=== PATIENT | male | born 1975 | race Two or more races ===

== ENCOUNTER 2021-04-02 00:02 | Inpatient (IN) | payer MEDICARE, MEDICAID, SELFPAY ==
[2021-04-02] VITALS (31 sets, daily range): BP systolic 79–99; BP diastolic 38–63; PULSE 59–168; RESP 11–31; TEMP 36.1; O2SAT 94–98; BMI 30.2
--- NOTE | 2021-04-02 | ECG_ITS ---
Test Reason : DISCHARGE EKG Blood Pressure : / mmHG Vent. Rate : 064 BPM Atrial Rate : 064 BPM P-R Int : 164 ms QRS Dur : 094 ms QT Int : 372 ms P-R-T Axes : 031 036 010 degrees QTc Int : 383 ms Normal sinus rhythm Normal ECG When compared with ECG of 02-APR-2021 00:11, Sinus rhythm has replaced Atrial fibrillation Vent. rate has decreased BY [address] elevation now present in Lateral leads T wave inversion less evident in Inferior leads Referred By: Alfredo Herring Electronically Signed By:RIP BARCENAS
--- NOTE | ~2021-04-02 | XR_ITS ---
EXAMINATION: XR CHEST CLINICAL INFORMATION: Chest pain COMPARISON: None TECHNIQUE: Frontal view of the chest was obtained. FINDINGS: Lung volumes are symmetric. No focal consolidation is seen. No evidence of pneumothorax, pleural effusion, or pulmonary edema. The cardiomediastinal contour is unremarkable. No acute osseous findings are seen. XR/XR chest 1V IMPRESSION: No acute cardiopulmonary findings.
--- NOTE | 2021-04-02 00:18 | ECG_ITS ---
Test Reason : CHEST PAIN Blood Pressure : / mmHG Vent. Rate : 158 BPM Atrial Rate : 326 BPM P-R Int : 000 ms QRS Dur : 092 ms QT Int : 286 ms P-R-T Axes : 000 056 -29 degrees QTc Int : 463 ms Atrial fibrillation with rapid ventricular response ST & T wave abnormality, consider inferior ischemia Abnormal ECG No previous ECGs available Referred By: Ulisses Vu Electronically Signed By:RIP BARCENAS
[2021-04-02] MEDS: dilTIAZem HCL 50 MG/10 ML VIAL 20 MG IVPUSH (00:24)
[2021-04-02 00:26] LABS: MANUAL DIFF FLAG NO
[2021-04-02 00:27] LABS: Basophils Absolute Auto 0.1 X10*3/uL (0.0-0.2); Basophils Percent Auto 0.7 % (0-2); Eosinophils Absolute Auto 0.2 X10*3/uL (0.0-0.4); Eosinophils Percent Auto 1.9 % (0-4); Hematocrit 39.9 % (42-52); Hemoglobin 13.8 g/dl (14.0-18.0); Imm Gran Abs Auto 0.06 X10*3/uL (0.00-0.03); Imm Gran Pct Auto 0.5 % (0.0-0.4); Lymphocytes Absolute Auto 3.3 X10*3/uL (1.2-4.9); Lymphocytes Percent Auto 27.8 % (20-40); Mean Corpuscular HGB Conc 34.6 g/dl (31.0-36.0); Mean Corpuscular Hemoglobin 28.5 pg (27.0-33.0); Mean Corpuscular Volume 82.3 fL (80-98); Mean Platelet Volume 10.2 fL (9.4-12.4); Monocytes Absolute Auto 0.9 X10*3/uL (0.1-1.2); Monocytes Percent Auto 7.3 % (2-11); Neutrophils Absolute Auto 7.3 X10*3/uL (2.0-8.3); Neutrophils Percent Auto 61.8 % (45-73); Platelet Count 326 X10*3/uL (160-400); Red Blood Count 4.85 X10*6/uL (4.60-5.80); Red Cell Distribution Width 13.2 % (11.0-16.0); White Blood Count 11.9 X10*3/uL (4.8-10.8)
[2021-04-02] MEDS: 0.9 % Sodium Chloride 1,000 ML 999 ML IV (00:28)
--- NOTE | 2021-04-02 00:30 | PC.NURSE ---
This RN to bedside, notes Priya, RN at bedside obtaining PIV access and labs. Pt noted to have HR in 180s, appears afib with RVR on monitor and storage bin tender. Pt aaox4, mentating appropriately. Dr Hammer to bedside, pt medicated with cardizem and IVF per orders with good effect. Pt HR now 110-120s. Pt reports wow that works fast, I don't feel like my heart is going to explode anymore. Pt denies CP. Pt labs sent to lab for processing.
--- NOTE | 2021-04-02 00:34 | PC.NURSE ---
Dr Hammer aware of pt's BP
[2021-04-02 00:41] LABS: Anion Gap 14 (12-20); Blood Urea Nitrogen 17 mg/dL (9-16); Carbon Dioxide 22 mmol/L (22-29); Chloride 104 mmol/L (96-108); Estimated Glomerular Filt Rate > 60; Glucose Random 142 mg/dL (60-115); Potassium 3.7 mmol/L (3.3-5.1); Sodium 136 mmol/L (135-145)
[2021-04-02 00:43] LABS: ~PT, ~INR - Anti Coag Clinic 1.1 (0.9-1.1)
[2021-04-02 00:46] LABS: COVID-19 Test Negative (Negative)
[2021-04-02 00:47] LABS: Troponin-I High Sensitivity < 3.5 ng/L (<3.5-35.0)
[2021-04-02] MEDS: Metoprolol Tartrate 5 MG/5 ML VIAL IVPUSH ×2 (00:55→04:53)
[2021-04-02] MEDS: 0.9 % Sodium Chloride 1,000 ML 999 ML IVCONT ×2 (00:56→01:40)
[2021-04-02] MEDS: Digoxin 0.5 MG/2 ML AMPUL IVPUSH (01:27)
--- NOTE | 2021-04-02 01:28 | ED.CHESTPAIN ---
HPI - Chest Pain General Chief Complaint: Chest Pain Stated Complaint: chest pain/vomiting (diabetic) Time Seen by Provider: 04/02/21 00:17 Source: patient Mode of arrival: ambulatory Limitations: no limitations History of Present Illness HPI narrative: Patient history of diabetes and MS just prior to arrival noticed palpitation with chest discomfort with lightheadedness which never happened before on arrival patient's heart rate was 168 atrial fibrillation. Patient does not have any coronary artery disease no use of cocaine no fever or chills no shortness of breath no cough Related Data Home Medications Medication Instructions Recorded Confirmed cholecalciferol (vitamin D3) 50 1 cap PO DAILY 04/02/21 04/02/21 mcg (2,000 unit) capsule clotrimazole 1 % topical cream 1 appl TOPICAL BID 04/02/21 04/02/21 dimethyl fumarate 240 mg 1 cap PO BID 04/02/21 04/02/21 capsule,delayed release (Tecfidera) insulin glargine 100 unit/mL (3 10 unit SUBCUT BEDTIME 04/02/21 04/02/21 mL) subcutaneous pen (Basaglar KwikPen U-100 Insulin) Allergies Allergy/AdvReac Type Severity Reaction Status Date / Time No Known Allergies Allergy Verified 04/02/21 00:22 Review of Systems Review of Systems: Constitutional : No Weight loss, No Fever, No Chills ENT/Mouth : No sore throat, No Rhinorrhea Eyes: No Eye Pain, No Swelling Cardiovascular : + Chest Pain, + palpitations Respiratory : No Cough, No Sputum, no shortness of breath Gastrointestinal : no Nausea, No Vomiting, No Diarrhea, No abdominal Pain, no black stools Genitourinary : No Dysuria, No Urinary Frequency Musculoskeletal : No joint pain, No Myalgias, No Joint Swelling Skin : No Skin Lesions, No rash Neuro : No Weakness, No Numbness, No Dizziness, No Headache Psych : No Anxiety/Panic, No Depression Heme/Lymph: No Bruising, No Lymphadenopathy Endocrine : No Polyuria, No Polydipsia All other systems reviewed and are negative [facility] Past Medical History Medical History (Updated 04/02/21 @ 01:36 by Ulisses Vu MD) Asthma Diabetes Multiple sclerosis Social History Social History Advance Directives: No Physical Exam Vital Signs: Vital Signs: Last Vital Signs Temp 97.0 F 04/02/21 00:19 Pulse 118 H 04/02/21 02:03 Resp 11 L 04/02/21 02:03 BP 94/50 L 04/02/21 02:03 Pulse Ox 97 04/02/21 02:03 Body Mass Index 30.2 Appearance: Alert. Oriented X3. No acute distress. Eyes: PERRLA, No Nystagmus no pallor or icterus ENT: Pharynx normal. Oral Mucosa moist Neck: Normal inspection. Neck supple. CVS: Tachycardia and irregularly irregular no murmur/gallop Pulses normal. Respiratory: No respiratory distress. Equal air entry bilateral, no wheezing/rales/rhonchi Abdomen: Soft and nontender. Bowel sounds are present, no mass palpable, no CVA tenderness Skin: Skin warm and dry. Normal skin color. Normal skin turgor. Extremities: No lower extremity edema. No calf tenderness Neuro: Oriented X 3. MDM - Chest Pain MDM Narrative Medical decision making narrative: Patient with new onset atrial fibrillation initially Cardizem was given blood pressure dropped to 79/45 IV fluids were given heart rate is still 120s. 5 mg Lopressor was also given which also dropped the blood pressure to 81/47 and heart rate is still fluctuating between 120-130. Will start patient on digoxin now. Patient denies any chest pain at this time. 2am; patient heart rate improved after digoxin to 90s blood pressure 90 6 x [address] Chung agreed for the plan continue digoxin. Will give Lovenox and aspirin Lab Data Attestation: I reviewed the patient's lab results. Result diagrams: 04/02/21 00:23 04/02/21 00:23 Labs: Lab Results 04/02/21 04/02/21 04/02/21 Range/Units 00:22 00:23 00:23 WBC 11.9 H (4.8-10.8) X10*3/uL RBC 4.85 (4.60-5.80) X10*6/uL Hgb 13.8 L (14.0-18.0) g/dl Hct 39.9 L (42-52) % MCV 82.3 (80-98) fL MCH 28.5 (27.0-33.0) pg MCHC 34.6 (31.0-36.0) g/dl RDW 13.2 (11.0-16.0) % Plt Count 326 (160-400) X10*3/uL MPV 10.2 (9.4-12.4) fL Immature Gran % (Auto) 0.5 H (0.0-0.4) % Neut % (Auto) 61.8 (45-73) % Lymph % (Auto) 27.8 (20-40) % [place] % (Auto) 7.3 (2-11) % Eos % (Auto) 1.9 (0-4) % Baso % (Auto) 0.7 (0-2) % Lymph # (Auto) 3.3 (1.2-4.9) X10*3/uL [place] # (Auto) 0.9 (0.1-1.2) X10*3/uL Eos # (Auto) 0.2 (0.0-0.4) X10*3/uL Baso # (Auto) 0.1 (0.0-0.2) X10*3/uL Abs Immat Gran (auto) 0.06 H (0.00-0.03) X10*3/uL Absolute Neuts (auto) 7.3 (2.0-8.3) X10*3/uL Absolute Nucleated RBC 0.000 (0.0-0.012) X10*3/uL Nucleated RBC % (auto) 0.0 (0.0-0.2) /100WBC Whole Blood PT (11.1-13.5) sec Whole Blood INR (0.9-1.1) Sodium 136 (135-145) mmol/L Potassium 3.7 (3.3-5.1) mmol/L Chloride 104 (96-108) mmol/L Carbon Dioxide 22 (22-29) mmol/L Anion Gap 14 (12-20) BUN 17 H (9-16) mg/dL Creatinine 1.18 (0.5-1.4) mg/dL Estim Creat Clear Calc 89.0 Estimated GFR > 60 Random Glucose 142 H (60-115) mg/dL Calcium 9.0 (8.4-10.2) mg/dL Troponin I High Sens (<3.5-35.0) ng/L Urine Color Urine Appearance Urine pH (5.0-8.0) Ur Specific [place] (1.005-1.025) Urine Protein (NEG-TRACE) MG/DL Urine Glucose (UA) (NEG) MG/DL Urine Ketones (NEG) MG/DL Urine Blood (NEG) Urine Nitrite (NEG) Ur Leukocyte Esterase (NEG) COVID-19 (THERESA) Negative (Negative) COVID-19 Clin Com See Note 04/02/21 04/02/21 04/02/21 Range/Units 00:23 00:39 01:36 WBC (4.8-10.8) X10*3/uL RBC (4.60-5.80) X10*6/uL Hgb (14.0-18.0) g/dl Hct (42-52) % MCV (80-98) fL MCH (27.0-33.0) pg MCHC (31.0-36.0) g/dl RDW (11.0-16.0) % Plt Count (160-400) X10*3/uL MPV (9.4-12.4) fL Immature Gran % (Auto) (0.0-0.4) % Neut % (Auto) (45-73) % Lymph % (Auto) (20-40) % [place] % (Auto) (2-11) % Eos % (Auto) (0-4) % Baso % (Auto) (0-2) % Lymph # (Auto) (1.2-4.9) X10*3/uL [place] # (Auto) (0.1-1.2) X10*3/uL Eos # (Auto) (0.0-0.4) X10*3/uL Baso # (Auto) (0.0-0.2) X10*3/uL Abs Immat Gran (auto) (0.00-0.03) X10*3/uL Absolute Neuts (auto) (2.0-8.3) X10*3/uL Absolute Nucleated RBC (0.0-0.012) X10*3/uL Nucleated RBC % (auto) (0.0-0.2) /100WBC Whole Blood PT 13.0 (11.1-13.5) sec Whole Blood INR 1.1 (0.9-1.1) Sodium (135-145) mmol/L Potassium (3.3-5.1) mmol/L Chloride (96-108) mmol/L Carbon Dioxide (22-29) mmol/L Anion Gap (12-20) BUN (9-16) mg/dL Creatinine (0.5-1.4) mg/dL Estim Creat Clear Calc Estimated GFR Random Glucose (60-115) mg/dL Calcium (8.4-10.2) mg/dL Troponin I High Sens < 3.5 (<3.5-35.0) ng/L Urine Color YELLOW Urine Appearance CLEAR Urine pH 6.0 (5.0-8.0) Ur Specific [place] 1.010 (1.005-1.025) Urine Protein NEG (NEG-TRACE) MG/DL Urine Glucose (UA) NEG (NEG) MG/DL Urine Ketones 15 (NEG) MG/DL Urine Blood NEG (NEG) Urine Nitrite NEG (NEG) Ur Leukocyte Esterase NEG (NEG) COVID-19 (THERESA) (Negative) COVID-19 Clin Com ECG Data ECG #1: Interpretation: Atrial fibrillation with heart rate 158 beats per minute no acute ischemic changes impression atrial fibrillation with fast ventricular rate Critical Care Time Critical Care Time Critical Care Time: Yes Total Critical Care Time: 40 Attestation: I spent 40 minutes of critical care, with interventions, assessments, speaking to patient, consultants, and family. Discharge Plan Discharge Clinical Impression: Atrial fibrillation, new onset Patient Disposition: Admitted As Inpatient
[2021-04-02 01:55] LABS: Appearance Urine CLEAR; Color Urine YELLOW; Glucose Urine UA NEG (NEG); Leukocyte Esterase Urine NEG (NEG); Nitrite Urine NEG (NEG); Urine Blood NEG (NEG); Urine Ketones 15 MG/DL (NEG); Urine Protein NEG (NEG-TRACE)
[2021-04-02] MEDS: Enoxaparin Sodium 100 MG/ML SYRINGE SUBCUT (02:01)
[2021-04-02] MEDS: Aspirin 81 MG TAB.CHEW PO (02:01)
[2021-04-02 02:06] LABS: Amphetamine Screen Urine Not Detected (Not Detect); Barbiturates, Urine Not Detected (Not Detect); Benzodiazepines Screen Urine Not Detected (Not Detect); Cannabinoid Screen Urine POSITIVE (Not Detect); Cocaine Screen Urine Not Detected (Not Detect); Fentanyl, urine Not Detected (Not Detect); Opiate Screen Urine Not Detected (Not Detect); Phencyclidine Screen Urine Not Detected (Not Detect)
[2021-04-02 02:07] LABS: Alanine Aminotransferase 32 U/L (0-40); Albumin Level 3.9 g/dL (3.5-5.0); Alkaline Phosphatase 100 U/L (39-117); Aspartate Amino Transferase 23 U/L (5-37); Bilirubin Direct < 0.2 mg/dL (0.0-0.5); Bilirubin Total < 0.2 mg/dL (0.0-1.0); Magnesium 2.3 mg/dL (1.6-2.6); Total Protein 6.8 g/dL (6.5-8.0)
--- NOTE | 2021-04-02 02:17 | P.HPHOSP_ITS ---
History of Present Illness Date of Service: 04/02/21 Chief Complaint: Chest discomfort 45-year-old male with a past medical history of MS presented to the hospital with a chief complaint of chest discomfort. Patient reported that this afternoon chest discomfort and funny sensation in his chest sepsis with the palpitations; denied any associated shortness of breath diaphoresis nausea. But just prior to coming to the hospital had an episode of vomiting. Denies any fever chills cough. Denies any recent travel sick contacts. Denies any alcohol use. Mentioned that he uses cannabis. Smokes 1 pack of cigarettes per day. Review of all other systems is negative except mentioned above ER course: Per ER team patient on presentation noted to be in new onset AFib with rapid ventricular response; received diltiazem IV push x2; subsequently patient had blood pressure dropped to 80s over 50s. Given 3 L of IV fluids. Blood pressure improved to 88/55. ER team spoke to Cardiology and subsequently started the patient on digoxin 0.5 IV and Lovenox at therapeutic dose. [facility] Medical History (Updated 04/02/21 @ 01:36 by Ulisses Vu MD) Asthma Diabetes Multiple sclerosis Pertinent family history: Patient denied any family history of heart disease Social History Advance Directives: No Meds Allergies Allergy/AdvReac Type Severity Reaction Status Date / Time No Known Allergies Allergy Verified 04/02/21 00:22 Active Medications: Current Medications Acetaminophen (Acetaminophen 325 Mg Tablet) 650 mg PO Q6H PRN PRN Reason: Pain, Mild (Pain Scale 1-3) Enoxaparin Sodium (Enoxaparin Sodium 60 Mg/0.6 Ml Syringe) 95 mg 1 mg/kg (95 mg) SUBCUT Q12H BECKY Sodium Chloride (Ns) 1,000 mls @ 999 mls/hr IVCONT .Q1H1M BECKY Stop: 04/02/21 02:45 Last Infusion: 04/02/21 01:57 Dose: Infused Documented by: Sodium Chloride (Ns) 1,000 mls @ 75 mls/hr IVCONT .[id number] BECKY Sodium Chloride (Ns) 1,000 mls @ 100 mls/hr IVCONT .Q10H BECKY Insulin Glargine (Insulin Glargine,Hum.Rec.Anlog 100 Unit/Ml 10 Ml Vial) 10 unit SUBCUT BEDTIME BECKY Melatonin (Melatonin 3 Mg Tablet) 6 mg PO BEDTIME PRN PRN Reason: Insomnia Metoprolol Tartrate (Metoprolol Tartrate 25 Mg Tablet) 25 mg PO BID [facility]; Protocol Non-Formulary Medication (Dimethyl Fumarate [Tecfidera]) 1 cap PO BID [facility] Senna (Sennosides 8.6 Mg Tablet) 17.2 mg PO BEDTIME PRN PRN Reason: Constipation Sodium Chloride (0.9 % Sodium Chloride Flush 3 Ml Syringe) 3 ml IVFLUSH QSHIFT [facility] Vitamin D (Cholecalciferol (Vitamin D3) 25 Mcg Tablet) 50 mcg PO DAILY [facility] Home Medications Medication Instructions Recorded Confirmed Last Taken Type cholecalciferol (vitamin D3) 50 1 cap PO DAILY 04/02/21 04/02/21 Unknown History mcg (2,000 unit) capsule clotrimazole 1 % topical cream 1 appl TOPICAL BID 04/02/21 04/02/21 04/01/21 History dimethyl fumarate 240 mg 1 cap PO BID 04/02/21 04/02/21 Unknown History capsule,delayed release (Tecfidera) insulin glargine 100 unit/mL (3 10 unit SUBCUT BEDTIME 04/02/21 04/02/21 Unknown History mL) subcutaneous pen (Basaglar KwikPen U-100 Insulin) Physical Exam Vital Signs and Narrative: Vital Signs: Last Vital Signs Temp 97.0 F 04/02/21 00:19 Pulse 105 H 04/02/21 02:14 Resp 11 L 04/02/21 02:14 BP 88/55 L 04/02/21 02:14 Pulse Ox 96 04/02/21 02:14 Body Mass Index 30.2 Gen: Appears be in no acute distress HEENT: NCAT, Moist mucosa. Pulmonary: Vesicular breath sounds, fair air entry CVS: Normal S1-S2 Abdomen: BS+, Soft, Nontender Extremities: Warm well perfused; peripheral pulses palpable; good capillary refill Neuro: Alert and awake. Grossly nonfocal Results Labs CBC and Chem 7: 04/02/21 03:48 04/02/21 03:47 Labs: Laboratory Results - last 24 hr 04/02/21 04/02/21 04/02/21 00:22 00:23 00:23 MCV 82.3 MCH 28.5 MCHC 34.6 RDW 13.2 Plt Count 326 MPV 10.2 Immature Gran % (Auto) 0.5 H Neut % (Auto) 61.8 Lymph % (Auto) 27.8 [place] % (Auto) 7.3 Eos % (Auto) 1.9 Baso % (Auto) 0.7 Lymph # (Auto) 3.3 [place] # (Auto) 0.9 Eos # (Auto) 0.2 Baso # (Auto) 0.1 Abs Immat Gran (auto) 0.06 H Absolute Neuts (auto) 7.3 Absolute Nucleated RBC 0.000 Nucleated RBC % (auto) 0.0 Whole Blood PT Whole Blood INR Anion Gap 14 Estim Creat Clear Calc 89.0 Estimated GFR > 60 Random Glucose 142 H Calcium 9.0 Magnesium 2.3 Total Bilirubin < 0.2 Direct Bilirubin < 0.2 AST 23 ALT 32 Alkaline Phosphatase 100 Troponin I High Sens Total Protein 6.8 Albumin 3.9 Urine Color Urine Appearance Urine pH Ur Specific [place] Urine Protein Urine Glucose (UA) Urine Ketones Urine Blood Urine Nitrite Ur Leukocyte Esterase Urine Opiates Screen Urine Fentanyl Screen Ur Barbiturates Screen Ur Phencyclidine Scrn Ur Amphetamines Screen U Benzodiazepines Scrn Urine Cocaine Screen U Marijuana (THC) Screen COVID-19 (THERESA) Negative COVID-19 Clin Com See Note 04/02/21 04/02/21 04/02/21 00:23 00:39 01:36 MCV MCH MCHC RDW Plt Count MPV Immature Gran % (Auto) Neut % (Auto) Lymph % (Auto) [place] % (Auto) Eos % (Auto) Baso % (Auto) Lymph # (Auto) [place] # (Auto) Eos # (Auto) Baso # (Auto) Abs Immat Gran (auto) Absolute Neuts (auto) Absolute Nucleated RBC Nucleated RBC % (auto) Whole Blood PT 13.0 Whole Blood INR 1.1 Anion Gap Estim Creat Clear Calc Estimated GFR Random Glucose Calcium Magnesium Total Bilirubin Direct Bilirubin AST ALT Alkaline Phosphatase Troponin I High Sens < 3.5 Total Protein Albumin Urine Color YELLOW Urine Appearance CLEAR Urine pH 6.0 Ur Specific [place] 1.010 Urine Protein NEG Urine Glucose (UA) NEG Urine Ketones 15 Urine Blood NEG Urine Nitrite NEG Ur Leukocyte Esterase NEG Urine Opiates Screen Urine Fentanyl Screen Ur Barbiturates Screen Ur Phencyclidine Scrn Ur Amphetamines Screen U Benzodiazepines Scrn Urine Cocaine Screen U Marijuana (THC) Screen COVID-19 (THERESA) COVID-19 Clin Com 04/02/21 01:36 MCV MCH MCHC RDW Plt Count MPV Immature Gran % (Auto) Neut % (Auto) Lymph % (Auto) [place] % (Auto) Eos % (Auto) Baso % (Auto) Lymph # (Auto) [place] # (Auto) Eos # (Auto) Baso # (Auto) Abs Immat Gran (auto) Absolute Neuts (auto) Absolute Nucleated RBC Nucleated RBC % (auto) Whole Blood PT Whole Blood INR Anion Gap Estim Creat Clear Calc Estimated GFR Random Glucose Calcium Magnesium Total Bilirubin Direct Bilirubin AST ALT Alkaline Phosphatase Troponin I High Sens Total Protein Albumin Urine Color Urine Appearance Urine pH Ur Specific [place] Urine Protein Urine Glucose (UA) Urine Ketones Urine Blood Urine Nitrite Ur Leukocyte Esterase Urine Opiates Screen Not Detected Urine Fentanyl Screen Not Detected Ur Barbiturates Screen Not Detected Ur Phencyclidine Scrn Not Detected Ur Amphetamines Screen Not Detected U Benzodiazepines Scrn Not Detected Urine Cocaine Screen Not Detected U Marijuana (THC) Screen POSITIVE H COVID-19 (THERESA) COVID-19 Clin Com Imaging Radiologist's Impressions: Impressions Chest X-Ray 04/02/21 00:18 IMPRESSION: No acute cardiopulmonary findings. Assessment and Plan (1) Atrial fibrillation, new onset: Status: Acute 45-year-old male with a past medical history of multiple sclerosis presented to the hospital with a chief complaint of chest discomfort/palpitations. Noted to have new onset AFib with rapid ventricular response. New onset AFib with rapid ventricular response: Patient received diltiazem IV. Blood pressure on the soft side. Patient is given digoxin IV loading. Cardiology was notified Given Lovenox at therapeutic dose in ER-will continue for now. Start the metoprolol 25 mg p.o. b.i.d. with holding parameters. Echocardiogram TSH troponin: <3.5--> 30; pt denies any chest pain. Likely demand; Hypotension: Patient blood pressure in the ER was noted to be in 80s/50s. Given 3 L of IV fluids. Blood pressure is slightly improved. Peripheral pulses palpable. Good capillary refill. Patient denied any lightheadedness or dizziness. Will continue to monitor. History of multiple sclerosis: Continue home Tecfidera DVT prophylaxis: Patient on Lovenox Code status: Full code Of note: Follow-up things for the day hospitalist once resumed care at 7:00 a.m. on 04/02/2021: Cardiology inputs Echocardiogram TSH Close monitoring of blood pressure Quality Stroke Does the patient have a stroke diagnosis?: No VTE Prior VTE?: No VTE Risk Level:: Medical - moderate - high VTE Device Contraindication: Treatment Not Indicated VTE Drug Contraindication: N/A - Med Ordered
[2021-04-02] MEDS: 0.9 % Sodium Chloride 1,000 ML 75 ML IVCONT (02:19)
--- NOTE | 2021-04-02 02:31 | PC.NURSE ---
Dr Saldana made aware of pt's HR and BP at this time. Per Les, pt to receive fluids at 75cc/h not 100cc/h. Pt medicated per orders
--- NOTE | 2021-04-02 02:42 | PC.NURSE ---
Dr Saldana made aware of BP 79/48 HR 128, awaiting reply
--- NOTE | 2021-04-02 03:41 | PC.NURSE ---
Pt's HR noted to be 135 with increases up to as high as 167. BP 99/[address] Saldana made aware. Plan for ativan and if no improvement, additional dose of IV metoprolol
[2021-04-02] MEDS: LORazepam 0.5 MG TABLET PO (03:54)
[2021-04-02 04:08] LABS: Basophils Absolute Auto 0.1 X10*3/uL (0.0-0.2); Basophils Percent Auto 0.5 % (0-2); Eosinophils Absolute Auto 0.1 X10*3/uL (0.0-0.4); Eosinophils Percent Auto 1.2 % (0-4); Hematocrit 36.7 % (42-52); Hemoglobin 12.3 g/dl (14.0-18.0); Imm Gran Abs Auto 0.05 X10*3/uL (0.00-0.03); Imm Gran Pct Auto 0.4 % (0.0-0.4); Lymphocytes Absolute Auto 1.8 X10*3/uL (1.2-4.9); MANUAL DIFF FLAG NO; Mean Corpuscular HGB Conc 33.5 g/dl (31.0-36.0); Mean Corpuscular Hemoglobin 28.2 pg (27.0-33.0); Mean Corpuscular Volume 84.2 fL (80-98); Mean Platelet Volume 10.4 fL (9.4-12.4); Monocytes Absolute Auto 0.6 X10*3/uL (0.1-1.2); Monocytes Percent Auto 5.7 % (2-11); Neutrophils Absolute Auto 8.6 X10*3/uL (2.0-8.3); Neutrophils Percent Auto 76.2 % (45-73); Platelet Count 308 X10*3/uL (160-400); Red Blood Count 4.36 X10*6/uL (4.60-5.80); Red Cell Distribution Width 13.2 % (11.0-16.0); White Blood Count 11.3 X10*3/uL (4.8-10.8)
[2021-04-02 04:30] LABS: Magnesium 2.2 mg/dL (1.6-2.6)
[2021-04-02 04:41] LABS: Anion Gap 12 (12-20); Blood Urea Nitrogen 14 mg/dL (9-16); Calcium 7.9 mg/dL (8.4-10.2); Carbon Dioxide 23 mmol/L (22-29); Chloride 110 mmol/L (96-108); Creatinine Clr Calc Pharmacy 107.1; Estimated Glomerular Filt Rate > 60; Glucose Random 128 mg/dL (60-115); Potassium 4.5 mmol/L (3.3-5.1); Sodium 140 mmol/L (135-145); Troponin-I High Sensitivity 30.9 ng/L (<3.5-35.0)
--- NOTE | 2021-04-02 04:41 | PC.NURSE ---
Dr Saldana made aware of pt's VS, plan for metoprolol IV
--- NOTE | 2021-04-02 04:54 | PC.NURSE ---
Dr Saldana made aware of delta trop
--- NOTE | 2021-04-02 05:49 | PC.NURSE ---
This RN recognized pt HR in 60s on monitor worker. Pt converted to NSR. RN to bedside, assessed BP. 89/[address] Saldana made aware.
--- NOTE | 2021-04-02 07:23 | PC.NURSE ---
pt is currently resting comfortably the stretcher, skin appropriate for ethnicity, respirations even and unlabored, denies chest pain/sob, ns on the monitor, bp improving 96/57. pt awaiting room assignments.
[2021-04-02] MEDS: 0.9 % Sodium Chloride Flush 3 ML SYRINGE IVFLUSH (08:02)
[2021-04-02] MEDS: Metoprolol Tartrate 25 MG TABLET PO (08:02)
[2021-04-02] MEDS: Cholecalciferol (Vitamin D3) 25 MCG TABLET 50 MCG PO (08:02)
--- NOTE | 2021-04-02 08:05 | PC.NURSE ---
metoprolol held at this time, low bp 92/54, fluids also d/c at this time per hospitalist
--- NOTE | 2021-04-02 09:11 | PM.CNCAR ---
History of Present Illness History of Present Illness Date of Service: 04/02/21 Requesting physician: Erick Saldana Consult reason: atrial fibrillation Chief complaint: New onset afib with RVR Narrative: I was asked to see Michael in cardiology consultation today for new onset atrial fibrillation. He si a pleasant 45-year-old man with prior medical history of multiple sclerosis, quite functional with it as well as recently diagnosed diabetes for about a week as per him. He was in usual state of health yesterday, went to walk his dog around 832 21:30. Came home and had a shower and then laid done in started feeling palpitations. He does the he might have had a heartburn. However he subsequently went down to have a cup of water the kitchen and subsequently continued to have symptoms of palpitation and then felt lightheaded. He then had his who noticed that he had a rapid heartbeat and advised him to come to the emergency room. Because he started getting more lightheaded he decided to come to the emergency room. When he came to the emergency room his initial blood pressure is a systolic upper 90s. He was noted to be in atrial fibrillation with rapid ventricular response. Subsequently was given IV Cardizem boluses x2 and had low blood pressure response with systolic blood pressure in the upper 70s. He had no lightheadedness or syncope with that. He remained in atrial fibrillation and after discussing cardiology was given digoxin. Around 05:00 this morning converted back to sinus rhythm. He feels very well at this point in time. His blood pressure remains in the 90s. At no point in time he had any chest pain or shortness of breath. He did not have any syncopal episodes. He has never had prior similar episodes. No recent systemic symptoms. Review of Systems Constitutional: Constitutional: Reports no additional constitutional complaints Eyes: Eyes: Reports no additional eye complaints ENT: Reports system reviewed and no additional complaints, except as documented Cardiovascular: Cardiovascular: Denies chest pain, Reports chest pain with activity, Denies syncope, Reports rapid heart rate, Denies leg edema, Reports lightheadedness, Reports palpitations and Denies dyspnea Respiratory: Respiratory: Reports no additional respiratory complaints and Denies dyspnea Gastrointestinal: Gastrointestinal: Reports no additional gastrointestinal complaints Genitourinary: Genitourinary: Reports no additional male genitourinary complaints Musculoskeletal: Musculoskeletal: Reports no additional musculoskeletal complaints Neurologic: Reports system reviewed and no additional complaints, except as documented and Denies syncope Psychiatric: Psychiatric: Reports no additional psychiatric complaints Endocrine: Endocrine: Reports palpitations Hematologic/Lymphatic: Hematologic/Lymphatic: Reports no additional hematologic/lymphatic complaints Allergic/Immunologic: Allergic/Immunologic: Reports no additional allergic/immunologic complaints [facility] Past Medical History Medical History Asthma Diabetes Multiple sclerosis Social History Social History Patient Tobacco Use Status: Current everyday Tobacco user Use of substances other than those prescribed or required for medical reasons: Yes Substance Use Type: Marijuana Substance Use Frequency: Daily Advance Directives: No Meds Allergies Allergy/AdvReac Type Severity Reaction Status Date / Time No Known Allergies Allergy Verified 04/02/21 00:22 Active Medications: Current Medications Acetaminophen (Acetaminophen 325 Mg Tablet) 650 mg PO Q6H PRN PRN Reason: Pain, Mild (Pain Scale 1-3) Enoxaparin Sodium (Enoxaparin Sodium 100 Mg/Ml Syringe) 95 mg SUBCUT Q12H [facility] Sodium Chloride (Ns) 1,000 mls @ 100 mls/hr IVCONT .Q10H [facility] Last Admin: 04/02/21 02:25 Dose: Not Given Documented by: Insulin Glargine (Insulin Glargine,Hum.Rec.Anlog 100 Unit/Ml 10 Ml Vial) 10 unit SUBCUT BEDTIME BECKY Melatonin (Melatonin 3 Mg Tablet) 6 mg PO BEDTIME PRN PRN Reason: Insomnia Metoprolol Tartrate (Metoprolol Tartrate 25 Mg Tablet) 25 mg PO BID [facility]; Protocol Last Admin: 04/02/21 08:02 Dose: 25 mg Documented by: Non-Formulary Medication (Dimethyl Fumarate [Tecfidera]) 1 cap PO BID [facility] Senna (Sennosides 8.6 Mg Tablet) 17.2 mg PO BEDTIME PRN PRN Reason: Constipation Sodium Chloride (0.9 % Sodium Chloride Flush 3 Ml Syringe) 3 ml IVFLUSH QSHIFT [facility] Last Admin: 04/02/21 08:02 Dose: 3 ml Documented by: Vitamin D (Cholecalciferol (Vitamin D3) 25 Mcg Tablet) 50 mcg PO DAILY [facility] Last Admin: 04/02/21 08:02 Dose: 50 mcg Documented by: Home Medications Medication Instructions Recorded Confirmed Last Taken Type cholecalciferol (vitamin D3) 50 1 cap PO DAILY 04/02/21 04/02/21 Unknown History mcg (2,000 unit) capsule clotrimazole 1 % topical cream 1 appl TOPICAL BID 04/02/21 04/02/21 04/01/21 History dimethyl fumarate 240 mg 1 cap PO BID 04/02/21 04/02/21 Unknown History capsule,delayed release (Tecfidera) insulin glargine 100 unit/mL (3 10 unit SUBCUT BEDTIME 04/02/21 04/02/21 Unknown History mL) subcutaneous pen (Basaglar KwikPen U-100 Insulin) Physical Exam Vital Signs: Vital Signs: Last Vital Signs Temp 97.0 F 04/02/21 00:19 Pulse 59 04/02/21 08:05 Resp 16 04/02/21 07:21 BP 92/54 L 04/02/21 08:05 Pulse Ox 95 04/02/21 08:05 Body Mass Index 30.2 Const: General: cooperative, comfortable, no acute distress, alert and awake Nutritional Appearance: overweight Orientation/consciousness: patient oriented x3 Limitations: no limitations HENMT: Head: Yes normocephalic and Yes atraumatic Neck: Neck: Yes trachea midline, Yes supple and Yes no JVD Resp: Effort & Inspection: normal respiratory effort Auscultation: clear to auscultation bilaterally Cardio: Jugular venous distension: no JVD Palpation: normal PMI Rate: regular rate Rhythm: regular rhythm Heart sounds: S1 normal heart sound present, S2 normal heart sound present, no click, no gallops, no murmurs and no rubs GI: Auscultation: normal bowel sounds Skin: General skin exam: no rashes or lesions noted Neuro: General: patient oriented x3 and no focal motor deficits Extrem: General: Yes no clubbing, cyanosis or edema Psych: Appearance: grossly normal Results Labs and Meds Result diagrams: 04/02/21 03:48 04/02/21 03:47 Lab results: Laboratory Results - last 24 hr 04/02/21 04/02/21 04/02/21 00:22 00:23 00:23 WBC 11.9 H RBC 4.85 Hgb 13.8 L Hct 39.9 L MCV 82.3 MCH 28.5 MCHC 34.6 RDW 13.2 Plt Count 326 MPV 10.2 Immature Gran % (Auto) 0.5 H Neut % (Auto) 61.8 Lymph % (Auto) 27.8 [place] % (Auto) 7.3 Eos % (Auto) 1.9 Baso % (Auto) 0.7 Lymph # (Auto) 3.3 [place] # (Auto) 0.9 Eos # (Auto) 0.2 Baso # (Auto) 0.1 Abs Immat Gran (auto) 0.06 H Absolute Neuts (auto) 7.3 Absolute Nucleated RBC 0.000 Nucleated RBC % (auto) 0.0 Whole Blood PT Whole Blood INR Sodium 136 Potassium 3.7 Chloride 104 Carbon Dioxide 22 Anion Gap 14 BUN 17 H Creatinine 1.18 Estim Creat Clear Calc 89.0 Estimated GFR > 60 Random Glucose 142 H Calcium 9.0 Magnesium 2.3 Total Bilirubin < 0.2 Direct Bilirubin < 0.2 AST 23 ALT 32 Alkaline Phosphatase 100 Troponin I High Sens Total Protein 6.8 Albumin 3.9 TSH 1.80 Urine Color Urine Appearance Urine pH Ur Specific [place] Urine Protein Urine Glucose (UA) Urine Ketones Urine Blood Urine Nitrite Ur Leukocyte Esterase Urine Opiates Screen Urine Fentanyl Screen Ur Barbiturates Screen Ur Phencyclidine Scrn Ur Amphetamines Screen U Benzodiazepines Scrn Urine Cocaine Screen U Marijuana (THC) Screen COVID-19 ([facility]) Negative COVID-19 Clin Com See Note 04/02/21 04/02/21 04/02/21 00:23 00:39 01:36 WBC RBC Hgb Hct MCV MCH MCHC RDW Plt Count MPV Immature Gran % (Auto) Neut % (Auto) Lymph % (Auto) [place] % (Auto) Eos % (Auto) Baso % (Auto) Lymph # (Auto) [place] # (Auto) Eos # (Auto) Baso # (Auto) Abs Immat Gran (auto) Absolute Neuts (auto) Absolute Nucleated RBC Nucleated RBC % (auto) Whole Blood PT 13.0 Whole Blood INR 1.1 Sodium Potassium Chloride Carbon Dioxide Anion Gap BUN Creatinine Estim Creat Clear Calc Estimated GFR Random Glucose Calcium Magnesium Total Bilirubin Direct Bilirubin AST ALT Alkaline Phosphatase Troponin I High Sens < 3.5 Total Protein Albumin TSH Urine Color YELLOW Urine Appearance CLEAR Urine pH 6.0 Ur Specific [place] 1.010 Urine Protein NEG Urine Glucose (UA) NEG Urine Ketones 15 Urine Blood NEG Urine Nitrite NEG Ur Leukocyte Esterase NEG Urine Opiates Screen Urine Fentanyl Screen Ur Barbiturates Screen Ur Phencyclidine Scrn Ur Amphetamines Screen U Benzodiazepines Scrn Urine Cocaine Screen U Marijuana (THC) Screen COVID-19 ([facility]) COVID-19 Clin Com 04/02/21 04/02/21 04/02/21 01:36 03:47 03:47 WBC RBC Hgb Hct MCV MCH MCHC RDW Plt Count MPV Immature Gran % (Auto) Neut % (Auto) Lymph % (Auto) [place] % (Auto) Eos % (Auto) Baso % (Auto) Lymph # (Auto) [place] # (Auto) Eos # (Auto) Baso # (Auto) Abs Immat Gran (auto) Absolute Neuts (auto) Absolute Nucleated RBC Nucleated RBC % (auto) Whole Blood PT Whole Blood INR Sodium 140 Potassium 4.5 D Chloride 110 H Carbon Dioxide 23 Anion Gap 12 BUN 14 Creatinine 0.98 Estim Creat Clear Calc 107.1 Estimated GFR > 60 Random Glucose 128 H Calcium 7.9 L D Magnesium 2.2 Total Bilirubin Direct Bilirubin AST ALT Alkaline Phosphatase Troponin I High Sens Total Protein Albumin TSH Urine Color Urine Appearance Urine pH Ur Specific [place] Urine Protein Urine Glucose (UA) Urine Ketones Urine Blood Urine Nitrite Ur Leukocyte Esterase Urine Opiates Screen Not Detected Urine Fentanyl Screen Not Detected Ur Barbiturates Screen Not Detected Ur Phencyclidine Scrn Not Detected Ur Amphetamines Screen Not Detected U Benzodiazepines Scrn Not Detected Urine Cocaine Screen Not Detected U Marijuana (THC) Screen POSITIVE H COVID-19 ([facility]) COVID-19 Clin Com 04/02/21 04/02/21 03:47 03:48 WBC 11.3 H RBC 4.36 L Hgb 12.3 L Hct 36.7 L MCV 84.2 MCH 28.2 MCHC 33.5 RDW 13.2 Plt Count 308 MPV 10.4 Immature Gran % (Auto) 0.4 Neut % (Auto) 76.2 H Lymph % (Auto) 16.0 L [place] % (Auto) 5.7 Eos % (Auto) 1.2 Baso % (Auto) 0.5 Lymph # (Auto) 1.8 [place] # (Auto) 0.6 Eos # (Auto) 0.1 Baso # (Auto) 0.1 Abs Immat Gran (auto) 0.05 H Absolute Neuts (auto) 8.6 H Absolute Nucleated RBC 0.000 Nucleated RBC % (auto) 0.0 Whole Blood PT Whole Blood INR Sodium Potassium Chloride Carbon Dioxide Anion Gap BUN Creatinine Estim Creat Clear Calc Estimated GFR Random Glucose Calcium Magnesium Total Bilirubin Direct Bilirubin AST ALT Alkaline Phosphatase Troponin I High Sens 30.9 D Total Protein Albumin TSH Urine Color Urine Appearance Urine pH Ur Specific [place] Urine Protein Urine Glucose (UA) Urine Ketones Urine Blood Urine Nitrite Ur Leukocyte Esterase Urine Opiates Screen Urine Fentanyl Screen Ur Barbiturates Screen Ur Phencyclidine Scrn Ur Amphetamines Screen U Benzodiazepines Scrn Urine Cocaine Screen U Marijuana (THC) Screen COVID-19 ([facility]) COVID-19 Clin Com ECG Attestation: I personally reviewed and interpreted this ECG as follows: Interpretation: EKG shows atrial fibrillation with rapid ventricular response with nonspecific ST changes. Imaging Radiologist's impression: Impressions Chest X-Ray 04/02/21 00:18 IMPRESSION: No acute cardiopulmonary findings. Assessment and Plan (1) Atrial fibrillation, new onset: Status: Acute Symptomatic new onset atrial fibrillation, developed low blood pressure with IV Cardizem most likely intravascular volume depletion. Currently converted back to sinus rhythm with improved symptoms. Blood pressures are 90s and appears to be in that range. His troponin is elevated, most likely rate-related as well as related to low blood pressure. He is not have any other active myocardial ischemic symptoms. Will repeat EKG and as long as and no significant ST changes I think his workup can be pursued as an outpatient. He will require workup with an echocardiogram, Holter monitor and a stress test to evaluate for structural heart disease. We had a long discussion about pathophysiology of atrial fibrillation and management. At this point time as long as patient remains asymptomatic and is not dizzy can be discharged home with low-dose Toprol XL 25 mg daily as well as oral anticoagulation with Xarelto 20 mg daily given his CHADSVASc score of 1 with diabetes as risk factors. Further treatment can be carried on others as outpatient. Advise increase fluid intake. Will follow up as outpatient. Thank you for allowing me to partake in his care Procedures Date of Service Date of Service: 04/02/21
--- NOTE | 2021-04-02 09:15 | PC.NURSE ---
opening machine cleaner at bedside
[2021-04-02 09:39] LABS: Troponin-I High Sensitivity 43.4 ng/L (<3.5-35.0)
--- NOTE | 2021-04-02 09:47 | MHC.CM.PN ---
Met with patient in regards to discharge planning. Patient lives with his , ambulates independently and had no services prior to coming to the hospital. No services anticipated to be needed because patient is not homebound. PCP verified. Patient denies having a HCP. Information provided. Patient not interested in completing one at this time. IMM explained and signed. Patient received his 2nd Pfizer vaccine in December. Patient's will transport him home when medically stable. Patient reports to LIZ Ribeiro that he has been unsuccessful in contacting his PCP's office about glucose issues. T/W has asked the residential case manager to arrange a follow up appointment for patient. Gema aware. Continue to monitor for d/c needs.
--- NOTE | 2021-04-02 10:40 | P.DS_ITS ---
DS: Providers Provider Date of Service: 04/02/21 Date of admission: 04/02/21 02:10 Primary care physician: [facility] Consults: 04/02/21 02:10 Consult to Cardiology Routine Consulting Provider: Flaco Chung Reason for consultation: new afib with rvr; chest discomfort; Attending physician on discharge: Wild Martinez Discharging clinician: Gema Pimentel DS: Diagnosis Discharge Diagnosis (1) Atrial fibrillation, new onset: Status: Acute DS: Summary Hospital Course Hospital Course: Hp as per admitting provider 45-year-old male with a past medical history of MS presented to the hospital with a chief complaint of chest discomfort. Patient reported that this afternoon chest discomfort and funny sensation in his chest sepsis with the palpitations; denied any associated shortness of breath diaphoresis nausea.? But just prior to coming to the hospital had an episode of vomiting. Denies any fever chills cough.? Denies any recent travel sick contacts. Denies any alcohol use. Mentioned that he uses cannabis. Smokes 1 pack of cigarettes per day . Atrial fibrillation with rapid ventricular response. New onset. He had no symptoms of chest pain, shortness of breath. EKG showed no ischemic changes. Mildly elevated troponin was secondary to hypotension. Received IV diltiazem in the ER along with IV fluids, metoprolol, digoxin, aspirin. Was placed on Lovenox. TSH 1.80, magnesium 2.2. He was seen and evaluated by cardiology with recommendation to start metoprolol 25 mg b.i.d. and Eliquis 5 mg b.i.d.. He did convert to normal sinus rhythm while in the ER and feels well. His blood pressure was on the low side but he stated his blood pressures generally run low and he is not on any antihypertensives. He was also given IV Cardizem in the ER which also contributed as well as volume depletion. He will follow up with Cardiology as an outpatient For further outpatient workup. Time Spent with Patient Time attestation: Total time spent providing and/or coordinating discharge services: Discharge coordination time: Greater than 30 minutes Quality: Stroke Does the patient have a stroke diagnosis?: No Physical Exam Vital Signs: Vital Signs: Last Vital Signs Temp 97.0 F 04/02/21 00:19 Pulse 59 04/02/21 08:05 Resp 16 04/02/21 07:21 BP 92/54 L 09/20/21 08:05 Pulse Ox 95 04/02/21 08:05 Body Mass Index 30.2 Appearing in no acute distress head is normocephalic atraumatic eyes pupils are PERRLA sclera is anicteric mouth throat mucous membranes are intact and moist neck is supple no lymphadenopathy, no JVD noted lung sounds are clear to auscultation heart regular rate rhythm, clear S1, S2 positive bowel sounds, abdomen is soft, nontender neuro patient is alert x3, no focal deficits DS: Data Data Completed and Pending Labs on day of discharge: Laboratory Results - last 24 hr 04/02/21 04/02/21 04/02/21 00:22 00:23 00:23 WBC 11.9 H RBC 4.85 Hgb 13.8 L Hct 39.9 L MCV 82.3 MCH 28.5 MCHC 34.6 RDW 13.2 Plt Count 326 MPV 10.2 Immature Gran % (Auto) 0.5 H Neut % (Auto) 61.8 Lymph % (Auto) 27.8 [place] % (Auto) 7.3 Eos % (Auto) 1.9 Baso % (Auto) 0.7 Lymph # (Auto) 3.3 [place] # (Auto) 0.9 Eos # (Auto) 0.2 Baso # (Auto) 0.1 Abs Immat Gran (auto) 0.06 H Absolute Neuts (auto) 7.3 Absolute Nucleated RBC 0.000 Nucleated RBC % (auto) 0.0 Whole Blood PT Whole Blood INR Sodium 136 Potassium 3.7 Chloride 104 Carbon Dioxide 22 Anion Gap 14 BUN 17 H Creatinine 1.18 Estim Creat Clear Calc 89.0 Estimated GFR > 60 Random Glucose 142 H Calcium 9.0 Magnesium 2.3 Total Bilirubin < 0.2 Direct Bilirubin < 0.2 AST 23 ALT 32 Alkaline Phosphatase 100 Troponin I High Sens Total Protein 6.8 Albumin 3.9 TSH 1.80 Urine Color Urine Appearance Urine pH Ur Specific [place] Urine Protein Urine Glucose (UA) Urine Ketones Urine Blood Urine Nitrite Ur Leukocyte Esterase Urine Opiates Screen Urine Fentanyl Screen Ur Barbiturates Screen Ur Phencyclidine Scrn Ur Amphetamines Screen U Benzodiazepines Scrn Urine Cocaine Screen U Marijuana (THC) Screen COVID-19 ([facility]) Negative COVID-19 Clin Com See Note 04/02/21 04/02/21 04/02/21 00:23 00:39 01:36 WBC RBC Hgb Hct MCV MCH MCHC RDW Plt Count MPV Immature Gran % (Auto) Neut % (Auto) Lymph % (Auto) [place] % (Auto) Eos % (Auto) Baso % (Auto) Lymph # (Auto) [place] # (Auto) Eos # (Auto) Baso # (Auto) Abs Immat Gran (auto) Absolute Neuts (auto) Absolute Nucleated RBC Nucleated RBC % (auto) Whole Blood PT 13.0 Whole Blood INR 1.1 Sodium Potassium Chloride Carbon Dioxide Anion Gap BUN Creatinine Estim Creat Clear Calc Estimated GFR Random Glucose Calcium Magnesium Total Bilirubin Direct Bilirubin AST ALT Alkaline Phosphatase Troponin I High Sens < 3.5 Total Protein Albumin TSH Urine Color YELLOW Urine Appearance CLEAR Urine pH 6.0 Ur Specific [place] 1.010 Urine Protein NEG Urine Glucose (UA) NEG Urine Ketones 15 Urine Blood NEG Urine Nitrite NEG Ur Leukocyte Esterase NEG Urine Opiates Screen Urine Fentanyl Screen Ur Barbiturates Screen Ur Phencyclidine Scrn Ur Amphetamines Screen U Benzodiazepines Scrn Urine Cocaine Screen U Marijuana (THC) Screen COVID-19 ([facility]) COVID-19 Clin Com 04/02/21 04/02/21 04/02/21 01:36 03:47 03:47 WBC RBC Hgb Hct MCV MCH MCHC RDW Plt Count MPV Immature Gran % (Auto) Neut % (Auto) Lymph % (Auto) [place] % (Auto) Eos % (Auto) Baso % (Auto) Lymph # (Auto) [place] # (Auto) Eos # (Auto) Baso # (Auto) Abs Immat Gran (auto) Absolute Neuts (auto) Absolute Nucleated RBC Nucleated RBC % (auto) Whole Blood PT Whole Blood INR Sodium 140 Potassium 4.5 D Chloride 110 H Carbon Dioxide 23 Anion Gap 12 BUN 14 Creatinine 0.98 Estim Creat Clear Calc 107.1 Estimated GFR > 60 Random Glucose 128 H Calcium 7.9 L D Magnesium 2.2 Total Bilirubin Direct Bilirubin AST ALT Alkaline Phosphatase Troponin I High Sens Total Protein Albumin TSH Urine Color Urine Appearance Urine pH Ur Specific [place] Urine Protein Urine Glucose (UA) Urine Ketones Urine Blood Urine Nitrite Ur Leukocyte Esterase Urine Opiates Screen Not Detected Urine Fentanyl Screen Not Detected Ur Barbiturates Screen Not Detected Ur Phencyclidine Scrn Not Detected Ur Amphetamines Screen Not Detected U Benzodiazepines Scrn Not Detected Urine Cocaine Screen Not Detected U Marijuana (THC) Screen POSITIVE H COVID-19 ([facility]) COVID-19 Clin Com 04/02/21 04/02/21 04/02/21 03:47 03:48 09:01 WBC 11.3 H RBC 4.36 L Hgb 12.3 L Hct 36.7 L MCV 84.2 MCH 28.2 MCHC 33.5 RDW 13.2 Plt Count 308 MPV 10.4 Immature Gran % (Auto) 0.4 Neut % (Auto) 76.2 H Lymph % (Auto) 16.0 L [place] % (Auto) 5.7 Eos % (Auto) 1.2 Baso % (Auto) 0.5 Lymph # (Auto) 1.8 [place] # (Auto) 0.6 Eos # (Auto) 0.1 Baso # (Auto) 0.1 Abs Immat Gran (auto) 0.05 H Absolute Neuts (auto) 8.6 H Absolute Nucleated RBC 0.000 Nucleated RBC % (auto) 0.0 Whole Blood PT Whole Blood INR Sodium Potassium Chloride Carbon Dioxide Anion Gap BUN Creatinine Estim Creat Clear Calc Estimated GFR Random Glucose Calcium Magnesium Total Bilirubin Direct Bilirubin AST ALT Alkaline Phosphatase Troponin I High Sens 30.9 D 43.4 H* Total Protein Albumin TSH Urine Color Urine Appearance Urine pH Ur Specific [place] Urine Protein Urine Glucose (UA) Urine Ketones Urine Blood Urine Nitrite Ur Leukocyte Esterase Urine Opiates Screen Urine Fentanyl Screen Ur Barbiturates Screen Ur Phencyclidine Scrn Ur Amphetamines Screen U Benzodiazepines Scrn Urine Cocaine Screen U Marijuana (THC) Screen COVID-19 ([facility]) COVID-19 Clin Com Discharge Plan Discharge Anticipated Discharge Date/Time: 04/02/21 10:31 Patient Disposition: Home, Self-Care Discharge Diagnosis: atrial fibrillation with rapid ventricular response Referrals: [facility] [Primary Care Provider] - 04/09/21 1:30 pm (You have a primary care follow up appointment scheduled on April 09 at 1:30 pm. Please call your doctor's office if you need to reschedule.) Discharge Medications: New metoprolol tartrate 25 mg Tablet 25 mg PO BID Qty: 60 RF: 0 Eliquis 5 mg tablet 5 mg PO BID Qty: 60 RF: 0 Continued clotrimazole 1 % cream 1 appl topical BID RF: 0 Basaglar KwikPen U-100 Insulin 100 unit/mL (3 mL) insulin pen 10 unit subcut BEDTIME RF: 0 dimethyl fumarate [Tecfidera] 240 mg capsule,delayed release(DR/EC) 1 cap PO BID RF: 0 cholecalciferol (vitamin D3) 50 mcg (2,000 unit) capsule 1 cap PO DAILY RF: 0 Discharge Orders: Discharge Order (Routine); Ordered 04/02/21 Ordered By: Gema Pimentel Diet: advance to usual diet Activity on Discharge: As tolerated Stand Alone Forms: Patient Portal Discharge page, Work/School Release Care Plan Goals: no further episodes of atrial fibrillation with rapid ventricular response Health Concerns: atrial fibrillation with rapid ventricular response Plan of Treatment: Follow-up with [facility] management Follow-up with your primary care provider You have been started on 2 new medications please take them as prescribed Assessment: see discharge summary
== END 2021-04-02 11:35 | disposition home or self-care (01) | DRG 310 ==
LOC: HO.ED 01:47 → HO.EDOVER 02:30
PROVIDERS: Admitting Provider Hospitalist; Emergency Provider Internal Medicine; Visit Provider Nurse Practitioner Acute Care
DX: I48.91 Unspecified atrial fibrillation (principal); G35 Multiple sclerosis; F17.210 Nicotine dependence, cigarettes, uncomplicated; I95.9 Hypotension, unspecified; Z20.822 Contact with and (suspected) exposure to COVID-19; Z71.6 Tobacco abuse counseling; Z79.01 Long term (current) use of anticoagulants; Z79.899 Other long term (current) drug therapy
CPT/HCPCS: 36415; 71045; 80048; 80076; 80307; 81003; 83735; 84443; 84484; 85025; 85610; 87635; 93005; 99285; J1160; J1650

== ENCOUNTER → 2021-04-13 09:31 | Outpatient (REF) | payer MEDICARE, MEDICAID, SELFPAY ==
--- NOTE | 2021-04-13 09:35 | HM_ITS ---
Conclusion: Patient was monitored for total period of 2 days and 22 hours. Basic rhythm is normal sinus rhythm with average heart of 85 beats per minute. Minimal heart rate 54 beats per minute No significant pauses or bradycardia noted The total atrial fibrillation burden of 5.19% with longest episode of 3 hours and 40 minutes. Patient noted to have atrial fibrillation rapid ventricular response during this time. No 20 episodes of 3-4 beat salvos of nonsustained VT, fastest to 104 beats per minute There were total of 561 PVCs accounting for 0.15% of total burden, consistent with rare PVCs There were total of 867 PACs occurred with total burden of 0.24% consistent with rare PACs No patient reported symptoms MTDD
== END ==
LOC: HO.CARD 09:31
PROVIDERS: Visit Provider Internal Medicine Cardiovascular Disease
DX: I48.91 Unspecified atrial fibrillation (principal)
CPT/HCPCS: 93242

== ENCOUNTER 2021-04-14 20:40 | Inpatient (IN) | payer MEDICARE, MEDICAID, SELFPAY ==
[2021-04-14] VITALS (8 sets, daily range): BP systolic 73–138; BP diastolic 46–98; PULSE 92–186; RESP 12–18; TEMP 36.6; O2SAT 95–97; BMI 27.8
--- NOTE | 2021-04-14 | ECG_ITS ---
Test Reason : CHEST PAIN Blood Pressure : / mmHG Vent. Rate : 084 BPM Atrial Rate : 084 BPM P-R Int : 166 ms QRS Dur : 086 ms QT Int : 346 ms P-R-T Axes : 066 048 023 degrees QTc Int : 408 ms Normal sinus rhythm Possible Left atrial enlargement Borderline ECG When compared with ECG of 14-APR-2021 20:46, Sinus rhythm has replaced Atrial fibrillation Vent. rate has decreased BY 76 BPM Non-specific change in ST segment in Inferior leads ST elevation has replaced ST depression in Lateral leads Referred By: Chelsea Malin Electronically Signed By:RIP BARCENAS
--- NOTE | 2021-04-14 | ECG_ITS ---
Test Reason : RAPID HEART RATE Blood Pressure : / mmHG Vent. Rate : 160 BPM Atrial Rate : 174 BPM P-R Int : 000 ms QRS Dur : 084 ms QT Int : 278 ms P-R-T Axes : 000 059 -26 degrees QTc Int : 453 ms Atrial fibrillation with rapid ventricular response ST & T wave abnormality, consider inferior ischemia Abnormal ECG When compared with ECG of 02-APR-2021 10:05, Atrial fibrillation has replaced Sinus rhythm Vent. rate has increased BY 96 BPM Non-specific change in ST segment in Inferior leads ST now depressed in Lateral leads T wave amplitude has increased in Anterior leads Referred By: Chelsea Malin Electronically Signed By:RIP BARCENAS
--- NOTE | ~2021-04-14 | XR_ITS ---
EXAMINATION: XR CHEST CLINICAL INFORMATION: Shortness of breath. COMPARISON: Chest radiograph dated from 04/02/2021. TECHNIQUE: AP view of the chest was obtained. FINDINGS: Indeterminate device overlying the left chest. Normal appearance of the cardiomediastinal silhouette. No focal airspace opacity, pleural effusions or pneumothorax. No acute osseous findings. XR/XR chest 1V IMPRESSION: No acute cardiopulmonary findings.
[2021-04-14 21:03] LABS: Glucose, Whole Blood 94 mg/dL (60-115)
[2021-04-14] MEDS: Metoprolol Tartrate 5 MG/5 ML VIAL IVPUSH ×2 (21:07→21:18)
--- NOTE | 2021-04-14 21:25 | ED.ARRPALP ---
HPI - Arrhythmia/Palpitations General Chief Complaint: Arrhythmia/Palpitations Stated Complaint: palpitations, LBS Time Seen by Provider: 04/14/21 21:03 History of Present Illness HPI narrative: Patient is a 45-year-old male with a history of atrial fibrillation currently on Eliquis. Was in the hospital approximately 1 week ago for atrial fibrillation. At the time was evaluated by Cardiology. Started on digoxin. Patient claims he is no longer taking that. Still taking the metoprolol. Patient has been compliant with medication. Noticed tonight patient's heart rate has gone up. Came in for further evaluation. No fever no chills no cough no congestion or respiratory symptoms. No chest pain or cocaine abuse. No change in weight. Patient's TSH was checked only 1-2 weeks ago was normal then. Patient denies any diaphoresis. Patient is from home. Positive generalized malaise positive history of diabetes. Positive history of MS. There has been no change in MS medication Related Data Home Medications Medication Instructions Recorded Confirmed cholecalciferol (vitamin D3) 50 1 cap PO DAILY 04/02/21 04/14/21 mcg (2,000 unit) capsule clotrimazole 1 % topical cream 1 appl TOPICAL BID 04/02/21 04/14/21 dimethyl fumarate 240 mg 1 cap PO BID 04/02/21 04/14/21 capsule,delayed release (Tecfidera) insulin glargine 100 unit/mL (3 10 unit SUBCUT BEDTIME 04/02/21 04/14/21 mL) subcutaneous pen (Basaglar KwikPen U-100 Insulin) metformin 500 mg tablet 2 tab PO BID 04/14/21 04/14/21 Previous Rx's Medication Instructions Recorded apixaban 5 mg tablet (Eliquis) 5 mg PO BID #60 tab 04/02/21 metoprolol tartrate 25 mg tablet 25 mg PO BID #60 tab 04/02/21 Allergies Allergy/AdvReac Type Severity Reaction Status Date / Time No Known Allergies Allergy Verified 04/02/21 00:22 Review of Systems Review of Systems: No fever no chills No vomiting no coughing or congestion or upper respiratory symptoms All systems reviewed otherwise negative [facility]LY [facility] Past Medical History Medical History Asthma Diabetes Multiple sclerosis Social History Social History Alcohol intake: never Patient Tobacco Use Status: Current everyday Tobacco user Use of substances other than those prescribed or required for medical reasons: Yes Substance Use Type: Marijuana Advance Directives: No Advance Directives Information Provided: No service: No Current occupational status: disabled Physical Exam Vital Signs: Vital Signs: Last Vital Signs Temp 97.8 F 04/14/21 21:44 Pulse 92 04/14/21 23:43 Resp 15 04/14/21 23:43 BP 92/46 L 04/14/21 23:43 Pulse Ox 97 04/14/21 23:43 Body Mass Index 27.8 Appearance: Alert. Oriented X3. No acute distress. Eyes: Pupils equal, round and reactive to light. ENT: Pharynx normal. Neck: Normal inspection. Neck supple. No lymph nodes noted. No crepitus CVS: Tachycardic and. Normal S1 and S2 Respiratory: No respiratory distress. Breath sounds normal. No Wheezing. No rales Abdomen: Soft and nontender. No rigidity. No distention. good BS x4 Skin: Skin warm and dry. Normal skin color. Normal skin turgor. Extremities: No lower extremity edema. Neurovascular intact to all extremities. No Lacerations. No Rash Neuro: Oriented X 3. No motor deficit. No sensory deficit. Moving all extermities. No slurred speech MDM - Arrhythmia/Palpitations MDM Narrative Medical decision making narrative: Initial EKG showed an atrial fibrillation pattern heart rate was approximately 160. There is no acute ST segment elevations. Patient was given Lopressor x2 doses monitor very carefully as patient previously and had low blood pressure with Cardizem. She does not have a record of her ejection fraction from an echo. Unfortunately even with the Lopressor patient dropped his blood pressure to approximately 80/40. 2 L of IV fluid was given. Monitor closely. Started on the age. Blood pressure gradually recover was 90/50. When at approximately midnight patient converted back into a sinus pattern. Patient's case was discussed with Cardiology. Agree with plan of close monitoring given the episode of hypotension. Currently patient is in stable conditions symptom free. Will still continue to hydrate. Cardiology will consult in a.m. Repeat EKG after patient converted shows a sinus rhythm heart rate was 85 CT QRS QT within normal limits is no acute ST segment elevation noted. Differential Diagnosis Differential diagnosis: Likely palpitations, artial fibrillation, artial flutter, ventricular premature beats, supraventricular tachycardia and ventricular tachycardia Medical Records Attestation: I reviewed the patient's medical records. Lab Data Attestation: I reviewed the patient's lab results. Result diagrams: 04/14/21 21:10 04/14/21 21:43 Labs: Lab Results 04/14/21 04/14/21 04/14/21 Range/Units 20:59 21:10 21:10 WBC 8.9 (4.8-10.8) X10*3/uL RBC 5.19 (4.60-5.80) X10*6/uL Hgb 14.5 (14.0-18.0) g/dl Hct 43.4 (42-52) % MCV 83.6 (80-98) fL MCH 27.9 (27.0-33.0) pg MCHC 33.4 (31.0-36.0) g/dl RDW 14.4 (11.0-16.0) % Plt Count 377 (160-400) X10*3/uL MPV 10.4 (9.4-12.4) fL Immature Gran % (Auto) 0.3 (0.0-0.4) % Neut % (Auto) 57.2 (45-73) % Lymph % (Auto) 30.3 (20-40) % [place] % (Auto) 9.2 (2-11) % Eos % (Auto) 2.0 (0-4) % Baso % (Auto) 1.0 (0-2) % Lymph # (Auto) 2.7 (1.2-4.9) X10*3/uL [place] # (Auto) 0.8 (0.1-1.2) X10*3/uL Eos # (Auto) 0.2 (0.0-0.4) X10*3/uL Baso # (Auto) 0.1 (0.0-0.2) X10*3/uL Abs Immat Gran (auto) 0.03 (0.00-0.03) X10*3/uL Absolute Neuts (auto) 5.1 (2.0-8.3) X10*3/uL Absolute Nucleated RBC 0.000 (0.0-0.012) X10*3/uL Nucleated RBC % (auto) 0.0 (0.0-0.2) /100WBC Sodium (135-145) mmol/L Potassium (3.3-5.1) mmol/L Chloride (96-108) mmol/L Carbon Dioxide (22-29) mmol/L Anion Gap (12-20) BUN (9-16) mg/dL Creatinine (0.5-1.4) mg/dL Estim Creat Clear Calc Estimated GFR POC Glucose 94 (60-115) mg/dL Random Glucose (60-115) mg/dL Calcium (8.4-10.2) mg/dL Magnesium (1.6-2.6) mg/dL Total Bilirubin (0.0-1.0) mg/dL Direct Bilirubin (0.0-0.5) mg/dL AST (5-37) U/L ALT (0-40) U/L Alkaline Phosphatase (39-117) U/L Troponin I High Sens < 3.5 D (<3.5-35.0) ng/L Total Protein (6.5-8.0) g/dL Albumin (3.5-5.0) g/dL 04/14/21 Range/Units 21:43 WBC (4.8-10.8) X10*3/uL RBC (4.60-5.80) X10*6/uL Hgb (14.0-18.0) g/dl Hct (42-52) % MCV (80-98) fL MCH (27.0-33.0) pg MCHC (31.0-36.0) g/dl RDW (11.0-16.0) % Plt Count (160-400) X10*3/uL MPV (9.4-12.4) fL Immature Gran % (Auto) (0.0-0.4) % Neut % (Auto) (45-73) % Lymph % (Auto) (20-40) % [place] % (Auto) (2-11) % Eos % (Auto) (0-4) % Baso % (Auto) (0-2) % Lymph # (Auto) (1.2-4.9) X10*3/uL [place] # (Auto) (0.1-1.2) X10*3/uL Eos # (Auto) (0.0-0.4) X10*3/uL Baso # (Auto) (0.0-0.2) X10*3/uL Abs Immat Gran (auto) (0.00-0.03) X10*3/uL Absolute Neuts (auto) (2.0-8.3) X10*3/uL Absolute Nucleated RBC (0.0-0.012) X10*3/uL Nucleated RBC % (auto) (0.0-0.2) /100WBC Sodium 139 (135-145) mmol/L Potassium 3.5 D (3.3-5.1) mmol/L Chloride 106 (96-108) mmol/L Carbon Dioxide 18 L (22-29) mmol/L Anion Gap 19 (12-20) BUN 15 (9-16) mg/dL Creatinine 1.04 (0.5-1.4) mg/dL Estim Creat Clear Calc 103.3 Estimated GFR > 60 POC Glucose (60-115) mg/dL Random Glucose 95 (60-115) mg/dL Calcium 9.3 D (8.4-10.2) mg/dL Magnesium 1.8 (1.6-2.6) mg/dL Total Bilirubin 0.3 (0.0-1.0) mg/dL Direct Bilirubin 0.2 (0.0-0.5) mg/dL AST 29 (5-37) U/L ALT 48 H (0-40) U/L Alkaline Phosphatase 74 D (39-117) U/L Troponin I High Sens (<3.5-35.0) ng/L Total Protein 7.1 (6.5-8.0) g/dL Albumin 4.3 (3.5-5.0) g/dL Critical Care Time Critical Care Time Critical Care Time: Yes Total Critical Care Time: 40 Attestation: I have personally provided 40 minutes of critical care time exclusive of time spent on separately billable procedures. Time includes review of lab data, radiology results, discussion with consultants, and monitoring for potential decompensation. Interventions were performed as documented above Discharge Plan Discharge Clinical Impression: Atrial fibrillation Prescriptions: No Action clotrimazole 1 % cream 1 appl topical BID RF: 0 Basaglar KwikPen U-100 Insulin 100 unit/mL (3 mL) insulin pen 10 unit subcut BEDTIME RF: 0 dimethyl fumarate [Tecfidera] 240 mg capsule,delayed release(DR/EC) 1 cap PO BID RF: 0 cholecalciferol (vitamin D3) 50 mcg (2,000 unit) capsule 1 cap PO DAILY RF: 0 metoprolol tartrate 25 mg Tablet 25 mg PO BID Qty: 60 RF: 0 Eliquis 5 mg tablet 5 mg PO BID Qty: 60 RF: 0 metformin 500 mg tablet 2 tab PO BID RF: 0
[2021-04-14 21:27] LABS: MANUAL DIFF FLAG NO
[2021-04-14 21:29] LABS: Basophils Absolute Auto 0.1 X10*3/uL (0.0-0.2); Eosinophils Absolute Auto 0.2 X10*3/uL (0.0-0.4); Hematocrit 43.4 % (42-52); Hemoglobin 14.5 g/dl (14.0-18.0); Imm Gran Abs Auto 0.03 X10*3/uL (0.00-0.03); Imm Gran Pct Auto 0.3 % (0.0-0.4); Lymphocytes Absolute Auto 2.7 X10*3/uL (1.2-4.9); Lymphocytes Percent Auto 30.3 % (20-40); Mean Corpuscular HGB Conc 33.4 g/dl (31.0-36.0); Mean Corpuscular Hemoglobin 27.9 pg (27.0-33.0); Mean Corpuscular Volume 83.6 fL (80-98); Mean Platelet Volume 10.4 fL (9.4-12.4); Monocytes Absolute Auto 0.8 X10*3/uL (0.1-1.2); Monocytes Percent Auto 9.2 % (2-11); Neutrophils Absolute Auto 5.1 X10*3/uL (2.0-8.3); Neutrophils Percent Auto 57.2 % (45-73); Platelet Count 377 X10*3/uL (160-400); Red Blood Count 5.19 X10*6/uL (4.60-5.80); Red Cell Distribution Width 14.4 % (11.0-16.0); White Blood Count 8.9 X10*3/uL (4.8-10.8)
[2021-04-14 21:35] LABS: Troponin-I High Sensitivity < 3.5 ng/L (<3.5-35.0)
[2021-04-14] MEDS: 0.9 % Sodium Chloride 1,000 ML 999 ML IV ×2 (21:54→22:43)
[2021-04-14 22:09] LABS: Alanine Aminotransferase 48 U/L (0-40); Albumin Level 4.3 g/dL (3.5-5.0); Alkaline Phosphatase 74 U/L (39-117); Anion Gap 19 (12-20); Aspartate Amino Transferase 29 U/L (5-37); Bilirubin Direct 0.2 mg/dL (0.0-0.5); Bilirubin Total 0.3 mg/dL (0.0-1.0); Blood Urea Nitrogen 15 mg/dL (9-16); Calcium 9.3 mg/dL (8.4-10.2); Carbon Dioxide 18 mmol/L (22-29); Chloride 106 mmol/L (96-108); Creatinine Clr Calc Pharmacy 103.3; Estimated Glomerular Filt Rate > 60; Glucose Random 95 mg/dL (60-115); Magnesium 1.8 mg/dL (1.6-2.6); Potassium 3.5 mmol/L (3.3-5.1); Sodium 139 mmol/L (135-145); Total Protein 7.1 g/dL (6.5-8.0)
[2021-04-14] MEDS: Digoxin 0.5 MG/2 ML AMPUL 0.25 MG IVPUSH (22:11)
--- NOTE | 2021-04-14 22:53 | PC.NURSE ---
med rec completed
[2021-04-15 00:20] VITALS: BP 100/59; PULSE 79; RESP 16
--- NOTE | 2021-04-15 00:20 | PC.NURSE ---
covid swab collected and sent.
[2021-04-15 00:41] LABS: COVID-19 Test Negative (Negative); IDNOW Serial# 9DD0AD1C
--- NOTE | 2021-04-15 00:51 | P.HPHOSP_ITS ---
History of Present Illness Date of Service: 04/14/21 Chief Complaint: Palpitations For 5-year-old male with multiple close sclerosis that is stable, diabetes that is control, asthma, stable pain he was recently admitted to the hospital with new onset of atrial fibrillation on April 02. He subsequently was a rranged to have a an event monitor which he presently still has. He presented today with acute onset of a palpitation associated with some shortness of breath and when he arrived in the emergency room his heart rate was 160-180. He was given IV metoprolol which subsequently dropped his blood pressure significantly in to systolic of 70s. He was given IV fluid with improvement of the blood pressure and also received digoxin and finally converted to sinus rhythm. His blood pressure stayed on the lower side and therefore cardiology has advised that he be admitted Review of Systems Review of Systems: Gen: no fever Resp: no sob, no cough CV: no chest, no GOMEZ, no leg edema, no more palpitationa GI: No n/v, no abd pain Neuro: No confusion Yes all other systems are reviewed and are negative [facility] Medical History (Updated 04/15/21 @ 00:51 by Rickey Kearns MD) Asthma Atrial fibrillation Diabetes Multiple sclerosis Family History (Updated 04/15/21 @ 00:57 by Rickey Kearns MD) Other No family history of cardiac disease Pertinent family history: . Social History Alcohol intake: never Patient Tobacco Use Status: Current everyday Tobacco user Use of substances other than those prescribed or required for medical reasons: Yes Substance Use Type: Marijuana Advance Directives: No Advance Directives Information Provided: No service: No Current occupational status: disabled Meds Allergies Allergy/AdvReac Type Severity Reaction Status Date / Time No Known Allergies Allergy Verified 04/02/21 00:22 Active Medications: Current Medications Pharmacy Consult (Consult Rx Perform Med Rec) 1 each MISCELLANE ONCE PRN PRN Reason: Consult order Home Medications Medication Instructions Recorded Confirmed Last Taken Type cholecalciferol (vitamin D3) 50 1 cap PO DAILY 04/02/21 04/14/21 Unknown History mcg (2,000 unit) capsule clotrimazole 1 % topical cream 1 appl TOPICAL BID 04/02/21 04/14/21 04/01/21 History dimethyl fumarate 240 mg 1 cap PO BID 04/02/21 04/14/21 Unknown History capsule,delayed release (Tecfidera) insulin glargine 100 unit/mL (3 10 unit SUBCUT BEDTIME 04/02/21 04/14/21 Unknown History mL) subcutaneous pen (Basaglar KwikPen U-100 Insulin) metformin 500 mg tablet 2 tab PO BID 04/14/21 04/14/21 Unknown History Physical Exam Vital Signs and Narrative: Vital Signs: Last Vital Signs Temp 97.8 F 04/14/21 21:44 Pulse 79 04/15/21 00:20 Resp 16 04/15/21 00:20 BP 100/59 L 04/15/21 00:20 Pulse Ox 97 04/14/21 23:43 Body Mass Index 27.8 Constitutional Awake and Alert, No apparent distress HEENT--Anicteric Neck Supple, No lymphadenopathy Cardiovascular RRR, No M/R/G, S1 S2, No S3 S4, No pedal edema Respiratory Lungs clear, No respiratory distress Gastrointestinal Non tender, Non-distended Skin No rash Neurological Alert & oriented x3 Psychological Appropriate affect Results Labs CBC and Chem 7: 04/14/21 21:10 04/14/21 21:43 Labs: Laboratory Results - last 24 hr 04/14/21 04/14/21 04/14/21 20:59 21:10 21:10 MCV 83.6 MCH 27.9 MCHC 33.4 RDW 14.4 Plt Count 377 MPV 10.4 Immature Gran % (Auto) 0.3 Neut % (Auto) 57.2 Lymph % (Auto) 30.3 [place] % (Auto) 9.2 Eos % (Auto) 2.0 Baso % (Auto) 1.0 Lymph # (Auto) 2.7 [place] # (Auto) 0.8 Eos # (Auto) 0.2 Baso # (Auto) 0.1 Abs Immat Gran (auto) 0.03 Absolute Neuts (auto) 5.1 Absolute Nucleated RBC 0.000 Nucleated RBC % (auto) 0.0 Anion Gap Estim Creat Clear Calc Estimated GFR POC Glucose 94 Random Glucose Calcium Magnesium Total Bilirubin Direct Bilirubin AST ALT Alkaline Phosphatase Troponin I High Sens < 3.5 D Total Protein Albumin COVID-19 ([facility]) COVID-19 Clin Com 04/14/21 04/15/21 21:43 00:18 MCV MCH MCHC RDW Plt Count MPV Immature Gran % (Auto) Neut % (Auto) Lymph % (Auto) [place] % (Auto) Eos % (Auto) Baso % (Auto) Lymph # (Auto) [place] # (Auto) Eos # (Auto) Baso # (Auto) Abs Immat Gran (auto) Absolute Neuts (auto) Absolute Nucleated RBC Nucleated RBC % (auto) Anion Gap 19 Estim Creat Clear Calc 103.3 Estimated GFR > 60 POC Glucose Random Glucose 95 Calcium 9.3 D Magnesium 1.8 Total Bilirubin 0.3 Direct Bilirubin 0.2 AST 29 ALT 48 H Alkaline Phosphatase 74 D Troponin I High Sens Total Protein 7.1 Albumin 4.3 COVID-19 ([facility]) Negative COVID-19 Clin Com See Note Imaging Radiologist's Impressions: Impressions Chest X-Ray 04/14/21 21:04 IMPRESSION: No acute cardiopulmonary findings. Assessment and Plan (1) Atrial fibrillation: Status: Acute 45-year-old male with MS, diabetes, asthma, recent diagnosis of paroxysmal atrial fibrillation here with AFib with RVR treated with IV metoprolol and resulting in hypotension that has now corrected. He has converted to normal sinus rhythm following digoxin. Plan: AFIB with RVR--now SR -continue Eliquis -Cardiology to assess for med adjustment and review of event monitor -continue Metoprolol if BP ok Hypotension from RVR and metoprolol--resolved, NS Diabetes--SSI, diabetic diet MS stable, on Tecfidera probably home tomorrow Quality Stroke Does the patient have a stroke diagnosis?: No VTE Prior VTE?: No VTE Risk Level:: Surgical - very high VTE Device Contraindication: Treatment Not Indicated VTE Drug Contraindication: N/A - Med Ordered
[2021-04-15] MEDS: 0.9 % Sodium Chloride 1,000 ML 999 ML IV (01:39)
[2021-04-15 01:51] VITALS: BP 91/54; PULSE 64; RESP 23; O2SAT 97
[2021-04-15 06:00] VITALS: BP 90/48; PULSE 64; RESP 10; O2SAT 97
--- NOTE | 2021-04-15 06:28 | PC.NURSE ---
PATIENT ASKING TO SPEAK WITH HIS DOCTOR. WANT SOT BE SIGNED OUT I WAS TOLD I WAS ONLY GOING TO BE HERE UNTIL THE MORNING, MY HEART RATE IS FINE, I WANT OUT . DR. ROA AT BEDSIDE TO DISCUSS WITH PATIENT ABOUT DISCHARGE.
[2021-04-15 07:36] VITALS: BP 92/57; PULSE 65; RESP 14; O2SAT 97
--- NOTE | 2021-04-15 07:41 | PC.NURSE ---
Assumed care of patient. Pt is resting comfortably at this time with vitals WNL. Pt insisted his IV to be taken out on night order selector so no longer has access. Pt is on the personnel monitor and is waiting for a bed. Pt's CBG = 90. No insulin coverage needed this morning.
[2021-04-15 07:43] LABS: Glucose, Whole Blood 90 mg/dL (60-115)
--- NOTE | 2021-04-15 10:06 | P.DS_ITS ---
DS: Providers Provider Date of Service: 04/15/21 Date of admission: 04/14/21 23:59 Primary care physician: [facility] Attending physician on discharge: Vern Gupta Discharging clinician: Gema Pimentel DS: Diagnosis Discharge Diagnosis (1) Atrial fibrillation: Status: Acute DS: Summary Hospital Course Hospital Course: HP as per admitting provider 45-year-old male with multiple close sclerosis that is stable, diabetes that is control, asthma, stable pain he was recently admitted to the hospital with new onset of atrial fibrillation on April 02.? He subsequently was arranged to have a an event monitor which he presently still has.? He presented today with acute onset of a palpitation associated with some shortness of breath and when he arrived in the emergency room his heart rate was 160-180.? He was given IV metoprolol which subsequently dropped his blood pressure significantly in to systolic of 70s.? He was given IV fluid with improvement of the blood pressure and also received digoxin and finally converted to sinus rhythm.? His blood pressure stayed on the lower side and therefore cardiology has advised that he be admitted . Afib rvr. Recent diagnosis. Treated with IV metoprolol, digoxin, IV fluids. Converted to NSR. Currently wearing a wireless holter monitor and has an appointment on 04/16 to turn it in. He will continue his metoprolol and Eliquis. He is requesting to go home and he is medically stable at this time and is ok to go home and follow up with cardiology as needed. Time Spent with Patient Time attestation: Total time spent providing and/or coordinating discharge services: Discharge coordination time: Greater than 30 minutes Quality: Stroke Does the patient have a stroke diagnosis?: No Physical Exam Vital Signs: Vital Signs: Last Vital Signs Temp 97.8 F 04/14/21 21:44 Pulse 65 04/15/21 07:36 Resp 14 04/15/21 07:36 BP 92/57 L 04/15/21 07:36 Pulse Ox 97 04/15/21 07:36 Body Mass Index 27.8 Appearing in no acute distress head is normocephalic atraumatic eyes pupils are PERRLA sclera is anicteric mouth throat mucous membranes are intact and moist neck is supple no lymphadenopathy, no JVD noted lung sounds are clear to auscultation heart regular rate rhythm, clear S1, S2 positive bowel sounds, abdomen is soft, nontender neuro patient is alert x3, no focal deficits DS: Data Data Completed and Pending Labs on day of discharge: Laboratory Results - last 24 hr 04/14/21 04/14/21 04/14/21 20:59 21:10 21:10 WBC 8.9 RBC 5.19 Hgb 14.5 Hct 43.4 MCV 83.6 MCH 27.9 MCHC 33.4 RDW 14.4 Plt Count 377 MPV 10.4 Immature Gran % (Auto) 0.3 Neut % (Auto) 57.2 Lymph % (Auto) 30.3 [place] % (Auto) 9.2 Eos % (Auto) 2.0 Baso % (Auto) 1.0 Lymph # (Auto) 2.7 [place] # (Auto) 0.8 Eos # (Auto) 0.2 Baso # (Auto) 0.1 Abs Immat Gran (auto) 0.03 Absolute Neuts (auto) 5.1 Absolute Nucleated RBC 0.000 Nucleated RBC % (auto) 0.0 Sodium Potassium Chloride Carbon Dioxide Anion Gap BUN Creatinine Estim Creat Clear Calc Estimated GFR POC Glucose 94 Random Glucose Calcium Magnesium Total Bilirubin Direct Bilirubin AST ALT Alkaline Phosphatase Troponin I High Sens < 3.5 D Total Protein Albumin COVID-19 ([facility]) COVID-[facility] Labs 04/14/21 04/15/21 04/15/21 21:43 00:18 07:34 WBC RBC Hgb Hct MCV MCH MCHC RDW Plt Count MPV Immature Gran % (Auto) Neut % (Auto) Lymph % (Auto) [place] % (Auto) Eos % (Auto) Baso % (Auto) Lymph # (Auto) [place] # (Auto) Eos # (Auto) Baso # (Auto) Abs Immat Gran (auto) Absolute Neuts (auto) Absolute Nucleated RBC Nucleated RBC % (auto) Sodium 139 Potassium 3.5 D Chloride 106 Carbon Dioxide 18 L Anion Gap 19 BUN 15 Creatinine 1.04 Estim Creat Clear Calc 103.3 Estimated GFR > 60 POC Glucose 90 Random Glucose 95 Calcium 9.3 D Magnesium 1.8 Total Bilirubin 0.3 Direct Bilirubin 0.2 AST 29 ALT 48 H Alkaline Phosphatase 74 D Troponin I High Sens Total Protein 7.1 Albumin 4.3 COVID-19 ([facility]) Negative COVID-19 [employer] See Note Discharge Plan Discharge Anticipated Discharge Date/Time: 04/15/21 09:56 Patient Disposition: Home, Self-Care Discharge Diagnosis: Afib RVR Referrals: [place] [Primary Care Provider] - 1 Week Discharge Medications: Continued clotrimazole 1 % cream 1 appl topical BID RF: 0 Basaglar KwikPen U-100 Insulin 100 unit/mL (3 mL) insulin pen 10 unit subcut BEDTIME RF: 0 dimethyl fumarate [Tecfidera] 240 mg capsule,delayed release(DR/EC) 1 cap PO BID RF: 0 cholecalciferol (vitamin D3) 50 mcg (2,000 unit) capsule 1 cap PO DAILY RF: 0 metoprolol tartrate 25 mg Tablet 25 mg PO BID Qty: 60 RF: 0 Eliquis 5 mg tablet 5 mg PO BID Qty: 60 RF: 0 metformin 500 mg tablet 2 tab PO BID RF: 0 Discharge Orders: Discharge Order (Routine); Ordered 04/15/21 Ordered By: Gema Pimentel Diet: advance to usual diet Activity on Discharge: As tolerated Stand Alone Forms: Patient Portal Discharge page Care Plan Goals: continue taking medication as prescribed Health Concerns: atrial fibrillation with rapid ventricular response Plan of Treatment: Follow up with Cardiology office Assessment: see discharge summary
[2021-04-15 10:32] VITALS: BP 102/65; PULSE 67; RESP 16; O2SAT 98
== END 2021-04-15 10:34 | disposition home or self-care (01) | DRG 310 ==
LOC: HO.ED 20:52 → HO.EDOVER 04-15 00:24
PROVIDERS: Admitting Provider Internal Medicine; Emergency Provider Emergency Medicine Emergency Medical Services; Visit Provider Nurse Practitioner Acute Care
DX: I48.91 Unspecified atrial fibrillation (principal); G35 Multiple sclerosis; J45.909 Unspecified asthma, uncomplicated; E11.9 Type 2 diabetes mellitus without complications; I95.9 Hypotension, unspecified; Z20.822 Contact with and (suspected) exposure to COVID-19; F17.210 Nicotine dependence, cigarettes, uncomplicated; Z71.6 Tobacco abuse counseling; Z79.4 Long term (current) use of insulin; Z79.01 Long term (current) use of anticoagulants; Z79.899 Other long term (current) drug therapy
CPT/HCPCS: 36415; 71045; 80048; 80076; 82947; 83735; 84484; 85025; 87635; 93005; 93242; 99285; J1160

== ENCOUNTER → 2021-05-08 08:37 | Outpatient (REF) | payer MEDICARE, MEDICAID, SELFPAY ==
--- NOTE | 2021-05-08 08:42 | CA_ITS ---
Transthoracic Echocardiogram Patient (Last, First, Middle): Michael Hogan, Gender: Male Date of : 1975 Age: 45 Procedure Date: 05/08/2021 Procedure Type: Transthoracic Echocardiogram Location: OP Height: 175.26 cm Weight: 88. kg BSA: 2.04 m2 Heart Rate: bpm BP: 118 / 63 mmHg Braddisher: SIMBA Referring MD: Alfredo Herring MD Symptoms: I48.91 - Unspecified atrial fibrillation Conclusions: - The left ventricular systolic function is normal. The calculated ejection fraction is 63% by biplane method. - No obvious valvular pathology seen on this study. Findings Left Ventricle Normal left ventricular cavity size. There is normal left ventricular wall thickness. The left ventricular systolic function is normal. The calculated ejection fraction is 63% by biplane method. There is no evidence of regional wall motion abnormalities. Diastolic function is normal for age. LV peak GLS -16.2%. Right Ventricle Normal right ventricular cavity size. Atria The left atrium is normal in size. The right atrium is normal in size. Aortic Valve There is a normal trileaflet aortic valve. There is no aortic valve stenosis. There is no aortic valve regurgitation. Mitral Valve The mitral valve appears normal. There is trace mitral valve regurgitation. There is no mitral valve stenosis. Pulmonic Valve The pulmonic valve was not well visualized. Tricuspid Valve There is mild tricuspid valve regurgitation. The pulmonary artery systolic pressure is normal. Great Vessels The aortic annulus, sinuses of valsalva, and asc aorta are normal in size. Venous The inferior vena cava is normal in size and collapses greater than 50% with inspiration. Pericardium/Pleural There is no evidence of pericardial effusion. Prior Study Comparison No prior study available for comparison. Recommendations, Care & Conclusions No obvious valvular pathology seen on this study. Measurements 2D Linear Measurements IVSd: 0.95 0.6-0.9/0.6-1.0 cm LVIDd: 4.57 3.9-5.3/4.2-5.9 cm LVIDd Index: 2.24 2.4-3.2/2.2-3.1 cm/m2 LVIDs: 2.97 2.0-3.6 cm LVPWd: 1.12 0.7-1.1 cm Ao Root: 3.20 2.1-3.5 cm LA Diam: 3.60 2.7-3.8/3.0-4.0 cm LAIDs Index: 1.76 1.5-2.3 cm/m2 LV Mass: 204.93 67-162/88-224 g LV Mass Index: 100.46 43-95/49-115 g/m2 LVOT Diam: 2.40 3.0+(-)1.3 cm 2D Systolic Function EF 4C: 62.50 >55% EF 2C: 64.30 >55% EF BiP: 63.10 >55% Mitral Valve MV Pk E: 0.59 MV PK A: 0.51 MV Decel Time: 139.00 E/A: 1.20 E'Lateral: 10.20 E'Medial: 8.81 E/E' Med: 6.70 E/E' Lat: 5.80 PHT: 41.00 MVA PHT: 5.37 Decel Cambria: 4.28 Aortic Valve AoV Pk Michael: 1.22 AoV Pk Grad: 6.00 LVOT LVOT Pk Michael: 1.27 LVOT Mn Michael: 0.74 LVOT VTI: 0.26 LVOT Pk Grad: 6.00 LVOT Mn Grad: 3.00 LVOT Diam: 2.40 LVOT Area: 4.52 Diastolic Function MV Pk E: 0.59 MV Pk A: 0.51 E/A: 1.20 E'Medial: 8.81 E/E' Med: 6.70 E' Laterial: 10.20 E/E' Lat: 5.80 Right Ventricle TAPSE (mm): 2.03 Tricuspid Valve TR Pk Michael: 2.19 TR Pk Grad: 19.00 RA Press: 3.00 Great Vessels Aorta Ao Root-2D: 3.20 2.0-3.7 cm Ao Asc: 3.70 2.1-3.4 cm Ao Arch: 3.10 Updated in Other Vendor System with Status of Final Yuan Acevedo MD electronically signed on 05/09/2021 9:11:55 AM with status of Final
--- NOTE | 2021-05-08 08:42 | CA_ITS ---
Acquisition Time: 2021-05-08 09:24:40 Total Exercise Time: 00:10:04 Test Indications: sob, palpiotations Medications: see chart Protocol: KAREN Max HR: 130 BPM 74% of Pred: 175 BPM Max BP: 128/072 mmHG Max Work Load: 11.8 METS Exercise stress test with exercise 10 min 4 sec of Karen protocol, with mild sob, no chest discomfort, with isolated PACs during exercise, sinus arrythmia in recovery, with normotensive response to exercise with max BP 128/72, with blunted chronotropic response to exercise achieving 74% MPHR ( he took am Metoprolol), with nondiagnostic EKG for ischemia due to suboptimal heart rate, no ischemia noted at achieved workload. Test reviewed with Dr Herring. Referred By: Alfredo Herring Overread By: SUPA BEST
== END ==
LOC: HO.CARD 08:37
PROVIDERS: Visit Provider Internal Medicine Cardiovascular Disease
DX: I48.91 Unspecified atrial fibrillation (principal)
CPT/HCPCS: 93017; 93306; 93356

== ENCOUNTER → 2021-05-17 14:28 | Outpatient (BNVA) | payer MEDICARE, MEDICAID, SELFPAY | PROVIDERS: Referring Provider Nurse Practitioner Family; Visit Provider Internal Medicine Cardiovascular Disease | DX: I48.0 Paroxysmal atrial fibrillation (principal) | CPT/HCPCS: 99212 ==

== ENCOUNTER 2021-07-05 12:31 | Emergency (ER) | payer MEDICARE, MEDICAID, SELFPAY ==
[2021-07-05 12:48] VITALS: BP 114/77; PULSE 72; RESP 16; TEMP 36.1; O2SAT 98; BMI 28.6
== END 2021-07-05 16:00 | disposition left against medical advice (07) ==
PROVIDERS: Emergency Provider Emergency Medicine
DX: S01.81XA Laceration without foreign body of other part of head, initial encounter (principal); X58.XXXA Exposure to other specified factors, initial encounter; Y93.9 Activity, unspecified; Y92.9 Unspecified place or not applicable; Y99.9 Unspecified external cause status
CPT/HCPCS: 99281; 99282

== ENCOUNTER 2022-05-14 08:02 | Inpatient (IN) | payer MEDICARE, MEDICAID, SELFPAY ==
[2022-05-14] VITALS (7 sets, daily range): BP systolic 90–117; BP diastolic 56–73; PULSE 63–133; RESP 12–27; TEMP 36.4–36.8; O2SAT 96–97; BMI 29.2; BMI 29.5
--- NOTE | ~2022-05-14 | XR_ITS ---
EXAMINATION: XR CHEST CLINICAL INFORMATION: Palpitations. COMPARISON: 04/14/2021 chest radiograph. TECHNIQUE: Frontal view of the chest was obtained. FINDINGS: No significant abnormality is noted involving the heart, lungs, mediastinum, bony thorax or soft tissues. XR/XR chest 1V IMPRESSION: No acute cardiopulmonary process.
--- NOTE | 2022-05-14 08:17 | ED.ARRPALP ---
HPI - Arrhythmia/Palpitations General Chief Complaint: Arrhythmia/Palpitations Stated Complaint: fast heart beat, LBP, dizzy Time Seen by Provider: 05/14/22 08:16 Source: patient and old records reviewed Mode of arrival: ambulatory History of Present Illness HPI narrative: 46 yo male hx of asthma, DM, MS, PAF on eliquis here with c/o noting fast heart beat here with c/o palpitations and afib for the past two hours, took metoprolol this AM without effect, compliant with is eliquis daily. Only thing new is bactrim since friday for abdominal wall boil that isn't improving. No fevers, chills. vomiting. He feels dizzy with fast HR but no CP/SOB MD complaint: rapid heart beat, heart racing and palpitations Onset (ago): hour(s) (2) Duration: constant Severity: severe Context: occurred during rest Arrhythmia history: atrial fibrillation Associated symptoms: other (dizziness) Treatments prior to arrival: beta-fay Related Data Home Medications Medication Instructions Recorded Confirmed cholecalciferol (vitamin D3) 50 1 cap PO DAILY 04/02/21 05/17/21 mcg (2,000 unit) capsule clotrimazole 1 % topical cream 1 appl topical BID 04/02/21 05/17/21 dimethyl fumarate 240 mg 1 cap PO BID 04/02/21 05/17/21 capsule,delayed release (Tecfidera) metformin 500 mg tablet 2 tab PO BID 04/14/21 05/17/21 Previous Rx's Medication Instructions Recorded apixaban 5 mg tablet (Eliquis) 5 mg PO BID #60 tabs 04/02/21 metoprolol tartrate 25 mg tablet 25 mg PO BID #60 tabs 04/02/21 Allergies Allergy/AdvReac Type Severity Reaction Status Date / Time No Known Allergies Allergy Verified 04/02/21 00:22 Review of Systems Review of Systems: Constitutional : No Fever, No Chills ENT/Mouth : No sore throat, No Rhinorrhea Eyes: No Eye Pain, No Swelling, No Redness Cardiovascular : No Chest Pain, No SOB, pos palpitations Respiratory : No Cough, No Sputum Gastrointestinal : No Nausea, No Vomiting, No Diarrhea, No abdominal Pain Genitourinary : No Dysuria, No Hematuria Musculoskeletal : No joint pain, No Myalgias, No Joint Swelling Skin : No Skin Lesions, positive skin rash Neuro : No Weakness, No Numbness, No Headache, pos dizziness Psych : No Anxiety, No Depression Heme/Lymph: No Bruising, No Bleeding,No Lymphadenopathy Endocrine : No Polyuria, No Polydipsia All other systems reviewed and are negative [facility] Past Medical History Attestation statement: The following information was validated with the patient. Medical History Asthma Diabetes Multiple sclerosis Paroxysmal atrial fibrillation Family History Family History Other No family history of cardiac disease Social History Social History Alcohol intake: never Patient Tobacco Use Status: Current everyday Tobacco user Substance Use Type: Marijuana Advance Directives: No service: No Current occupational status: disabled Physical Exam Vital Signs: Vital Signs: Last Vital Signs Temp 98.2 F 05/14/22 08:39 Pulse 129 H 05/14/22 11:00 Resp 27 H 05/14/22 11:00 BP 94/64 05/14/22 11:00 Pulse Ox 97 05/14/22 09:43 O2 Del Method 05/14/22 09:43 BMI result Body Mass Index 29.5 Appearance: Alert. Oriented X3. No acute distress. Eyes: Pupils equal, round and reactive to light. ENT: Pharynx normal. Neck: Normal inspection. Neck supple. CVS: tachycardic and irregular heart rate and rhythm. Pulses normal. Respiratory: No respiratory distress. Breath sounds normal. Abdomen: Soft and nontender. R lower abdomen small 1.5cm fluctuant superficial boil, mild surrounding erythema and edema, mild ttp Skin: Skin warm and dry. Normal skin color. Normal skin turgor. Extremities: No lower extremity edema. No calf ttp Neuro: Oriented X 3. No motor deficit. No sensory deficit. Course Course Course Narrative: BP slighly low after IV dilt 10mg but HR down and asymptomatic, hypotension due to medications and not infection or severe sepsis, IVF bolus ordered plan to admit on dilt gtt MDM - Arrhythmia/Palpitations MDM Narrative Medical decision making narrative: 46 yo male hx of asthma, DM, MS, PAF on eliquis presents in rapid afib at this time will need labs, IV rate control, fluids, needs to switch off bactrim given he feels it is not working to treat abdominal wall cellulitis. Dispo per results and findings. He is not always in afib - hasn't been in it since the summer. Reports compliance with DOAC. Lab Data Result diagrams: 05/14/22 08:25 05/14/22 08:25 Labs: Lab Results 05/14/22 05/14/22 05/14/22 Range/Units 08:25 08:25 08:25 WBC 13.3 H (4.8-10.8) X10*3/uL RBC 5.71 (4.60-5.80) X10*6/uL Hgb 15.6 (14.0-18.0) g/dl Hct 47.9 (42.0-52.0) % MCV 83.9 (80.0-98.0) fL MCH 27.3 (27.0-33.0) pg MCHC 32.6 (31.0-36.0) g/dl RDW 14.6 (11.0-16.0) % Plt Count 300 (160-400) X10*3/uL MPV 9.3 L (9.4-12.4) fL Immature Gran % (Auto) 0.5 H (0.0-0.4) % Neut % (Auto) 77.4 H (45-73) % Lymph % (Auto) 12.9 L (20-40) % [place] % (Auto) 6.7 (2-11) % Eos % (Auto) 1.6 (0-4) % Baso % (Auto) 0.9 (0-2) % Lymph # (Auto) 1.7 (1.2-4.9) X10*3/uL Canadian # (Auto) 0.9 (0.1-1.2) X10*3/uL Eos # (Auto) 0.2 (0.0-0.4) X10*3/uL Baso # (Auto) 0.1 (0.0-0.2) X10*3/uL Abs Immat Gran (auto) 0.07 H (0.00-0.03) X10*3/uL Absolute Neuts (auto) 10.3 H (2.0-8.3) x10*3/uL Absolute Nucleated RBC 0.000 (0.0-0.012) X10*3/uL Nucleated RBC % (auto) 0.0 (0.0-0.2) /100WBC PT (10.0-13.1) SEC INR (0.9-1.1) APTT (26.0-36.4) SEC Sodium 141 (135-145) mmol/L Potassium 4.1 (3.3-5.1) mmol/L Chloride 106 (96-108) mmol/L Carbon Dioxide 24 (22-29) mmol/L Anion Gap 15 (12-20) BUN 23 H (9-16) mg/dL Creatinine 1.04 (0.5-1.4) mg/dL Estim Creat Clear Calc 98.8 Estimated GFR > 60 Random Glucose 144 H D (60-115) mg/dL Lactic Acid (0.5-2.0) mmol/L Calcium 9.3 (8.4-10.2) mg/dL Magnesium 2.2 (1.6-2.6) mg/dL Total Bilirubin 0.4 (0.0-1.0) mg/dL Direct Bilirubin 0.2 (0.0-0.5) mg/dL AST 11 D (5-37) U/L ALT 25 (0-40) U/L Alkaline Phosphatase 96 D (39-117) U/L Troponin I High Sens 16.6 (<3.5-35.0) ng/L B-Natriuretic Peptide (<100) pg/mL Total Protein 7.0 (6.5-8.0) g/dL Albumin 4.2 (3.5-5.0) g/dL Ethyl Alcohol mg/dL COVID-19 (THERESA) (Negative) COVID-19 Clin Com 05/14/22 05/14/22 05/14/22 Range/Units 08:25 08:33 08:33 WBC (4.8-10.8) X10*3/uL RBC (4.60-5.80) X10*6/uL Hgb (14.0-18.0) g/dl Hct (42.0-52.0) % MCV (80.0-98.0) fL MCH (27.0-33.0) pg MCHC (31.0-36.0) g/dl RDW (11.0-16.0) % Plt Count (160-400) X10*3/uL MPV (9.4-12.4) fL Immature Gran % (Auto) (0.0-0.4) % Neut % (Auto) (45-73) % Lymph % (Auto) (20-40) % Canadian % (Auto) (2-11) % Eos % (Auto) (0-4) % Baso % (Auto) (0-2) % Lymph # (Auto) (1.2-4.9) X10*3/uL Canadian # (Auto) (0.1-1.2) X10*3/uL Eos # (Auto) (0.0-0.4) X10*3/uL Baso # (Auto) (0.0-0.2) X10*3/uL Abs Immat Gran (auto) (0.00-0.03) X10*3/uL Absolute Neuts (auto) (2.0-8.3) x10*3/uL Absolute Nucleated RBC (0.0-0.012) X10*3/uL Nucleated RBC % (auto) (0.0-0.2) /100WBC PT 11.0 (10.0-13.1) SEC INR 1.0 (0.9-1.1) APTT 35.7 (26.0-36.4) SEC Sodium (135-145) mmol/L Potassium (3.3-5.1) mmol/L Chloride (96-108) mmol/L Carbon Dioxide (22-29) mmol/L Anion Gap (12-20) BUN (9-16) mg/dL Creatinine (0.5-1.4) mg/dL Estim Creat Clear Calc Estimated GFR Random Glucose (60-115) mg/dL Lactic Acid (0.5-2.0) mmol/L Calcium (8.4-10.2) mg/dL Magnesium (1.6-2.6) mg/dL Total Bilirubin (0.0-1.0) mg/dL Direct Bilirubin (0.0-0.5) mg/dL AST (5-37) U/L ALT (0-40) U/L Alkaline Phosphatase (39-117) U/L Troponin I High Sens (<3.5-35.0) ng/L B-Natriuretic Peptide 74 (<100) pg/mL Total Protein (6.5-8.0) g/dL Albumin (3.5-5.0) g/dL Ethyl Alcohol mg/dL COVID-19 (THERESA) Negative (Negative) COVID-19 Clin Com See Note 05/14/22 05/14/22 Range/Units 08:33 08:33 WBC (4.8-10.8) X10*3/uL RBC (4.60-5.80) X10*6/uL Hgb (14.0-18.0) g/dl Hct (42.0-52.0) % MCV (80.0-98.0) fL MCH (27.0-33.0) pg MCHC (31.0-36.0) g/dl RDW (11.0-16.0) % Plt Count (160-400) X10*3/uL MPV (9.4-12.4) fL Immature Gran % (Auto) (0.0-0.4) % Neut % (Auto) (45-73) % Lymph % (Auto) (20-40) % Canadian % (Auto) (2-11) % Eos % (Auto) (0-4) % Baso % (Auto) (0-2) % Lymph # (Auto) (1.2-4.9) X10*3/uL [place] # (Auto) (0.1-1.2) X10*3/uL Eos # (Auto) (0.0-0.4) X10*3/uL Baso # (Auto) (0.0-0.2) X10*3/uL Abs Immat Gran (auto) (0.00-0.03) X10*3/uL Absolute Neuts (auto) (2.0-8.3) x10*3/uL Absolute Nucleated RBC (0.0-0.012) X10*3/uL Nucleated RBC % (auto) (0.0-0.2) /100WBC PT (10.0-13.1) SEC INR (0.9-1.1) APTT (26.0-36.4) SEC Sodium (135-145) mmol/L Potassium (3.3-5.1) mmol/L Chloride (96-108) mmol/L Carbon Dioxide (22-29) mmol/L Anion Gap (12-20) BUN (9-16) mg/dL Creatinine (0.5-1.4) mg/dL Estim Creat Clear Calc Estimated GFR Random Glucose (60-115) mg/dL Lactic Acid 1.8 (0.5-2.0) mmol/L Calcium (8.4-10.2) mg/dL Magnesium (1.6-2.6) mg/dL Total Bilirubin (0.0-1.0) mg/dL Direct Bilirubin (0.0-0.5) mg/dL AST (5-37) U/L ALT (0-40) U/L Alkaline Phosphatase (39-117) U/L Troponin I High Sens (<3.5-35.0) ng/L B-Natriuretic Peptide (<100) pg/mL Total Protein (6.5-8.0) g/dL Albumin (3.5-5.0) g/dL Ethyl Alcohol < 10 mg/dL COVID-19 (THERESA) (Negative) COVID-19 Clin Com ECG Data Attestation: I personally reviewed and interpreted this ECG as follows: ECG interpretation date: 05/14/22 ECG interpretation time: 08:24 Interpretation: Rate: 164 Rhythm: afib with RVR [place]: normal Normal QRS complex. ST T wave : nonspecific no BECKI qTC: normal prior studies: changed from prior The study has been interpreted contemporaneously by me. . Critical Care Time Critical Care Time Critical Care Time: Yes Total Critical Care Time: 40 Attestation: review of records, IVF x 2L, IV dilt gtt, IV dilt bolus I attest to this time spent taking care of the patient Discharge Plan Discharge Clinical Impression: Atrial fibrillation with rapid ventricular response, Abdominal wall cellulitis Patient Disposition: Admitted As Inpatient Prescriptions: No Action clotrimazole 1 % cream 1 appl topical BID dimethyl fumarate [Tecfidera] 240 mg capsule,delayed release(DR/EC) 1 cap PO BID cholecalciferol (vitamin D3) 50 mcg (2,000 unit) capsule 1 cap PO DAILY metoprolol tartrate 25 mg Tablet 25 mg PO BID Qty: 60 0RF Protocol: Hold for SBP/HR < HOLD for SBP < : 90 HOLD for HR < : 60 Eliquis 5 mg tablet 5 mg PO BID Qty: 60 0RF metformin 500 mg tablet 2 tab PO BID
--- NOTE | 2022-05-14 08:18 | ECG_ITS ---
Test Reason : tachycardia Blood Pressure : / mmHG Vent. Rate : 164 BPM Atrial Rate : 000 BPM P-R Int : 000 ms QRS Dur : 080 ms QT Int : 266 ms P-R-T Axes : 000 066 -13 degrees QTc Int : 439 ms Atrial fibrillation with rapid ventricular response Abnormal QRS-T angle, consider primary T wave abnormality Abnormal ECG When compared with ECG of 14-APR-2021 23:50, Atrial fibrillation has replaced Sinus rhythm Vent. rate has increased BY 80 BPM Referred By: Elizabeth Austin Electronically Signed By:NATALY LEZAMA MD
[2022-05-14 08:31] LABS: MANUAL DIFF FLAG NO
[2022-05-14 08:32] LABS: Basophils Absolute Auto 0.1 X10*3/uL (0.0-0.2); Basophils Percent Auto 0.9 % (0-2); Eosinophils Absolute Auto 0.2 X10*3/uL (0.0-0.4); Eosinophils Percent Auto 1.6 % (0-4); Hematocrit 47.9 % (42.0-52.0); Hemoglobin 15.6 g/dl (14.0-18.0); Imm Gran Abs Auto 0.07 X10*3/uL (0.00-0.03); Imm Gran Pct Auto 0.5 % (0.0-0.4); Lymphocytes Absolute Auto 1.7 X10*3/uL (1.2-4.9); Lymphocytes Percent Auto 12.9 % (20-40); Mean Corpuscular HGB Conc 32.6 g/dl (31.0-36.0); Mean Corpuscular Hemoglobin 27.3 pg (27.0-33.0); Mean Corpuscular Volume 83.9 fL (80.0-98.0); Mean Platelet Volume 9.3 fL (9.4-12.4); Monocytes Absolute Auto 0.9 X10*3/uL (0.1-1.2); Monocytes Percent Auto 6.7 % (2-11); Neutrophils Absolute Auto 10.3 x10*3/uL (2.0-8.3); Neutrophils Percent Auto 77.4 % (45-73); Platelet Count 300 X10*3/uL (160-400); Red Blood Count 5.71 X10*6/uL (4.60-5.80); Red Cell Distribution Width 14.6 % (11.0-16.0); White Blood Count 13.3 X10*3/uL (4.8-10.8)
[2022-05-14] MEDS: dilTIAZem HCL 50 MG/10 ML VIAL 15 MG IVPUSH (08:33)
[2022-05-14] MEDS: Lidocaine 4 % Cream KIT 1 APPL TOPICAL (08:33)
[2022-05-14] MEDS: 0.9 % Sodium Chloride 1,000 ML 999 ML IV ×2 (08:43→10:00)
[2022-05-14 08:48] LABS: Partial Thromboplastin Time 35.7 SEC (26.0-36.4)
[2022-05-14 08:49] LABS: Alanine Aminotransferase 25 U/L (0-40); Albumin Level 4.2 g/dL (3.5-5.0); Alkaline Phosphatase 96 U/L (39-117); Anion Gap 15 (12-20); Aspartate Amino Transferase 11 U/L (5-37); Bilirubin Direct 0.2 mg/dL (0.0-0.5); Bilirubin Total 0.4 mg/dL (0.0-1.0); Blood Urea Nitrogen 23 mg/dL (9-16); Calcium 9.3 mg/dL (8.4-10.2); Carbon Dioxide 24 mmol/L (22-29); Chloride 106 mmol/L (96-108); Creatinine Clr Calc Pharmacy 98.8; Estimated Glomerular Filt Rate > 60; Glucose Random 144 mg/dL (60-115); Magnesium 2.2 mg/dL (1.6-2.6); Potassium 4.1 mmol/L (3.3-5.1); Sodium 141 mmol/L (135-145)
[2022-05-14] MEDS: Piperacillin Sodium/Tazobactam 3.375 GM in 0.9 % Sodium Chloride 50 ML IV (08:51)
[2022-05-14 08:52] LABS: Lactic Acid 1.8 mmol/L (0.5-2.0)
[2022-05-14 08:53] LABS: Troponin-I High Sensitivity 16.6 ng/L (<3.5-35.0)
[2022-05-14 08:53] LABS: Ethanol < 10 mg/dL
[2022-05-14 09:02] LABS: B Type Natriuretic Peptide 74 pg/mL (<100); COVID-19 Test Negative (Negative); IDNOW Serial# 55D5AD1C
[2022-05-14] MEDS: dilTIAZem HCL 125 MG in 0.9 % Sodium Chloride 100 ML IVCONT (09:57)
--- NOTE | 2022-05-14 12:06 | PHA.MEDREC ---
Pharmacy Consult ? Medication Reconciliation Pharmacy has completed the medication reconciliation. Spoke to spouse and he went through med list. Seems to be good historian and knew which medications he takes on regular basis. Taking weekly fluconazole last taken on Friday.
--- NOTE | 2022-05-14 12:35 | PM.IMHP ---
History of Present Illness Date of Service: 05/14/22 Attending physician on admission: Funmi Forbes Chief Complaint: cellulitis/abscess, palpitations 46 year old male with history of prediabetes on metformin, multiple sclerosis, atrial fibrillation anticoagulated with eliquis, mild intermittent asthma presented to the ED earlier today for evaluation of an infection on his lower right abdomen. he reports a history of cystic acne with frequent skin infections that typically clear spontaneously. However, this lesion worsening last 4 days with erythema, warmth, and clear drainage. Was recently on bactrim but states this was for his hands. States this morning he awoke feeling lightheaded with palpitations. Denies any sob, chest pain. Reports compliance with medications. on arrival, tachycardic to 128, blood pressure 92/58, no hypoxia. EKG showed atrial fibrillation with RVR, rate 164 without BECKI. CXR negative. WBC 13.3. Renal function baseline, electrolytes normal. Glucose 144. Lactic acid 1.8. Troponin negative. BNP 74. Denies any recent alcohol use. Endorses smoking marijuana daily and 1/2 pack of cigarettes daily. No illicit drug use. Is received 50 mg diltiazem push without improvement heart rate and was started on Cardizem drip per protocol. He was given 2 L bolus normal saline along with doses of vancomycin and Zosyn. Review of Systems Review of Systems: General: No fevers, malaise, unintentional weight loss Cardiovascular: + palpitations. No chest pain, leg edema Respiratory: No shortness of breath, wheezing, cough GI: No abdominal pain, nausea, vomiting, diarrhea, constipation, melena, hematochezia : No dysuria, hematuria, increased urinary frequency Neuro: +lightheadedness. No headaches, weakness, paresthesias Skin: +erythema, warmth, abscess abdomen [facility] Medical History Asthma Diabetes Multiple sclerosis Paroxysmal atrial fibrillation Family History Mother Diabetes Asthma Maternal Grandmother Diabetes Brother Diabetes Other No family history of cardiac disease Social History Alcohol intake: never Patient Tobacco Use Status: Current everyday Tobacco user Substance Use Type: Marijuana Advance Directives: No service: No Current occupational status: disabled Meds Allergies Allergy/AdvReac Type Severity Reaction Status Date / Time No Known Allergies Allergy Verified 04/02/21 00:22 Active Medications: Current Medications Acetaminophen (Acetaminophen 325 Mg Tablet) 650 mg PO Q6H PRN PRN Reason: Pain, Mild (Pain Scale 1-3) Apixaban (Apixaban 5 Mg Tablet) 5 mg PO BID [facility] Dextrose (Dextrose 50 % 25 Gm/50 Ml Syringe) 25 gm IVPUSH Q15M PRN; Protocol PRN Reason: per Hypoglycemia Standing Ord. Docusate Sodium (Docusate Sodium 100 Mg Capsule) 100 mg PO DAILY PRN PRN Reason: Constipation Glucose (Glucose Gel 15 Gm Gel..Gram.) 15 gm PO Q15M PRN; Protocol PRN Reason: per Hypoglycemia Standing Ord. Diltiazem HCl 125 mg/ Sodium (Chloride) 125 mls @ 0 mls/hr IVCONT .Q0M [facility]; Protocol Last Admin: 05/14/22 09:57 Dose: 2.5 mg/hr, 2.5 mls/hr Insulin Human Lispro (Insulin Lispro 100 Unit/Ml 3 Ml Vial) 0 unit SUBCUT QIDACHS [facility]; Protocol Metoprolol Tartrate (Metoprolol Tartrate 25 Mg Tablet) 25 mg PO BID [facility]; Protocol Non-Formulary Medication (Dimethyl Fumarate [Tecfidera]) 1 cap PO BID [facility] Ondansetron HCl (Ondansetron Hcl 4 Mg/2 Ml Vial) 4 mg IVPUSH Q8H PRN PRN Reason: Nausea and Vomiting Pharmacy Consult (Consult Rx Perform Med Rec) 1 each MISCELLANE ONCE PRN PRN Reason: Consult order Pharmacy Consult (Consult Rx Vancomycin Dosing) 1 each MISCELLANE DAILY PRN PRN Reason: Consult order Sodium Chloride (0.9 % Sodium Chloride Flush 3 Ml Syringe) 3 ml IVFLUSH QSHIFT [facility] Vitamin D (Cholecalciferol (Vitamin D3) 25 Mcg Tablet) 50 mcg PO DAILY [facility] Home Medications Medication Instructions Recorded Confirmed Last Taken Type cholecalciferol (vitamin D3) 50 1 cap PO DAILY 04/02/21 05/14/22 05/14/22 History mcg (2,000 unit) capsule dimethyl fumarate 240 mg 1 cap PO BID 04/02/21 05/14/22 05/14/22 History capsule,delayed release (Tecfidera) metformin 500 mg tablet 1 tab PO BID 04/14/21 05/14/22 05/14/22 History acetaminophen 500 mg tablet 1,000 mg PO Q6H PRN Pain 05/14/22 05/14/22 Unknown History albuterol sulfate 2.5 mg/3 mL 2.5 mg inhalation Q4-6H PRN 05/14/22 05/14/22 Unknown History (0.083 %) solution for nebulization Shortness Of Breath Or Wheezing albuterol sulfate 90 mcg/actuation 2 puff inhalation QID PRN 05/14/22 05/14/22 Unknown History aerosol inhaler (ProAir HFA) Shortness Of Breath Or Wheezing apixaban 5 mg tablet (Eliquis) 1 tab PO BID 05/14/22 05/14/22 05/14/22 History fluconazole 150 mg tablet 1 tab PO QWEEK 05/14/22 05/14/22 05/11/22 History metoprolol tartrate 25 mg tablet 1 tab PO BID 05/14/22 05/14/22 05/14/22 History Physical Exam Vital Signs and Narrative: Vital Signs: Last Vital Signs Temp 98.2 F 05/14/22 08:39 Pulse 129 H 05/14/22 11:00 Resp 27 H 05/14/22 11:00 BP 94/64 05/14/22 11:00 Pulse Ox 97 05/14/22 09:43 O2 Del Method 05/14/22 09:43 BMI result Body Mass Index 29.5 Constitutional - Awake and Alert, No apparent distress Eyes - PERRLA, EOMI Cardiovascular - S1S2, RRR, No edema Respiratory - Normal lung expansion, Normal respiratory effort, No respiratory distress, CTA bilaterally Gastrointestinal - NT / ND; +BS; No rebound or guarding Extremities - no calf tenderness bilaterally, no swelling Musculoskeletal - Normal inspection, normal ROM Skin - Warm/Dry. Erythema with slight central fluctuance with faint surrounding erythema and warmth Neurological - Alert & oriented x3, CN II- XII in tact. No motor or sensory deficity Psychological - Appropriate affect Results Labs CBC and Chem 7: 05/14/22 08:25 05/14/22 08:25 Labs: Laboratory Results - last 24 hr 05/14/22 05/14/22 05/14/22 08:25 08:25 08:25 MCV 83.9 MCH 27.3 MCHC 32.6 RDW 14.6 Plt Count 300 MPV 9.3 L Immature Gran % (Auto) 0.5 H Neut % (Auto) 77.4 H Lymph % (Auto) 12.9 L [place] % (Auto) 6.7 Eos % (Auto) 1.6 Baso % (Auto) 0.9 Lymph # (Auto) 1.7 [place] # (Auto) 0.9 Eos # (Auto) 0.2 Baso # (Auto) 0.1 Abs Immat Gran (auto) 0.07 H Absolute Neuts (auto) 10.3 H Absolute Nucleated RBC 0.000 Nucleated RBC % (auto) 0.0 PT INR APTT Anion Gap 15 Estim Creat Clear Calc 98.8 Estimated GFR > 60 Random Glucose 144 H D Lactic Acid Calcium 9.3 Magnesium 2.2 Total Bilirubin 0.4 Direct Bilirubin 0.2 AST 11 D ALT 25 Alkaline Phosphatase 96 D Troponin I High Sens 16.6 B-Natriuretic Peptide Total Protein 7.0 Albumin 4.2 Ethyl Alcohol COVID-19 (THERESA) COVID-[facility] 05/14/22 05/14/22 05/14/22 08:25 08:33 08:33 MCV MCH MCHC RDW Plt Count MPV Immature Gran % (Auto) Neut % (Auto) Lymph % (Auto) [place] % (Auto) Eos % (Auto) Baso % (Auto) Lymph # (Auto) [place] # (Auto) Eos # (Auto) Baso # (Auto) Abs Immat Gran (auto) Absolute Neuts (auto) Absolute Nucleated RBC Nucleated RBC % (auto) PT 11.0 INR 1.0 APTT 35.7 Anion Gap Estim Creat Clear Calc Estimated GFR Random Glucose Lactic Acid Calcium Magnesium Total Bilirubin Direct Bilirubin AST ALT Alkaline Phosphatase Troponin I High Sens B-Natriuretic Peptide 74 Total Protein Albumin Ethyl Alcohol COVID-19 ([facility]ESA) Negative COVID-[facility] See Note 05/14/22 05/14/22 08:33 08:33 MCV MCH MCHC RDW Plt Count MPV Immature Gran % (Auto) Neut % (Auto) Lymph % (Auto) [place] % (Auto) Eos % (Auto) Baso % (Auto) Lymph # (Auto) [place] # (Auto) Eos # (Auto) Baso # (Auto) Abs Immat Gran (auto) Absolute Neuts (auto) Absolute Nucleated RBC Nucleated RBC % (auto) PT INR APTT Anion Gap Estim Creat Clear Calc Estimated GFR Random Glucose Lactic Acid 1.8 Calcium Magnesium Total Bilirubin Direct Bilirubin AST ALT Alkaline Phosphatase Troponin I High Sens B-Natriuretic Peptide Total Protein Albumin Ethyl Alcohol < 10 COVID-19 ([facility]ESA) COVID-19 Clin Com Imaging Radiologist's Impressions: Impressions Chest X-Ray 05/14/22 08:56 IMPRESSION: No acute cardiopulmonary process. Assessment and Plan (1) Atrial fibrillation with rapid ventricular response: Status: Acute (2) Abdominal wall cellulitis: Status: Acute Plan 46 year old male with history of prediabetes on metformin, multiple sclerosis, atrial fibrillation anticoagulated with eliquis, mild intermittent asthma admitted for cellulitis and abscess and afib with rvr. #Afib with RVR -HR ranging 115-135 on exam -Continue dilt drip, titrate per protocol -BP soft. Monitor BP closely. Hold metoprolol -Continue eliquis for anticoagulation. denies bleeding episo -Consult cardiology -Last echo 04/03- left ventricular systolic function normal, ejection fraction 63%. Diastolic function normal. No significant valvular abnormality -TSH pending -Admit to telemetry -Cardiac diet #Acute cellulitis and abscess - likely related to folliculitis with history of cystic acne - IV vancomycin and cefepime - blood cultures pending - WBC 13.3, lactic acid normal. Tachycardia is related to AFib with RVR, not severe sepsis. - Follow WBC and bmp - general surgery consulted # multiple sclerosis- stable without exacerbation - continue home meds # prediabetes versus type 2 diabetes - hemoglobin A1c pending - POC glucose - diabetic diet - Humalog on sliding scale # mild intermittent asthma - albuterol p.r.n. DVT prophylaxis -continue Eliquis full code patient requires inpatient stay of at least 2 midnights due to atrial fibrillation with RVR requiring IV diltiazem drip per protocol and close cardiac monitoring as well as acute cellulitis and abscess requiring IV antibiotics Quality Stroke Does the patient have a stroke diagnosis?: No VTE Prior VTE?: No VTE Risk Level:: Medical - moderate - high VTE Device Contraindication: Treatment Not Indicated VTE Drug Contraindication: N/A - Med Ordered
--- OUTSIDE RECORDS SUMMARY | 2022-05-14 12:36 | XMS_ITS | Continuity of Care Document ---
:1975 Author Organization [facility] Address [address] [facility], 3rd Floor, [address] [place] [address]- Care Team Providers Name Role Phone Keyshawn FLORIAN, Allen Sauceda Primary Care Physician Encounter [facility] [place] Date(s): 12/24/19 - 04/22/20 [facility] [address] [place], [address]rd Floor, [address] [place] [address]- [facility] Attending Physician: Eric Malin MD Admitting Physician: Eric Malin MD Allergies, Adverse Reactions, Alerts Substance Reaction Severity Status NKA Active Immunizations Given and Recorded Vaccine Date Status Refusal Reason tetanus/diphtheria/pertussis, acel(Tdap) 01/21/07 Given tetanus/diphtheria/pertussis, acel(Tdap)1 01/21/07 Given 1Result Comment: charted twice , given once Medications Albuterol/Ipratropium Inhaler Refills 0, Maintenance, 08/20/18 19:10:12 EST Start Date: 08/20/18 Status: OrderedClaritin 5 mg oral tablet, chewable 1 tablet = 5 mg, Chew, Daily, # 30 tablet, 0 Refills, Maintenance, 08/20/18 19:09:57 EST, Chew Tablet Start Date: 08/20/18 Status: Ordereddimethyl fumarate 240 mg oral delayed release capsule 1 capsule = 240 mg, By Mouth, 2 times a day, # 60 capsule, 5 Refills, Maintenance, 03/23/20 10:31:00EDT, [facility], 176, cm, 08/20/18 20:29:00 EST, Height, 91, kg, 08/20/18 20:36:00 EST, Dry Weight Start Date: 03/23/20 Stop Date: 09/19/20 Status: OrderedEnsure Ensure, See Instructions, # 60 bottle, Refills 5, Tot. Refills 5, Maintenance, using while taking Tecfidera for better nutrition. Needs to take a meal when taking this medication., 04/09/18 16:17:01 EDT, Compound Start Date: 04/09/18 Status: OrderedVitamin D3 2000 intl units oral capsule 1 capsule = 2,000 International_Units, By Mouth, Daily, # 30 capsule, 8 Refills, Maintenance, 12/02/19 13:29:00 EDT, [facility], 176, cm, 08/20/18 20:29:00 EST, Height, 91, kg, 08/20/18 20:36:00 EST, Dry Weight Start Date: 12/02/19 Stop Date: 08/28/20 Status: Ordered Problem List Condition Effective Dates Status Health Status Informant Relapsing remitting multiple Active sclerosis(Confirmed)
--- OUTSIDE RECORDS SUMMARY | 2022-05-14 12:36 | XMS_ITS | Continuity of Care Document ---
:1975 Author Organization [facility] Address [address] [facility], 3rd Floor, [address] [place] [phone]- Care Team Providers Name Role Phone Keyshawn FLORIAN, Allen Sauceda Primary Care Physician [place] [facility] [place] 11[place]09[place]19 - 01/01/20 [facility] [address] [place], [address]rd Floor, [address] [place] [address]- [facility] Attending Physician: Not on Staff, Attending MD Allergies, Adverse Reactions, Alerts Substance Reaction [...] day, # 60 capsule, 5 Refills, Maintenance, 09/16/19 8:56:00 EST, [facility], 176, cm, 08/20/18 20:29:00 EST, Height, 91, kg, 08/20/18 20:36:00 EST, Dry Weight Start Date: 09/16/19 Stop Date: 03/14/20 Status: OrderedEnsure Ensure, See Instructions, # 60 bottle, Refills 5, Tot. Refills 5, Maintenance, using while taking Tecfidera for better nutrition. Needs to take a meal when taking this medication., 04/09/18 16:17:01 EDT, Compound Start Date: 04/09/18 Status: OrderedVitamin D3 2000 intl units oral capsule 1 capsule = 2,000 International_Units, By Mouth, Daily, # 30 capsule, 8 Refills, Maintenance, 12/02/19 13:29:00 EDT, [facility], 176, cm, 08/20/18 20:29:00 EST, Height, 91, kg, 08/20/18 20:36:00 EST, Dry Weight Start Date: 12/02/19 Stop Date: 08/28/20 Status: Ordered
--- OUTSIDE RECORDS SUMMARY | 2022-05-14 12:36 | XMS_ITS | Continuity of Care Document ---
:1975 Author Organization [facility] Address [address] [facility], 3rd Floor, [address] [place] [phone]- Care Team Providers Name Role Phone Keyshawn FLORIAN, Allen Sauceda Primary Care Physician Encounter [facility] [place] Date(s): 11/02/19 - 12/02/19 [facility] [address], [address] Floor, [address] [place] [id number]- [facility] Attending Physician: Admpeggy, Tori Admitting Physician: AdmtrTori Referring Physician: Admtr, Ar8 Allergies, Adverse Reactions, Alerts Substance Reaction Severity [...] capsule, 5 Refills, Maintenance, 09/16/19 8:56:00 EST, [facility], 176, cm, 08/20/18 20:29:00 [...] capsule, 8 Refills, Maintenance, 12/02/19 13:29:00 EDT, [facility], 176, cm, 08/20/18 20:29:00 EST, Height, 91, kg, 08/20/18 20:36:00 EST, Dry Weight Start Date: 12/02/19 Stop Date: 08/28/20 Status: Ordered
--- OUTSIDE RECORDS SUMMARY | 2022-05-14 12:36 | XMS_ITS | Continuity of Care Document ---
:1975 Author Organization [facility] Address [address] [facility], 3rd Floor, [address] [place] [address]- Care Team Providers Name Role Phone Keyshawn FLORIAN, Allen Sauceda Primary Care Physician [place] [facility] [place]): [place]09[place]20 - 09/06/20 [facility] [address] [facility], 3rd Floor, [address] [place] [id number] Attending Physician: Faith Cardona MD Admitting Physician: Faith Cardona MD Allergies, Adverse Reactions, Alerts Substance Reaction [...] 2 times a day, # 60 capsule, 7 Refills, Maintenance, 08/07/20 13:03:00EST, [facility], 176, cm, 04/05/20 15:00:00 EDT, Height, 91, kg, 08/20/18 20:36:00 EST, Dry Weight Start Date: 08/07/20 Stop Date: 04/04/21 Status: OrderedEnsure Ensure, See Instructions, # 60 bottle, Refills 5, Tot. Refills 5, Maintenance, using while taking Tecfidera for better nutrition. Needs to take a meal when taking this medication., 04/09/18 16:17:01 EDT, Compound Start Date: 04/09/18 Status: OrderedVitamin D3 2000 intl units oral capsule 1 capsule = 2,000 International_Units, By Mouth, Daily, # 30 capsule, 8 Refills, Maintenance, 08/07/20 13:03:00 EST, [facility], 176, cm, 04/05/20 15:00:00 EDT, Height, 91, kg, 08/20/18 20:36:00 EST, Dry Weight Start Date: 08/07/20 Stop Date: 05/04/21 Status: Ordered Problem List Condition Effective Dates Status Health Status Informant Relapsing remitting multiple Active sclerosis(Confirmed)
--- OUTSIDE RECORDS SUMMARY | 2022-05-14 12:36 | XMS_ITS | Continuity of Care Document ---
:1975 Author Organization [facility] Address [address] [place] [address]- Care Team Providers Name Role Phone Shari HILL, Deborah Primary Care Physician Encounter [facility] [place] Date(s): 07/09/21 - 08/08/21 [facility] [address] [place] [id number] Attending Physician: Tori Strong Admitting Physician: AdmTori woods Referring Physician: Admtr, Tori Allergies, Adverse Reactions, Alerts No Known Allergies Immunizations Given and Recorded Vaccine Date Status [...] day, # 60 capsule, 7 Refills, Maintenance, 08/06/21 13:31:00EST, [facility], 176, cm, 07/09/21 14:14:00 EST, Height Start Date: 08/06/21 Stop Date: 04/03/22 Status: OrderedEnsure Ensure, See Instructions, # 60 bottle, Refills 5, Tot. Refills 5, Maintenance, using while taking Tecfidera for better nutrition. Needs to take a meal when taking this medication., 04/09/18 16:17:01 EDT, Compound Start Date: 04/09/18 Status: OrderedVitamin D3 2000 intl units oral capsule 1 capsule = 2,000 International_Units, By Mouth, Daily, # 30 capsule, 8 Refills, Maintenance, 08/06/21 13:31:00 EST, [facility], 176, cm, 07/09/21 14:14:00 EST, Height Start Date: 08/06/21 Stop Date: 05/03/22 Status: Ordered Problem List Condition Effective Dates Status Health Status Informant Relapsing remitting multiple Active sclerosis(Confirmed)
--- OUTSIDE RECORDS SUMMARY | 2022-05-14 12:36 | XMS_ITS | Continuity of Care Document ---
:1975 Author Organization [facility] Address [address] [place], 3rd Floor, [address] [place] [phone]- Care Team Providers Name Role Phone Shari HILL, Deborah Primary Care Physician Encounter [facility] [place] Date(s): 02/12/22 - 03/14/22 [facility] [address], [address], [address] [place] [address]- Allergies, Adverse Reactions, Alerts No Known Allergies [...] day, # 60 capsule, 7 Refills, Maintenance, 02/12/22 12:33:00EDT, [facility], 176, cm, 02/12/22 9:20:00 EDT, Height Start Date: 02/12/22 Stop Date: 10/10/22 Status: OrderedEliquis 5 mg oral tablet 1 tablet = 5 mg, By Mouth, 2 times a day, 0 Refills, Maintenance, 02/12/22 9:24:00 EDT, Partial fillupon patient request if the prescription is for a schedule II opioid drug. Start Date: 02/12/22 Status: OrderedEnsure Ensure, See Instructions, # 60 bottle, Refills 5, Tot. Refills 5, Maintenance, using while taking Tecfidera for better nutrition. Needs to take a meal when taking this medication., 04/09/18 16:17:01 EDT, Compound Start Date: 04/09/18 Status: OrderedmetFORMIN 500 mg oral tablet 1 tablet = 500 mg, By Mouth, 2 times a day, # 60 tablet, 0 Refills, Maintenance, 02/12/22 9:24:00 EDT, Tablet, Partial fill upon patient request if the prescription is for a schedule II opioid drug. Start Date: 02/12/22 Status: Orderedmetoprolol 25 mg oral tablet 25 mg, 1, tablet, By Mouth, 2 times a day, Refills 0, Maintenance, 02/12/22 9:24:00 EDT, Partial fill upon patient request if the prescription is for a schedule II opioid drug. Start Date: 02/12/22 Status: OrderedVitamin D3 2000 intl units oral capsule 1 capsule = 2,000 International_Units, By Mouth, Daily, # 30 capsule, 8 Refills, Maintenance, 02/12/22 12:33:00 EDT, [facility], 176, cm, 02/12/22 9:20:00 EDT, Height Start Date: 02/12/22 Stop Date: 11/09/22 Status: Ordered Problem List Condition Effective Dates Status Health Status Informant Relapsing remitting multiple Active sclerosis(Confirmed) Care Team PersonnelName: Deborah Mccarthy NP Address: [address] [place] [address]
--- OUTSIDE RECORDS SUMMARY | 2022-05-14 12:36 | XMS_ITS | Continuity of Care Document ---
:1975 Author Organization [facility] Address [address] [facility], 3rd Floor, [address] [place] [id number]- Care Team Providers Name Role Phone Keyshawn FLORIAN, Allen Sauceda Primary Care Physician En[place] [facility] [place] [facility] [id number] Date(s): 12/02/19 - 01/01/20 [facility] [address], [address] Floor, [address] [place] [address]- [facility] Attending Physician: Admpeggy, Tori Admitting Physician: AdmtrTori [...] capsule, 5 Refills, Maintenance, 09/16/19 8:56:00 EST, [facility], 176, cm, 08/20/18 20:29:00 [...] capsule, 8 Refills, Maintenance, 12/02/19 13:29:00 EDT, [facility], 176, cm, 08/20/18 20:29:00 EST, Height, 91, kg, 08/20/18 20:36:00 EST, Dry Weight Start Date: 12/02/19 Stop Date: 08/28/20 Status: Ordered
--- OUTSIDE RECORDS SUMMARY | 2022-05-14 12:36 | XMS_ITS | Continuity of Care Document ---
:1975 Author Organization [facility] Address [address] [facility], 3rd Floor, [address] [place] [phone]- Care Team Providers Name Role Phone Allen Mahajan MD Primary Care Physician [place] [facility] [place] Date(s): 12/02/19 - 12/09/19 [facility] [address] [place], [address]rd Floor, [address] [place] [address] [facility] Attending Physician: Faith Cardona MD Referring Physician: Allen Mahajan MD Allergies, Adverse Reactions, Alerts Substance Reaction [...] capsule, 5 Refills, Maintenance, 09/16/19 8:56:00 EST, [facility], 176, cm, 08/20/18 [...] capsule, 8 Refills, Maintenance, 12/02/19 13:29:00 EDT, [facility], 176, cm, 08/20/18 20:29:00 EST, Height, 91, kg, 08/20/18 20:36:00 EST, Dry Weight Start Date: 12/02/19 Stop Date: 08/28/20 Status: Ordered
--- OUTSIDE RECORDS SUMMARY | 2022-05-14 12:36 | XMS_ITS | Continuity of Care Document ---
:1975 Author Organization [facility] Address [address] [facility], 3rd Floor, [address] [place] [phone]- Care Team Providers Name Role Phone Keyshawn FLORIAN, Allen Sauceda Primary Care Physician Encounter [facility] [place] Date(s): 04/13/20 - 05/13/20 [facility] [address] [facility], 3rd Floor, [address] [place] [phone]- [facility] Allergies, Adverse Reactions, Alerts Substance Reaction Severity [...] 60 capsule, 5 Refills, Maintenance, 03/23/20 10:31:00EDT, [facility], 176, cm, 08/20/18 [...] 8 Refills, Maintenance, 12/02/19 13:29:00 EDT, [facility], 176, cm, 08/20/18 20:29:00 EST, Height, 91, kg, 08/20/18 20:36:00 EST, Dry Weight Start Date: 12/02/19 Stop Date: 08/28/20 Status: Ordered Problem List Condition Effective Dates Status Health Status Informant Relapsing remitting multiple Active sclerosis(Confirmed)
--- OUTSIDE RECORDS SUMMARY | 2022-05-14 12:36 | XMS_ITS | Continuity of Care Document ---
:1975 Author Organization [facility] Address [address], 3rd Floor, [address] [place] [id number]- Care Team Providers Name Role Phone Keyshawn FLORIAN, Allen Sauceda Primary Care Physician [place] [facility] [place]): [place] 12/02/19 [facility] [address], [address], [address] [place] [id number]- [facility] Attending Physician: Yusef Crain MD Admitting Physician: Yusef Crain MD Allergies, Adverse Reactions, Alerts Substance Reaction [...] capsule, 5 Refills, Maintenance, 09/16/19 8:56:00 EST, [facility], 176, cm, 08/20/18 20:29:00 [...] capsule, 8 Refills, Maintenance, 12/02/19 13:29:00 EDT, [facility], 176, cm, 08/20/18 20:29:00 EST, Height, 91, kg, 08/20/18 20:36:00 EST, Dry Weight Start Date: 12/02/19 Stop Date: 08/28/20 Status: Ordered
--- NOTE | 2022-05-14 12:46 | PHA.PROG ---
Admission Date/Time: May 14, 2022 12:21 Indication: skin Weight in k.9 kg Adjusted body weight in Kg: [place] body weight in Kg: Obesity Dosing Indication % IBW: 28% Serum Creatinine - Last 168 Hours 05/14/22 08:25 Creatinine 1.04 Estimated CrCl and GFR - Last 168 Hours 05/14/22 08:25 Estim Creat Clear Calc 98.8 Estimated GFR > 60 Vancomycin Loading Dose: 2000mg X 1 Current Vancomycin Dosing Regimen: 750mg Q12H Vancomycin Monitoring using AUC goal of 400 - 600 range with trough as surrogate marker: 405mg/L Date and Time for next Vancomycin Level to be drawn: 05/15/22 @2300 Pharmacist Comments on Vancomycin Plan: using obese model, will continue to monitor renal function and adjust as necessary Vancomycin dosing will take advantage of [employer] as a clinical decision support tool that uses Bayesian modeling to calculate individual patient's pharmacokinetic parameters and forecast the patient's drug concentration time course with the target goal AUC 24 range of 400 - 600 mg/L/hr.
[2022-05-14 13:26] LABS: Estimated Average Glucose 123 mg/dL; Hemoglobin A1c % 5.9 %; Thyroid Stimulating Hormone 1.21 uIU/mL (0.32-4.0)
[2022-05-14] MEDS: 0.9 % Sodium Chloride 1,000 ML 125 ML IVCONT (16:06)
[2022-05-14] MEDS: cefEPime HCl 2 GM in 0.9 % Sodium Chloride 50 ML IV (16:06)
--- NOTE | 2022-05-14 16:10 | P.CONGS_ITS ---
History of Present Illness Consult details Consult date: 05/14/22 Requesting physician: Mary Anne Hernandez Narrative: 46-year-old male patient with history of atrial fibrillation, diabetes and long history of superficial skin infections presenting to the emergency department due to complaints of rapid AFib noted at home. He reports occasional episodes of rapid AFib but when the current episode was prolonged, he presented to the emergency department for further evaluation. In the emergency department he was noted to have an area of cellulitis involving the right lower quadrant abdomen. Surgical consultation is requested for management of this superficial infection. He is adamant that he has had these infections in multiple areas including his abdomen, bilateral axilla, and back for years and years and he knows how to manage them at home. Review of Systems Review of Systems: Yes all other systems are reviewed and are negative Cardiovascular: Cardiovascular: Reports irregular heart rhythm, Reports palpitations and Denies dyspnea on exertion Respiratory: Respiratory: Denies cough, Denies excessive phlegm production and Denies dyspnea on exertion Gastrointestinal: Gastrointestinal: Reports as per HPI and Reports abdominal pain Integumentary/Breasts: Skin/Breast: Reports as per HPI and Reports acne Endocrine: Endocrine: Reports palpitations PMFSH Past Medical History Medical History Asthma Diabetes Multiple sclerosis Paroxysmal atrial fibrillation Family History Family History Mother Diabetes Asthma Maternal Grandmother Diabetes Brother Diabetes Other No family history of cardiac disease Social History Social History Alcohol intake: never Patient Tobacco Use Status: Current everyday Tobacco user Substance Use Type: Marijuana Advance Directives: No service: No Current occupational status: disabled Meds Allergies Allergy/AdvReac Type Severity Reaction Status Date / Time No Known Allergies Allergy Verified 04/02/21 00:22 Active Medications: Current Medications Acetaminophen (Acetaminophen 325 Mg Tablet) 650 mg PO Q6H PRN PRN Reason: Pain, Mild (Pain Scale 1-3) Apixaban (Apixaban 5 Mg Tablet) 5 mg PO BID BECKY Dextrose (Dextrose 50 % 25 Gm/50 Ml Syringe) 25 gm IVPUSH Q15M PRN; Protocol PRN Reason: per Hypoglycemia Standing Ord. Docusate Sodium (Docusate Sodium 100 Mg Capsule) 100 mg PO DAILY PRN PRN Reason: Constipation Glucose (Glucose Gel 15 Gm Gel..Gram.) 15 gm PO Q15M PRN; Protocol PRN Reason: per Hypoglycemia Standing Ord. Diltiazem HCl 125 mg/ Sodium (Chloride) 125 mls @ 0 mls/hr IVCONT .Q0M [facility]; Protocol Last Admin: 05/14/22 09:57 Dose: 2.5 mg/hr, 2.5 mls/hr Vancomycin HCl 750 mg/ Sodium (Chloride) 265 mls @ 265 mls/hr IV Q12H [facility] Sodium Chloride (Ns) 1,000 mls @ 125 mls/hr IVCONT .Q8H [facility] Last Admin: 05/14/22 16:06 Dose: 125 mls/hr Cefepime HCl 2 gm/ Sodium (Chloride) 50 mls @ 100 mls/hr IV Q8H [facility] Last Admin: 05/14/22 16:06 Dose: 100 mls/hr Insulin Human Lispro (Insulin Lispro 100 Unit/Ml 3 Ml Vial) 0 unit SUBCUT QIDACHS [facility]; Protocol Metoprolol Tartrate (Metoprolol Tartrate 25 Mg Tablet) 25 mg PO BID [facility]; Pr otocol Non-Formulary Medication (Dimethyl Fumarate [Tecfidera]) 1 cap PO BID [facility] Ondansetron HCl (Ondansetron Hcl 4 Mg/2 Ml Vial) 4 mg IVPUSH Q8H PRN PRN Reason: Nausea and Vomiting Pharmacy Consult (Consult Rx Perform Med Rec) 1 each MISCELLANE ONCE PRN PRN Reason: Consult order Pharmacy Consult (Consult Rx Vancomycin Dosing) 1 each MISCELLANE DAILY PRN PRN Reason: Consult order Sodium Chloride (0.9 % Sodium Chloride Flush 3 Ml Syringe) 3 ml IVFLUSH QSHIFT [facility] Last Admin: 05/14/22 16:02 Dose: Not Given Vitamin D (Cholecalciferol (Vitamin D3) 25 Mcg Tablet) 50 mcg PO DAILY [facility] Home Medications Medication Instructions Recorded Confirmed Last Taken Type cholecalciferol (vitamin D3) 50 1 cap PO DAILY 04/02/21 05/14/22 05/14/22 History mcg (2,000 unit) capsule dimethyl fumarate 240 mg 1 cap PO BID 04/02/21 05/14/22 05/14/22 History capsule,delayed release (Tecfidera) metformin 500 mg tablet 1 tab PO BID 04/14/21 05/14/22 05/14/22 History acetaminophen 500 mg tablet 1,000 mg PO Q6H PRN Pain 05/14/22 05/14/22 Unknown History albuterol sulfate 2.5 mg/3 mL 2.5 mg inhalation Q4-6H PRN 05/14/22 05/14/22 Unknown History (0.083 %) solution for nebulization Shortness Of Breath Or Wheezing albuterol sulfate 90 mcg/actuation 2 puff inhalation QID PRN 05/14/22 05/14/22 Unknown History aerosol inhaler (ProAir HFA) Shortness Of Breath Or Wheezing apixaban 5 mg tablet (Eliquis) 1 tab PO BID 05/14/22 05/14/22 05/14/22 History fluconazole 150 mg tablet 1 tab PO QWEEK 05/14/22 05/14/22 05/11/22 History metoprolol tartrate 25 mg tablet 1 tab PO BID 05/14/22 05/14/22 05/14/22 History Physical Exam Vital Signs: Vital Signs: Last Vital Signs Temp 98.2 F 05/14/22 08:39 Pulse 129 H 05/14/22 11:00 Resp 27 H 05/14/22 11:00 BP 94/64 05/14/22 11:00 Pulse Ox 97 05/14/22 09:43 O2 Del Method 05/14/22 09:43 BMI result Body Mass Index 29.5 Const: General: no acute distress and well developed Nutritional Appearance: well nourished Orientation/consciousness: patient oriented x3 Limitations: no limitations HEENT: Head: Yes normocephalic and Yes atraumatic Ears: hearing grossly normal bilaterally Resp: Effort & Inspection: normal respiratory effort, no audible wheezes and no cough Auscultation: clear to auscultation bilaterally, no crackles and no rales Cardio: Jugular venous distension: no JVD Rate: tachycardic Rhythm: abnormal rhythm irregularly irregular GI: Other: Multiple scars from previous infections involving the lower abdomen oral axilla and entire back consistent with acne Abdomen image: 1. Area of redness in the right lower quadrant suggestive of folliculitis or MRSA skin infection. Neuro: General: patient oriented x3 Extrem: General: Yes no clubbing, cyanosis or edema Results Labs Result diagrams: 05/14/22 08:25 05/14/22 08:25 Labs: Abnormal lab results 05/14/22 05/14/22 Range/Units 08:25 08:25 WBC 13.3 H (4.8-10.8) X10*3/uL MPV 9.3 L (9.4-12.4) fL Immature Gran % (Auto) 0.5 H (0.0-0.4) % Neut % (Auto) 77.4 H (45-73) % Lymph % (Auto) 12.9 L (20-40) % Abs Immat Gran (auto) 0.07 H (0.00-0.03) X10*3/uL Absolute Neuts (auto) 10.3 H (2.0-8.3) x10*3/uL BUN 23 H (9-16) mg/dL Random Glucose 144 H D (60-115) mg/dL Short CBC 05/14/22 Range/Units 08:25 WBC 13.3 H (4.8-10.8) X10*3/uL Hgb 15.6 (14.0-18.0) g/dl Hct 47.9 (42.0-52.0) % Plt Count 300 (160-400) X10*3/uL BMP 05/14/22 08:25 Sodium 141 Potassium 4.1 Chloride 106 Carbon Dioxide 24 BUN 23 H Creatinine 1.04 Calcium 9.3 Liver Function 05/14/22 Range/Units 08:25 Total Bilirubin 0.4 (0.0-1.0) mg/dL Direct Bilirubin 0.2 (0.0-0.5) mg/dL AST 11 D (5-37) U/L ALT 25 (0-40) U/L Alkaline Phosphatase 96 D (39-117) U/L Albumin 4.2 (3.5-5.0) g/dL All other labs normal. Assessment and Plan (1) Atrial fibrillation with rapid ventricular response: Status: Acute (2) Abdominal wall cellulitis: Status: Acute Plan 46-year-old male patient presenting with rapid AFib being admitted for further evaluation. Patient was found to have cellulitis of the right lower quadrant which appears to be superficial and not associated with an abscess. The patient reports a long history of similar lesions which may indicate a MRSA type infection. No incision and drainage is required at this time. Procedures Date of Service Date of Service: 05/14/22
--- NOTE | 2022-05-14 16:21 | PC.NURSE ---
Pt is becoming agitated that we are treating his infected abscesses. He states 'I did not come here for this, I don't want anyone looking at this. I came for my heart problem. Hospitalist explained that the infection is affecting his heart and the pt yelled 'No it's not. Pt has been told several times that the infection and his heart problem may be connected and we are treating all of his problems.
--- NOTE | 2022-05-14 16:24 | PC.NURSE ---
Pt grew more agitated and cursed the Dr several times and told him to leave. CARLOS gregg was in the room and the pt threw that monitoring equipment at her and is now demanding to leave AMA.
--- NOTE | 2022-05-14 16:27 | P.EN_ITS ---
Event Note Date of Service: 05/14/22 Event Note: Patient found to have abdominal wall cellulitis which is likely causing his AFib with RVR. Patient wanted to know why he is receiving antibiotics but was not ready to listen to the explanation. He kept on repeating that he is not here for his abdominal wall cellulitis and he is only here for his heart condition. He did not like the explanation that his infection might be causing his AFib with RVR and stated that he knows his body better and knows that his infection is not causing his AFib with RVR. Patient started shouting and is extremely agitated. He does not want the physicians in the hospital to concentrate on the abdominal wall cellulitis and is upset that nobody is treating his heart (which is untrue as his afib is controlled via diltiazem drip). He is adamant that he knows how to manage these infections at home. Upon nurse request, went to talk to the patient but he was not even looking at me while talking and said he does not want me in the room as he does not like my explanation. As per nurse, patient earlier also threw BP cuff at a ED cutter grind tool technician. My encounter with him was just him constantly shouting at the top of his voice without wanting to listen to any explanation.
--- NOTE | 2022-05-14 16:48 | PM.EVENT ---
Event Note Date of Service: 05/14/22 Event Note: Patient found to be in Afib with RVR this morning likely caused by the cellulitis on his right lower abdomen. The infection has been evaluated now by myself, ED physician, surgeon, and admitting physician Dr Forbes and antibiotics have been recommended. The patient repeatedly questions why he is being treated for an infection when he came in for his heart. Attempted to explain to the patient multiple times in multiple ways that it is important to treat both conditions as the cellulitis is likely causative. He states he has had RVR in the past without infection. Discussed that there are multiple reasons someone can develop RVR and that in this case, infection is the most likely cause. Discussed that we are also treating his heart and that at this time his rate is controlled, though he does remain in atrial fibrillatio. Discussed with the patient that I have also consulted cardiology. Despite this, patient is very condescending stating that I am not listening to his concerns though I have an I have attempted to address them in multiple ways. 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 Attempted to state my credentials an qualifications but again the patient cannot listen and continues to utter condescending remarks about him knowing his body and that none of the providers who have evaluated and have been treating him using evidence based guidelines, are answering his questions or listening. At no point during this discussion did this patient look at me. At this time, there is no way of having productive discussion with the patient so I have left the exam room. His was also present during this encounter.
--- NOTE | 2024-02-18 10:29 | P.DS_ITS ---
DS: Providers Provider Date of Service: 05/14/22 Date of admission: 05/14/22 12:21 Date of discharge: 05/14/22 Primary care physician: [facility] Consults: 05/14/22 12:26 Consult to General Surgery Routine Consulting Provider: Osbaldo Encarnacion Reason for consultation: cellulitis and abscess, abdomen 05/14/22 12:40 Consult to Cardiology Routine Consulting Provider: Yuan Acevedo Reason for consultation: afib wtih rvr DS: Diagnosis Discharge Diagnosis (1) Atrial fibrillation with rapid ventricular response: Status: Inactive (2) Abdominal wall cellulitis: Status: Acute DS: Summary Hospital Course Hospital Course: HPI : 46 year old male with history of prediabetes on metformin, multiple sclerosis, atrial fibrillation anticoagulated with eliquis, mild intermittent asthma presented to the ED earlier today for evaluation of an infection on his lower right abdomen. he reports a history of cystic acne with frequent skin infections that typically clear spontaneously. However, this lesion worsening last 4 days with erythema, warmth, and clear drainage. Was recently on bactrim but states this was for his hands. States this morning he awoke feeling lightheaded with palpitations. Denies any sob, chest pain. Reports compliance with medications. on arrival, tachycardic to 128, blood pressure 92/58, no hypoxia. EKG showed atrial fibrillation with RVR, rate 164 without BECKI. CXR negative. WBC 13.3. Renal function baseline, electrolytes normal. Glucose 144. Lactic acid 1.8. Troponin negative. BNP 74. Denies any recent alcohol use. Endorses smoking marijuana daily and 1/2 pack of cigarettes daily. No illicit drug use. Is received 50 mg diltiazem push without improvement heart rate and was started on Cardizem drip per protocol. He was given 2 L bolus normal saline along with doses of vancomycin and Zosyn. Hospital course: Patient was admitted with IV diltiazem drip for AFib with RVR and IV antibiotics for cellulitis with abscess. Patient left against medical advice during hospitalization Status at Discharge Functional status at discharge: independent ambulation Overall status at discharge: other Time Attestation Discharge Coordination Time (in mins): 10 Quality: Safe Use of Opioids Does Pt have an Active Cancer Diagnosis on the Problem List?: No Quality: Stroke Does the patient have a stroke diagnosis?: No Physical Exam Vital Signs: Vital Signs: Last Vital Signs Temp 97.5 F 05/14/22 16:13 Pulse 86 05/14/22 16:13 Resp 16 05/14/22 16:13 BP 117/73 05/14/22 16:13 Pulse Ox 97 05/14/22 16:13 O2 Del Method Room Air 05/14/22 16:13 BMI result Body Mass Index 29.5 Constitutional - Awake and Alert, No apparent distress Eyes - PERRLA, EOMI Cardiovascular - S1S2, RRR, No edema Respiratory - Normal lung expansion, Normal respiratory effort, No respiratory distress, CTA bilaterally Gastrointestinal - NT / ND; +BS; No rebound or guarding Extremities - no calf tenderness bilaterally, no swelling Musculoskeletal - Normal inspection, normal ROM Skin - Warm/Dry. Erythema with slight central fluctuance with faint surrounding erythema and warmth Neurological - Alert & oriented x3, CN II- XII in tact. No motor or sensory deficity Psychological - Appropriate affect DS: Data Imaging Chest x-ray: Radiologist's impression: ITS Impressions Chest X-Ray 05/14/22 08:56 IMPRESSION: No acute cardiopulmonary process. Discharge Plan Discharge Patient Disposition: Left Against Medical Advice Discharge Diagnosis: AFib with RVR Acute cellulitis abdominal Discharge Medications: No Action cholecalciferol (vitamin D3) 50 mcg (2,000 unit) capsule 50 mcg PO DAILY dimethyl fumarate [Tecfidera] 240 mg capsule,delayed release(DR/EC) 240 mg PO BID albuterol sulfate 2.5 mg /3 mL (0.083 %) Solution For Nebulization 2.5 mg INHALATION Q4-6H PRN (Reason: Shortness Of Breath Or Wheezing) acetaminophen 500 mg Tablet 1,000 mg PO Q6H PRN (Reason: Pain) albuterol sulfate [ProAir HFA] 90 mcg/actuation Hfa Aerosol Inhaler 2 puff INHALATION QID PRN (Reason: Shortness Of Breath Or Wheezing) Eliquis 5 mg tablet 5 mg PO BID metoprolol tartrate 25 mg tablet 25 mg PO BID cyclobenzaprine 10 mg tablet 10 mg PO TID PRN (Reason: muscle spasm) Qty: 10 0RF guaifenesin [Mucinex] 600 mg tablet extended release 12hr 600 mg PO Q12H Qty: 10 0RF (DME) lancets [TRUEplus Lancets] 33 gauge misc See Rx Instructions .ROUTE DAILY Qty: 100 Rx Instructions: As directed (DME) FreeStyle Lite Strips Strip See Rx Instructions .ROUTE DAILY Qty: 10 Rx Instructions: As directed alcohol swabs [Alcohol Prep Pads] Pads, Medicated 0 pad topical rosuvastatin 20 mg tablet 20 mg PO QAM flecainide 100 mg tablet 100 mg PO Q12H Qty: 60 5RF Discharge Orders: Discharge Order (Routine); Ordered 02/18/24 Ordered By: Funmi Forbes Diet: Advance to usual diet Activity on Discharge: As tolerated Print Language: Cook Islander Care Plan Goals: Follow-up with PCP Health Concerns: AFib Multiple sclerosis Plan of Treatment: Patient left AMA Assessment: As above Discharge Date/Time: 05/14/22 18:15
== END 2022-05-14 18:15 | disposition left against medical advice (07) | DRG 603 ==
LOC: HO.ED 11:05 → HO.EDOVER 12:35 → HO.IMC 17:04 → HO.EDOVER 18:12
PROVIDERS: Admitting Provider Physician Assistant; Emergency Provider Emergency Medicine; Visit Provider Student in an Organized Health Care Education/Training Program
DX: L03.311 Cellulitis of abdominal wall (principal); G35 Multiple sclerosis; L73.9 Follicular disorder, unspecified; I48.91 Unspecified atrial fibrillation; J45.20 Mild intermittent asthma, uncomplicated; E11.9 Type 2 diabetes mellitus without complications; F17.210 Nicotine dependence, cigarettes, uncomplicated; Z20.822 Contact with and (suspected) exposure to COVID-19; Z71.6 Tobacco abuse counseling; Z79.01 Long term (current) use of anticoagulants; Z79.84 Long term (current) use of oral hypoglycemic drugs; Z79.899 Other long term (current) drug therapy
CPT/HCPCS: 36415; 71045; 80048; 80076; 82077; 83036; 83605; 83735; 83880; 84443; 84484; 85025; 85610; 85730; 87040; 87635; 93005; 99284; J0692; J2543; J3370

== ENCOUNTER → 2022-05-14 12:21 | Outpatient (BNV) | payer MEDICARE, MEDICAID, SELFPAY | PROVIDERS: Admitting Provider Physician Assistant; Emergency Provider Emergency Medicine; Visit Provider Student in an Organized Health Care Education/Training Program | DX: I48.91 Unspecified atrial fibrillation (principal); L03.311 Cellulitis of abdominal wall | CPT/HCPCS: 99238 ==

== ENCOUNTER → 2022-05-23 14:47 | Outpatient (BNVA) | payer MEDICARE, MEDICAID, SELFPAY | PROVIDERS: PCP Nurse Practitioner Family; Visit Provider Internal Medicine Cardiovascular Disease | DX: I48.0 Paroxysmal atrial fibrillation (principal) | CPT/HCPCS: 93005; 99212 ==

== ENCOUNTER → 2022-05-30 15:18 | Outpatient (BNVA) | payer MEDICARE, MEDICAID, SELFPAY | PROVIDERS: PCP Nurse Practitioner Family; Referring Provider Nurse Practitioner Family; Visit Provider Internal Medicine Cardiovascular Disease | DX: R94.31 Abnormal electrocardiogram [ECG] [EKG] (principal) | CPT/HCPCS: 93005 ==

== ENCOUNTER 2022-06-25 10:19 | Emergency (ER) | payer OTHER, MEDICARE, MEDICAID, SELFPAY ==
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
[2022-06-25 10:26] VITALS: BP 125/86; PULSE 95; RESP 15; TEMP 36.6; O2SAT 98; BMI 28.8
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
== END 2022-06-25 12:44 | disposition home or self-care (01) ==
PROVIDERS: Emergency Provider Emergency Medicine; PCP Nurse Practitioner Family
DX: S06.0X0A Concussion without loss of consciousness, initial encounter (principal); R51.9 Headache, unspecified; M54.50 Low back pain, unspecified; F17.210 Nicotine dependence, cigarettes, uncomplicated; V43.52XA Car driver injured in collision with other type car in traffic accident, initial encounter; Y93.9 Activity, unspecified; Y92.410 Unspecified street and highway as the place of occurrence of the external cause; Y99.9 Unspecified external cause status; Z71.6 Tobacco abuse counseling; Z79.899 Other long term (current) drug therapy
CPT/HCPCS: 70450; 72100; 99283; 99284

== ENCOUNTER 2022-08-27 10:23 | Emergency (ER) | payer MEDICARE, MEDICAID, SELFPAY ==
[2022-08-27 10:27] VITALS: BP 124/80; PULSE 78; RESP 18; TEMP 36.4; O2SAT 96; BMI 28.8
--- NOTE | 2022-08-27 11:08 | ED.SKABFB ---
HPI - Skin/Abscess/Foreign Bdy General Chief complaint: Skin/Abscess/Foreign Body Stated complaint: Cyst on thumb? Time Seen by Provider: 08/27/22 11:01 Source: patient Mode of arrival: ambulatory Limitations: no limitations History of Present Illness HPI narrative: 47 yo male with history of diabetes, Afib on Eliquis, asthma, multiple sclerosis who presents to the ER for evaluation of a painful bump on the pad of his thumb that has been there for a couple of months now. He states he popped it once a few weeks ago with an earring and blood and pus came out. He was on antibiotics which helped but the pain and swelling are back. He reports the area is tender, has a yellow discoloration. He is diabetic. He does not use his right thumb for fingersticks. MD complaint: abscess/boil Onset (ago): month(s) Tetanus up to date: yes Location: R hand Severity: moderate Severity scale (1-10): 5 Quality: aching Pain Consistency: constant Relieving factors: none Exacerbating factors: palpation Context: recent antibiotic Associated symptoms: denies other symptoms Treatments prior to arrival: attempted to drain pus at home Related Data Home Medications Medication Instructions Recorded Confirmed acetaminophen 500 mg tablet 1,000 mg PO Q6H PRN Pain 05/14/22 05/23/22 albuterol sulfate 2.5 mg/3 mL 2.5 mg inhalation Q4-6H PRN 05/14/22 05/23/22 (0.083 %) solution for nebulization Shortness Of Breath Or Wheezing albuterol sulfate 90 mcg/actuation 2 puff inhalation QID PRN 05/14/22 05/23/22 aerosol inhaler (ProAir HFA) Shortness Of Breath Or Wheezing apixaban 5 mg tablet (Eliquis) 5 mg PO BID 05/23/22 05/23/22 cholecalciferol (vitamin D3) 50 50 mcg PO DAILY 05/23/22 05/23/22 mcg (2,000 unit) capsule dimethyl fumarate 240 mg 240 mg PO BID 05/23/22 05/23/22 capsule,delayed release (Tecfidera) fluconazole 150 mg tablet 150 mg PO QWEEK 05/23/22 05/23/22 metformin 500 mg tablet 500 mg PO BID 05/23/22 05/23/22 metoprolol tartrate 25 mg tablet 25 mg PO BID 05/23/22 05/23/22 Previous Rx's Medication Instructions Recorded flecainide 50 mg tablet 50 mg PO Q12H #60 tabs 05/23/22 cyclobenzaprine 10 mg tablet 10 mg PO TID PRN muscle spasm #10 06/25/22 tabs cephalexin 500 mg capsule 500 mg PO Q6H 7 days #28 caps 08/27/22 doxycycline monohydrate 100 mg 100 mg PO BID #14 caps 08/27/22 capsule Allergies Allergy/AdvReac Type Severity Reaction Status Date / Time No Known Allergies Allergy Verified 08/27/22 10:30 Review of Systems Review of Systems: Yes all other systems are reviewed and are negative [facility] Past Medical History Medical History Asthma Atrial fibrillation with rapid ventricular response Diabetes Multiple sclerosis Paroxysmal atrial fibrillation Family History Family History Mother Diabetes Asthma Maternal Grandmother Diabetes Brother Diabetes Other No family history of cardiac disease Social History Social History Alcohol intake: never Patient Tobacco Use Status: Current everyday Tobacco user Substance Use Type: Marijuana Advance Directives: No Advance Directives Information Provided: Yes service: No Current occupational status: disabled Physical Exam Vital Signs: Vital Signs: Last Vital Signs Temp 97.6 F 08/27/22 10:27 Pulse 78 08/27/22 10:27 Resp 18 08/27/22 10:27 BP 124/80 08/27/22 10:27 Pulse Ox 96 08/27/22 10:27 O2 Del Method 08/27/22 10:27 BMI result Body Mass Index 28.8 Appearance: Alert. Oriented X3. No acute distress. HEENT: normal inspection CVS: Normal heart rate and rhythm. Pulses normal. Respiratory: No respiratory distress. Skin: Skin warm and dry. Normal skin color. Normal skin turgor. No rashes. Extremities: the pulp of the right distal thumb with a moderate sized area of swelling, tenderness, yellowish discoloration and central fluctunace. not circumferential. normal ROM of the thumb, NV intact distally. Neuro: Oriented X 3. No motor deficit. No sensory deficit. Course Course Course Narrative: 47 yo male with history of DM presents to the ER with right thumb swelling and tenderness. Exam c/w with an abscess but in an atypical location. Will plan to puncture with an 18G needle to express pus and help wound healing. area was soaked in antiseptic solution Reevaluation(s) Reevaluation #1: purulent material expressed. DSD applied. wound care discussed as well as importance of follow up to ensure healing and complete resolution stable for d/c home with abx and outpatient follow up Medical Decision Making Differential Diagnosis Differential Diagnoses: The differential diagnosis associated with the presentation includes abscess, wart, wound infection, less likely deep tissue infection likely tenosynovitis or osteomyelitis External Record Review External record reviewed: Office record, Outpatient record, Prior outpatient labs and Prior outpatient radiology Prescription Management I considered prescription management with: Pain Medication and Antibiotic Chronic Conditions Patient?s care impacted by: Diabetes Procedures Abscess I/D Site: hand Side (if applicable): right Technique: needle aspiration Sent for culture/gram staining?: No Irrigation: Yes Packing used?: none Complications: pain Critical Care Time Critical Care Time Critical Care Time: No Discharge Plan Discharge Clinical Impression: Abscess of skin or subcutaneous tissue Patient Disposition: Home, Self-Care Instructions: Abscess Incision and Drainage (DC) Additional Instructions: Soak your thumb 2-3 times per day in warm soapy water. Take the prescribed antibiotics as directed. Recommend following up with the Hand Specialist for further evaluation and treatment - call for an appointment Also follow up with your PCP for follow up If you develop new or worsening symptoms call 911 or come back to the ER for further evaluation. Prescriptions: New cephalexin 500 mg capsule 500 mg PO Q6H 7 Days Qty: 28 0RF doxycycline monohydrate 100 mg capsule 100 mg PO BID Qty: 14 0RF No Action cholecalciferol (vitamin D3) 50 mcg (2,000 unit) capsule 50 mcg PO DAILY dimethyl fumarate [Tecfidera] 240 mg capsule,delayed release(DR/EC) 240 mg PO BID metformin 500 mg tablet 500 mg PO BID albuterol sulfate 2.5 mg /3 mL (0.083 %) Solution For Nebulization 2.5 mg INHALATION Q4-6H PRN (Reason: Shortness Of Breath Or Wheezing) acetaminophen 500 mg Tablet 1,000 mg PO Q6H PRN (Reason: Pain) albuterol sulfate [ProAir HFA] 90 mcg/actuation Hfa Aerosol Inhaler 2 puff INHALATION QID PRN (Reason: Shortness Of Breath Or Wheezing) Eliquis 5 mg tablet 5 mg PO BID fluconazole 150 mg tablet 150 mg PO QWEEK metoprolol tartrate 25 mg tablet 25 mg PO BID cyclobenzaprine 10 mg tablet 10 mg PO TID PRN (Reason: muscle spasm) Qty: 10 0RF flecainide 50 mg tablet 50 mg PO Q12H Qty: 60 5RF Referrals: [facility] [Provider Group] Center,[facility] [Primary Care Provider] - Interventions: ED Discharge Assessment Last Done: 08/27/22 11:27 Discharge Date/Time: 08/27/22 11:30
== END 2022-08-27 11:30 | disposition home or self-care (01) ==
PROVIDERS: Emergency Provider Emergency Medicine
DX: L02.511 Cutaneous abscess of right hand (principal); Z79.899 Other long term (current) drug therapy
CPT/HCPCS: 26010; 99282; 99284

== ENCOUNTER → 2022-10-16 14:05 | Outpatient (BNVA) | payer MEDICARE, MEDICAID, SELFPAY | PROVIDERS: Visit Provider Physician Assistant | DX: L72.0 Epidermal cyst (principal) | CPT/HCPCS: 99202; 99212 ==

== ENCOUNTER 2022-10-17 10:26 | Day surgery (SDC) | payer MEDICARE, MEDICAID, SELFPAY ==
--- NOTE | 2022-10-17 07:58 | W.PM.OPN ---
Operative Note Operative Note Date of Service: 10/17/22 Narrative: Operative Note Preop diagnosis: 1. Right thumb infection, felon 2. . Right thumb mass Postop diagnosis: same Procedure: 1. Right thumb I and D felon 2. Right thumb mass excision Surgeon: Oralia Campos MD Anesthesia: digital block using 1% lidocaine with epinephrine Findings: Creamy yellow purulence, as well as a white soft tissue mass measuring approximately 6 mm x 3 mm by 5 mm. This may have been the contents of an epidermal inclusion cyst at 1 point. There was also some evidence of an old cyst or rind and a portion of this was sent for pathology. EBL: Less than 5 mL Tourniquet time: None Specimens: Cultures of purulence, and soft tissue mass sent for histopathology Complications: None Disposition: Brought to recovery room in stable condition Plan: Follow-up for 7-10 days for wound check and suture removal and to check pathology and culture Indications: The patient is 47 years old, with a right thumb felon and evidence of a possible mass . The risks and benefits of operative treatment including but not limited to risk of damage to blood vessels, nerves, tendons, infection, persistent pain, persistent symptoms, recurrence or possible need for additional surgery were discussed with the patient and the patient wishes to proceed with surgery. Procedure: Once consent was obtained a digital block was performed in the preop area using a combination of 1% lidocaine with epinephrine. The patient was then brought back to the operating suite and placed on the operative table in supine position. The right upper extremity and the limb was prepped and draped in a standard surgical fashion. I placed a finger tourniquet about the base of the thumb for few were than 30 minutes. Once assured that we had a good block, I made an oblique incision over the mass in the volar pad of the right thumb. The incision was made through the skin to the subcutaneous tissue using a 15. Blade. The immediately had creamy yellow purulence spell out of the wound. Cultures were taken of the purulent material. The wound was then copiously irrigated with normal saline. We also found a white soft tissue mass measuring approximately 6 mm x 3 mm by 5 mm.? This may have been the contents of an epidermal inclusion cyst at 1 point.? This was sent for histopathology. There was also some evidence of an old cyst or rind and a portion of this was sent for pathology. Once satisfied with our I and D hand mass excision the wound was copiously irrigated with normal saline. The finger tourniquet was removed and hemostasis was obtained with a brief period of local pressure. The skin edges were loosely reapproximated with some 5.0 nylon suture material, to allow for any drainage, and a sterile dressing was applied. The patient appears to have tolerated the procedure well and with no complications. All digits were well vascularized at the conclusion of the case.
--- OUTSIDE RECORDS SUMMARY | 2022-10-17 10:27 | XMS_ITS | Continuity of Care Document ---
Author Name Unknown Organization [facility] Address [address] [place] [address]- Care Team Providers Care Aquarist Name Role Phone Shari HILL, Deborah Primary Care Physician Encounter [facility] Date(s): 08/14/22 - 09/13/22 [facility] [address], [address], [address] [place] [id number] Attending Physician: Tori Strong Admitting Physician: AdmTori woods Referring Physician: AdmtrTori Allergies, Adverse Reactions, Alerts No Known Allergies Immunizations Given and Recorded Vaccine Date Status Refusal Reason tetanus/diphtheria/pertussis, acel(Tdap) 01/21/07 Given tetanus/diphtheria/pertussis, acel(Tdap) 1 01/21/07 Given 1Result Comment: charted twice , given once Medications Albuterol/Ipratropium Inhaler Refills 0, Maintenance, 08/20/18 19:10:12 EST Start Date: 08/20/18 Status: Ordered Claritin 5 mg oral tablet, chewable 1 tablet = 5 mg, Chew, Daily, # 30 tablet, 0 Refills, Maintenance, 08/20/18 19:09:57 EST, Chew Tablet Start Date: 08/20/18 Status: Ordered dimethyl fumarate 240 mg oral delayed release capsule 1 capsule = 240 mg, By Mouth, 2 times a day, # 60 capsule, 7 Refills, Maintenance, 02/12/22 12:33:00 EDT, [facility], 176, cm, 02/12/22 9:20:00 EDT, Height Start Date: 02/12/22 Stop Date: 10/10/22 Status: Ordered Eliquis 5 mg oral tablet 1 tablet = 5 mg, By Mouth, 2 times a day, 0 Refills, Maintenance, 02/12/22 9:24:00 EDT, Partial fill upon patient request if the prescription is for a schedule II opioid drug. Start Date: 02/12/22 Status: Ordered Ensure Ensure, See Instructions, # 60 bottle, Refills 5, Tot. Refills 5, Maintenance, using while taking Tecfidera for better nutrition. Needs to take a meal when taking this medication., 04/09/18 16:17:01 EDT, Compound Start Date: 04/09/18 Status: Ordered metFORMIN 500 mg oral tablet 1 tablet = 500 mg, By Mouth, 2 times a day, # 60 tablet, 0 Refills, Maintenance, 02/12/22 9:24:00 EDT, Tablet, Partial fill upon patient request if the prescription is for a schedule II opioid drug. Start Date: 02/12/22 Status: Ordered metoprolol 25 mg oral tablet 25 mg, 1, tablet, By Mouth, 2 times a day, Refills 0, Maintenance, 02/12/22 9:24:00 EDT, Partial fill upon patient request if the prescription is for a schedule II opioid drug. Start Date: 02/12/22 Status: Ordered Vitamin D3 2000 intl units oral capsule 1 capsule = 2,000 International_Units, By Mouth, Daily, # 30 capsule, 8 Refills, Maintenance, 02/12/22 12:33:00 EDT, [facility], 176, cm, 02/12/22 9:20:00 EDT, Height Start Date: 02/12/22 Stop Date: 11/09/22 Status: Ordered Problem List Condition Confirmation Course Effective Dates Status Health St atus Informant Relapsing remitting multiple sclerosis Confirmed Active Note * Event Display: MRI Head, Non- BH Authored Date: Patient Care team information Care Team Personnel Name: Lauren Ching RN Position: S RN Member Role: Primary Care Nurse Name: Leeanna Amaral RN Position: [facility] RN Member Role: Primary Care Nurse Name: Mary Anne Driver RN Position: [facility] RN Member Role: Primary Care Nurse Care Team Related Persons Name: NABOR ROJAS Address: home [address] [place] [address] Name: ALTAGRACIA LOBO Name: ABDELRAHMAN JIMENEZ Address: home [address] [place] [address]
[2022-10-17 11:10] VITALS: BMI 28.8
--- NOTE | 2022-10-17 13:41 | MHC.SHP ---
Pre-Procedural Eval Section A Date of Service: 10/17/22 The patient is an INPATIENT: No Changes since office visit: No Cold of Flu in the past 2 weeks, No New Medical Problems, No Changes in Medication and No Patient answered all questions The History & Physical has been completed within 30 days and I have reviewed it.: Yes Section B Chief Complaint: Epidermal cyst, thumb infection Allergies: Allergies Allergy/AdvReac Type Severity Reaction Status Date / Time No Known Allergies Allergy Verified 10/16/22 14:17 Plan I have reviewed the history and physical and performed a pertinent physical examination on my patient. No changes have occurred unless specified. Time Spent With Patient Time: Total time managing care of this patient today ____ minutes.
--- NOTE | 2022-10-17 14:40 | PC.NURSE ---
POST OP VITAL SIGNS: P 61, R 16, 98% RA, 100/67
== END 2022-10-17 14:38 | disposition home or self-care (01) ==
PROVIDERS: Visit Provider Orthopaedic Surgery
PROC: (CPT 26115; principal; 2022-10-17 12:10)
DX: R22.31 Localized swelling, mass and lump, right upper limb (principal); L03.011 Cellulitis of right finger; L72.0 Epidermal cyst; E11.9 Type 2 diabetes mellitus without complications; J45.909 Unspecified asthma, uncomplicated; I48.0 Paroxysmal atrial fibrillation; Z79.01 Long term (current) use of anticoagulants; Z79.84 Long term (current) use of oral hypoglycemic drugs; Z79.899 Other long term (current) drug therapy
CPT/HCPCS: 26115; 10060; 87070; 87205; 88304

== ENCOUNTER → 2022-10-21 09:32 | Outpatient (BNVA) | payer MEDICARE, MEDICAID, SELFPAY | PROVIDERS: Visit Provider Physician Assistant | DX: Z48.817 Encounter for surgical aftercare following surgery on the skin and subcutaneous tissue (principal); Z87.2 Personal history of diseases of the skin and subcutaneous tissue | CPT/HCPCS: 99212 ==

== ENCOUNTER → 2022-10-30 08:55 | Outpatient (BNVA) | payer MEDICARE, MEDICAID, SELFPAY | PROVIDERS: Visit Provider Orthopaedic Surgery | DX: Z48.817 Encounter for surgical aftercare following surgery on the skin and subcutaneous tissue (principal); Z87.2 Personal history of diseases of the skin and subcutaneous tissue | CPT/HCPCS: 99212 ==

== ENCOUNTER → 2022-11-19 10:18 | Outpatient (BNVA) | payer MEDICARE, MEDICAID, SELFPAY | PROVIDERS: Visit Provider Orthopaedic Surgery ==

== ENCOUNTER 2022-12-02 14:56 | Outpatient (REF) | payer MEDICARE, MEDICAID, SELFPAY ==
[2022-12-02 18:19] LABS: Anion Gap 14 (12-20); Blood Urea Nitrogen 13 mg/dL (9-16); Calcium 9.5 mg/dL (8.4-10.2); Carbon Dioxide 24 mmol/L (22-29); Chloride 104 mmol/L (96-108); Estimated Glomerular Filt Rate > 60; Glucose Random 109 mg/dL (60-115); Potassium 4.1 mmol/L (3.3-5.1); Sodium 138 mmol/L (135-145)
== END 2022-12-02 14:57 | disposition home or self-care (01) ==
LOC: HO.LAB 14:56
PROVIDERS: PCP Registered Nurse; Visit Provider Internal Medicine Cardiovascular Disease
DX: I48.0 Paroxysmal atrial fibrillation (principal)
CPT/HCPCS: 36415; 80048; 93005; 99212

== ENCOUNTER 2023-02-04 10:28 | Outpatient (REF) | payer MEDICARE, MEDICAID, SELFPAY ==
[2023-02-04 14:21] LABS: MANUAL DIFF FLAG NO
[2023-02-04 14:40] LABS: Basophils Absolute Auto 0.1 X10*3/uL (0.0-0.2); Basophils Percent Auto 0.6 % (0-2); Eosinophils Absolute Auto 0.2 X10*3/uL (0.0-0.4); Eosinophils Percent Auto 1.2 % (0-4); Hematocrit 47.6 % (42.0-52.0); Hemoglobin 15.5 g/dl (14.0-18.0); Imm Gran Abs Auto 0.08 X10*3/uL (0.00-0.03); Imm Gran Pct Auto 0.5 % (0.0-0.4); Lymphocytes Absolute Auto 1.3 X10*3/uL (1.2-4.9); Lymphocytes Percent Auto 8.6 % (20-40); Mean Corpuscular HGB Conc 32.6 g/dl (31.0-36.0); Mean Corpuscular Hemoglobin 27.9 pg (27.0-33.0); Mean Corpuscular Volume 85.6 fL (80.0-98.0); Mean Platelet Volume 10.6 fL (9.4-12.4); Monocytes Percent Auto 6.2 % (2-11); Neutrophils Absolute Auto 12.9 x10*3/uL (2.0-8.3); Neutrophils Percent Auto 82.9 % (45-73); Platelet Count 288 X10*3/uL (160-400); Red Blood Count 5.56 X10*6/uL (4.60-5.80); Red Cell Distribution Width 14.7 % (11.0-16.0); White Blood Count 15.6 X10*3/uL (4.8-10.8)
[2023-02-04 17:38] LABS: Alanine Aminotransferase 44 U/L (0-40); Albumin Level 4.5 g/dL (3.5-5.0); Alkaline Phosphatase 73 U/L (39-117); Anion Gap 15 (12-20); Aspartate Amino Transferase 22 U/L (5-37); Bilirubin Direct 0.2 mg/dL (0.0-0.5); Bilirubin Total 0.5 mg/dL (0.0-1.0); Blood Urea Nitrogen 15 mg/dL (9-16); Calcium 9.9 mg/dL (8.4-10.2); Carbon Dioxide 22 mmol/L (22-29); Chloride 105 mmol/L (96-108); Cholesterol 146 mg/dL; Estimated Glomerular Filt Rate > 60; Glucose Fasting 105 mg/dL (60-99); HDL Cholesterol 39 mg/dL; LDL Cholesterol Calculated 62 mg/dl; Potassium 3.8 mmol/L (3.3-5.1); Sodium 138 mmol/L (135-145); Total Protein 7.7 g/dL (6.5-8.0); Triglycerides 229 mg/dL
== END 2023-02-04 10:29 | disposition home or self-care (01) ==
LOC: HO.CHCLDS 10:28
PROVIDERS: Visit Provider Internal Medicine
DX: L73.2 Hidradenitis suppurativa (principal); L70.0 Acne vulgaris; Z79.899 Other long term (current) drug therapy
CPT/HCPCS: 36415; 80048; 80061; 80076; 85025

== ENCOUNTER 2023-02-17 11:44 | Outpatient (REF) | payer MEDICARE, MEDICAID, SELFPAY ==
[2023-02-18 04:55] LABS: HBS Num1 0.34 mIU/mL (0-7.99); HBc Num1 0.11 S/CO (0.00-0.79); HBsAGNum1 0.38 S/CO (0.00-0.99); Hepatitis A Antibody IgM 0.13 Index (0-0.79); Hepatitis B Core Antibody Nonreactive (Nonreactive); Hepatitis B Surface Antigen Negative (Negative); ~HepC Num1 0.05 S/CO (0.00-0.79); ~Hepatitis A Antibody IgM Nonreactive (Nonreactive); ~Hepatitis B Surface Antibody NONREACTIVE (Nonreactive); ~Hepatitis C Antibody Nonreactive (Nonreactive)
== END 2023-02-17 11:45 | disposition home or self-care (01) ==
LOC: HO.CHCLDS 11:44
PROVIDERS: Visit Provider Registered Nurse
DX: R74.8 Abnormal levels of other serum enzymes (principal)
CPT/HCPCS: 36415; 86704; 86706; 86709; 86803; 87340

== ENCOUNTER 2023-05-16 09:30 | Outpatient (AMB) | payer MEDICARE, MEDICAID, SELFPAY ==
--- NOTE | 2023-05-16 10:08 | AM.OFFVISNUR ---
Intake Intake Visit Reasons: 6 month EKG Intake Note: Pt here for f/up EKG. H/O afib. Feels good. No complaints. Media Coordinator Required: No Accompanied by: Self / Same As Patient Allergies No Known Allergies Allergy (Verified 11/19/22 10:59) Followed by:: Dr. Herring Nursing Note EKG completed, EKG auto-reading sinus rhythm at [address] Herring's desk for review and signature. Office Procedures EKG 74139-[id number], Complete Coding Level of Care Code Est Pt Level 1 (83239) CPT Codes EKG - CPT: 04255-[id number], Complete ([id number]) Time Spent (min) 15 Comment EKG, Medication Reconciliation, Documentation, Education
== END 2023-05-16 10:11 | disposition home or self-care (01) ==
PROVIDERS: Visit Provider Internal Medicine Cardiovascular Disease
DX: R94.31 Abnormal electrocardiogram [ECG] [EKG] (principal)
CPT/HCPCS: 93010

== ENCOUNTER → 2023-05-16 09:30 | Outpatient (BNVA) | payer MEDICARE, MEDICAID, SELFPAY | PROVIDERS: Visit Provider Internal Medicine Cardiovascular Disease | DX: R94.31 Abnormal electrocardiogram [ECG] [EKG] (principal) | CPT/HCPCS: 93005 ==

== ENCOUNTER 2023-06-10 10:42 | Outpatient (REF) | payer MEDICARE, MEDICAID, SELFPAY ==
[2023-06-10 14:51] LABS: Alanine Aminotransferase 47 U/L (0-40); Albumin Level 4.4 g/dL (3.5-5.0); Alkaline Phosphatase 78 U/L (39-117); Aspartate Amino Transferase 19 U/L (5-37); Bilirubin Direct 0.2 mg/dL (0.0-0.5); Bilirubin Total 0.3 mg/dL (0.0-1.0); Total Protein 7.6 g/dL (6.5-8.0)
== END 2023-06-10 10:43 | disposition home or self-care (01) ==
LOC: HO.CHCLDS 10:42
PROVIDERS: Visit Provider Internal Medicine
DX: L70.0 Acne vulgaris (principal)
CPT/HCPCS: 36415; 80076

== ENCOUNTER 2023-07-24 13:12 | Emergency (ER) | payer MEDICARE, MEDICAID, SELFPAY ==
--- NOTE | ~2023-07-24 | XR_ITS ---
EXAMINATION: XR CHEST CLINICAL INFORMATION: Cough COMPARISON: Chest radiograph from 05/14/2022 TECHNIQUE: Frontal view of the chest was obtained. FINDINGS: No focal consolidation. No pneumothorax. Trachea is midline. Cardiac mediastinal silhouette is not enlarged. No large pleural effusion. Osseous structures are intact. Soft tissues are unremarkable. XR/XR chest 1V IMPRESSION: No acute cardiopulmonary process.
[2023-07-24 13:34] VITALS: BP 129/79; PULSE 86; RESP 19; TEMP 36.6; O2SAT 93; BMI 31.7
--- NOTE | 2023-07-24 13:35 | ED.ASTHMA ---
HPI - Asthma General Chief Complaint: Upper Respiratory Symptoms Stated Complaint: asthma Time Seen by Provider: 07/24/23 17:31 History of Present Illness HPI Narrative: Nausea, vomiting, fever, cough, and shortness of breath x 3 days. Reports that his took his temperature yesterday and that she told him it was 105'. He states he did not have any body aches or chills and believes the temp was most likely 100.5. Stopped smoking cigarettes 3 days ago as they started to taste and smell bad. 1/2 ppd smoker x 30 years. Here in the emergency department patient denies any chest pain, headache, vision changes, abdominal pain, nausea, vomiting, diarrhea, dizziness, lightheadedness, or rigidity gated range of motion. MD complaint: shortness of breath Related Data Home Medications Medication Instructions Recorded Confirmed acetaminophen 500 mg tablet 1,000 mg PO Q6H PRN Pain 05/14/22 12/02/22 albuterol sulfate 2.5 mg/3 mL 2.5 mg inhalation Q4-6H PRN 05/14/22 12/02/22 (0.083 %) solution for nebulization Shortness Of Breath Or Wheezing albuterol sulfate 90 mcg/actuation 2 puff inhalation QID PRN 05/14/22 12/02/22 aerosol inhaler (ProAir HFA) Shortness Of Breath Or Wheezing apixaban 5 mg tablet (Eliquis) 5 mg PO BID 05/23/22 12/02/22 cholecalciferol (vitamin D3) 50 50 mcg PO DAILY 05/23/22 12/02/22 mcg (2,000 unit) capsule dimethyl fumarate 240 mg 240 mg PO BID 05/23/22 12/02/22 capsule,delayed release (Tecfidera) metoprolol tartrate 25 mg tablet 25 mg PO BID 05/23/22 12/02/22 alcohol swabs (Alcohol Prep Pads) 0 pad topical 10/16/22 10/16/22 blood sugar diagnostic (FreeStyle #10 ea 10/16/22 10/16/22 Lite Strips) lancets 33 gauge (TRUEplus Lancets) #100 ea 10/16/22 10/16/22 rosuvastatin 20 mg tablet 20 mg PO QAM 10/16/22 12/02/22 Previous Rx's Medication Instructions Recorded cyclobenzaprine 10 mg tablet 10 mg PO TID PRN muscle spasm #10 06/25/22 tabs flecainide 50 mg tablet 50 mg PO Q12H #90 tabs 07/22/23 guaifenesin 600 mg tablet, 600 mg PO Q12H #10 tabs 07/24/23 extended release 12 hr (Mucinex) Allergies Allergy/AdvReac Type Severity Reaction Status Date / Time No Known Allergies Allergy Verified 07/24/23 13:33 Review of Systems Review of Systems: Yes all other systems are reviewed and are negative [facility] Past Medical History Onset Date is defined in the Problem List Problems that require an onset date and time if occurred within 24 hrs of arrival to the ED Aortic Dissection and Rupture; Neurologic impairment; Cardiopulmonary Arrest; Endotracheal Intubation; Insertion or Replacement of Mechanical Circulatory Assist Device Medical History Asthma Atrial fibrillation with rapid ventricular response Diabetes History of high cholesterol Multiple sclerosis Paroxysmal atrial fibrillation Family History Family History Mother Diabetes Asthma Maternal Grandmother Diabetes Brother Diabetes Other No family history of cardiac disease Social History Social History Alcohol intake: never Patient Tobacco Use Status: Current everyday Tobacco user Substance Use Type: Marijuana Advance Directives: No service: No Current occupational status: disabled Physical Exam Vital Signs: Vital Signs: Last Vital Signs Temp 98 F 07/24/23 13:34 Pulse 97 07/24/23 17:56 Resp 20 07/24/23 17:56 BP 129/79 07/24/23 13:34 Pulse Ox 93 07/24/23 17:56 O2 Del Method Room Air 07/24/23 17:56 BMI result Body Mass Index 31.7 Nursing notes and vital signs reviewed. GENERAL APPEARANCE: A&0 x 4, generally well appearing, no acute distress HENMT: Normal to inspection, atraumatic, face symmetrical. Normal external ears, nose, and oropharynx clear. EYE: PERRLA, EOM intact, structures appear normal NECK: Supple without lymphadenopathy. No stiffness or restricted ROM. CHEST: Normal to inspection HEART: Normal rate and regular rhythm, normal S1/S2, no M/R/G LUNGS: LS diminished throughout. Able to speak in complete sentences. No crackles, wheezes, or rhonchi auscultated ABDOMEN: Soft, nontender, nondistended. Normal bowel sounds noted BACK: No CVAT, no obvious deformity EXTREMITIES: Moving all extremities without difficulty. No cyanosis, clubbing, or edema. Normal capillary refill. NEUROLOGICAL: Alert and oriented, moving all 4 extremities with equal strength. CN not formally tested but appearing grossly intact. Observed to ambulate with normal gait. Cognition normal SKIN: Warm and dry without any lesions, rash, or visible sores PSYCH: Cooperative, normal affect, normal thought process Medical Decision Making Medical Decision Making MDM Narrative: Nasal serology positive for influenza A. On reassessment, pt states that he no longer feels short of breath and feels safe for discharge. Low suspicion at this time for pneumonia, pleurisy, ACS, sepsis, or malignancy. Patient is safe for discharge at this time with plan for [id number] Tylenol and/or NSAID such as ibuprofen or naproxen for fever/discomfort with dosing as per packaging. Patient educated to continue use of previously prescribed inhalers and nebulizer treatments. HPI, PE, diagnostics, and plan discussed with patient and family with no unanswered questions at this time. Strict return precautions given to return to the emergency department with new, worsening, or concerning emergent symptoms. Recommended to follow-up with there primary care provider in 24-48 hours for further treatment and management. Differential Diagnosis Differential Diagnoses: The differential diagnosis associated with the presentation includes But not limited to pneumonia, pneumothorax pleurisy, CHF, COPD, asthma, ACS, URI, sepsis, or malignancy Lab Data 07/24/23 14:26 07/24/23 16:25 Labs: Lab Results 07/24/23 07/24/23 Range/Units 14:26 16:25 WBC 11.9 H (4.8-10.8) X10*3/uL RBC 5.61 (4.60-5.80) X10*6/uL Hgb 15.3 (14.0-18.0) g/dl Hct 45.9 (42.0-52.0) % MCV 81.8 (80.0-98.0) fL MCH 27.3 (27.0-33.0) pg MCHC 33.3 (31.0-36.0) g/dl RDW 14.1 (11.0-16.0) % Plt Count 240 (160-400) X10*3/uL MPV 9.6 (9.4-12.4) fL Immature Gran % (Auto) 0.5 H (0.0-0.4) % Neut % (Auto) 83.0 H (45-73) % Lymph % (Auto) 6.3 L (20-40) % Crenshaw % (Auto) 9.8 (2-11) % Eos % (Auto) 0.1 (0-4) % Baso % (Auto) 0.3 (0-2) % Lymph # (Auto) 0.8 L (1.2-4.9) X10*3/uL Crenshaw # (Auto) 1.2 (0.1-1.2) X10*3/uL Eos # (Auto) 0.0 (0.0-0.4) X10*3/uL Baso # (Auto) 0.0 (0.0-0.2) X10*3/uL Abs Immat Gran (auto) 0.06 H (0.00-0.03) X10*3/uL Absolute Neuts (auto) 9.9 H (2.0-8.3) x10*3/uL Absolute Nucleated RBC 0.000 (0.0-0.012) X10*3/uL Nucleated RBC % (auto) 0.0 (0.0-0.2) /100WBC Sodium 137 (135-145) mmol/L Potassium 4.0 (3.3-5.1) mmol/L Chloride 105 (96-108) mmol/L Carbon Dioxide 22 (22-29) mmol/L Anion Gap 14 (12-20) BUN 11 (9-16) mg/dL Creatinine 0.92 (0.5-1.4) mg/dL Estim Creat Clear Calc 114.3 Estimated GFR > 60 Random Glucose 118 H (60-115) mg/dL Calcium 9.5 (8.4-10.2) mg/dL Total Bilirubin 0.3 (0.0-1.0) mg/dL AST 27 (5-37) U/L ALT 49 H (0-40) U/L Alkaline Phosphatase 70 (39-117) U/L Total Protein 7.9 (6.5-8.0) g/dL Albumin 4.5 (3.5-5.0) g/dL COVID-19 (TEHRESA) Negative (Negative) COVID-19 Clin Com See Note Influenza Type A (ANUP) Positive A (Negative) Influenza Type B (ANUP) Negative (Negative) Influenza A & B Note See Note Discharge Plan Discharge Clinical Impression: Influenza A Patient Disposition: Home, Self-Care Instructions: Influenza (ED), Droplet Precautions (ED) Additional Instructions: You were seen in the emergency department for concerns of fever and shortness of breath. Your nasal swab was positive for Influenza A. This is a viral infection and antibiotics are not needed at this time. You are safe for discharge at this time with plan for management of fever or discomfort with [id number] Tylenol and/or NSAID such as ibuprofen or naproxen with dosing as per packaging. Please return to the emergency department with new, worsening, or concerning emergent symptoms. Recommended to follow-up with your primary care provider in 24-48 hours for further treatment and management. Thank you for choosing [facility]. Prescriptions: New guaifenesin [Mucinex] 600 mg tablet extended release 12hr 600 mg PO Q12H Qty: 10 0RF No Action flecainide 50 mg tablet 50 mg PO Q12H Qty: 90 3RF cholecalciferol (vitamin D3) 50 mcg (2,000 unit) capsule 50 mcg PO DAILY dimethyl fumarate [Tecfidera] 240 mg capsule,delayed release(DR/EC) 240 mg PO BID albuterol sulfate 2.5 mg /3 mL (0.083 %) Solution For Nebulization 2.5 mg INHALATION Q4-6H PRN (Reason: Shortness Of Breath Or Wheezing) acetaminophen 500 mg Tablet 1,000 mg PO Q6H PRN (Reason: Pain) albuterol sulfate [ProAir HFA] 90 mcg/actuation Hfa Aerosol Inhaler 2 puff INHALATION QID PRN (Reason: Shortness Of Breath Or Wheezing) Eliquis 5 mg tablet 5 mg PO BID metoprolol tartrate 25 mg tablet 25 mg PO BID cyclobenzaprine 10 mg tablet 10 mg PO TID PRN (Reason: muscle spasm) Qty: 10 0RF (DME) lancets [TRUEplus Lancets] 33 gauge misc See Rx Instructions .ROUTE DAILY Qty: 100 Rx Instructions: As directed (DME) FreeStyle Lite Strips Strip See Rx Instructions .ROUTE DAILY Qty: 10 Rx Instructions: As directed alcohol swabs [Alcohol Prep Pads] Pads, Medicated 0 pad topical rosuvastatin 20 mg tablet 20 mg PO QAM Referrals: Riri Corrigan FNP [Primary Care Provider] - Stand Alone Forms: Work/School Release Interventions: ED Discharge Assessment Last Done: 07/24/23 17:59 Discharge Date/Time: 07/24/23 17:59 Print Language: Kiswahili
--- OUTSIDE RECORDS SUMMARY | 2023-07-24 13:43 | XMS_ITS | Continuity of Care Document ---
Author Name Unknown Organization [facility] ter Address [address] [place] [id number]- Care Team Providers Care Chlorinator Name Role Phone Shari HILL, Deborah Primary Care Physician [phone] Encounter [facility] [place] Date(s): 04/10/22 - 06/11/[address] [address]- Encounter Diagnosis Multiple sclerosis(Final) - Discharge Disposition: A-D/C Home Attending Physician: Eric Malin MD Admitting Physician: Eric Malin MD Referring Physician: Deborah Mccarthy NP Allergies, Adverse Reactions, Alerts No Known Allergies Immunizations Given and Recorded Vaccine Date Status Refusal Reason tetanus/diphtheria/pertussis, acel(Tdap) 01/21/07 Given Medications Albuterol/Ipratropium Inhaler Refills 0, Maintenance, 08/20/18 [...] day, # 60 capsule, 5 Refills, Maintenance, 04/16/23 12:48:00 EDT, [facility], 176, cm, 02/12/22 9:20:00 EDT, Height, 91.8, kg, 04/23/22 16:25:00 EDT, Dry Weight Start Date: 04/16/23 Stop Date: 10/13/23 Status: Ordered Eliquis 5 mg oral tablet [...] capsule = 2,000 International_Units, By Mouth, Daily, with food , d- 3, # 90 capsule, 3 Refills, Maintenance, 09/25/22 14:44:00 EDT, [facility], 176, cm, 02/12/22 9:20:00 EDT, Height, 91.8, kg, 04/23/22 16:25:00 EDT, Dry Weight Start Date: 09/25/22 Stop Date: 09/20/23 Status: Ordered Problem List Condition Confirmation Course Effective Dates Status Health St atus Informant Relapsing remitting multiple sclerosis Confirmed Active Vital Signs Most recent to oldest [Reference Range]: 1 2 3 Weight 92.5 kg (04/26/22 1:20 PM) Oxygen Saturation [94-100 %] 99 % (04/26/22 1:20 PM) 95 % (04/25/22 3:17 PM) 100 % (04/25/22 1:52 PM) Pulse Rate [55-90 bpm] 58 bpm (04/26/22 1:20 PM) 64 bpm (04/25/22 3:17 PM) 57 bpm (04/25/22 1:52 PM) Blood Pressure [90-138/55-84 mm Hg] 105/63mm Hg (04/26/22 1:20 PM) 126/72mm Hg (04/25/22 3:17 PM) 128/79mm Hg (04/25/22 1:52 PM) Respiratory Rate [16-30 br/min] 18 br/min (04/26/22 1:20 PM) 18 br/min (04/25/22 3:17 PM) 19 br/min (04/25/22 1:52 PM) Temperature [96.8-100.4 DegF] 98 DegF (04/26/22 1:20 PM) 98.8 DegF (04/25/22 1:52 PM) 98.9 DegF (04/24/22 6:00 PM) Mode of Delivery (Oxygen) Room air (04/26/22 1:20 PM) Room air (04/25/22 3:17 PM) Room air (04/25/22 1:52 PM) Blood pressure sites Arm, right (04/26/22 1:20 PM) Arm, left (04/25/22 3:17 PM) Arm, right (04/25/22 1:52 PM) Temperature Route Oral (04/26/22 1:20 PM) Temporal (04/25/22 1:52 PM) Temporal (04/24/22 6:00 PM) Dry Weight 91.8 kg (04/23/22 4:25 PM) 89.3 kg (04/22/22 4:18 PM) Dry Weight Obtained Via Standing scale (04/23/22 4:25 PM) Hospital Progress note * Harry Judge RN: PERFORM, SIGN, VERIFY Event Display: Progress Note Hospital Authored Date: [id number] Patient: CLAUDIA LOBO Age: 46 years Sex: Male : 1975 Associated Diagnoses: None Author: Harry Judge RN Findings Narrative/Incidental Pt. admit for solumedrol infusion. IV start, VSS. Infused per order, tolerated well. End time 1430.Denies side effects. IV removed, discharge home.. * Khadar TINOCO, Jacqueline: VERIFY, PERFORM, SIGN Event Display: Progress Note Hospital Authored Date: [id number] Patient: CLAUDIA LOBO Age: 46 years Sex: Male : 1975 Associated Diagnoses: None Author: Jacqueline Rubalcava RN Findings Narrative/Incidental end time 1510. pt tolerated with no symptoms of reaction noted. VSS/ iv removed pt off unit ambualtory. * Leeanna Amaral RN: PERFORM, SIGN, VERIFY Event Display: Progress Note Hospital Authored Date: [id number] Patient: CLAUDIA LOBO Age: 46 years Sex: Male : 1975 Associated Diagnoses: None Author: Leeanna Amaral RN Findings Nursing Data IV Lines. : IV Lines. 04/24/2022 18:00 EDT Right Forearm 22 gauge Peripheral IV Activity: Discontinue Peripheral IV Assess Compare Touch: A/C/T Done, line D/C'd and or pt discharged Peripheral IV D/C Date/Time: 04/24/2022 18:00 Peripheral IV D/C Reason: Discontinued treatment complete Peripheral IV Post-Removal: Catheter tip intact, Other: Pressure dressing applied 04/24/2022 16:00 EDT Right Forearm 22 gauge Peripheral IV Activity: Start Peripheral IV Insertion Date/Time: 04/24/2022 16:38 Peripheral IV Number of Attempts: 1 Peripheral IV Site Assessment: Clean, dry and intact, Flushes Well, Good Blood return Peripheral IV Dressing: Semi-permeable membrane . Vital Signs : VITAL SIGNS SECTION 04/24/2022 18:00 EDT Temperature 98.9 DegF Temperature Route Temporal Pulse Rate 67 bpm Respiratory Rate 16 br/min Systolic Blood Pressure 114 mm Hg Diastolic Blood Pressure 58 mm Hg Blood pressure sites Arm, left Mean Arterial Pressure 77 mm Hg Pulse Pressure 56 mm Hg Oxygen Saturation 94 % Mode of Delivery (Oxygen) Room air 04/24/2022 16:38 EDT Temperature 98.7 DegF Temperature Route Temporal Pulse Rate 69 bpm Respiratory Rate 20 br/min Systolic Blood Pressure 109 mm Hg Diastolic Blood Pressure 65 mm Hg Blood pressure sites Arm, right Mean Arterial Pressure 80 mm Hg Pulse Pressure 44 mm Hg Oxygen Saturation 98 % Mode of Delivery (Oxygen) Room air . Narrative/Incidental Pt seen for Solu-Medrol. Pt tolerated infusion without complications or adverse reaction. Pt ambulatory and off unit. end 1800. Patient Care team information Care Team Personnel Name: Lauren Ching RN Position: [facility] RN Member Role: Primary Care Nurse Name: Leeanna Amaral RN Position: S RN Member Role: Primary Care Nurse Name: Mar yAnne Driver RN Position: S RN Member Role: Primary Care Nurse Name: Leann Landrum RN Position: [facility] RN Member Role: Primary Care Nurse Care Team Related Persons Name: NABOR ROJAS Address: home [address] [place] [address] Name: ALTAGRACIA LOBO Name: ABDELRAHMAN JIMENEZ Address: home [address] [place] [id number]
[2023-07-24 14:31] LABS: MANUAL DIFF FLAG NO
[2023-07-24 14:32] LABS: Basophils Percent Auto 0.3 % (0-2); Eosinophils Percent Auto 0.1 % (0-4); Hematocrit 45.9 % (42.0-52.0); Hemoglobin 15.3 g/dl (14.0-18.0); Imm Gran Abs Auto 0.06 X10*3/uL (0.00-0.03); Imm Gran Pct Auto 0.5 % (0.0-0.4); Lymphocytes Absolute Auto 0.8 X10*3/uL (1.2-4.9); Lymphocytes Percent Auto 6.3 % (20-40); Mean Corpuscular HGB Conc 33.3 g/dl (31.0-36.0); Mean Corpuscular Hemoglobin 27.3 pg (27.0-33.0); Mean Corpuscular Volume 81.8 fL (80.0-98.0); Mean Platelet Volume 9.6 fL (9.4-12.4); Monocytes Absolute Auto 1.2 X10*3/uL (0.1-1.2); Monocytes Percent Auto 9.8 % (2-11); Neutrophils Absolute Auto 9.9 x10*3/uL (2.0-8.3); Platelet Count 240 X10*3/uL (160-400); Red Blood Count 5.61 X10*6/uL (4.60-5.80); Red Cell Distribution Width 14.1 % (11.0-16.0); White Blood Count 11.9 X10*3/uL (4.8-10.8)
[2023-07-24 14:46] LABS: COVID-19 Test Negative (Negative); IDNOW Serial# 55D5AD1C
[2023-07-24 14:49] LABS: IDNOW Serial# 16C4AD1C; Influenza A Positive (Negative); Influenza B2 Negative (Negative)
[2023-07-24 16:39] LABS: Anion Gap 14 (12-20)
[2023-07-24 16:44] LABS: Alanine Aminotransferase 49 U/L (0-40); Albumin Level 4.5 g/dL (3.5-5.0); Alkaline Phosphatase 70 U/L (39-117); Aspartate Amino Transferase 27 U/L (5-37); Bilirubin Total 0.3 mg/dL (0.0-1.0); Blood Urea Nitrogen 11 mg/dL (9-16); Calcium 9.5 mg/dL (8.4-10.2); Carbon Dioxide 22 mmol/L (22-29); Chloride 105 mmol/L (96-108); Creatinine Clr Calc Pharmacy 114.3; Estimated Glomerular Filt Rate > 60; Glucose Random 118 mg/dL (60-115); Sodium 137 mmol/L (135-145); Total Protein 7.9 g/dL (6.5-8.0)
[2023-07-24 17:56] VITALS: PULSE 97; RESP 20; O2SAT 93
== END 2023-07-24 17:59 | disposition home or self-care (01) ==
PROVIDERS: Nurse Practitioner Family; Emergency Provider Student in an Organized Health Care Education/Training Program; PCP Registered Nurse
DX: J10.1 Influenza due to other identified influenza virus with other respiratory manifestations (principal); Z11.52 Encounter for screening for COVID-19; E11.9 Type 2 diabetes mellitus without complications; E78.5 Hyperlipidemia, unspecified; I48.0 Paroxysmal atrial fibrillation; J45.909 Unspecified asthma, uncomplicated; G35 Multiple sclerosis; F17.200 Nicotine dependence, unspecified, uncomplicated; F12.90 Cannabis use, unspecified, uncomplicated; Z79.899 Other long term (current) drug therapy; Z79.02 Long term (current) use of antithrombotics/antiplatelets
CPT/HCPCS: 36415; 71045; 80053; 85025; 87502; 87635; 99282; 99283

== ENCOUNTER 2023-10-22 09:19 | Emergency (ER) | payer MEDICARE, MEDICAID, SELFPAY ==
--- NOTE | 2023-10-22 | ECG_ITS ---
Test Reason : rythom change Blood Pressure : / mmHG Vent. Rate : 080 BPM Atrial Rate : 080 BPM P-R Int : 186 ms QRS Dur : 088 ms QT Int : 352 ms P-R-T Axes : 049 053 019 degrees QTc Int : 405 ms Normal sinus rhythm Septal infarct , age undetermined Abnormal ECG When compared with ECG of 22-OCT-2023 09:31, Sinus rhythm has replaced Atrial fibrillation Vent. rate has decreased BY 62 BPM Septal infarct is now Present Referred By: Lisset Zavala Electronically Signed By:GUILLERMO SAAB MD
--- NOTE | 2023-10-22 09:26 | ECG_ITS ---
Test Reason : afib? Blood Pressure : / mmHG Vent. Rate : 142 BPM Atrial Rate : 000 BPM P-R Int : 000 ms QRS Dur : 080 ms QT Int : 296 ms P-R-T Axes : 000 054 -09 degrees QTc Int : 455 ms Atrial fibrillation with rapid ventricular response Abnormal QRS-T angle, consider primary T wave abnormality Abnormal ECG When compared with ECG of 14-MAY-2022 08:18, No significant change was found Referred By: Generic ED Physician Electronically Signed By:GUILLERMO SAAB MD
[2023-10-22 09:29] VITALS: BP 91/67; PULSE 80; RESP 18; TEMP 36.8; O2SAT 98; BMI 29.5
--- NOTE | 2023-10-22 09:40 | PC.NURSE ---
Pt presents to ED from home, reports he felt his heart rate going fast today on his smart watch. Pt has hx of afib, took all his meds as prescribed. Pt reports chest pain, substernal area, mild 3/10, describes as squeezing. Pt denies SOB, N/V/D, dizziness, recent illnesses or falls. Pt neg for acute resp distress, no signs of acute outward distress. Pt able to speak in full sentences. Pt alert and oriented, breathing even and unlabored, skin WNL. Pt placed on monitoring coordinator, afib noted between 130-170. BP noted to be hypotensive in 90s systolic. Provider alerted of pts status, IV established in the right forearm 18G.
[2023-10-22 09:49] VITALS: BP 92/70; PULSE 153; RESP 18; TEMP 36.6; O2SAT 98
--- OUTSIDE RECORDS SUMMARY | 2023-10-22 09:52 | XMS_ITS | Continuity of Care Document ---
Author Organization [facility] Address [address] [facility], [address] d Floor, [address] [place] [id number]- Care Team Providers Care Body Coverer Name Role Phone Shari HILL, Deborah Primary Care Physician Encounter [facility] [place] Date(s): 08/11/23 - 09/10/23 [facility] [address], [address], [address] [place] [id number] Allergies, Adverse Reactions, Alerts No Known Allergies [...] capsule, 5 Refills, Maintenance, 04/16/23 12:48:00 EDT, [facility], 176, cm, 02/12/22 9:20:00 EDT, [...] EDT, Compound Start Date: 04/09/18 Status: Ordered loratadine 10 mg oral tablet 10 mg, 1, tablet, By Mouth, Daily, # 30 tablet, Refills 3, Tot. Refills 3, Maintenance, 06/25/23 15:22:00 EST, Route to Pharmacy Electronically, [facility], Partial fill upon patient request if the prescription is for a schedule II... Start Date: 06/25/23 Stop Date: 10/23/23 Status: Ordered metFORMIN 500 mg oral tablet [...] capsule, 3 Refills, Maintenance, 09/25/22 14:44:00 EDT, [facility], 176, cm, 02/12/22 9:20:00 EDT, Height, 91.8, kg, 04/23/22 16:25:00 EDT, Dry Weight Start Date: 09/25/22 Stop Date: 09/20/23 Status: Ordered Problem List Condition Confirmation Course Effective Dates Status Health St atus Informant Relapsing remitting multiple sclerosis Confirmed Active Patient Care team information Care Team Personnel Name: Leeanna Amaral RN Position: S RN Member Role: Primary Care Nurse Name: Mary Anne Driver RN Position: S RN Member Role: Primary Care Nurse Name: Leann Landrum RN Position: [facility] RN Member Role: Primary Care Nurse Care Team Related Persons Name: NABOR ROJAS Address: home [address] [place] [address] Name: ALTAGRACIA LOBO Name: ABDELRAHMAN JIMENEZ Address: home [address] [facility] [address] [place] [id number]
--- OUTSIDE RECORDS SUMMARY | 2023-10-22 09:52 | XMS_ITS | Continuity of Care Document ---
Author Organization [facility] ter Address [address] [place] [id number]- Care Team Providers Care Finishing Supervisor Name Role Phone Shari HILL, Deborah Primary Care Physician Encounter [facility] Date(s): 08/06/23 - 09/08/[address] [address] Attending Physician: Sheldon Flores NP Admitting Physician: Sheldon Flores NP Referring Physician: Sheldon Flores NP Allergies, Adverse Reactions, Alerts No Known [...] capsule, 5 Refills, Maintenance, 04/16/23 12:48:00 EDT, [facility], 176, cm, 02/12/22 9:20:00 [...] 06/25/23 15:22:00 EST, Route to Pharmacy Electronically, [facility], Partial fill upon patient request [...] capsule, 3 Refills, Maintenance, 09/25/22 14:44:00 EDT, [facility], 176, cm, 02/12/22 9:20:00 EDT, Height, 91.8, kg, 04/23/22 16:25:00 EDT, Dry Weight Start Date: 09/25/22 Stop Date: 09/20/23 Status: Ordered Problem List Condition Confirmation Course Effective Dates Status Health St atus Informant Relapsing remitting multiple sclerosis Confirmed Active Patient Care team information Care Team Personnel Name: Munir TINOCO, Leeanna Position: [facility] RN Member Role: Primary Care Nurse Name: Mary Anne Driver RN Position: S RN Member Role: Primary Care Nurse Name: Leann Landrum RN Position: [facility] RN Member Role: Primary Care Nurse Care Team Related Persons Name: NABOR ROJAS Address: home [address] [place] [address] Name: ALTAGRACIA LOBO Name: ABDELRAHMAN JIMENEZ Address: home [address] [place] [id number]
--- OUTSIDE RECORDS SUMMARY | 2023-10-22 09:52 | XMS_ITS | Continuity of Care Document ---
Author Organization [facility] Address [address] [facility], 3[address] d Floor, [address] [place] [address]- Care Team Providers Care Cv Rn Name Role Phone Shari HILL, Deborah Primary Care Physician Encounter [facility] Date(s): 08/21/23 - 09/20/23 [facility] [address], [address], [address] [place] [id number] Allergies, Adverse Reactions, Alerts No Known [...] capsule, 5 Refills, Maintenance, 04/16/23 12:48:00 EDT, [facility], 176, cm, 02/12/22 9:20:00 [...] 06/25/23 15:22:00 EST, Route to Pharmacy Electronically, [facility], Partial fill upon patient request if [...] capsule, 3 Refills, Maintenance, 09/25/22 14:44:00 EDT, [facility], 176, cm, 02/12/22 9:20:00 [...] Persons Name: NABOR ROJAS Address: home [address] [place] [address] Name: ALTAGRACIA LOBO Name: ABDELRAHMAN JIMENEZ Address: home [address] [facility] [address] [place] [id number]
--- OUTSIDE RECORDS SUMMARY | 2023-10-22 09:52 | XMS_ITS | Continuity of Care Document ---
Author Organization [facility] Address [address] [facility], 3[address] d Floor, [address] [place] [address]- Care Team Providers Care Tool Crib Clerk Name Role Phone Shari HILL, Deborah Primary Care Physician Encounter [facility] Date(s): 08/04/23 - 09/03/23 [facility] [address], [address], [address] [place] [id number] Allergies, Adverse Reactions, Alerts No Known Allergies [...] capsule, 5 Refills, Maintenance, 04/16/23 12:48:00 EDT, [facility], 176, cm, 02/12/22 9:20:00 EDT, [...] 06/25/23 15:22:00 EST, Route to Pharmacy Electronically, [facility], Partial fill upon patient request if [...] capsule, 3 Refills, Maintenance, 09/25/22 14:44:00 EDT, [facility], 176, cm, 02/12/22 9:20:00 EDT, [...] Persons Name: NABOR ROJAS Address: home [address] [place] [address] Name: ALTAGRACIA LOBO Name: ABDELRAHMAN JIMENEZ Address: home [address] [facility] [address] [place] [id number]
[2023-10-22] MEDS: 0.9 % Sodium Chloride 1,000 ML 999 ML IV (09:58)
[2023-10-22] MEDS: Metoprolol Tartrate 5 MG/5 ML VIAL IVPUSH (09:58)
--- NOTE | 2023-10-22 09:59 | ED.CHESTPAIN ---
HPI - Chest Pain General Chief Complaint: Chest Pain Stated Complaint: Racing Heart Time Seen by Provider: 10/22/23 09:37 Source: patient Mode of arrival: ambulatory History of Present Illness HPI narrative: 48-year-old male with history of diabetes/atrial fibrillation on chronic anticoagulation and states that this morning he began experiencing persistent heart palpitations, denies any shortness of breath, denies any missed doses blood thinners or her control medication. Patient reports that he is on metoprolol, Eliquis, flecainide, states he is otherwise been feeling well and returned yesterday from [place], denies any alcohol or drug use but does use occasional cannabis. Related Data Home Medications ?Medication ?Instructions ?Recorded ?Confirmed acetaminophen 500 mg tablet 1,000 mg PO Q6H PRN Pain 05/14/22 12/02/22 albuterol sulfate 2.5 mg/3 mL 2.5 mg inhalation Q4-6H PRN 05/14/22 12/02/22 (0.083 %) solution for nebulization Shortness Of Breath Or Wheezing albuterol sulfate 90 mcg/actuation 2 puff inhalation QID PRN 05/14/22 12/02/22 aerosol inhaler (ProAir HFA) Shortness Of Breath Or Wheezing apixaban 5 mg tablet (Eliquis) 5 mg PO BID 05/23/22 12/02/22 cholecalciferol (vitamin D3) 50 50 mcg PO DAILY 05/23/22 12/02/22 mcg (2,000 unit) capsule dimethyl fumarate 240 mg 240 mg PO BID 05/23/22 12/02/22 capsule,delayed release (Tecfidera) metoprolol tartrate 25 mg tablet 25 mg PO BID 05/23/22 12/02/22 alcohol swabs (Alcohol Prep Pads) 0 pad topical 10/16/22 10/16/22 blood sugar diagnostic (FreeStyle #10 ea 10/16/22 10/16/22 Lite Strips) lancets 33 gauge (TRUEplus Lancets) #100 ea 10/16/22 10/16/22 rosuvastatin 20 mg tablet 20 mg PO QAM 10/16/22 12/02/22 Previous Rx's ?Medication ?Instructions ?Recorded cyclobenzaprine 10 mg tablet 10 mg PO TID PRN muscle spasm #10 06/25/22 tabs flecainide 50 mg tablet 50 mg PO Q12H #90 tabs 07/22/23 guaifenesin 600 mg tablet, 600 mg PO Q12H #10 tabs 07/24/23 extended release 12 hr (Mucinex) Allergies Allergy/AdvReac Type Severity Reaction Status Date / Time No Known Allergies Allergy Verified 10/22/23 09:33 Review of Systems Review of Systems: Pertinent positives and negatives as stated in the [facility] Past Medical History Source: nursing notes reviewed Medical History History of high cholesterol Atrial fibrillation with rapid ventricular response Paroxysmal atrial fibrillation Multiple sclerosis Diabetes Asthma Family History Family History Mother Diabetes Asthma Maternal Grandmother Diabetes Brother Diabetes Other No family history of cardiac disease Social History Social History Alcohol intake: never Patient Tobacco Use Status: Current everyday Tobacco user Smoked in Last 30 Days: No Use of substances other than those prescribed or required for medical reasons: Yes Substance Use Type: Marijuana Advance Directives: No service: No Current occupational status: disabled Physical Exam Vital Signs: Vital Signs: Last Vital Signs Temp 97.9 F 10/22/23 09:49 Pulse 76 10/22/23 11:16 Resp 16 10/22/23 11:16 BP 100/76 10/22/23 11:16 Pulse Ox 96 10/22/23 11:16 O2 Del Method Room Air 10/22/23 11:16 BMI result Body Mass Index 29.5 VITAL SIGNS: Reviewed. GENERAL: Well developed, well nourished, in no acute distress. HEAD: Normocephalic/atraumatic EYES: PERRLA, EOMI EARS: Ext canals without abnormality NOSE: Nares patent bilateral OROPHARYNX: no oral lesions noted, posterior pharynx clear NECK: Supple, no adenopathy LUNGS: Normal breath sounds. No adventitious sounds or accessory muscle use. SpO2<98> CARDIOVASCULAR: Regular rate and rhythm without noted murmurs ABDOMEN: Soft, non-tender, non-distended with bowel sounds. MUSCULOSKELETAL: No tenderness, deformities, or effusions noted on gross inspection. EXTREMITIES: No cyanosis, clubbing or edema. SKIN: Inspection of the skin reveals no rashes NEUROLOGIC: Alert and oriented x 4. Strength and sensation to light touch were grossly intact x 4. Medications Administered Discontinued Medications Generic Name Dose Route Start Last Admin Trade Name Freq PRN Reason Stop Dose Admin Sodium Chloride 1,000 mls @ 999 mls/hr 10/22/23 10:00 10/22/23 11:20 Ns IV 10/22/23 11:00 Infused .Q1H1M BECKY Infusion Metoprolol Tartrate 5 mg 10/22/23 09:47 10/22/23 09:58 Metoprolol Tartrate 5 Mg/5 Ml Vial IVPUSH 10/22/23 09:48 5 mg ONCE ONE Administration Medical Decision Making Medical Decision Making [facility] Narrative: 1000: 48-year-old male with history and clinical presentation, DDX: Atrial fibrillation with RVR and will rule out infection/anemia/electrolyte derangements. INTERVENTION: 5 mg Lopressor, IV fluids I reviewed all investigations and hematologic indices are negative for leukocytosis/anemia/thrombocytopenia. Chemistry indices are negative for SARAH/electrolyte or liver enzyme derangements. Viral testing is negative for influenza/RSV/COVID-19. Repeat EKG demonstrates good rate control and conversion. There is no evidence of underlying infection/anemia/electrolyte derangements. Patient otherwise feels well and is discharged home with strict instructions follow-up with his primary care doctor and sequencing machine operator. Differential Diagnosis Differential Diagnoses: The differential diagnosis associated with the presentation includes Please see the discussion above Admission/Observation Consideration of admission/observation: Escalation of care including admission/observation considered Please see the discussion above Lab Data [facility] Lab Attestation statement: I reviewed the patient's lab results. Please see the discussion above 10/22/23 10:01 10/22/23 10:01 Labs: Lab Results 10/22/23 Range/Units 10:01 WBC 9.0 (4.8-10.8) X10*3/uL RBC 5.31 (4.60-5.80) X10*6/uL Hgb 14.6 (14.0-18.0) g/dl Hct 43.1 (42.0-52.0) % MCV 81.2 (80.0-98.0) fL MCH 27.5 (27.0-33.0) pg MCHC 33.9 (31.0-36.0) g/dl RDW 13.7 (11.0-16.0) % Plt Count 242 (160-400) X10*3/uL MPV 10.0 (9.4-12.4) fL Immature Gran % (Auto) 0.6 H (0.0-0.4) % Neut % (Auto) 79.3 H (45-73) % Lymph % (Auto) 11.8 L (20-40) % [place] % (Auto) 6.7 (2-11) % Eos % (Auto) 1.0 (0-4) % Baso % (Auto) 0.6 (0-2) % Lymph # (Auto) 1.1 L (1.2-4.9) X10*3/uL [place] # (Auto) 0.6 (0.1-1.2) X10*3/uL Eos # (Auto) 0.1 (0.0-0.4) X10*3/uL Baso # (Auto) 0.1 (0.0-0.2) X10*3/uL Abs Immat Gran (auto) 0.05 H (0.00-0.03) X10*3/uL Absolute Neuts (auto) 7.2 (2.0-8.3) x10*3/uL Absolute Nucleated RBC 0.000 (0.0-0.012) X10*3/uL Nucleated RBC % (auto) 0.0 (0.0-0.2) /100WBC Sodium 137 (135-145) mmol/L Potassium 4.3 (3.3-5.1) mmol/L Chloride 105 (96-108) mmol/L Carbon Dioxide 22 (22-29) mmol/L Anion Gap 14 (12-20) BUN 21 H (9-16) mg/dL Creatinine 0.89 (0.5-1.4) mg/dL Estim Creat Clear Calc 113.0 Estimated GFR > 60 Random Glucose 234 H (60-115) mg/dL Calcium 9.4 (8.4-10.2) mg/dL Total Bilirubin 0.6 (0.0-1.0) mg/dL AST 14 (5-37) U/L ALT 39 (0-40) U/L Alkaline Phosphatase 87 (39-117) U/L Total Protein 7.3 (6.5-8.0) g/dL Albumin 4.1 (3.5-5.0) g/dL Influenza Type A (PCR) NEGATIVE (Negative) Influenza Type B (PCR) NEGATIVE (Negative) RSV RNA Qual (PCR) NEGATIVE (Negative) SARS-CoV-2 RNA (RT-PCR) NEGATIVE (Negative) Independent Interpretation Interpretation: 0931: Atrial fibrillation with RVR, HR-142, no STEMI, QRS/QTC is within normal limits. 1014: Normal sinus rhythm, HR-80, no STEMI, LA/QRS/QTC is within normal limits. External Record Review External record reviewed: Outpatient record, Prior outpatient labs and Prior outpatient radiology Critical Care Time Critical Care Time Critical Care Time: Yes Total Critical Care Time: 60 Attestation: I personally attest to this time spent taking care of the patient. Discharge Plan Discharge Clinical Impression: Atrial fibrillation with RVR, Chronic anticoagulation Patient Disposition: Still a Patient Instructions: A-fib (Atrial Fibrillation) (ED), Blood Thinners (ED) Additional Instructions: 1. Resume all home medications as prescribed. 2. Please call the office of your sequencing machine operator and primary care doctor today to set up an appointment for re-evaluation further outpatient management. Your workup today was negative and otherwise please return to the emergency room for any acute worsening of symptoms. Prescriptions: No Action flecainide 50 mg tablet 50 mg PO Q12H Qty: 90 3RF cholecalciferol (vitamin D3) 50 mcg (2,000 unit) capsule 50 mcg PO DAILY dimethyl fumarate [Tecfidera] 240 mg capsule,delayed release(DR/EC) 240 mg PO BID albuterol sulfate 2.5 mg /3 mL (0.083 %) Solution For Nebulization 2.5 mg INHALATION Q4-6H PRN (Reason: Shortness Of Breath Or Wheezing) acetaminophen 500 mg Tablet 1,000 mg PO Q6H PRN (Reason: Pain) albuterol sulfate [ProAir HFA] 90 mcg/actuation Hfa Aerosol Inhaler 2 puff INHALATION QID PRN (Reason: Shortness Of Breath Or Wheezing) Eliquis 5 mg tablet 5 mg PO BID metoprolol tartrate 25 mg tablet 25 mg PO BID cyclobenzaprine 10 mg tablet 10 mg PO TID PRN (Reason: muscle spasm) Qty: 10 0RF guaifenesin [Mucinex] 600 mg tablet extended release 12hr 600 mg PO Q12H Qty: 10 0RF (DME) lancets [TRUEplus Lancets] 33 gauge misc See Rx Instructions .ROUTE DAILY Qty: 100 Rx Instructions: As directed (DME) FreeStyle Lite Strips Strip See Rx Instructions .ROUTE DAILY Qty: 10 Rx Instructions: As directed alcohol swabs [Alcohol Prep Pads] Pads, Medicated 0 pad topical rosuvastatin 20 mg tablet 20 mg PO QAM Referrals: Riri Corrigan, LEASING COORDINATOR [Primary Care Provider] - Print Language: Croatian
[2023-10-22 10:02] VITALS: BP 90/68; PULSE 82; RESP 18; O2SAT 97
[2023-10-22 10:05] LABS: MANUAL DIFF FLAG NO
[2023-10-22 10:10] LABS: Basophils Absolute Auto 0.1 X10*3/uL (0.0-0.2); Basophils Percent Auto 0.6 % (0-2); Eosinophils Absolute Auto 0.1 X10*3/uL (0.0-0.4); Hematocrit 43.1 % (42.0-52.0); Hemoglobin 14.6 g/dl (14.0-18.0); Imm Gran Abs Auto 0.05 X10*3/uL (0.00-0.03); Imm Gran Pct Auto 0.6 % (0.0-0.4); Lymphocytes Absolute Auto 1.1 X10*3/uL (1.2-4.9); Lymphocytes Percent Auto 11.8 % (20-40); Mean Corpuscular HGB Conc 33.9 g/dl (31.0-36.0); Mean Corpuscular Hemoglobin 27.5 pg (27.0-33.0); Mean Corpuscular Volume 81.2 fL (80.0-98.0); Monocytes Absolute Auto 0.6 X10*3/uL (0.1-1.2); Monocytes Percent Auto 6.7 % (2-11); Neutrophils Absolute Auto 7.2 x10*3/uL (2.0-8.3); Neutrophils Percent Auto 79.3 % (45-73); Platelet Count 242 X10*3/uL (160-400); Red Blood Count 5.31 X10*6/uL (4.60-5.80); Red Cell Distribution Width 13.7 % (11.0-16.0)
--- NOTE | 2023-10-22 10:15 | PC.NURSE ---
Pt had improvement with metoprolol, HR improved to 80s NSR. ECG order placed. Pt remains alert and oriented, reports feeling better overall.
[2023-10-22 10:25] LABS: Alanine Aminotransferase 39 U/L (0-40); Albumin Level 4.1 g/dL (3.5-5.0); Alkaline Phosphatase 87 U/L (39-117); Anion Gap 14 (12-20); Aspartate Amino Transferase 14 U/L (5-37); Bilirubin Total 0.6 mg/dL (0.0-1.0); Blood Urea Nitrogen 21 mg/dL (9-16); Calcium 9.4 mg/dL (8.4-10.2); Carbon Dioxide 22 mmol/L (22-29); Chloride 105 mmol/L (96-108); Estimated Glomerular Filt Rate > 60; Glucose Random 234 mg/dL (60-115); Potassium 4.3 mmol/L (3.3-5.1); Sodium 137 mmol/L (135-145); Total Protein 7.3 g/dL (6.5-8.0)
[2023-10-22 10:44] VITALS: BP 106/71; PULSE 82; RESP 17; O2SAT 95
[2023-10-22 11:16] VITALS: BP 100/76; PULSE 76; RESP 16; O2SAT 96
--- NOTE | 2023-10-22 11:16 | PC.NURSE ---
Pt reports no pain, reports feeling overall better. VSS.
[2023-10-22 11:50] LABS: Influenza A PCR NEGATIVE (Negative); Influenza B PCR NEGATIVE (Negative); Resp Syncy Virus RNA Qual PCR NEGATIVE (Negative); SARS COV2 PCR INHOUSE NEGATIVE (Negative)
[2023-10-22 12:09] LABS: Glucose, Whole Blood 194 mg/dL (60-115)
[2023-10-22 12:13] VITALS: BP 106/71; PULSE 68; RESP 15; TEMP 36.7; O2SAT 97
== END 2023-10-22 12:14 | disposition still patient (30) ==
PROVIDERS: Emergency Provider Student in an Organized Health Care Education/Training Program; PCP Registered Nurse
DX: I48.20 Chronic atrial fibrillation, unspecified (principal); R07.89 Other chest pain; R11.0 Nausea; R53.83 Other fatigue; Z79.01 Long term (current) use of anticoagulants; Z11.52 Encounter for screening for COVID-19; Z20.822 Contact with and (suspected) exposure to COVID-19; Z79.899 Other long term (current) drug therapy
CPT/HCPCS: 0241U; 80053; 82947; 85025; 93005; 96361; 96374; 99284; 99285

== ENCOUNTER → 2023-10-22 09:26 | Outpatient (BNV) | payer MEDICARE, MEDICAID, SELFPAY | PROVIDERS: Emergency Provider Student in an Organized Health Care Education/Training Program; PCP Registered Nurse; Visit Provider Internal Medicine Cardiovascular Disease | DX: I48.91 Unspecified atrial fibrillation (principal); R94.31 Abnormal electrocardiogram [ECG] [EKG] | CPT/HCPCS: 93010 ==

== ENCOUNTER 2023-11-17 09:47 | Outpatient (AMB) | payer MEDICARE, MEDICAID, SELFPAY ==
--- NOTE | 2023-11-17 09:52 | MHC.OFFVIS ---
Vital Signs 11/17/23 09:53 Height 5 ft 9 in Weight 222 lb 10.67 oz BMI 32.9 BP 122/78 Blood Pressure Location Lt brachial Position Sitting Pulse 60 Intake Visit Reasons: 1 year follow up Intake Note: 1 year follw-up with ekg feeling good Home Appliance Washing Machine Mechanic Required: No Allergies No Known Allergies Allergy (Verified 10/22/23 09:33) Medication List - Last Reconciled 11/17/23 by Alfredo Herring MD acetaminophen 1,000 mg PO Q6H PRN albuterol sulfate 2.5 mg inhalation Q4-6H PRN albuterol sulfate 90 mcg/actuation (ProAir HFA) 2 puffs inhalation QID PRN alcohol swabs (Alcohol Prep Pads) 0 pad topical apixaban (Eliquis) 5 mg PO BID blood sugar diagnostic (FreeStyle Lite Strips) As directed cholecalciferol (vitamin D3) 50 mcg PO DAILY cyclobenzaprine 10 mg PO TID PRN dimethyl fumarate (Tecfidera) 240 mg PO BID flecainide 50 mg PO Q12H guaifenesin ER (Mucinex) 600 mg PO Q12H lancets (TRUEplus Lancets) As directed metoprolol tartrate 25 mg PO BID rosuvastatin 20 mg PO QAM HPI Comments Details: Michael comes for follow-up of his atrial fibrillation. He said last couple months he has had very long episode of atrial fibrillation 1 leading to presentation to emergency room at [place]. No interventions were made. Converted back to sinus rhythm. At other times he had brief episodes of AFib that convert by itself. The no clear triggers. He said 1 episode happen after he woke up from sleep. He denies any significant stress issues. Denies any significant stimulant use. Taking all his medications. No bleeding issues or neurologic events. Patient says occasionally snores a lot. His has also noticed apneic episodes during sleep. [facility] Medical History History of high cholesterol Atrial fibrillation with rapid ventricular response Paroxysmal atrial fibrillation Multiple sclerosis Diabetes Asthma Family History Mother Diabetes Asthma Maternal Grandmother Diabetes Brother Diabetes Other No family history of cardiac disease Social History Alcohol intake: never Patient Tobacco Use Status: Current everyday Tobacco user Substance Use Type: Marijuana service: No Current occupational status: disabled Review of Systems Const Denies chills, Denies fatigue, Denies fever(s), Denies frequent falls, Denies weakness, Denies weight gain and Denies weight loss ENT Denies dizziness Card Denies chest pain, Denies leg edema, Denies lightheadedness, Denies palpitations, Denies dyspnea, Denies dyspnea on exertion, Denies orthopnea and Denies other (loss of consciousness) Resp Denies cough, Denies dyspnea and Denies dyspnea on exertion GI Denies hematochezia and Denies change in stool character Musc Denies abnormal gait, Denies muscle weakness, Denies numbness, Denies radiating pain into limb and Denies tingling Neuro Denies abnormal gait, Denies dizziness, Denies frequent falls, Denies numbness, Denies tingling and Denies weakness Endo Denies fatigue and Denies palpitations Physical Exam Vital Signs: Last Vital Signs Pulse 60 11/17/23 09:53 BP 122/78 11/17/23 09:53 BMI result Body Mass Index 32.9 Last Vital Signs Temp 97.0 F 04/02/21 00:19 Pulse 59 04/02/21 08:05 Resp 16 04/02/21 07:21 BP 92/54 L 04/02/21 08:05 Pulse Ox 95 04/02/21 08:05 Body Mass Index 30.2 Const General: cooperative, comfortable, no acute distress, alert and awake Nutritional Appearance: overweight Orientation/consciousness: patient oriented x3 Limitations: no limitations HEENT Head: Yes normocephalic and Yes atraumatic Neck Neck: Yes trachea midline, Yes supple and Yes no JVD Resp Effort & Inspection: normal respiratory effort Auscultation: clear to auscultation bilaterally Cardio Jugular venous distension: no JVD Palpation: normal PMI Rate: regular rate Rhythm: regular rhythm Heart sounds: S1 normal heart sound present, S2 normal heart sound present, no click, no gallops, no murmurs and no rubs GI Auscultation: normal bowel sounds Skin General skin exam: no rashes or lesions noted Neuro General: patient oriented x3 and no focal motor deficits Extrem General: Yes no clubbing, cyanosis or edema Psych Appearance: grossly normal Office Procedures EKG Details: EKG shows normal sinus rhythm with possible left atrial enlargement otherwise normal EKG with no QT prolongation [id number], Complete Assessment & Plan Assessment & Plan (1) Paroxysmal atrial fibrillation: Code(s): I48.0 - Paroxysmal atrial fibrillation Category: Medical Plan: Highly symptomatic paroxysmal atrial fibrillation this middle-aged man. Continue aggressive medical therapy. These episodes are without triggers but happen and wake him up from sleep. There is suggestion of underlying sleep apnea. Will need to evaluate for the same. Will order in-lab sleep study. Will meanwhile increase his flecainide to 100 mg b.i.d.. Avoidance of stimulants was discussed. Stress mitigation strategies were discussed. Continue concomitant metoprolol therapy. Given his diabetes continue full oral anticoagulation, currently on Eliquis 5 mg b.i.d.. Semi annual renal function test should be pursued. If he continues to have episodes of atrial fibrillation that highly symptomatic requiring hospital presentation despite maximize therapy will pursue possibly catheter ablation. This was discussed with him. He got anxious. We discussed that this will be only in case scenario. Will follow up in the clinic in 6 months. Medications: New flecainide 100 mg PO Q12H 60 tabs 5RF I48.0 - Paroxysmal atrial fibrillation Discontinued flecainide Discontinued Reason: Doctor's Order 50 mg PO Q12H 90 tabs 3RF Coding Level of Care Code Est Pt Level 4 (59195) Diagnoses Paroxysmal atrial fibrillation I48.0 CPT Codes EKG - CPT: 46346-[id number], Complete ([id number])
[2023-11-17 09:53] VITALS: BP 122/78; PULSE 60; BMI 32.9
== END 2023-11-17 10:20 | disposition home or self-care (01) ==
PROVIDERS: Visit Provider Internal Medicine Cardiovascular Disease
DX: I48.0 Paroxysmal atrial fibrillation (principal)
CPT/HCPCS: 93010; 99214

== ENCOUNTER → 2023-11-17 09:47 | Outpatient (BNVA) | payer MEDICARE, MEDICAID, SELFPAY | PROVIDERS: Visit Provider Internal Medicine Cardiovascular Disease | DX: I48.0 Paroxysmal atrial fibrillation (principal) | CPT/HCPCS: 93005; 99212 ==

== ENCOUNTER → 2023-11-24 19:30 | Outpatient (REF) | payer MEDICARE, MEDICAID, SELFPAY | LOC: HO.SL 19:30 | PROVIDERS: PCP Registered Nurse; Visit Provider Internal Medicine Cardiovascular Disease | DX: G47.33 Obstructive sleep apnea (adult) (pediatric) (principal); R06.83 Snoring | CPT/HCPCS: 95810 ==

== ENCOUNTER → 2023-11-24 21:23 | Outpatient (BNV) | payer MEDICARE, MEDICAID, SELFPAY | PROVIDERS: PCP Registered Nurse; Visit Provider Psychiatry & Neurology Neurology | DX: G47.33 Obstructive sleep apnea (adult) (pediatric) (principal) | CPT/HCPCS: 95810 ==

== ENCOUNTER 2023-12-31 10:00 | Outpatient (AMB) | payer MEDICARE, MEDICAID, SELFPAY ==
[2023-12-31 10:03] VITALS: BP 102/64; PULSE 69; O2SAT 97; BMI 32.5
--- NOTE | 2023-12-31 10:03 | A.OFFVIS_ITS ---
Vital Signs 12/31/23 10:03 Height 5 ft 9 in Weight 220 lb BMI 32.5 BP 102/64 Blood Pressure Location Rt brachial Position Sitting Pulse 69 Pulse Source Doppler Pulse Oximetry (%) 97 Oxygen Delivery Method Room Air Intake Visit Reasons: ramila Allergies No Known Allergies Allergy (Verified 12/31/23 10:09) HPI HPI ramila: Details: 48-year-old gentleman with underlying AFib, hypertension, asthma, and new diagnosis of mild obstructive sleep apnea referred for management of his pulmonary/sleep concerns. Patient states that his asthma symptoms are well controlled on as needed albuterol MDI. He denies recent exacerbations. Patient denies underlying environmental allergies. He does complain of unrestful sleep, snoring, and daytime sleepiness. Patient is interested in trying CPAP therapy. [facility] Medical History (Updated 12/31/23 @ 10:24 by Chace Cabrera MD) History of high cholesterol Atrial fibrillation with rapid ventricular response Paroxysmal atrial fibrillation Multiple sclerosis Diabetes Asthma Family History Mother Diabetes Asthma Maternal Grandmother Diabetes Brother Diabetes Other No family history of cardiac disease Social History (Updated 12/31/23 @ 10:13 by Mirna Higginbotham Alexei) Alcohol intake: never Patient Tobacco Use Status: Former Tobacco user Tobacco use type: Cigarette Years Smoked: quit 1 year ago, started at 15, 2ppd Substance Use Type: Marijuana service: No Current occupational status: disabled Review of Systems Const Reports daytime sleepiness, Denies excessive sweating, Denies fatigue, Denies fever(s), Denies lethargy, Denies malaise, Denies night sweats, Reports snoring and Denies weight loss Eyes Denies blurry vision and Denies itchy eyes ENT Denies nasal congestion, Denies post nasal drip, Denies sinus pain, Denies sinus pressure and Denies other ( Thrush) Card Denies chest pain, Denies pedal edema, Denies dyspnea, Denies orthopnea and Denies paroxysmal nocturnal dyspnea Resp Denies cough, Denies hemoptysis, Denies excessive phlegm production, Denies dyspnea, Reports snoring and Denies wheezing GI Denies abdominal pain and Denies heartburn Musc Denies myalgias, Denies arthralgias and Denies joint swelling Skin/Breast Denies rash Neuro Denies memory loss and Denies seizure-like activity Psych Denies abnormal sleep pattern, Denies anxiety and Denies memory loss Endo Denies excessive sweating, Denies fatigue and Denies heat intolerance Rodolfo/Lymph Denies easy bruising Aller/Immun Denies itchy eyes, Denies seasonal rhinorrhea and Denies wheezing Physical Exam Vital Signs: Last Vital Signs Pulse 69 12/31/23 10:03 BP 102/64 12/31/23 10:03 Pulse Ox 97 12/31/23 10:03 Oxygen Delivery Method Room Air 12/31/23 10:03 BMI result Body Mass Index 32.5 Const General: no acute distress and alert Nutritional Appearance: obese Orientation/consciousness: Other orientation findings ( oriented) HEENT Head: Yes atraumatic Eyes General: appearance normal, both eyes and all related structures Sclerae: sclerae normal EOM: EOMs intact bilaterally Neck Neck: Yes supple Lymphatic: no lymphadenopathy noted Resp Effort & Inspection: normal respiratory effort and no use of accessory muscles Auscultation: clear to auscultation bilaterally Cardio Rate: regular rate Rhythm: regular rhythm Heart sounds: no gallops, no murmurs and no rubs Skin General skin exam: other ( warm) Extrem General: No clubbing, No cyanosis and No edema Assessment & Plan Assessment & Plan (1) RAMILA (obstructive sleep apnea): Code(s): G47.33 - Obstructive sleep apnea (adult) (pediatric) Category: Medical (2) Asthma: Code(s): J45.909 - Unspecified asthma, uncomplicated Category: Medical (3) Hypertension: Code(s): I10 - Essential (primary) hypertension Category: Medical Plan Underlying asthma well controlled on as needed albuterol MDI/nebs. Continue to monitor clinically. New diagnosis of mild obstructive sleep apnea with underlying hypertension and obesity. Will start on APAP of 6-16 cm of water. Coding Level of Care Code New Pt Level 4 (05807) Diagnoses RAMILA (obstructive sleep apnea) G47.33 Asthma J45.909 Hypertension I10
== END 2023-12-31 10:21 | disposition home or self-care (01) ==
PROVIDERS: PCP Registered Nurse; Visit Provider Internal Medicine Pulmonary Disease
DX: G47.33 Obstructive sleep apnea (adult) (pediatric) (principal); J45.909 Unspecified asthma, uncomplicated; I10 Essential (primary) hypertension
CPT/HCPCS: 99204

== ENCOUNTER → 2023-12-31 10:00 | Outpatient (BNVA) | payer MEDICARE, MEDICAID, SELFPAY | PROVIDERS: PCP Registered Nurse; Visit Provider Internal Medicine Pulmonary Disease | DX: G47.33 Obstructive sleep apnea (adult) (pediatric) (principal); J45.909 Unspecified asthma, uncomplicated; I10 Essential (primary) hypertension | CPT/HCPCS: 99202 ==

== ENCOUNTER 2024-01-30 13:57 | Outpatient (AMB) | payer MEDICARE, MEDICAID, SELFPAY ==
--- NOTE | 2024-01-30 15:06 | A.OFFVIS_ITS ---
Vital Signs 01/30/24 15:07 Height 5 ft 9 in Weight 220 lb BMI 32.5 BP 110/58 L Blood Pressure Location Lt brachial Position Sitting Pulse 68 Pulse Source Monitor Intake Visit Reasons: follow-up dx afib after sleep study Allergies No Known Allergies Allergy (Verified 12/31/23 10:09) Medication List - Last Reconciled 01/30/24 by Cyndi Cox NP acetaminophen 1,000 mg PO Q6H PRN albuterol sulfate 2.5 mg inhalation Q4-6H PRN albuterol sulfate 90 mcg/actuation (ProAir HFA) 2 puffs inhalation QID PRN alcohol swabs (Alcohol Prep Pads) 0 pad topical apixaban (Eliquis) 5 mg PO BID blood sugar diagnostic (FreeStyle Lite Strips) As directed cholecalciferol (vitamin D3) 50 mcg PO DAILY cyclobenzaprine 10 mg PO TID PRN dimethyl fumarate (Tecfidera) 240 mg PO BID flecainide 100 mg PO Q12H guaifenesin ER (Mucinex) 600 mg PO Q12H lancets (TRUEplus Lancets) As directed metoprolol tartrate 25 mg PO BID rosuvastatin 20 mg PO QAM HPI Comments Details: 48-year-old male presents today for a follow-up. He had a sleep study done which showed mild RAMILA. He is seeing pulmonary on 03/11. He last seen them 12/30. He reports he is waiting for the CPAP. He reports in the last month afib episodes occured 3 times. He does not drink caffeine, denies chest pains, shortness of breath, or dizziness. He has had no bleeding issues with Eliquis. [facility] Medical History (Updated 12/31/23 @ 10:24 by Chace Cabrera MD) History of high cholesterol Atrial fibrillation with rapid ventricular response Paroxysmal atrial fibrillation Multiple sclerosis Diabetes Asthma Family History Mother Diabetes Asthma Maternal Grandmother Diabetes Brother Diabetes Other No family history of cardiac disease Social History (Updated 12/31/23 @ 10:13 by JOSE DAVID Swann) Alcohol intake: never Patient Tobacco Use Status: Former Tobacco user Tobacco use type: Cigarette Years Smoked: quit 1 year ago, started at 15, 2ppd Substance Use Type: Marijuana service: No Current occupational status: disabled Physical Exam Vital Signs: Last Vital Signs Pulse 68 01/30/24 15:07 BP 110/58 L 01/30/24 15:07 BMI result Body Mass Index 32.5 Const General: healthy appearing and no acute distress Orientation/consciousness: patient oriented x3 HEENT Head: Yes normal to inspection Eyes General: appearance normal, both eyes and all related structures Neck Neck: Yes normal visual inspection Chest Chest palpation & inspection: normal inspection of the chest Resp Effort & Inspection: normal respiratory effort Auscultation: clear to auscultation bilaterally Cardio Jugular venous distension: no JVD Palpation: normal PMI Rate: regular rate Rhythm: regular rhythm Heart sounds: S1 normal heart sound present, S2 normal heart sound present, no click, no gallops, no murmurs and no rubs GI Inspection: Yes normal to inspection Palpation (GI): Soft to palpation Skin General skin exam: no rashes or lesions noted Neuro General: patient oriented x3 Extrem General: Yes normal to inspection Psych Appearance: grossly normal Office Procedures EKG Details: EKG today. Normal Sinus Rhythm. Possible Left Atrial Enlarngement. Caterina 68 bpm. MA 172ms. QRS 88 ms. QTc 404 ms. [id number], Complete Assessment & Plan Assessment & Plan (1) Paroxysmal atrial fibrillation: Code(s): I48.0 - Paroxysmal atrial fibrillation Category: Medical Plan: 3 episodes in the last month. He is highly symptomatic. Will update holter and echocardiogram. Avoidance of stimulants was discussed. Stress mitigation strategies were discussed. On eliquis for anticoagulation. On flecainide and metoprolol. (2) RAMILA (obstructive sleep apnea): Code(s): G47.33 - Obstructive sleep apnea (adult) (pediatric) Category: Medical Plan: Waiting on CPAP from Pulmonary. Discussed the importance of compliance. Orders: Orders ECG holter monitor 48 hour 01/30/24 I48.0 - Paroxysmal atrial fibrillation CA echo transthoracic complete 01/30/24 I48.0 - Paroxysmal atrial fibrillation Coding Level of Care Code Est Pt Level 3 (85146) Diagnoses Paroxysmal atrial fibrillation I48.0 RAMILA (obstructive sleep apnea) G47.33 CPT Codes EKG - CPT: 54247-[id number], Complete ([id number])
[2024-01-30 15:07] VITALS: BP 110/58; PULSE 68; BMI 32.5
== END 2024-01-30 15:27 | disposition home or self-care (01) ==
PROVIDERS: PCP Registered Nurse; Visit Provider Nurse Practitioner
DX: I48.0 Paroxysmal atrial fibrillation (principal); G47.33 Obstructive sleep apnea (adult) (pediatric)
CPT/HCPCS: 93010; 99213

== ENCOUNTER → 2024-01-30 13:57 | Outpatient (BNVA) | payer MEDICARE, MEDICAID, SELFPAY | PROVIDERS: PCP Registered Nurse; Visit Provider Nurse Practitioner | DX: G47.33 Obstructive sleep apnea (adult) (pediatric) (principal); I48.0 Paroxysmal atrial fibrillation; Z79.01 Long term (current) use of anticoagulants | CPT/HCPCS: 93005; 99212 ==

== ENCOUNTER → 2024-02-18 09:51 | Outpatient (REF) | payer MEDICARE, MEDICAID, SELFPAY ==
--- NOTE | 2024-02-18 09:54 | HM_ITS ---
* Total monitoring time 2 days. * Underlying rhythm is sinus. Average ventricular rate 77/Min. * Atrial fibrillation with rapid ventricular response noted. Overall burden is about 2.1%. Longest episode 55 minutes. Fastest about 200/Min. * Rare supraventricular ectopy. * Rare ventricular ectopy. Rare couplets. Longest run, 3 beats. Cannot exclude aberrant conduction. * No significant pauses or AV blocks. * Patient markers used in association with atrial fibrillation. * Rapid heartbeat in patient diary correlates with atrial fibrillation and rapid ventricular rate. MTDD
--- NOTE | 2024-02-18 09:54 | CA_ITS ---
Transthoracic Echocardiogram Patient (Last, First, Middle): Michael Hogan, Gender: Male Date of : 1975 Age: 48 Procedure Date: 02/18/2024 Procedure Type: Transthoracic Echocardiogram Location: OP Height: 175.26 cm Weight: 99.79 kg BSA: 2.15 m2 Heart Rate: bpm BP: 110 / 58 mmHg Capacitor Inspector: ROB Nathan MD: Cyndi Cox NP Manager Investigations: Alfredo Herring MD Symptoms: I48.0 - Paroxysmal atrial fibrillation Study Quality: Adequate ECG Rhythm: Sinus Conclusions: - 1. Normal LV ejection fraction at 55-60% 2. Normal cardiac valvular Doppler 3. Mildly dilated ascending aorta 4. No pericardial effusion 5. Normal RV systolic pressure Findings Left Ventricle Normal left ventricular size, thickness, and systolic function. The visually estimated ejection fraction is between 55-60%. Spectral Doppler is indicative of a normal filling pattern. Right Ventricle Normal right ventricular cavity size and systolic function. Atria The left atrium is likely dilated. There is no evidence of interatrial shunt. The right atrium is normal in size. Aortic Valve Normal aortic valve structure and function. There is no aortic valve stenosis. There is no aortic valve regurgitation. Mitral Valve Normal mitral valve structure and function. There is trace mitral valve regurgitation. There is no mitral valve stenosis. Pulmonic Valve The pulmonic valve is likely normal. Tricuspid Valve Normal tricuspid valve structure. There is trace tricuspid valve regurgitation. The right ventricular systolic pressure is normal. The right ventricular systolic pressure is 32 mmHg. Normal right atrial pressure. There is no evidence of pulmonary hypertension. Great Vessels The pulmonary artery was not well visualized. There is mild dilatation of the ascending aorta measuring 3.90 cm. Venous The inferior vena cava is normal in size and collapses greater than 50% with inspiration. Pericardium/Pleural There is no evidence of pericardial effusion. Measurements 2D Linear Measurements IVSd: 1.11 0.6-0.9/0.6-1.0 cm LVIDd: 4.48 3.9-5.3/4.2-5.9 cm LVIDd Index: 2.08 2.4-3.2/2.2-3.1 cm/m2 LVIDs: 2.89 2.0-3.6 cm LVPWd: 1.02 0.7-1.1 cm Ao Root: 3.70 2.1-3.5 cm LA Diam: 3.30 2.7-3.8/3.0-4.0 cm LAIDs Index: 1.53 1.5-2.3 cm/m2 LV Mass: 206.84 67-162/88-224 g LV Mass Index: 96.21 43-95/49-115 g/m2 LVOT Diam: 2.10 3.0+(-)1.3 cm 2D Systolic Function EF 4C: 53.50 >55% EF 2C: 59.80 >55% EF BiP: 57.10 >55% Mitral Valve MV Pk E: 0.54 MV PK A: 0.72 MV Decel Time: 252.00 E/A: 0.80 E'Lateral: 6.85 E'Medial: 6.74 E/E' Med: 8.10 E/E' Lat: 7.90 PHT: 74.00 MVA PHT: 2.97 Decel [place]: 2.16 Aortic Valve AoV Pk Michael: 1.56 AoV Mn Michael: 1.01 AoV VTI: 0.27 AoV Pk Grad: 10.00 Aov Mn Grad: 5.00 LUPE Cont.VTI: 2.88 LVOT LVOT Pk Michael: 1.12 LVOT Mn Michael: 0.79 LVOT VTI: 0.22 LVOT Pk Grad: 5.00 LVOT Mn Grad: 3.00 LVOT Diam: 2.10 LVOT Area: 3.46 Diastolic Function MV Pk E: 0.54 MV Pk A: 0.72 E/A: 0.80 E'Medial: 6.74 E/E' Med: 8.10 E' Laterial: 6.85 E/E' Lat: 7.90 Right Ventricle TAPSE (mm): 24.00 TVS' Michael: 11.70 Tricuspid Valve TR Pk Michael: 2.67 TR Pk Grad: 29.00 RA Press: 3.00 RVSP: 32.00 Great Vessels Aorta Ao Root-2D: 3.70 2.0-3.7 cm Ao Asc: 3.90 2.1-3.4 cm Ao Arch: 3.10 Updated in Other Vendor System with Status of Final Alfredo Herring MD electronically signed on 02/18/2024 3:36:40 PM with status of Final
== END ==
LOC: HO.CARD 09:51
PROVIDERS: PCP Registered Nurse; Visit Provider Nurse Practitioner
DX: I48.20 Chronic atrial fibrillation, unspecified (principal)
CPT/HCPCS: 93225; 93306

== ENCOUNTER → 2024-02-18 09:54 | Outpatient (BNV) | payer MEDICARE, MEDICAID, SELFPAY | PROVIDERS: PCP Registered Nurse; Visit Provider Internal Medicine Cardiovascular Disease | DX: I48.91 Unspecified atrial fibrillation (principal) | CPT/HCPCS: 93227; 93306 ==

== ENCOUNTER 2024-03-31 15:00 | Outpatient (AMB) | payer MEDICARE, MEDICAID, SELFPAY ==
[2024-03-31 15:05] VITALS: BP 126/67; PULSE 83; O2SAT 95; BMI 29.5
--- NOTE | 2024-03-31 15:05 | A.OFFVIS_ITS ---
Vital Signs 03/31/24 15:05 Height 5 ft 9 in Weight 200 lb BMI 29.5 BP 126/67 Blood Pressure Location Rt brachial Position Sitting Pulse 83 Pulse Source Doppler Pulse Oximetry (%) 95 Oxygen Delivery Method Room Air Intake Visit Reasons: Obstructive sleep apnea Allergies No Known Allergies Allergy (Verified 12/31/23 10:09) HPI HPI Obstructive sleep apnea: Details: 48-year-old gentleman with followed for asthma and obstructive sleep apnea. After the last office visit patient has received his CPAP has been using it with good control of his underlying sleep apnea. Unfortunately he did ran out of [place] and has been and on albuterol MDI to control his underlying asthma. He denies recent exacerbations. [facility] Medical History (Updated 12/31/23 @ 10:24 by Chace Cabrera MD) History of high cholesterol Atrial fibrillation with rapid ventricular response Paroxysmal atrial fibrillation Multiple sclerosis Diabetes Asthma Family History Mother Diabetes Asthma Maternal Grandmother Diabetes Brother Diabetes Other No family history of cardiac disease Social History (Updated 12/31/23 @ 10:13 by Mirna Higginbotham [facility]) Alcohol intake: never Patient Tobacco Use Status: Current everyday Tobacco user Tobacco use type: Cigarette Years Smoked: quit 1 year ago, started at 15, 2ppd Substance Use Type: Marijuana service: No Current occupational status: disabled Review of Systems Const Denies daytime sleepiness, Denies excessive sweating, Denies fatigue, Denies fever(s), Denies lethargy, Denies malaise, Denies night sweats, Denies snoring and Denies weight loss Eyes Denies blurry vision and Denies itchy eyes ENT Denies nasal congestion, Denies post nasal drip, Denies sinus pain, Denies sinus pressure and Denies other ( Thrush) Card Denies chest pain, Denies pedal edema, Denies dyspnea, Denies orthopnea and Denies paroxysmal nocturnal dyspnea Resp Denies cough, Denies hemoptysis, Denies excessive phlegm production, Denies dyspnea, Denies snoring and Denies wheezing GI Denies abdominal pain and Denies heartburn Musc Denies myalgias, Denies arthralgias and Denies joint swelling Skin/Breast Denies rash Neuro Denies memory loss and Denies seizure-like activity Psych Denies abnormal sleep pattern, Denies anxiety and Denies memory loss Endo Denies excessive sweating, Denies fatigue and Denies heat intolerance Rodolfo/Lymph Denies easy bruising Aller/Immun Denies itchy eyes, Denies seasonal rhinorrhea and Denies wheezing Physical Exam Vital Signs: Last Vital Signs Pulse 83 03/31/24 15:05 BP 126/67 03/31/24 15:05 Pulse Ox 95 03/31/24 15:05 Oxygen Delivery Method Room Air 03/31/24 15:05 BMI result Body Mass Index 29.5 Const General: no acute distress and alert Nutritional Appearance: not obese Orientation/consciousness: Other orientation findings ( oriented) HEENT Head: Yes atraumatic Eyes General: appearance normal, both eyes and all related structures Sclerae: sclerae normal EOM: EOMs intact bilaterally Neck Neck: Yes supple Lymphatic: no lymphadenopathy noted Resp Effort & Inspection: normal respiratory effort and no use of accessory muscles Auscultation: clear to auscultation bilaterally Cardio Rate: regular rate Rhythm: regular rhythm Heart sounds: no gallops, no murmurs and no rubs Skin General skin exam: other ( warm) Extrem General: No clubbing, No cyanosis and No edema Assessment & Plan Assessment & Plan (1) Asthma: Code(s): J45.909 - Unspecified asthma, uncomplicated Category: Medical Plan: Suboptimal control on duo nebs, restart duo nebs, continue albuterol MDI. (2) RAMILA (obstructive sleep apnea): Code(s): G47.33 - Obstructive sleep apnea (adult) (pediatric) Category: Medical Plan: Well controlled on current CPAP therapy. Continue CPAP therapy. Medications: New ipratropium-albuterol 0.5 mg-3 mg(2.5 mg base)/3 mL 3 mL inhalation Q4H PRN 180 mL 6RF wheezing Coding Level of Care Code Est Pt Level 4 (61381) Diagnoses Asthma J45.909 RAMILA (obstructive sleep apnea) G47.33
== END 2024-03-31 15:14 | disposition home or self-care (01) ==
PROVIDERS: PCP Registered Nurse; Visit Provider Internal Medicine Pulmonary Disease
DX: J45.909 Unspecified asthma, uncomplicated (principal); G47.33 Obstructive sleep apnea (adult) (pediatric)
CPT/HCPCS: 99214

== ENCOUNTER → 2024-03-31 15:00 | Outpatient (BNVA) | payer MEDICARE, MEDICAID, SELFPAY | PROVIDERS: PCP Registered Nurse; Visit Provider Internal Medicine Pulmonary Disease | DX: G47.33 Obstructive sleep apnea (adult) (pediatric) (principal); J45.909 Unspecified asthma, uncomplicated; Z99.89 Dependence on other enabling machines and devices | CPT/HCPCS: 99212 ==

== ENCOUNTER 2024-04-21 10:08 | Outpatient (REF) | payer MEDICARE, MEDICAID, SELFPAY ==
--- NOTE | 2024-04-21 10:18 | ECG_ITS ---
Test Reason : PRE OP Blood Pressure : / mmHG Vent. Rate : 065 BPM Atrial Rate : 065 BPM P-R Int : 174 ms QRS Dur : 080 ms QT Int : 386 ms P-R-T Axes : 052 058 025 degrees QTc Int : 401 ms Normal sinus rhythm Minimal voltage criteria for LVH, may be normal variant ( Sokolow-James ) Borderline ECG When compared with ECG of 22-OCT-2023 10:14, Criteria for Septal infarct are no longer Present Referred By: Mirna Arthur Electronically Signed By:GUILLERMO SAAB MD
[2024-04-21 10:44] LABS: MANUAL DIFF FLAG NO
[2024-04-21 11:11] LABS: INTERNATIONAL NORM RATIO 1.2 (0.9-1.1)
[2024-04-21 11:13] LABS: Partial Thromboplastin Time 39.8 SEC (26.0-36.8)
[2024-04-21 11:21] LABS: Basophils Absolute Auto 0.1 X10*3/uL (0.0-0.2); Basophils Percent Auto 0.7 % (0-2); Eosinophils Absolute Auto 0.1 X10*3/uL (0.0-0.4); Eosinophils Percent Auto 0.6 % (0-4); Hematocrit 46.3 % (42.0-52.0); Hemoglobin 15.5 g/dl (14.0-18.0); Imm Gran Abs Auto 0.06 X10*3/uL (0.00-0.03); Imm Gran Pct Auto 0.6 % (0.0-0.4); Lymphocytes Absolute Auto 1.1 X10*3/uL (1.2-4.9); Lymphocytes Percent Auto 11.7 % (20-40); Mean Corpuscular HGB Conc 33.5 g/dl (31.0-36.0); Mean Corpuscular Hemoglobin 27.8 pg (27.0-33.0); Mean Corpuscular Volume 83.1 fL (80.0-98.0); Mean Platelet Volume 10.1 fL (9.4-12.4); Monocytes Absolute Auto 0.7 X10*3/uL (0.1-1.2); Monocytes Percent Auto 7.6 % (2-11); Neutrophils Absolute Auto 7.4 x10*3/uL (2.0-8.3); Neutrophils Percent Auto 78.8 % (45-73); Platelet Count 304 X10*3/uL (160-400); Red Blood Count 5.57 X10*6/uL (4.60-5.80); Red Cell Distribution Width 13.5 % (11.0-16.0); White Blood Count 9.4 X10*3/uL (4.8-10.8)
[2024-04-21 11:35] LABS: Anion Gap 11 (12-20); Blood Urea Nitrogen 14 mg/dL (9-16); Carbon Dioxide 25 mmol/L (22-29); Chloride 106 mmol/L (96-108); Estimated Glomerular Filt Rate > 60; Glucose Random 129 mg/dL (60-115); Potassium 4.2 mmol/L (3.3-5.1); Sodium 138 mmol/L (135-145)
== END 2024-04-21 10:09 | disposition home or self-care (01) ==
LOC: HO.LAB 10:08
PROVIDERS: PCP Registered Nurse; Visit Provider Family Medicine
DX: Z01.818 Encounter for other preprocedural examination (principal); Z79.01 Long term (current) use of anticoagulants
CPT/HCPCS: 36415; 80048; 85025; 85610; 85730; 93005

== ENCOUNTER → 2024-04-21 10:18 | Outpatient (BNV) | payer MEDICARE, MEDICAID, SELFPAY | PROVIDERS: PCP Registered Nurse; Visit Provider Internal Medicine Cardiovascular Disease | DX: R94.31 Abnormal electrocardiogram [ECG] [EKG] (principal) | CPT/HCPCS: 93010 ==

== ENCOUNTER 2024-05-21 16:45 | Outpatient (REF) | payer MEDICARE, MEDICAID, SELFPAY ==
[2024-05-21 18:35] LABS: Cholesterol 123 mg/dL (<200); HDL Cholesterol 33 mg/dL (>40); LDL Cholesterol Calculated 33 mg/dL (<100); Triglycerides 289 mg/dL (<150)
[2024-05-21 18:49] LABS: Creatinine Urine 279.27 mg/dL; Microalbum/Creatinine Ratio Ur 44.7 ug/mg cr (<30)
== END 2024-05-21 16:46 | disposition home or self-care (01) ==
LOC: HO.HHCL 16:45
PROVIDERS: Visit Provider Registered Nurse
DX: E11.9 Type 2 diabetes mellitus without complications (principal)
CPT/HCPCS: 36415; 80061; 82043; 82570

== ENCOUNTER 2024-08-18 12:12 | Outpatient (REF) | payer MEDICARE, MEDICAID, SELFPAY ==
--- OUTSIDE RECORDS SUMMARY | 2024-08-18 13:42 | XMS_ITS | Encounter Summary ---
Author Organization [employer] Address [address] [place] [address] [address] [place] [address] Care Team Providers Care Director Of Recruitment And Admissions Name Role Phone Riri Corrigan Primary Care Provider [phone] Encounter Details Date Type Department Care Team (Latest Contact Info) Description 08/22/2021 Abstract [facility] CONVERSIONS Dental, Provider, DDS Social History Tobacco Use Types Packs/Day Years Used Date Smoking Tobacco: Never Assessed Sex and Gender Information Value Date Recorded Sex Assigned at Male 05/13/2022 10:21 AM EDT Legal Sex Male 10:21 AM EDT Gender Identity Male 05/13/2022 10:21 AM EDT Sexual Orientation Don't know 05/13/2022 10 :21 AM EDT documented as of this encounter Plan of Treatment Not on file documented as of this encounter Visit Diagnoses Not on filedocumented in this encounter Care Teams Director Of Recruitment And Admissions Relationship Specialty Start Date End Date Riri Corrigan FNP [address] [place] [id number] PCP - General Family Medicine 03/11/22 documented as of this encounter
--- OUTSIDE RECORDS SUMMARY | 2024-08-18 13:42 | XMS_ITS | Encounter Summary ---
Author Organization [employer] Address [address] [facility] [address] [place] [address] Care Team Providers Care Base Brander Name Role Phone [facility] Primary Care Provider [phone] Reason for Visit * Reason Comments Med Refill Encounter Details Date Type Department Care Team ([facility] st Contact Info) Description 12/13/2022 Refill [facility] [address] [place], [place] [id number] [facility] [address] [place] [address] Eczema of right external ear Social History Tobacco Use Types Packs/Day Years Used Date Smoking Tobacco: Every Day Cigarettes Passive Smoke Exposure: Never Smokeless Tobacco: Never Alcohol Use Standard Drinks/Week Comments Never 0 (1 standard drink = 0.6 oz pur e alcohol) Sex and Gender Information Value Date Recorded Sex Assigned at Male 05/13/2022 10:21 AM EDT Legal Sex Male 10:21 AM EDT Gender Identity Male 05/13/2022 10:21 AM EDT Sexual Orientation Don't know 05/13/2022 10 :21 AM EDT COVID-19 Exposure Response Date Recorded In the last 10 days, have yo u been in contact with someone who was confirmed or suspected to have Coronavirus/COVID-19? No / Unsure 12/13/2022 10:08 AM EDT documented as of this encounter Plan of Treatment Not on file documented as of this encounter Visit Diagnoses Diagnosis Eczema of right external ear documented in this encounter Additional Health Concerns Assessment Noted Time PHQ-9 Depression Total Score: 0 11/08/19 23 9:20 AM EDT documented as of this encounter Care Teams Base Brander Relationship Specialty Start Date End Date Meenu RUTH Menezes [address] [place] [id number] PCP - General Family Medicine 03/11/22 documented as of this encounter
--- OUTSIDE RECORDS SUMMARY | 2024-08-18 13:42 | XMS_ITS | Encounter Summary ---
Author Organization [employer] Address [address] [facility] 7 [place] [address] Care Team Providers Care Special Police Officer Name Role Phone Riri Corrigan [facility] Primary Care Provider Reason for Referral * Imaging (Routine) - Closed Specialty Diagnoses / Procedures Referred By Stewart saeed Referred To Contact Radiology Diagnoses Liver enzyme elevation Procedures US Abdomen Complete Pa Rodriguez MD [address] [place] [address] Phone: tel: fax: Diagnostic Imaging, [facility] [address] [facility] [address] [place] [address] Phone: tel: fax: Referral ID Status Reason Start Date Expiration Date Visits Re quested Visits Authorized [id number] Closed 06/11/2023 06/10/2024 1 1 Encounter Details Date Type Department Care Team (Late st Contact Info) Description 06/11/2023 Orders Only [facility] [address] [place] [address] Pa Rodriguez MD [address] [place] [phone] Liver enzyme elevation (Primary Dx) Social History Tobacco Use Types Packs/Day Years Used Date Smoking Tobacco: Every Day Cigarettes Passive Smoke Exposure: Never Smokeless Tobacco: Never Alcohol Use Standard Drinks/Week Comments Never 0 (1 standard drink = 0.6 oz pur e alcohol) Depression Answer Date Recorded Patient Health Questionnaire-9 Score 0 02/06/2023 Housing Stability Answer Date Recorded What is your housing situation today? I have madyson bello 04/28/[address] you li ve. Do you have problems with any of the following? None of the above 04/28/2023 Food Insecurity Answer Date Recorded Within the past 12 months, y ou worried that your food would run out before you got money to buy more: Never True 04/28/2023 Within the past 12 months,th e food you bought just didn't last and you didn't have enough money to get more: Never True Transportation Answer Date Recorded In the past 12 months, has l ack of transportation kept you from medical appts, meetings, work or from getting things needed for daily living? No 04/28/2023 Utilities Answer Date Recorded In the past 12 months, has t he electric, gas, oil or water company threatened to shut off services in your home? No 04/28/2023 Depression Answer Date Recorded Patient Health Questionnaire-2 Score 0 02/06/2023 Sex and Gender Information Value Date Recorded Sex Assigned at Male 05/13/2022 10:21 AM EDT Legal Sex Male 10:21 AM EDT Gender Identity Male 05/13/2022 10:21 AM EDT Sexual Orientation Don't know 05/13/2022 10 :21 AM EDT documented as of this encounter Plan of Treatment Scheduled Orders Name Type Priority Associated Diagnoses Orde r Schedule US Abdomen Complete Imaging Routine Liver enzyme elevation Expected: 06/11/2023, Expires: 06/11/2024 Hepatic Function Panel Lab Routine Liver enzyme elevation Expected: 07/11/2023 (Approximate), Expires: 06/11/2024 documented as of this encounter Visit Diagnoses Diagnosis Liver enzyme elevation- Primary documented in this encounter Additional Health Concerns Assessment Noted Time PHQ-9 Depression Total Score: 0 02/07/20 23 1:48 PM EDT documented as of this encounter Care Teams Special Police Officer Relationship Specialty Start Date End Date Riri Corrigan FNP [address] [place] [address] PCP - General Family Medicine 03/11/22 documented as of this encounter
--- OUTSIDE RECORDS SUMMARY | 2024-08-18 13:42 | XMS_ITS | Clinical Summary ---
Author Organization [facility] Address [address] [place] [address] Phone Care Team Providers Care Air Plant Engineer Name Role Phone Riri Corrigan Primary Care Provider [phone] Allergies No known active allergies Medications Medication Sig Dispensed Refills Start Date End Date Status polyethylene glycol (Golytely) 236-22.74-6.74 -5.86 gram solution Take 4L by mouth once for one dose. May substitue any PEG. Starting at 6PM the night before your procedure drink 1 8oz glasses at your own pace until you complete half of the gallon. Finish 2nd half of the gallon 5 hours before your procedure. 4000 mL 08/18/2024 Active bisacodyL (DULCOLAX) 5 mg EC tablet Take 2 tablets by mouth right before beginning bowel prep. See instructions provided by the office 2 tablet 08/18/2024 Active Active Problems No known active problems Encounters Date Type Department Care Team Description 08/14/2024 4:56 AM EST - 08/14/2024 9:23 AM EST Emergency [facility] Emergency [address] [place] [address] Leila Saez MD Atrial fibrillation, unspecified type (CMS/HCC) (Primary Dx); Coronavirus infection Discharge Disposition: Home or Self Care 07/23/2024 Telephone Gastroenterology - [place] [address] [facility] 175 [facility] [address] [place] [address] Arianna Marr LPN Anticoagulation (Colonoscopy on ) from Last 3 Months Social History Tobacco Use Types Packs/Day Years Used Date Smoking Tobacco: Never Assessed Sex and Gender Information Value Date Recorded Sex Assigned at Not on file Gender Identity Not on file Sexual Orientation Not on file Job Start Date Occupation Industry Not on file Not on file Not on file Obstetrics History Last Filed Vital Signs Vital Sign Reading Time Taken Comments Blood Pressure 101/69 08/14/2024 9:00 AM EST Pulse 69 08/14/2024 9:00 AM EST Temperature 36.4 ??C (97.5 ??F) 08/14/2024 5:22 AM ES T Respiratory Rate 14 08/14/2024 9:00 AM EST Oxygen Saturation 97% 08/14/2024 9:00 AM EST Inhaled Oxygen Concentration - - Weight 93 kg (205 lb) 08/14/2024 5:22 AM EST Height 175.3 cm (5' 9 ) 08/14/2024 5:22 AM EST Body Mass Index 30.27 08/14/2024 5:22 AM EST Plan of Treatment Upcoming Encounters Date Type Department Care Team (Late st Contact Info) Description 09/01/2024 12:30 PM EST Hospital Encounter [facility] Endoscopy [address] [place] [phone] Jody Garcia MD [address] [address] Health Maintenance Due Date Last Done Comments Diabetes: Annual Foot Exam 1985 Diabetes: Annual Retina Eye Exam 1985 Colorectal Cancer Screening: Colonoscopy 02/04/2024 Hepatitis C Screening 02/04/2024 Medicare Annual Wellness Visit 02/04/2024 Social Influencers of Health Screening 02/04/2024 Hepatitis B Vaccines (3 of 3 - 19+ 3-dose series) 04/28/2024 03/03/2024, 05/21/2021 DTaP,Tdap,and Td Vaccines (3 - Td or Tdap) 05/27/2024 05/27/2014, 01/21/2007 Diabetes: Annual Urine Albumin-Creatinine Ratio (uACR) 08/14/2024 Diabetes: Blood Sugar Control Test (HGBA1C) 10/19/2024 04/20/2024 Depression Screening 03/03/2025 03/03/2024 Diabetes: Annual GFR (Glomerular Filtration Rate) 08/14/2025 08/14/2024 Cholesterol Screening (Lipid Panel) 05/21/2029 05/21/2024 HIV Screening Completed 04/09/2021 Pneumococcal Vaccine: Pediatrics (0 to 5 Years) and At-Risk Patients (6 to 64 Years) Completed 03/03/2024, 05/21/2021 COVID-19 Vaccine Completed 04/17/2024, 02/2022, 11/30/2020, Additional history exists Influenza Vaccine Completed 04/20/2024, , 06/11/2018, Additional history exists HIB Vaccines Aged Out No longer eligi ble based on patient's age to complete this topic HPV Vaccines Aged Out No longer eligi ble based on patient's age to complete this topic Hepatitis A Vaccines Aged Out No long er eligible based on patient's age to complete this topic IPV Vaccines Aged Out No longer eligi ble based on patient's age to complete this topic MMR Vaccines Aged Out No longer eligi ble based on patient's age to complete this topic Meningococcal ACWY Vaccine Aged Out N o longer eligible based on patient's age to complete this topic RSV Immunization Patients Under 20 months Aged Out No longer eligible based on patient's age to complete this topic Varicella Vaccines Aged Out No longer eligible based on patient's age to complete this topic Procedures Procedure Name Priority Date/Time Associated Diagnosis Comments XR CHEST 1 VIEW STAT 08/14/2024 7:49 AM EST RESPIRATORY VIRUS PANEL MOLECULAR STUDY STAT 08/14/2024 6:19 AM EST TROPONIN I HIGH SENSITIVITY STAT 08/14/2024 6:01 AM EST PROTHROMBIN TIME WITH INR STAT 08/14/2024 4:50 AM EST ACTIVATED PARTIAL THROMBOPLASTIN TIME STAT 08/14/2024 4:50 AM EST CBC WITH AUTO DIFFERENTIAL STAT 08/14/2024 4:50 AM EST B-TYPE NATRIURETIC PEPTIDE STAT 08/14/2024 4:50 AM EST MAGNESIUM STAT 08/14/2024 4:50 AM EST LIPASE STAT 08/14/2024 4:50 AM EST COMPREHENSIVE METABOLIC PANEL STAT 08/14/2024 4:50 AM EST CBC AND DIFFERENTIAL STAT 08/14/2024 4:50 AM EST TROPONIN I HIGH SENSITIVITY STAT 08/14/2024 4:50 AM EST ECG 12-LEAD STAT 08/14/2024 4:40 AM EST ECG ANNOTATED 08/14/2024 from Last 3 Months Results * XR Chest 1 View (08/14/2024 7:49 AM EST) Anatomical Region Laterality Modality Body Radiographic Elysia ging 08/14/2024 8:14 AM EST Impressions 08/14/2024 8:32 AM EST No acute findings. -------- FINAL REPORT -------- Dictated By: Lc Fox Dictated Date: 08/14/2024 08:14 ET Assigned Physician: Lc Fox Reviewed and Electronically Signed By: Lc Fox Signed Date: 08/14/2024 08:32 ET Workstation ID: [id number] Transcribed By: Self Edit Transcribed Date: 08/14/2024 08:14 ET Narrative 08/14/2024 8:32 AM EST PROCEDURE: AP chest radiograph. HISTORY: chest pain pain HR unstable to goto xray. COMPARISON: 02/22/2024. FINDINGS: Lungs and pleural spaces are clear. ??Summary vasculature is normal. ??Unchanged cardiomediastinal contours. Procedure Note Lc Fox MD - 08/14/2024 PROCEDURE: AP chest radiograph. HISTORY: chest pain pain HR unstable to goto xray. COMPARISON: 02/22/2024. FINDINGS: Lungs and pleural spaces are clear. Summary vasculature is normal.Unchanged cardiomediastinal contours. IMPRESSION: No acute findings. -------- FINAL REPORT -------- Dictated By: Lc Fox Dictated Date: 08/14/2024 08:14 ET Assigned Physician: Lc Fox Reviewed and Electronically Signed By: Lc Fox Signed Date: 08/14/2024 08:32 ET Workstation ID: [id number] Transcribed By: Self Edit Transcribed Date: 08/14/2024 08:14 ET Leila Saez MD IMG XR PROCEDURE S * (ABNORMAL) Respiratory virus panel molecular study (08/14/2024 6:19 AM EST) Adenovirus Detection by PCR Not Detected Not Detected LAB MICROBIOLOGY METHOD 08/14/2024 7:46 AM [facility] Influenza A PCR Not Detected Not Detected LAB MICROBIOLOGY METHOD 08/14/2024 7:46 AM [facility] Influenza B PCR Not Detected Not Detected LAB MICROBIOLOGY METHOD 08/14/2024 7:46 AM [facility] Coronavirus 229E Not Detected Not Detected LAB MICROBIOLOGY METHOD 08/14/2024 7:46 AM [facility] Coronavirus HKU1 Not Detected Not Detected LAB MICROBIOLOGY METHOD 08/14/2024 7:46 AM [facility] Coronavirus OC43 Detected(A ) Not Detected LAB MICROBIOLOGY METHOD 08/14/2024 7:46 AM [facility] Coronavirus NL63 Not Detected Not Detected LAB MICROBIOLOGY METHOD 08/14/2024 7:46 AM [facility] Parainfluenza Virus 1 Not Detected Not Detected LAB MICROBIOLOGY METHOD 08/14/2024 7:46 AM [facility] Parainfluenza Virus 2 Not Detected Not Detected LAB MICROBIOLOGY METHOD 08/14/2024 7:46 AM [facility] Parainfluenza Virus 3 Not Detected Not Detected LAB MICROBIOLOGY METHOD 08/14/2024 7:46 AM [facility] Parainfluenza Virus 4 Not Detected Not Detected LAB MICROBIOLOGY METHOD 08/14/2024 7:46 AM EST [facility] RSV PCR Not Detected Not Detected LAB MICROBIOLOGY METHOD 08/14/2024 7:46 AM EST [facility] Human Metapneumovirus A and B Not Detected Not Detected LAB MICROBIOLOGY METHOD 08/14/2024 7:46 AM EST [facility] Rhinovirus/Entero virus Not Detected Not Detected LAB MICROBIOLOGY METHOD 08/14/2024 7:46 AM EST [facility] Bordetella pertussis Not Detected Not Detected LAB MICROBIOLOGY METHOD 08/14/2024 7:46 AM [facility] Bordetella parapertussis Not Detected Not Detected LAB MICROBIOLOGY METHOD 08/14/2024 7:46 AM [facility] Mycoplasma pneumo by PCR Not Detected Not Detected LAB MICROBIOLOGY METHOD 08/14/2024 7:46 AM [facility] Chlamydia pneumoniae Not Detected Not Detected LAB MICROBIOLOGY METHOD 08/14/2024 7:46 AM [facility] SARS COV-2 Not Detected Not Detected LAB MICROBIOLOGY METHOD 08/14/2024 7:46 AM [facility] Swab Both anterior nares / Unknown Non-blood Collection / Unknown 08/14/2024 6:19 AM EST 08/14/2024 6:41 AM EST [facility] - 08/14/2024 7:46 AM EST Testing was performed using the [employer] Respiratory Pathogen PCR Assay. All results must be correlated with the clinical findings. Results should not be used as the sole basis for diagnosis. False Negative results may occur from the presence of sequence variants in the region targeted by the assay or the presence of inhibitors. Results may be affected by concurrent antiviral/antimicrobial therapy or levels of organisms that are below the limit of detection. Leila Saez MD LAB MICROBIOLOGY - GENERAL ORDERABLES [facility] [address] [place] [address], [place] [phone] * Troponin I high sensitivity (08/14/2024 6:01 AM EST) Only the most recent of2 resultswithin the time period is included. [facility] High Sensitivity Troponin I 7 <=79 ng/L LAB CHEMISTRY METHOD 08/14/2024 7:11 AM EST [facility] Blood Venous blood specimen / Unknown Venipuncture / Unknown 08/14/2024 6:01 AM EST 08/14/2024 6:41 AM EST [facility] - 08/14/2024 7:11 AM EST High levels of biotin in samples may falsely decrease hsTroponin values. ??Use caution when interpreting hsTroponin results in patients taking biotin who exhibit renal impairment (eGFR <60) or in patients taking more than 20 mg/day of biotin. Leila Saez MD LAB BLOOD ORDERA BLES [facility] [address] [place] [address], [place] [phone] * (ABNORMAL) CBC auto differential (08/14/2024 4:50 AM EST) [facility] WBC 12.4(H) 4.8 - 10.8 K/mcL LAB HEMETOLOGY METHOD 08/14/2024 5:03 AM [facility] RBC 5.50 4.50 - 5.50 M/mcL LAB HEMETOLOGY METHOD 08/14/2024 5:03 AM [facility] Hemoglobin 15.2 13.5 - 17.5 g/dL LAB HEMETOLOGY METHOD 08/14/2024 5:03 AM [facility] Hematocrit 44.8 42.0 - 54.0 % LAB HEMETOLOGY METHOD 08/14/2024 5:03 AM [facility] MCV 82.1 79.0 - 98.0 FL LAB HEMETOLOGY METHOD 08/14/2024 5:03 AM [facility] MCH 27.8 27.0 - 32.0 pcg LAB HEMETOLOGY METHOD 08/14/2024 5:03 AM [facility] MCHC 33.9 32.0 - 37.0 g/dL LAB HEMETOLOGY METHOD 08/14/2024 5:03 AM [facility] RDW 14.0 11.0 - 15.0 % LAB HEMETOLOGY METHOD 08/14/2024 5:03 AM [facility] Platelets 291 130 - 400 K/mcL LAB HEMETOLOGY METHOD 08/14/2024 5:03 AM [facility] MPV 9.9 7.0 - 11.0 FL LAB HEMETOLOGY METHOD 08/14/2024 5:03 AM [facility] NRBC 0.0 <1.0 % LAB HEMETOLOGY METHOD 08/14/2024 5:03 AM [facility] NRBC Absolute 0.00 <0.10 K/mcL LAB HEMETOLOGY METHOD 08/14/2024 5:03 AM [facility] Neutrophils Relative 76.9 % LAB HEMETOLOGY METHOD 08/14/2024 5:03 AM [facility] Lymphocytes Relative 12.4 % LAB HEMETOLOGY METHOD 08/14/2024 5:03 AM [facility] Monocytes Relative 8.5 % LAB HEMETOLOGY METHOD 08/14/2024 5:03 AM [facility] Eosinophils Relative 1.0 % LAB HEMETOLOGY METHOD 08/14/2024 5:03 AM [facility] Basophils Relative 0.6 % LAB HEMETOLOGY METHOD 08/14/2024 5:03 AM [facility] Immature Granulocytes Relative 0.6 % LAB HEMETOLOGY METHOD 08/14/2024 5:03 AM EST [facility] Neutrophils Absolute 9.55(H) 1.50 - 7.00 K/mcL LAB HEMETOLOGY METHOD 08/14/2024 5:03 AM EST [facility] Lymphocytes Absolute 1.54 1.00 - 5.00 K/mcL LAB HEMETOLOGY METHOD 08/14/2024 5:03 AM EST [facility] Monocytes Absolute 1.05(H) 0.20 - 1.00 K/[facility] LAB HEMETOLOGY METHOD 08/14/2024 5:03 AM EST [facility] Eosinophils Absolute 0.12 0.00 - 0.50 K/[facility] LAB HEMETOLOGY METHOD 08/14/2024 5:03 AM EST [facility] Basophils Absolute 0.07 0.00 - 0.20 K/mcL LAB HEMETOLOGY METHOD 08/14/2024 5:03 AM EST [facility] Immature Granulocytes Absolute 0.07(H) 0.00 - 0.03 K/[facility] LAB HEMETOLOGY METHOD 08/14/2024 5:03 AM EST [facility] Blood Venous blood specimen / Unknown Venipuncture / Unknown 08/14/2024 4:50 AM EST 08/14/2024 4:55 AM EST Leila Saez MD LAB BLOOD ORDERA BLES [facility] [address] [place] [address], * APTT (08/14/2024 4:50 AM EST) aPTT 37.6 24.1 - 39.3 sec LAB COAGULATION METHOD 08/14/2024 5:10 AM EST [facility] Blood Venous blood specimen / Unknown Venipuncture / Unknown 08/14/2024 4:50 AM EST 08/14/2024 4:55 AM EST Leila Saez MD LAB BLOOD ORDERA BLES Performing Organization Address City/[facility]/ZIP Co de Phone Number [facility] [address] [place] [address], [place] [phone] * Protime-INR (08/14/2024 4:50 AM EST) Protime 13.4 10.6 - 13.9 sec LAB COAGULATION METHOD 08/14/2024 5:10 AM EST [facility] INR 1.1 LAB COAGULATION METHOD 08/14/2024 5:10 AM EST [facility] Blood Venous blood specimen / Unknown Venipuncture / Unknown 08/14/2024 4:50 AM EST 08/14/2024 4:55 AM EST Leila Saez MD LAB BLOOD ORDERA BLES Performing Organization Address [facility] Co de Phone Number [facility] [address] [place] [address], [place] [phone] * B-type natriuretic peptide (08/14/2024 4:50 AM EST) [facility] BNP 87 <=100 pcg/mL LAB CHEMISTRY METHOD 08/14/2024 5:41 AM EST [facility] Blood Venous blood specimen / Unknown Venipuncture / Unknown 08/14/2024 4:50 AM EST 08/14/2024 4:55 AM EST Leila Saez MD LAB BLOOD ORDERA BLES Performing Organization Address City/[facility]/ZIP Co de Phone Number [facility] [address] [place] [address], [place] [phone] * Magnesium (08/14/2024 4:50 AM EST) Pathologist [facility] Magnesium 2.0 1.9 - 2.6 mg/dL LAB CHEMISTRY METHOD 08/14/2024 5:27 AM EST [facility] Blood Venous blood specimen / Unknown Venipuncture / Unknown 08/14/2024 4:50 AM EST 08/14/2024 4:55 AM EST Leila Saez MD LAB BLOOD ORDERA BLES Performing Organization Address City/[facility]/ZIP Co de Phone Number [facility] [address] [place] [address], [place] [phone] * Lipase (08/14/2024 4:50 AM EST) Lipase 38 13 - 75 unit/L LAB CHEMISTRY METHOD 08/14/2024 5:27 AM [facility] Blood Venous blood specimen / Unknown Venipuncture / Unknown 08/14/2024 4:50 AM EST 08/14/2024 4:55 AM EST Leila Saez MD LAB BLOOD ORDERA BLES Performing Organization Address [facility]/ZIP Co de Phone Number [facility] [address] [place] [address], [place] [phone] * (ABNORMAL) Comprehensive metabolic panel (08/14/2024 4:50 AM EST) Sodium 135 133 - 145 mmol/L LAB CHEMISTRY METHOD 08/14/2024 5:27 AM [facility] Potassium 3.3(L) 3.5 - 5.5 mmol/L LAB CHEMISTRY METHOD 08/14/2024 5:27 AM [facility] Chloride 106 96 - 110 mmol/L LAB CHEMISTRY METHOD 08/14/2024 5:27 AM [facility] CO2 23 21 - 32 mmol/L LAB CHEMISTRY METHOD 08/14/2024 5:27 AM [facility] Anion Gap 6 3 - 11 LAB CHEMISTRY METHOD 08/14/2024 5:27 AM [facility] Glucose 198(H) 70 - 100 mg/dL LAB CHEMISTRY METHOD 08/14/2024 5:27 AM [facility] BUN 19 5 - 25 mg/dL LAB CHEMISTRY METHOD 08/14/2024 5:27 AM [facility] Creatinine 1.15 0.70 - 1.30 mg/dL LAB CHEMISTRY METHOD 08/14/2024 5:27 AM [facility] eGFR 78 >=60 mL/min/1. 73m2 LAB CHEMISTRY METHOD 08/14/2024 5:27 AM [facility] Comment:Calculation based on the??Chronic Kidney Disease Epidemiology Collaboration (CKD-EPI) equation refit??without adjustment for race. BUN/Creatinine Ratio 16.5 LAB CHEMISTRY METHOD 08/14/2024 5:27 AM [facility] Calcium 9.0 8.5 - 10.5 mg/dL LAB CHEMISTRY METHOD 08/14/2024 5:27 AM [facility] AST (SGOT) 11 10 - 42 unit/L LAB CHEMISTRY METHOD 08/14/2024 5:27 AM [facility] ALT (SGPT) 32 10 - 60 unit/L LAB CHEMISTRY METHOD 08/14/2024 5:27 AM [facility] Alkaline Phosphatase 139(H) 42 - 121 unit/L LAB CHEMISTRY METHOD 08/14/2024 5:27 AM [facility] Total Protein 7.0 6.0 - 8.0 g/dL LAB CHEMISTRY METHOD 08/14/2024 5:27 AM [facility] Albumin 3.3 3.2 - 5.0 g/dL LAB CHEMISTRY METHOD 08/14/2024 5:27 AM [facility] Total Bilirubin 0.3 0.0 - 1.4 mg/dL LAB CHEMISTRY METHOD 08/14/2024 5:27 AM [facility] Blood Venous blood specimen / Unknown Venipuncture / Unknown 08/14/2024 4:50 AM EST 08/14/2024 4:55 AM EST Leila Saez MD LAB BLOOD ORDERA BLES [facility] [address] [place] [address], * ECG 12 lead (08/14/2024 4:40 AM EST) Ventricular Rate ECG 141 BPM G[facility] Atrial Rate 166 BPM GEM[facility] QRS Duration 88 ms GEMUSE Q-T Interval 292 ms GEMUSE QTc 447 ms GEMUSE R [place] 77 degrees GEMUSE T [place] -29 degrees GEMUSE ECG Interpretation Critical Test Result: High HR Atrial fibrillation with rapid ventricular response Nonspecific ST abnormality Abnormal QRS-T angle, consider primary T wave abnormality Abnormal ECG When compared with ECG of 22-FEB-2024 08:35, ST no longer depressed in Anterolateral leads Confirmed by NOEL ZAMORA ([id number]) on 08/15/2024 2:32:58 PM G[facility] 08/14/2024 4:40 AM EST 08/15/2024 2:32 PM EST Leila Saez MD ECG ORDERABLES Performing Organization Address City/[facility]/ZIP Co de Phone Number G[facility] * ECG-Annotated (08/14/2024) Emiliano Hernandez MD ECG ORDERABLES from Last 3 Months Additional Health Concerns Infection Onset Date Last Indicated Coronavirus 08/14/2024 08/14/2024 Care Teams Air Plant Engineer Relationship Specialty Start Date End Date [facility] [address] [place] [id number] PCP - General 03/30/24
--- OUTSIDE RECORDS SUMMARY | 2024-08-18 13:42 | XMS_ITS | Encounter Summary ---
Author Organization [facility] Address [address] [facility] 7 [place] [address] Care Team Providers Care Home Economist Name Role Phone [facility] Primary Care Provider [phone] Reason for Visit * Reason Comments Pre-visit Planning SDOH screening negat amanuel and tobacco screening negative Encounter Details Date Type Department Care Team ([facility] st Contact Info) Description 08/05/2024 Patient Outreach [facility] [address] [place] [address] [facility] [address] [place] [address] Pre-visit Planning (SDOH screening negative and tobacco screening negative) Social History Tobacco Use Types Packs/Day Years Used Date Smoking Tobacco: Former Cigarettes Passive Smoke Exposure: Never Smokeless Tobacco: Never Alcohol Use Standard Drinks/Week Comments Never 0 (1 standard drink = 0.6 oz pur e alcohol) Depression Answer Date Recorded Patient Health Questionnaire-9 Score 0 03/03/2024 Patient Health Questionnaire-9 Score 0 03/03/2024 Last PHQ-9: Questionnaire Data Not on file 0 03/03/2024 Housing Stability Answer Date Recorded What is your housing situation today? I have madyson bello 03/03/[address] you li ve. Do you have problems with any of the following? None of the above 03/03/2024 Food Insecurity Answer Date Recorded Within the past 12 months, y ou worried that your food would run out before you got money to buy more: Never True 03/03/2024 Within the past 12 months,th e food you bought just didn't last and you didn't have enough money to get more: Never True Transportation Answer Date Recorded In the past 12 months, has l ack of transportation kept you from medical appts, meetings, work or from getting things needed for daily living? No 03/03/2024 Utilities Answer Date Recorded In the past 12 months, has t he electric, gas, oil or water company threatened to shut off services in your home? No 03/03/2024 Depression Answer Date Recorded Patient Health Questionnaire-2 Score 0 03/03/2024 Internet Access Answer Date Recorded Internet Access Q1 Yes 03/15/2024 Internet Access Q2 Not on file 03/15/2024 Sex and Gender Information Value Date Recorded Sex Assigned at Male 05/13/2022 10:21 AM EDT Legal Sex Male 10:21 AM EDT Gender Identity Male 05/13/2022 10:21 AM EDT Sexual Orientation Don't know 05/13/2022 10 :21 AM EDT documented as of this encounter Progress Notes * Gema Everett - 08/05/2024 9:47 AM EST CC Gema placed successful outbound call to patient for pre-visit planning. Patient name and confirmed. Patient confirms appt date and time, and has transportation. Biggest concern for appointment at this time is none Patient advised to bring to appointment a photo id and insurance card. Appropriate screenings completed in anticipation of appointment. documented in this encounter Plan of Treatment Not on file documented as of this encounter Visit Diagnoses Not on filedocumented in this encounter Additional Health Concerns Assessment Noted Time PHQ-9 Depression Total Score: 0 03/03/20 24 3:02 PM EDT documented as of this encounter Care Teams Home Economist Relationship Specialty Start Date End Date Riri Corrigan FNP [address] [place] [id number] PCP - General Family Medicine 03/11/22 documented as of this encounter
--- OUTSIDE RECORDS SUMMARY | 2024-08-18 13:42 | XMS_ITS | Encounter Summary ---
Author Organization [facility] Address [address] [facility] 7 [place] [address] Care Team Providers Care Deputy Court Clerk Name Role Phone Riri Corrigan Primary Care Provider [phone] Encounter Details Date Type Department Care Team (Late st Contact Info) Description 11/13/2022 Orders Only [facility] [address] [place], [place] [id number] Chika Merlos LPN Social History Tobacco Use Types Packs/Day Years Used Date Smoking Tobacco: Every Day Cigarettes Smokeless Tobacco: Never Alcohol Use Standard Drinks/Week [...] suspected to have Coronavirus/COVID-19? No / Unsure 11/07/2022 9:00 AM EDT documented as of this encounter Plan of Treatment Not on file documented as of this encounter Visit Diagnoses Not on filedocumented in this encounter Additional Health Concerns Assessment Noted Time PHQ-9 Depression Total Score: 0 11/08/19 23 9:20 AM EDT documented as of this encounter Care Teams Deputy Court Clerk Relationship Specialty Start Date End Date Riri Corrigan FNP [address] [place], [place] [id number] PCP - General Family Medicine 03/11/22 documented as of this encounter
--- OUTSIDE RECORDS SUMMARY | 2024-08-18 13:42 | XMS_ITS | Encounter Summary ---
Author Organization [employer] Address [address] [facility] [address] [place] [address] Care Team Providers Care Test Inspection Engineer Name Role Phone Riri Corrigan DELICATESSEN MANAGER Primary Care Provider [phone] Encounter Details Date Type Department Care Team (Latest Contact Info) Description 08/18/2024 Travel Social History Tobacco Use Types Packs/Day Years Used Date Smoking Tobacco: Some Days Cigarettes Passive Smoke Exposure: Current Smokeless Tobacco: Never Alcohol Use Standard Drinks/Week [...] documented as of this encounter Care Teams Test Inspection Engineer Relationship Specialty Start Date End Date Riri Corrigan FNP [address] [place] [id number] PCP - General Family Medicine 03/11/22 documented as of this encounter
--- OUTSIDE RECORDS SUMMARY | 2024-08-18 13:42 | XMS_ITS | Encounter Summary ---
Author Organization [employer] Address [address] [facility] [address] [place] [address] Care Team Providers Care Ear Nose Throat Physician Name Role Phone [facility] Primary Care Provider [phone] Reason for Visit * Reason Onset Date Comments Med Refill 06/13/2023 Encounter Details Date Type Department Care Team ([facility] st Contact Info) Description 06/13/[address] [facility] [address] [place], [place] [phone] [facility] [address] [place] [address] Med Refill Social History Tobacco Use Types Packs/Day Years [...] AM EDT documented as of this encounter Miscellaneous Notes * Telephone Encounter - Mirna Medina LPN - 06/13/2023 11:11 AM EST Medication pended to PCP. * Telephone Encounter - Janeth Dudley - 06/13/2023 11:06 AM EST Tc from pt requesting med refill on Eliquis 5 MG tablet pt states will be out of stock on Friday. documented in this encounter Plan of Treatment Not on file documented as of this encounter Visit Diagnoses Not on filedocumented in this encounter Additional Health Concerns Assessment Noted Time PHQ-9 Depression Total Score: 0 02/07/20 23 1:48 PM EDT documented as of this encounter Care Teams Ear Nose Throat Physician Relationship Specialty Start Date End Date Riri Corrigan FNP [address] [place] [id number] PCP - General Family Medicine 03/11/22 documented as of this encounter
--- OUTSIDE RECORDS SUMMARY | 2024-08-18 13:42 | XMS_ITS | Encounter Summary ---
Author Organization [employer] Address [address] [facility] 7 [place] [address] Care Team Providers Care Activity Therapy Teacher Name Role Phone [facility] Primary Care Provider [phone] Reason for Visit * Reason Onset Date Comments Reschedule 04/28/2023 Encounter Details Date Type Department Care Team ([facility] st Contact Info) Description 04/28/2023 Telephone [facility] [address] [place], [place] [phone] [facility] [address] [place] [address] Reschedule Social History Tobacco Use Types Packs/Day Years [...] encounter Miscellaneous Notes * Telephone Encounter - Janeth Dudley - 04/28/2023 9:43 AM EDT Tc from pt requesting r/s for 03/25/2023 derm appt. (f/u psoriasis per recall) documented in this encounter Plan of Treatment Not on file documented as of this encounter Visit Diagnoses Not on filedocumented in this encounter Additional Health Concerns Assessment Noted Time PHQ-9 Depression Total Score: 0 02/07/20 23 1:48 PM EDT documented as of this encounter Care Teams Activity Therapy Teacher Relationship Specialty Start Date End Date Riri Corrigan FNP [address] [place] [address] PCP - General Family Medicine 03/11/22 documented as of this encounter
--- OUTSIDE RECORDS SUMMARY | 2024-08-18 13:42 | XMS_ITS | Encounter Summary ---
Author Organization [employer] Address [address] [facility] 7 [place] [address] Care Team Providers Care Retail Planning Manager Name Role Phone [facility] Primary Care Provider [phone] Reason for Visit * Reason Onset Date Comments Med Refill 07/19/2024 Encounter Details Date Type Department Care Team (Late st Contact Info) Description 07/19/2024 Refill [facility] [address] [place], [place] [phone] [facility] [address] [place] [address] Social History Tobacco Use Types Packs/Day Years [...] Telephone Encounter - Mirna Medina LPN - 07/19/2024 3:43 PM EST Next appointment 08/18/24. * Telephone Encounter - Ean Pimentel - 07/19/2024 3:34 PM EST TC from pt requesting medication refill. Medications needing refill: metoprolol tartrate (Lopressor) 25 MG tablet To be sent to: [facility] [place], [place] - [address] [place] [address] documented in this encounter Plan of Treatment Not on file documented as of this encounter Visit Diagnoses Not on filedocumented in this encounter Additional Health Concerns Assessment Noted Time PHQ-9 Depression Total Score: 0 03/03/20 24 3:02 PM EDT documented as of this encounter Care Teams Retail Planning Manager Relationship Specialty Start Date End Date Riri Corrigan FNP [address] [place] [address] PCP - General Family Medicine 03/11/22 documented as of this encounter
--- OUTSIDE RECORDS SUMMARY | 2024-08-18 13:42 | XMS_ITS | Encounter Summary ---
Author Organization [employer] Address [address] [facility] [address] [place] [address] Care Team Providers Care Personalization Specialist Name Role Phone [place] [facility] Primary Care Provider [phone] Reason for Visit * Reason Onset Date Comments Triage 10/15/2022 Encounter Details Date Type Department Care Team ([facility] st Contact Info) Description 10/15/2022 Telephone [facility] [address] [place], [place] [phone] [place] [facility] [address] [place] [address] Triage Social History Tobacco Use Types Packs/Day Years [...] suspected to have Coronavirus/COVID-19? No / Unsure 10/16/2022 11:15 AM EDT documented as of this encounter Miscellaneous Notes * Telephone Encounter - Viviane Rizvi RN - 10/15/2022 11:30 AM EDT Triage call Pt reports second time abscess has occurred on the thumb of right hand. Pt reports areais whitish in color and size of dime. Pt reports very painful and unable to use the hand because ifanything hits the area the pain is severe. Pt has been seen here before and was sent to ED. Pt unwilling to go to ED and is requesting , adamantly, to be seen by provider who can refer to specialist.apt with LIZ Jesus 10/16 @ 1115am. Advised Pt that Pt may be sent to ED for acute care but, Pt continues to want to see Provider . Home care reviewed. ( Pt is diabetic ) Protocol Used: Boil (Skin Abscess) (Adult) Protocol-Based Disposition: See in Office or Video Visit Today or Tomorrow Video visit not offered Positive Triage Question: * Patient wants to be seen * All higher-acuity triage questions were negative Care Advice Discussed: * Reassurance and Education - Boil * Treatment - General * Treatment for a Boil - Apply Moist Heat * Treatment - Apply Antibiotic Ointment * Treatment for a Boil - Incision and Drainage by a Healthcare Provider * Pain Medicines * Pain Medicines - Extra Notes and Warnings * Preventing Spread to Yourself and Others * Return to School, Sports, or Work * Reasons To Call Back - Severe pain or fever occurs - Widespread rash occurs - You become worse * Telephone Encounter - Jade Juarez - 10/15/2022 10:30 AM EDT Symptom: Skin Spot Outcome: Schedule a same-day appointment or talk to a nurse or provider today Reason: Painful The caller accepted this outcome Please contact pt at [phone] documented in this encounter Plan of Treatment Not on file documented as of this encounter Visit Diagnoses Not on filedocumented in this encounter Additional Health Concerns Assessment Noted Time PHQ-9 Depression Total Score: 0 08/06/19 23 2:09 PM EST documented as of this encounter Care Teams Personalization Specialist Relationship Specialty Start Date End Date Riri Corrigan FNP [address] [place] [id number] PCP - General Family Medicine 03/11/22 documented as of this encounter
--- OUTSIDE RECORDS SUMMARY | 2024-08-18 13:42 | XMS_ITS | Clinical Summary ---
Author Organization [employer] Address [address] [facility] 7 [place] [address] Care Team Providers Care Merchandise Coordinator Name Role Phone Riri Corrigan INTERIOR DESIGN CONSULTANT Primary Care Provider [phone] Allergies No known active allergies Medications cholecalciferol (Vitamin D-3) 50 MCG (1999) capsule 2 Active cyclobenzaprine (Flexeril) 10 MG tablet Take 10 mg by mouth if needed in the morning, at noon, and at bedtime. 2 Active Tecfidera 240 MG capsule delayed-release 3 Active budesonide-formote rol (Symbicort) 80-4.5 MCG/ACT inhalerIndications :Mild persistent asthma without complication Inhale 2 puffs twie daily. Rinse mouth with water after use to reduce aftertaste and incidence of candidiasis. Do not swallow. 1 each 11 3 Active albuterol (ProAir HFA) 108 (90 Base) MCG/ACT inhalerIndications :Mild persistent asthma without complication Inhale 2 puff as directed every four hours as needed 18 g 11 3 Active albuterol (2.5 MG/3ML) 0.083% nebulizer solutionIndication s:Mild persistent asthma, uncomplicated USE 1 AMPULE USING A NEBULIZER EVERY 4 HOURS NEEDED SHORTNESS OF BREATH OR FOR WHEEZING 90 mL 4 Active Glucose Blood (Blood Glucose Test) stripIndications:T ype 2 diabetes mellitus without complication, without long-term current use of insulin ([facility]) Use as instructed to check blood sugar once daily 90 strip 3 4 Active Lancets Ultra Thin 30G miscIndications:Ty pe 2 diabetes mellitus without complication, without long-term current use of insulin ([facility]) Use as instructed to check blood sugar once daily 90 each 3 4 Active Alcohol Swabs (Alcohol Prep) padsIndications:Ty pe 2 diabetes mellitus without complication, without long-term current use of insulin ([facility]/HCC) Use as instructed to check blood sugar once daily 90 each 3 4 Active terbinafine (LamISIL AT) 1 % creamIndications:T inea pedis of both feet Apply topically 2 times daily. 42 g 1 4 Active acetaminophen (Tylenol 8 Hour) 650 MG ER tablet Take 1 tablet (650 mg) by mouth every 8 (eight) hours if needed for mild pain. 30 tablet 4 Active cetirizine (ZyrTEC) 10 MG tablet Take 10 mg by mouth Once per day. Active flecainide (Tambocor) 100 MG tablet TAKE 1 AND 1/2 TABLETS BY MOUTH EVERY TWELVE HOURS 4 Active glucose blood (FREESTYLE LITE) test stripIndications:T ype 2 diabetes mellitus without complication, without long-term current use of insulin ([facility]) USE TO TEST BLOOD SUGAR ONCE DAILY 100 each 3 4 Active atorvastatin (Lipitor) 80 MG tabletIndications: Mixed hyperlipidemia Take 1 tablet (80 mg) by mouth Once per day. 30 tablet 11 4 025 Active Eliquis 5 MG tablet TAKE 1 TABLET BY MOUTH TWICE DAILY 180 tablet 1 4 Active metoprolol tartrate (Lopressor) 25 MG tablet TAKE 1 TABLET BY MOUTH TWICE DAILY 180 tablet 1 5 Active fluocinolone (DermOtic) 0.01 % ear dropsIndications:C hronic eczematoid otitis externa of both ears Administer 5 drops into each ear 2 times daily. 20 mL 5 Active Active Problems Problem Noted Date Diagnosed Date Albuminuria 06/01/2024 Obstructive sleep apnea 04/20/2024 Chronic anticoagulation 03/22/2024 BMI 29.0-29.9,adult 03/22/2024 Paroxysmal atrial fibrillation 03/22/2024 Eczema 02/17/2023 History of tobacco use 02/17/2023 Overview (02/17/2023): ?? Declines cessation at this time ?? Will continue to address Healthcare maintenance 02/17/2023 Overview (02/17/2023): C-Scope: Referred 10/2022 PSA: HCV Screen: HIV Screen: STI Screening: Declines Vision Exam: Dental Care: Immunizations: Hidradenitis suppurativa 12/13/2022 Overview (02/17/2023): ?? Followed by [facility] derm Type 2 diabetes mellitus wit hout complication, without long-term current use of insulin 2022 Overview (05/17/2024): Well controlled with diet only Foot Exam: 02/2024-Risk 0; sees podiatry Eye Exam: Referral pending Statin: Yes ASA: No (on eliquis) COBY/ARB: yes Encouraged regular aerobic exercise for improved glycemic control Encouraged daily foot checks Encouraged lean protein snacks and to avoid foods high in sugar and simple carbohydrates Treatment Goals: A1c goal: <7% FBG goal: <130 2 hour post prandial goal: <180 Mixed hyperlipidemia 08/08/2022 Overview (02/17/2023): ?? On rosuvastatin 20mg daily Relapsing remitting multiple sclerosis 0 Overview (02/17/2023): ?? Followed by [facility] neurology ?? Well controlled with tecfidera Mild persistent asthma 05/29/2015 Overview (02/17/2023): ?? Symbicort PRN Resolved Problems Problem Noted Date Diagnosed Date Resolved Date Hyperalbuminemia 06/01/2024 06/01/2024 Abdominal wall cellulitis 03/22/2024 Diabetes 03/22/2024 04/20/2024 Epidermal inclusion cyst 03/22/202402/2024 Infection of thumb 03/22/2024 Influenza A 03/22/2024 04/20/2024 Atrial fibrillation with RVR 03/22/2024 04/20/2024 Cellulitis of right thumb 10/16/2022 Assessment & Plan (10/17/2022 1:01 PM EDT): Called [facility], they forwarded me to Dr. Campos (hand surgeon) office. I spoke with Anyah at Dr. Campos office and she asked me to fax them the visit summary. *Addendum: I spoke with Dr. Campos 4/ at 1345, she stated that she was going to contact the patient directly to assess whether she needed to see him or if he needs to go back to the ER* I spoke with patient and instructed him to go the ER if he does not hear back from myself or Dr. Campos office by 6 pm this evening. Gave patient Bactrim and keflex for 10 days and an xray order to RO osteomyelitis. Pain of right thumb 08/06/2022 08/11/19 Atrial fibrillation 04/09/2021 04/20/20 Overview (02/17/2023): ?? Followed by cardiology ?? On metoprolol, flecainide, eliquis Cystic acne 04/03/2012 2022 Developmental academic disorder 04/03/2012 2022 Ankle pain 04/03/2012 2022 Encounters Date Type Department Care Team Description 08/18/2024 11:15 AM EST Office Visit [facility] [address] [place] [phone] Rrii Corrigan FNP 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 (Primary Dx); Type 2 diabetes mellitus without complication, without long-term current use of insulin ([facility]); Dietary counseling; Exercise counseling; Class 1 obesity due to excess calories with serious comorbidity and body mass index (BMI) of 30.0 to 30.9 in adult; Encounter for immunization 08/18/2024 Travel 08/05/2024 Patient Outreach [facility] [address] [place] [phone] Riri Corrigan FNP Pre-visit Planning (SDOH screening negative and tobacco screening negative) 07/23/2024 Telephone [facility] [address] [place] [address] Riri Corrigan FNP Medication Question 07/20/2024 2:00 PM EST Office Visit [facility] [address] [place] [address] Jack, Aurora, OD Regular astigmatism of both eyes (Primary Dx) 07/20/2024 Travel 07/19/2024 Refill [facility] [address] [place] [address] [place] [facility] 06/20/2024 Refill [facility] [address] [place] [address] [place] [facility] 06/04/2024 10:30 AM EST Office Visit [facility] [address] [place] [address] Tarlul, Nina, OD Type 2 diabetes mellitus without complication, without long-term current use of insulin ([facility]) (Primary Dx); Regular astigmatism of both eyes 06/04/2024 Travel 06/01/2024 Telephone [facility] [address] [place] [address] Jen Eaton, RN Results 06/01/2024 Orders Only [facility] [address], [place] [phone] Riri Corrigan FNP Mixed hyperlipidemia (Primary Dx) 06/01/2024 Refill [facility] [address], [place] [phone] Riri Corrigan FNP Type 2 diabetes mellitus without complication, without long-term current use of insulin (CMS/HCC) 05/18/2024 Telephone [facility] [address], [place] [phone] Riri Corrigan FNP Pre-op Notes faxed from Last 3 Months Immunizations Name Administration Dates Next Due Hep B, adult 03/03/2024,05/21/2021 Influenza injectable quadriv alent IIV4 with preservative 06/11/2018 Influenza injectable quadriv alent preservative free 04/09/2021 Influenza, IIV3, injectable 03/29/2011 Influenza, Split (incl. vesta fied surface antigen) 04/19/2013,04/03/2012 Influenza, seasonal, injecta ble, preservative free 04/20/2024 Pfizer Covid-19 Vaccine 12+ martha-sucrose (Baumann Cap) 09/18/2021 Pneumococcal Conjugate PCV 20 03/03/2024 Pneumococcal Polysaccharide PPSV23 05/21/2021 Td (adult), 5 Lf tetanus tox oid, preservative free, adsorbed 05/27/2014 Tdap 08/18/2024,01/21/2007,01/21/2007 Family History Medical History Relation Name Comments Alcohol abuse Father Stroke Father Diabetes Mother Colon cancer Neg Hx Prostate cancer Neg Hx Relation Name Status Comments Father Mother Social History Tobacco Use Types Packs/Day Years Used Date Smoking Tobacco: Some Days Cigarettes Passive Smoke Exposure: Current Smokeless Tobacco: Never Tobacco Cessation:Ready to Q uit: Not Asked; Counseling Given: Not Answered Alcohol Use Standard Drinks/Week Comments Never 0 [...] Don't know 05/13/2022 10 :21 AM EDT Last Filed Vital Signs Vital Sign Reading Time Taken Comments Blood Pressure 118/77 08/18/2024 11:09 AM EST Pulse 62 08/18/2024 11:09 AM EST Temperature 36.1 ??C (97 ??F) 08/18/2024 11: 09 AM EST Respiratory Rate 18 08/18/2024 11:0 9 AM EST Oxygen Saturation 96% 03/19/2024 9:39 AM EDT Inhaled Oxygen Concentration - - Weight 93.8 kg (206 lb 12.8 oz) 025 11:09 AM EST Height 175.3 cm (5' 9 ) 08/18/2024 11:0 9 AM EST Body Mass Index 30.54 08/18/2024 11:09 AM EST Plan of Treatment Health Maintenance Due Date Last Done Comments CT Colonography 1975 Colonoscopy 1975 Colorectal Cancer Screening 1975 FIT DNA/Cologuard 1975 FIT 1975 FOBT 1975 Sigmoidoscopy 1975 Family Planning (PISQ) 1990 Dental X-Ray: Bitewings 01/28/2018 01/27/2017 Dental Oral Exam 02/12/2022 08/14/2021, 07/2021, 01/27/2017 Dental Prophylaxis 02/20/2022 08/22/2021 Hepatitis B Vaccines (3 of 3 - 19+ 3-dose series) 04/28/2024 03/03/2024, 05/21/2021 Diabetes: Hemoglobin A1C 02/15/2025 025, 04/20/2024, 12/15/2023, Additional history exists Depression Screening 03/03/2025 03/03/2024, 03/03/20 24 Diabetes: Foot Exam 03/03/2025 03/03/2024, Diabetes: Urine Protein Screening 05/21/2025 05/21/2024, 04/09/2021 Lipid Panel 05/21/2025 05/21/2024, 01/12, 08/06/2022, Additional history exists SDOH Screening 08/05/2025 08/05/2024 Zoster Vaccines (1 of 2) 2025 Alcohol/Substance Use Screening 08/18/2025 08/18/2024 Tobacco Screening 08/18/2025 08/18/2024 Eye Exam 06/04/2026 06/04/2024, 05/15, 06/04/2024, Additional history exists Dental X-Ray: Full Mouth 03/23/2027 024, 10/06/2020, 01/27/2017 DTaP/Tdap/Td Vaccines (5 - Td or Tdap) 08/18/2034 08/18/2024, 05/27/2014, 01/21/2007, Additional history exists RSV Patients and Patients Aged 60 years or older (1 - 1-dose 75+ series) 2050 HIV Screening Completed 04/09/2021 Hepatitis C Screening Completed 02/17/2023, 021 Pneumococcal Vaccine: Pediatrics (0 to 5 Years) and At-Risk Patients (6 to 49) Years) Completed 03/03/2024, 05/21/2021 COVID-19 Vaccine Completed [...] patient's age to complete this topic Meningococcal Vaccine Aged Out No miya gm eligible based on patient's age to complete this topic RSV under 20 months Aged Out No longe r eligible based on patient's age to complete this topic Rotavirus Vaccines Aged Out No longer eligible based on patient's age to complete this topic Procedures Procedure Name Priority Date/Time Associated Diagnosis Comments POCT GLYCATED HEMOGLOBIN, TOTAL Routine 08/18/2024 11:10 AM EST Type 2 diabetes mellitus without complication, without long-term current use of insulin (CMS/HCC) POCT GLUCOSE Routine 08/18/2024 11:10 AM EST Type 2 diabetes mellitus without complication, without long-term current use of insulin (CMS/HCC) ALBUMIN, RANDOM URINE W/CREATININE Routine 05/21/2024 4:46 PM EST Type 2 diabetes mellitus without complication, without long-term current use of insulin (CMS/HCC) LIPID PANEL, STANDARD Routine 05/21/2024 4:46 PM EST Type 2 diabetes mellitus without complication, without long-term current use of insulin (CMS/HCC) PANORAMIC RADIOGRAPHIC IMAGE Routine 03/22/2024 10:30 AM EDT Dental abscess HEPATITIS PANEL, GENERAL Routine 02/17/2023 11:49 AM EDT Liver enzyme elevation PROPHYLAXIS - ADULT Routine 08/22/2021 1 2:00 AM EST PERIODIC ORAL EVALUATION - ESTABLISHED PATIENT Routine 08/14/2021 12:00 AM EST HIV 1/2 ANTIGEN/ANTIBODY, FOURTH GENERATION W/RFL Routine 04/09/2021 2:44 PM EDT DIAGNOSTIC - DIAGNOSTIC IMAGING - INTRAORAL - COMPREHENSIVE SERIES OF RADIOGRAPHIC IMAGES Routine 01/27/2017 12:00 AM EDT from Last 3 Months or Most Recently Relevant to Health Maintenance Results * (ABNORMAL) POCT HGB A1C (08/18/2024 11:10 AM EST) Hemoglobin A1C 6.7(A) 4.0 - 6.0 % QC Media Lot # [id number] Lot# Expiration Date Blood 08/18/2024 11:1 0 AM EST [facility] POINT OF CARE TEST ENTER/EDIT ORDERABLES Final Result * POCT Glucose (08/18/2024 11:10 AM EST) Glucose Blood, POC 125 60 - 200 mg/dL QC Media Lot # [id number] Lot# Expiration Date 528 Blood Capillary blood specimen / Unknown 08/18/2024 11:10 AM EST [facility] POINT OF CARE TEST ENTER/EDIT ORDERABLES Final Result * (ABNORMAL) Albumin, Random Urine W/Creatinine (05/21/2024 4:46 PM EST) Creatinine, Urine 279.27 mg/dL [facility] Microalbumin Urine 125.0 mg/L [facility] Microalbum Creatinine Ratio Ur 44.7(H) <30 ug/mg cr [facility] Comment:Albumin/Creatinine R atio Reference Ranges: Normal: < 30 ug/mg creatinine Microalbuminuria: 30 - 300 ug/mg creatinineClinical Albuminuria: > 300 ug/mg creatinine Urine 05/21/2024 4:46 PM EST 05/21/2024 5:56 PM EST [facility] URINE ORDERABLES Final Re sult [facility] [address] [place] [phone] * (ABNORMAL) Lipid Panel, Standard (05/21/2024 4:46 PM EST) Triglycerides 289(H) <150 mg/dL [facility] Comment:Slight Lipemia.Jeanna able Triglyceride: less than 150 mg/dLBorderline High Triglyceride 150-199 mg/dLHigh Triglyceride: 200-499 mg/dLVery High Triglyceride: greater than or equal to 5OO mg/dL Cholesterol 123 <200 mg/dL [facility] Comment:Desirable Cholestero l: less than 200 mg/dLBorderline High Cholesterol: 200-239 mg/dLHigh Cholesterol: greater than 239 mg/dL LDL Cholesterol Calculated 33 <100 mg/dL [facility] Comment:Desirable LDL: less than 100 mg/dLNear Optimal/Above Optimal LDL: 110- 129 mg/dLBorderline High LDL: 130-159 mg/dLHigh LDL: 160-189 mg/dLVery High LDL: greater than or equal to 190 mg/dL HDL Cholesterol 33(L) >40 mg/dL [facility] Comment:Desirable HDL: great er than 40 mg/dL Note: This HDL assay may give artificially low results in patients with liver disease. Blood Venous blood specimen / Unknown 05/21/2024 4:46 PM EST 05/21/2024 6:05 PM EST [facility] LAB BLOOD ORDERABLES Final Re sult Performing Organization Address [facility] de Phone Number [facility] [address] [place] [phone] * Hepatitis Panel, General (02/17/2023 11:49 AM EDT) Hepatitis A IgM Nonreactive Nonreactive [facility] Comment:IgM antibodies to BUNDY V not detected; does not exclude earlyacute or recovered HAV infection. ~Hepatitis B Surface Antibody NONREACTIVE Nonreactive [facility] Comment:Nonreactive: < 8.00 mIU/mL Hepatitis B Core Antibody Nonreactive Nonreactive [facility] Hepatitis C Antibody Nonreactive Nonreactive [facility] Comment:Antibodies to HCV no t detected; does not exclude early acuteHCV infection. Hepatitis B Surface Ag Negative Negative [facility] Blood 02/17/2023 11:4 9 AM EDT 02/17/2023 2:16 PM EDT [facility] BLOOD ORDERABLES Final Re sult Performing Organization Address [facility] Co de Phone Number [facility] [address] [place] [phone] * HIV 1/2 ANTIGEN/ANTIBODY,FOURTH GENERATION W/RFL (04/09/2021 2:44 PM EDT) HIV-1/2 ANTIGEN AND ANTIBODIES, 4TH GENERATION W/ REFLEX NON-REACT BETTIE NON-REACT BETTIE [facility] Comment: HIV-1 antigen and HIV-1/HIV-2 antibodies were not detected. There is no laboratory evidence of HIV infection. ?? PLEASE NOTE: This information has been disclosed to you from records whose confidentiality may be protected by state law. ??If your state requires such protection, then the state law prohibits you from making any further disclosure of the information without the specific written consent of the person to whom it pertains, or as otherwise permitted by law. A general authorization for the release of medical or other information is NOT sufficient for this purpose. ? For additional information please refer to http://education.Anagran/faq/WWS575 (This link is being provided for informational/ educational purposes only.) ? The performance of this assay has not been clinically validated in patients less than 2 years old. ?? 04/09/2021 2:44 PM EDT us Deborah Mccarthy INTERIOR DESIGN CONSULTANT LAB BLOOD ORDERABLES Final Res ult [facility] [address] from Last 3 Months or Most Recently Relevant to Health Maintenance Insurance [facility] STANDARD MEDICARE [address] [place] [phone] DENTAL-[facility] MEDICAID STAND ADULT Member Subscriber Plan / Payer (Ef fective 2024-Present) Name:Michael Hogan Relation to Subscriber:Self Name:Michael Hogan Payer ID:Not on file Group ID:Not on file Type:Not on file Address: [place] [id number] Care Teams Merchandise Coordinator Relationship Specialty Start Date End Date Riri Corrigan FNP [address] [place] [phone] PCP - General Family Medicine 03/11/22
--- OUTSIDE RECORDS SUMMARY | 2024-08-18 13:42 | XMS_ITS | Encounter Summary ---
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); Type 2 diabetes mellitus without complication, without long-term current use of insulin ([facility]); Dietary counseling; Exercise counseling; Class 1 obesity due to excess calories with serious comorbidity and body mass index (BMI) of 30.0 to 30.9 in adult; Encounter for immunization Social History Tobacco Use Types Packs/Day Years [...] AM EDT documented as of this encounter Last Filed Vital Signs Vital Sign Reading Time Taken Comments Blood Pressure 118/77 08/18/2024 11:09 AM EST Pulse 62 08/18/2024 11:09 AM EST Temperature 36.1 ??C (97 ??F) 08/18/2024 11: 09 AM EST Respiratory Rate 18 08/18/2024 11:0 9 AM EST Oxygen Saturation - - Inhaled Oxygen Concentration - - Weight 93.8 kg (206 lb 12.8 oz) 025 11:09 AM EST Height 175.3 cm (5' 9 ) 08/18/2024 11:0 9 AM EST Body Mass Index 30.54 08/18/2024 11:09 AM EST documented in this encounter Plan of Treatment Scheduled Orders Name Type Priority Associated Diagnoses Orde r Schedule Comprehensive Metabolic Panel Lab Routine Type 2 diabetes mellitus without complication, without long-term current use of insulin ([facility]) Expected: 08/18/2024 (Approximate), Expires: 08/18/2025 documented as of this encounter Procedures Procedure Name Priority Date/Time Associated Diagnosis Comments POCT GLYCATED HEMOGLOBIN, TOTAL Routine 08/18/2024 11:10 AM EST Type 2 diabetes mellitus without complication, without long-term current use of insulin ([facility]) POCT GLUCOSE Routine 08/18/2024 11:10 AM EST Type 2 diabetes mellitus without complication, without long-term current use of insulin ([facility]) documented in this encounter Results * (ABNORMAL) POCT HGB A1C (08/18/2024 11:10 AM EST) Hemoglobin A1C 6.7(A) 4.0 - 6.0 % QC Media Lot # [id number] Lot# Expiration Date Blood 08/18/2024 11:1 0 AM EST [facility] POINT OF CARE TEST ENTER/EDIT ORDERABLES Final Result * POCT Glucose (08/18/2024 11:10 AM EST) Glucose Blood, POC 125 60 - 200 mg/dL QC Media Lot # [id number] Lot# Expiration Date ,025 Blood Capillary blood specimen / Unknown 08/18/2024 11:10 AM EST Result [facility] POINT OF CARE TEST ENTER/EDIT ORDERABLES Final Result documented in this encounter Visit Diagnoses Diagnosis 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- Primary Type 2 diabetes mellitus without complication, without long-term current use of insulin ([facility]) Dietary counseling Dietary surveillance and counseling Exercise counseling Class 1 obesity due to excess calories with serious comorbidity and body mass index (BMI) of 30.0 to 30.9 in adult Encounter for immunization documented in this encounter Additional Health Concerns Assessment Noted Time PHQ-9 Depression Total Score: 0 03/03/20 24 3:02 PM EDT documented as of this encounter Care Teams Garment Inspector Relationship Specialty Start Date End Date [place] EARLY BREASTFEEDING CARE SPECIALIST [address] [place] [phone] PCP - General Family Medicine 03/11/22 documented as of this encounter
--- OUTSIDE RECORDS SUMMARY | 2024-08-18 13:42 | XMS_ITS | Encounter Summary ---
Author Organization [employer] Address [address] [facility] [address]t [place] [address] Care Team Providers Care Printed Circuit Boards Pinner Name Role Phone Riri Corrigan PA[employer]ROLL TAX SPECIALIST Primary Care Provider [phone] Encounter Details Date Type Department Care Team (Latest Contact Info) Description 07/20/2024 Travel Social History Tobacco Use Types Packs/Day [...] documented as of this encounter Care Teams [employer]ed Circuit Boards Pinner Relationship Specialty Start Date End Date Riri Corrigan FNP [address] [place] [phone] PCP - General Family Medicine 03/11/22 documented as of this encounter
--- OUTSIDE RECORDS SUMMARY | 2024-08-18 13:42 | XMS_ITS | Encounter Summary ---
Author Organization [facility] Address [address] [place] [address] Care Team Providers Care Pizza Chef Name Role Phone [facility] Primary Care Provider [phone] Reason for Visit * Reason Onset Date Comments Anticoagulation 07/23/2024 Colonoscopy on Encounter Details Date Type Department Care Team (Late st Contact Info) Description 07/23/2024 Telephone Gastroenterology - [facility] [address] [place] [address] Arianna Marr LPN Anticoagulation (Colonoscopy on ) Social History Tobacco Use Types Packs/Day Years Used Date Smoking Tobacco: Never Assessed Sex and Gender Information Value Date Recorded Sex Assigned at Not on file Gender Identity Not on file Sexual Orientation Not on file Job Start Date Occupation Industry Not on file Not on file Not on file documented as of this encounter Progress Notes * Arianna Marr LPN - 07/29/2024 11:00 AM EST Pt notified, letter mailed. * Arianna Marr LPN - 07/28/2024 2:23 PM EST Per Analilia at [facility], md to hold eliquis for 2 days before procedure. * Arianna Marr LPN - 07/26/2024 10:34 AM EST Left msg with Analilia at [facility], . * Arianna Marr LPN - 07/23/2024 3:46 PM EST Colonoscopy on 09/01/[address] Garcia, Can pt hold eliquis for 2 days before procedure? Left msg with [facility] ctr [phone]. documented in this encounter Plan of Treatment Upcoming Encounters Date Type Department Care Team (Late st Contact Info) Description 09/01/2024 12:30 PM EST Hospital Encounter [facility] Endoscopy [address] [place] [id number] Jody Garcia MD [address] [facility] [address] [place] [address] documented as of this encounter Visit Diagnoses Not on filedocumented in this encounter Care Teams Pizza Chef Relationship Specialty Start Date End Date [facility] [address] [facility] [address] [place] [address] PCP - General 03/30/24 documented as of this encounter
--- OUTSIDE RECORDS SUMMARY | 2024-08-18 13:42 | XMS_ITS | Encounter Summary ---
Author Organization [employer] Address [address] [facility] 7 [place] [address] Care Team Providers Care Supervisor Capacitor Processing Name Role Phone [place] [facility] Primary Care Provider [phone] Reason for Visit * Reason Onset Date Comments Medication Question 07/23/2024 Encounter Details Date Type Department Care Team ([facility] st Contact Info) Description 07/23/2024 Telephone [facility] MEDICINE [address] [place], [place] [phone] [facility] [address] [place] [address] Medication Question Social History Tobacco Use Types Packs/Day Years [...] encounter Miscellaneous Notes * Telephone Encounter - Jen Eaton RN - 07/26/2024 9:45 AM EST TC returned to Arianna [phone] in regards to below message. Arianna informed patient sees [facility] cardiology and the orders to hold eliquis x2 days should come from them. Arianna provided with phone number to cardiology office. Arianna to f/u PRN. * Telephone Encounter - Ute Miller - 07/23/2024 3:39 PM EST Tc from Arianna at [facility] requesting order to hold off on medication Eliquis5 MG tablet for 2 days prior to procedure on 09/01/2024. Contact Arianna at [phone] documented in this encounter Plan of Treatment Not on file documented as of this encounter Visit Diagnoses Not on filedocumented in this encounter Additional Health Concerns Assessment Noted Time PHQ-9 Depression Total Score: 0 03/03/20 24 3:02 PM EDT documented as of this encounter Care Teams Supervisor Capacitor Processing Relationship Specialty Start Date End Date Riri Corrigan FNP [address] [place] [address] PCP - General Family Medicine 03/11/22 documented as of this encounter
--- OUTSIDE RECORDS SUMMARY | 2024-08-18 13:42 | XMS_ITS | Encounter Summary ---
Author Organization [employer] Address [address] [facility] [address] [place] [address] Care Team Providers Care Electric Lift Truck Driver Name Role Phone [place] [facility] Primary Care Provider [phone] Reason for Visit * Reason Onset Date Comments Appointment Request 09/22/2023 Encounter Details Date Type Department Care Team ([facility] st Contact Info) Description 09/22/2023 Telephone [facility] MEDICINE [address] [place], [place] [phone] [facility] [address] [place] [address] Appointment Request Social History Tobacco Use Types Packs/Day Years [...] encounter Miscellaneous Notes * Telephone Encounter - Jade Juarez - 09/22/2023 9:11 AM EDT Tc from pt requesting to r/s Derm follow up on 09/09/23 documented in this encounter Plan of Treatment Not on file documented as of this encounter Visit Diagnoses Not on filedocumented in this encounter Additional Health Concerns Assessment Noted Time PHQ-9 Depression Total Score: 0 02/07/20 23 1:48 PM EDT documented as of this encounter Care Teams Electric Lift Truck Driver Relationship Specialty Start Date End Date Riri Corrigan FNP [address] [place] [address] PCP - General Family Medicine 03/11/22 documented as of this encounter
--- OUTSIDE RECORDS SUMMARY | 2024-08-18 13:42 | XMS_ITS | Encounter Summary ---
Author Organization [employer] Address [address] [facility] 7 [place] [address] Care Team Providers Care Talkback Host Name Role Phone Riri Corrigan [facility] Primary Care Provider [phone] Reason for Visit * Reason Comments Med Refill Encounter Details Date Type Department Care Team ([facility] st Contact Info) Description 02/18/2024 Refill [facility] MEDICINE [address] [place], [place] [phone] Vivien Maxwell MD [address] [place] [address] Social History Tobacco Use Types Packs/Day Years [...] documented as of this encounter Care Teams Talkback Host Relationship Specialty Start Date End Date Riri Corrigan FNP [address] [place] [address] PCP - General Family Medicine 03/11/22 documented as of this encounter
--- OUTSIDE RECORDS SUMMARY | 2024-08-18 13:42 | XMS_ITS | Encounter Summary ---
Author Organization [employer] Address [address] [facility] [address] [place] [address] Care Team Providers Care Loader Engineer Name Role Phone Riri Corrigan [facility] Primary Care Provider [phone] Reason for Visit * Reason Comments Med Refill Encounter Details Date Type Department Care Team ([facility] st Contact Info) Description 11/13/2022 Refill [facility] MEDICINE [address] [place], [place] [phone] Jamar Jesus AGNP Cellulitis of right thumb Social History Tobacco Use Types Packs/Day Years [...] as of this encounter Visit Diagnoses Diagnosis Cellulitis of right thumb documented in this encounter Additional Health Concerns Assessment Noted Time PHQ-9 Depression Total Score: 0 11/08/19 23 9:20 AM EDT documented as of this encounter Care Teams Loader Engineer Relationship Specialty Start Date End Date Riri Corrigan FNP [address] [place] [address] PCP - General Family Medicine 03/11/22 documented as of this encounter
--- OUTSIDE RECORDS SUMMARY | 2024-08-18 13:42 | XMS_ITS | Encounter Summary ---
Author Organization [employer] Address [address] [facility] [address] [place] [address] Care Team Providers Care Body Coverer Name Role Phone Riri Corrigan [employer] Primary Care Provider [phone] Encounter Details Date Type Department Care Team (Late st Contact Info) Description 07/20/2024 2:00 PM EST Office Visit [facility] [address] [place], [place] [phone] Jack, Aurora, OD [address] [place] [address] Regular astigmatism of both eyes (Primary Dx) Social History Tobacco Use Types [...] is your housing situation today? I have madysonmaryann bello 03/03/[address] you [...] as of this encounter Progress Notes * Aurora Santiago OD - 07/20/2024 2:00 PM EST MH glasses were dispensed. documented in this encounter Plan of Treatment Not on file documented as of this encounter Visit Diagnoses Diagnosis Regular astigmatism of both eyes- Primary documented in this encounter Additional Health Concerns Assessment Noted Time PHQ-9 Depression Total Score: 0 03/03/20 24 3:02 PM EDT documented as of this encounter Care Teams Body Coverer Relationship Specialty Start Date End Date Riri Corrigan FNP [address] [place] [address] PCP - General Family Medicine 03/11/22 documented as of this encounter
--- OUTSIDE RECORDS SUMMARY | 2024-08-18 13:42 | XMS_ITS | Encounter Summary ---
[facility] Organization [facility] Address [address] [place] [address] Care Team Providers Care Franchise Sales Director Name Role Phone [facility] Primary Care Provider [phone] Reason for Visit * Reason Comments Palpitations Pt comes in with pal pitations. Hx of Afib ( on eliquis ) and apple watch read HR 152. Pt also states CP Encounter Details Date Type Department Care Team (Late st Contact Info) Description 08/14/2024 4:56 AM EST - 08/14/2024 9:23 AM EST Emergency [facility] Emergency [address] [place] [id number] Leila Saez MD [address] [place] [address] Atrial fibrillation, unspecified type (CMS/HCC) (Primary Dx); Coronavirus infection Discharge Disposition: Home or Self Care Social History Tobacco Use Types Packs/Day Years Used Date Smoking Tobacco: Never Assessed Sex and Gender Information Value Date Recorded Sex Assigned at Not on file Gender Identity Not on file Sexual Orientation Not on file Job Start Date Occupation Industry Not on file Not on file Not on file documented as of this encounter Last Filed [...] Mass Index 30.27 08/14/2024 5:22 AM EST documented in this encounter Functional Status Functional Status Response Date of Assess ment Are you deaf or do you have serious difficulty h earing? No 08/14/2024 Are you blind or do you have serious difficulty seeing, even when wearing glasses? No 08/14/2024 Do you have serious difficul ty walking or climbing stairs? No 08/14/2024 Do you have serious difficulty dressing or bathi ng? No 08/14/2024 Because of a physical, menta l, or emotional condition, do you have serious difficulty doing errands alone such as visiting the doctor? No 08/14/2024 Cognitive Status Response Date of Assessm ent Because of a physical, menta l, or emotional condition, do you have serious difficulty concentrating, remembering, or making decisions? (5 years old or older) No 08/14/2024 documented as of this encounter Discharge Instructions * Discharge Instructions* MATT Koroma - 08/14/2024 9:13 AM EST You were seen in the emergency department today for evaluation of atrial fibrillation Heart rate has improved nicely with medications as well as fluids As previously discussed, nasal swab test positive for a novel strain of coronavirus, not COVID 19 You may develop some upper respiratory symptoms, I would expect mild symptoms Stay well-hydrated Get plenty of rest Follow-up with your rubber compounder formulator Follow-up with your primary care provider Return for new or worsening symptoms I hope you feel better Thank you for coming to the [facility] Emergency Department today. Our entire team works together to provide you with the best care possible. Examination and treatment you received in the emergency department has been rendered on an EMERGENCY basis only. It is not intended to be a substitute for, or an effort to provide, complete medical care. You should follow-up with your primary care provider. Please report to your physician any new or remaining problems, because it is impossible to recognize and treat all elements of injury or illness in a single emergency department visit. If you do not have a primary care provider or require a referral, a follow-up doctor irrigation foreman for the emergency department will be provided in your discharge packet. In the event that you're unable to obtain a followup appointment in a timely fashion, OR you are not getting any better, OR you are getting worse, OR you develop any symptoms of concern, please return here immediately for further evaluation. The emergency department is open 24 hours a day, 7 days aweek. Your discharge report is based on information that was available when you were in the emergency department. The x-ray readings are preliminary and will be reviewed by a radiologist in the next 24 hours. If there is a discrepancy you will be notified by phone. If you do not have a primary care provider, please contact one of the following to make arrangements to follow up. Ida [facility]lett Ida [facility] Ida Henri Ida Kaushik * Attachments The following attachments cannot be sent through Care Everywhere. * Atrial Fibrillation (Angolan) documented in this encounter Discharge Disposition Disposition Code Departure Means Destination Comment s Home or Self Care documented in this encounter Progress Notes * Hafsa Mcclain RN - 08/14/2024 5:18 AM EST Pt comes in from home. PT states he has a PMH of A.Fib (on eliquis), Asthma, MS, and DM. PT states that he felt like his HR was really high and looked down at his apple watch and saw his HR in the 160s. He states this happens sometimes, but it usually returned back to normal. However, his HR has remained high through most of the day. PT denies chest pain. Is having some SOB but states he believesit's due to his asthma. * Leila Saez MD - 08/14/2024 4:34 AM EST Emergency Medicine Note Patient Name: Michael Hogan Initial Evaluation: 08/14/2024 : 1975 Patient's PCP: [facility] Emergency Physician: Leila Saez MD History of Present Illness Chief Complaint: Chief Complaint Patient presents with Palpitations Pt comes in with palpitations. Hx of Afib ( on eliquis ) and apple watch read HR 152. Pt also states CP HPI: 49-year-old male with history of MS, atrial fibrillation on Eliquis presenting with a rapid heart rate that woke him from sleep tonight. Patient admits that his heart rate has been running high for the last several days. Admits to an associated cough productive of yellow sputum. Denies associated fever. Denies nausea or vomiting but does admit to a poor appetite. No known sick contacts or travel. No lower extremity edema or pain. He describes some chest discomfort that is associated with his cough and palpitations but otherwise denies chest pain. ROS: I have performed a ROS with the pertinent positives and negatives documented in the history ofpresent illness. Previous History History reviewed. No pertinent past medical history. History reviewed. No pertinent surgical history. No family history on file. has No Known Allergies. No current facility-administered medications on file prior to encounter. No current outpatient medications on file prior to encounter. Physical Exam ED Triage Vitals [08/14/24 0522] Temp Heart Rate Resp BP 36.4 ??C (97.5 ??F) (!) 160 18 80/68 SpO2 Temp Source Heart Rate Source Patient Position 96 % Oral Monitor Sitting BP Location FiO2 (%) Left arm -- GENERAL: Ill-Appearing, appears uncomfortable. SKIN: Normal skin color for ethnicity, warm, dry, no rashes noted. HEENT: Normocephalic, atraumatic, no stridor, dry mucous membranes, dentition intact, EOMI. NECK: Soft, supple, full ROM, midline structures nontender, no step-offs, no deformities, no lymphadenopathy. CHEST: Heart rirregularly irregular tachycardia, no murmurs, symmetric chest rise and fall. PULMONARY: Clear to auscultation bilaterally, diminished at the bases, no labored breathing, no wheezes/rhales/rhonchi, occasional bronchospastic cough. ABDOMINAL: Soft, nondistended, nontender, positive bowel sounds in all quadrants. : Deferred. MUSCULOSKELETAL: Normal tone, full range of motion, no deformities, no peripheral edema. NEURO: Alert and oriented x3, CN II through XII intact, equal strength and sensation bilateral upper and lower extremities, no focal neurologic deficits. PSYCHIATRIC: Flat affect, fluid speech, good eye contact and appropriate demeanor. Results Labs Reviewed RESPIRATORY VIRUS PANEL MOLECULAR STUDY - Abnormal Result Value Adenovirus Detection by PCR Not Detected Influenza A PCR Not Detected Influenza B PCR Not Detected Coronavirus 229E Not Detected Coronavirus HKU1 Not Detected Coronavirus OC43 Detected (*) Coronavirus NL63 Not Detected Parainfluenza Virus 1 Not Detected Parainfluenza Virus 2 Not Detected Parainfluenza Virus 3 Not Detected Parainfluenza Virus 4 Not Detected RSV PCR Not Detected Human Metapneumovirus A and B Not Detected Rhinovirus/Enterovirus Not Detected Bordetella pertussis Not Detected Bordetella parapertussis Not Detected Mycoplasma pneumo by PCR Not Detected Chlamydia pneumoniae Not Detected SARS COV-2 Not Detected Narrative: Testing was performed using the [employer] Respiratory Pathogen PCR Assay. All results must [...] that are below the limit of detection. COMPREHENSIVE METABOLIC PANEL - Abnormal Sodium 135 Potassium 3.3 (*) Chloride 106 CO2 23 Anion Gap 6 Glucose 198 (*) BUN 19 Creatinine 1.15 eGFR 78 BUN/Creatinine Ratio 16.5 Calcium 9.0 AST (SGOT) 11 ALT (SGPT) 32 Alkaline Phosphatase 139 (*) Total Protein 7.0 Albumin 3.3 Total Bilirubin 0.3 CBC WITH AUTO DIFFERENTIAL - Abnormal WBC 12.4 (*) RBC 5.50 Hemoglobin 15.2 Hematocrit 44.8 MCV 82.1 MCH 27.8 MCHC 33.9 RDW 14.0 Platelets 291 MPV 9.9 NRBC 0.0 NRBC Absolute 0.00 Neutrophils Relative 76.9 Lymphocytes Relative 12.4 Monocytes Relative 8.5 Eosinophils Relative 1.0 Basophils Relative 0.6 Immature Granulocytes Relative 0.6 Neutrophils Absolute 9.55 (*) Lymphocytes Absolute 1.54 Monocytes Absolute 1.05 (*) Eosinophils Absolute 0.12 Basophils Absolute 0.07 Immature Granulocytes Absolute 0.07 (*) TROPONIN I HIGH SENSITIVITY - Normal High Sensitivity Troponin I 6 Narrative: High levels of biotin in samples may falsely decrease hsTroponin values. Use caution when interpreting hsTroponin results in patients taking biotin who exhibit renal impairment (eGFR <60) or in patients taking more than 20 mg/day of biotin. TROPONIN I HIGH SENSITIVITY - Normal High Sensitivity Troponin I 7 Narrative: High levels of biotin in samples may falsely decrease hsTroponin values. Use caution when interpreting hsTroponin results in patients taking biotin who exhibit renal impairment (eGFR <60) or in patients taking more than 20 mg/day of biotin. LIPASE - Normal Lipase 38 MAGNESIUM - Normal Magnesium 2.0 B-TYPE NATRIURETIC PEPTIDE - Normal BNP 87 ACTIVATED PARTIAL THROMBOPLASTIN TIME - Normal aPTT 37.6 PROTHROMBIN TIME WITH INR - Normal Protime 13.4 INR 1.1 CBC AND DIFFERENTIAL Narrative: The following orders were created for panel order CBC and differential. Procedure Abnormality Status --------- ------ CBC auto differential[[id number]] Abnormal Final result Please view results for these tests on the individual orders. Abnormal Labs Reviewed RESPIRATORY VIRUS PANEL MOLECULAR STUDY - Abnormal; Notable for the following components: Result Value Coronavirus OC43 Detected (*) All other components within normal limits Narrative: Testing was performed using the [employer] Respiratory Pathogen PCR Assay. All results must [...] that are below the limit of detection. COMPREHENSIVE METABOLIC PANEL - Abnormal; Notable for the following components: Potassium 3.3 (*) Glucose 198 (*) Alkaline Phosphatase 139 (*) All other components within normal limits CBC WITH AUTO DIFFERENTIAL - Abnormal; Notable for the following components: WBC 12.4 (*) Neutrophils Absolute 9.55 (*) Monocytes Absolute 1.05 (*) Immature Granulocytes Absolute 0.07 (*) All other components within normal limits XR Chest 1 View Final Result No acute findings. -------- FINAL REPORT -------- Dictated By: Lc Fox Dictated Date: 08/14/2024 08:14 ET Assigned Physician: Lc Fox Reviewed and Electronically Signed By: Lc Fox Signed Date: 08/14/2024 08:32 ET Workstation ID: [id number] Transcribed By: Self Edit Transcribed Date: 08/14/2024 08:14 ET I have discussed the incidental/abnormal imaging and/or lab abnormalities with the patient and haveinstructed them the need for further evaluation and workup with their primary care doctor. I have provided the patient with a paper copy of the abnormality. The laboratory results, imaging results and other diagnostic exam results were reviewed in the EMR. EKG Interpretation Critical Care Time None ? Medical Decision Making Patient presenting with chief complaint of heart palpitations. Differential diagnosis includes heart palpitations, electrolyte abnormality, arrhythmia, ACS, thyroid dysfunction, substance use including stimulants such as caffeine, amphetamines, drug toxicity, among many others. He is in atrial fibrillation with RVR, rates in the 160 range. Medicated with 20 mg of Cardizem IV as well as 2 L of IV fluid. Patient found to be coronavirus positive, non-COVID. He is feeling improved, heart rhythm did eventually convert to normal sinus rhythm and is requesting discharge home. Medications dilTIAZem (CARDIZEM) injection 25 mg (25 mg intravenous Given 08/14/24 0536) lactated Ringer's bolus 1,000 mL (0 mL intravenous Stopped 08/14/24 0617) lactated Ringer's bolus 1,000 mL (0 mL intravenous Stopped 08/14/24 0717) sodium chloride 0.9 % bolus 1,000 mL (0 mL intravenous Stopped 08/14/24 0912) ED Course as of 08/14/24 1019 Sat Aug 14, 2024 0811 Patient care assumed this morning at change of shift. Presented with palpitations in the setting of underlying diagnosis of A-fib, rapid on arrival earlier. Responded well to a single dose of Cardizem and fluids. Heart rate at the time my reevaluation elevated but could be in the setting of agitation. Will give third and final bolus. [CC] 0911 Patient is completed fluids. Heart rate is normal sinus rhythm at 63 bpm. Blood pressure with a systolic greater than 100 on reevaluation. Patient is asymptomatic at this time feeling well wouldlike to go home. I am comfortable discharge at this time. [CC] ED Course User Index [CC] MATT Koroma Clinical Impressions as of 08/14/24 1019 Atrial fibrillation, unspecified type (CMS/HCC) Coronavirus infection Procedures Procedures Diagnosis 1. Atrial fibrillation, unspecified type (CMS/HCC) 2. Coronavirus infection Disposition Discharge ED Prescriptions None Physician Attestation Leila Saez MD 08/14/24 1019 documented in this encounter Plan of Treatment Upcoming Encounters Date Type Department Care Team (Late st Contact Info) Description 09/01/2024 12:30 PM EST Hospital Encounter [facility] Endoscopy [address] [place] [id number] Jody Garcia MD [address] [facility] [address] [place] [address] documented as of this encounter Procedures Procedure Name Priority Date/Time Associated Diagnosis Comments XR CHEST 1 VIEW STAT 08/14/2024 7:49 AM EST RESPIRATORY VIRUS PANEL MOLECULAR STUDY STAT 08/14/2024 6:19 AM EST TROPONIN I HIGH SENSITIVITY STAT 08/14/2024 6:01 AM EST TROPONIN I HIGH SENSITIVITY STAT 08/14/2024 4:50 AM EST CBC WITH AUTO DIFFERENTIAL STAT 08/14/2024 4:50 AM EST ACTIVATED PARTIAL THROMBOPLASTIN TIME STAT 08/14/2024 4:50 AM EST PROTHROMBIN TIME WITH INR STAT 08/14/2024 4:50 AM EST CBC AND DIFFERENTIAL STAT 08/14/2024 4:50 AM EST B-TYPE NATRIURETIC PEPTIDE STAT 08/14/2024 4:50 AM EST MAGNESIUM STAT 08/14/2024 4:50 AM EST LIPASE STAT 08/14/2024 4:50 AM EST COMPREHENSIVE METABOLIC PANEL STAT 08/14/2024 4:50 AM EST ECG 12-LEAD STAT 08/14/2024 4:40 AM EST ECG ANNOTATED 08/14/2024 documented in this encounter Results * XR Chest 1 View (08/14/2024 7:49 AM EST) Anatomical Region Laterality Modality Body Radiographic Elysia ging 08/14/2024 8:14 AM EST Impressions 08/14/2024 8:32 AM EST No acute findings. -------- FINAL REPORT -------- Dictated By: Lc Fox Dictated Date: 08/14/2024 08:14 ET Assigned Physician: Lc Fox Reviewed and Electronically Signed By: Lc Fox Signed Date: 08/14/2024 08:32 ET Workstation ID: [id number] Transcribed By: Self Edit Transcribed Date: 08/14/2024 [...] Signed Date: 08/14/2024 08:32 ET Workstation ID: [id number] Transcribed By: Self Edit Transcribed Date: 08/14/2024 08:14 ET Leila Saez MD IMG XR PROCEDURE S * (ABNORMAL) Respiratory virus panel molecular study (08/14/2024 6:19 AM EST) Adenovirus Detection by PCR Not Detected Not Detected LAB MICROBIOLOGY METHOD 08/14/2024 7:46 AM [facility] Influenza A PCR Not Detected Not Detected LAB MICROBIOLOGY METHOD 08/14/2024 7:46 AM [facility] Influenza B PCR Not Detected Not Detected LAB MICROBIOLOGY METHOD 08/14/2024 7:46 AM [facility] Coronavirus 229E Not Detected Not Detected LAB MICROBIOLOGY METHOD 08/14/2024 7:46 AM [facility] Coronavirus HKU1 Not Detected Not Detected LAB MICROBIOLOGY METHOD 08/14/2024 7:46 AM [facility] Coronavirus OC43 Detected(A ) Not Detected LAB MICROBIOLOGY METHOD 08/14/2024 7:46 AM [facility] Coronavirus NL63 Not Detected Not Detected LAB MICROBIOLOGY METHOD 08/14/2024 7:46 AM [facility] Parainfluenza Virus 1 Not Detected Not Detected LAB MICROBIOLOGY METHOD 08/14/2024 7:46 AM [facility] Parainfluenza Virus 2 Not Detected Not Detected LAB MICROBIOLOGY METHOD 08/14/2024 7:46 AM [facility] Parainfluenza Virus 3 Not Detected Not Detected LAB MICROBIOLOGY METHOD 08/14/2024 7:46 AM [facility] Parainfluenza Virus 4 Not Detected Not Detected LAB MICROBIOLOGY METHOD 08/14/2024 7:46 AM [facility] RSV PCR Not Detected Not Detected LAB MICROBIOLOGY METHOD 08/14/2024 7:46 AM [facility] Human Metapneumovirus A and B Not Detected Not Detected LAB MICROBIOLOGY METHOD 08/14/2024 7:46 AM EST [facility] Rhinovirus/Entero virus Not Detected Not Detected LAB MICROBIOLOGY METHOD 08/14/2024 7:46 AM [facility] Bordetella pertussis Not Detected Not Detected LAB MICROBIOLOGY METHOD 08/14/2024 7:46 AM [facility] Bordetella parapertussis Not Detected Not Detected LAB MICROBIOLOGY METHOD 08/14/2024 7:46 AM [facility] Mycoplasma pneumo by PCR Not Detected Not Detected LAB MICROBIOLOGY METHOD 08/14/2024 7:46 AM [facility] Chlamydia pneumoniae Not Detected Not Detected LAB MICROBIOLOGY METHOD 08/14/2024 7:46 AM [facility] SARS COV-2 Not Detected Not Detected LAB MICROBIOLOGY METHOD 08/14/2024 7:46 AM [facility] Swab Both anterior nares / Unknown Non-blood Collection / Unknown 08/14/2024 6:19 AM EST 08/14/2024 6:41 AM EST [facility] - 08/14/2024 7:46 AM EST Testing was performed using the [employer] Respiratory Pathogen PCR Assay. All results must [...] Saez MD LAB MICROBIOLOGY - GENERAL ORDERABLES [facility] [address] [place] [address], * Troponin I high sensitivity (08/14/2024 6:01 AM EST) [facility] High Sensitivity Troponin I 7 <=79 ng/L LAB CHEMISTRY METHOD 08/14/2024 7:11 AM EST [facility] Blood Venous blood specimen / Unknown Venipuncture / Unknown 08/14/2024 6:01 AM EST 08/14/2024 6:41 AM EST Narrative [facility] - 08/14/2024 7:11 AM EST High levels of biotin in samples may falsely decrease hsTroponin values. ??Use caution when interpreting hsTroponin results in patients taking biotin who exhibit renal impairment (eGFR <60) or in patients taking more than 20 mg/day of biotin. Leila Saez MD LAB BLOOD ORDERA BLES Performing Organization Address City/[facility]/ZIP Co de Phone Number [facility] [address] [place] [address], [place] [phone] * Protime-INR (08/14/2024 4:50 AM EST) Protime 13.4 10.6 - 13.9 sec LAB COAGULATION METHOD 08/14/2024 5:10 AM [facility] INR 1.1 LAB COAGULATION METHOD 08/14/2024 5:10 AM [facility] Blood Venous blood specimen / Unknown Venipuncture / Unknown 08/14/2024 4:50 AM EST 08/14/2024 4:55 AM EST Leila Saez MD LAB BLOOD ORDERA BLES [facility] [address] [place] [address], [place] [phone] * APTT (08/14/2024 4:50 AM EST) aPTT 37.6 24.1 - 39.3 sec LAB COAGULATION METHOD 08/14/2024 5:10 AM EST [facility] Blood Venous blood specimen / Unknown Venipuncture / Unknown 08/14/2024 4:50 AM EST 08/14/2024 4:55 AM EST Leila Saez MD LAB BLOOD ORDERA BLES [facility] [address] [place] [address], [place] [phone] * (ABNORMAL) CBC auto differential (08/14/2024 4:50 AM EST) WBC 12.4(H) 4.8 - 10.8 K/mcL LAB HEMETOLOGY METHOD 08/14/2024 5:03 AM [facility] RBC 5.50 4.50 - 5.50 M/mcL LAB HEMETOLOGY METHOD 08/14/2024 5:03 AM [facility] Hemoglobin 15.2 13.5 - 17.5 g/dL LAB HEMETOLOGY METHOD 08/14/2024 5:03 AM [facility] Hematocrit 44.8 42.0 - 54.0 % LAB HEMETOLOGY METHOD 08/14/2024 5:03 AM [facility] MCV 82.1 79.0 - 98.0 FL LAB HEMETOLOGY METHOD 08/14/2024 5:03 AM [facility] MCH 27.8 27.0 - 32.0 pcg LAB HEMETOLOGY METHOD 08/14/2024 5:03 AM [facility] MCHC 33.9 32.0 - 37.0 g/dL LAB HEMETOLOGY METHOD 08/14/2024 5:03 AM [facility] RDW 14.0 11.0 - 15.0 % LAB HEMETOLOGY METHOD 08/14/2024 5:03 AM [facility] Platelets 291 130 - 400 K/mcL LAB HEMETOLOGY METHOD 08/14/2024 5:03 AM [facility] MPV 9.9 7.0 - 11.0 FL LAB HEMETOLOGY METHOD 08/14/2024 5:03 AM [facility] NRBC 0.0 <1.0 % LAB HEMETOLOGY METHOD 08/14/2024 5:03 AM [facility] NRBC Absolute 0.00 <0.10 K/mcL LAB HEMETOLOGY METHOD 08/14/2024 5:03 AM [facility] Neutrophils Relative 76.9 % LAB HEMETOLOGY METHOD 08/14/2024 5:03 AM [facility] Lymphocytes Relative 12.4 % LAB HEMETOLOGY METHOD 08/14/2024 5:03 AM [facility] Monocytes Relative 8.5 % LAB HEMETOLOGY METHOD 08/14/2024 5:03 AM [facility] Eosinophils Relative 1.0 % LAB HEMETOLOGY METHOD 08/14/2024 5:03 AM [facility] Basophils Relative 0.6 % LAB HEMETOLOGY METHOD 08/14/2024 5:03 AM [facility] Immature Granulocytes Relative 0.6 % LAB HEMETOLOGY METHOD 08/14/2024 5:03 AM [facility] Neutrophils Absolute 9.55(H) 1.50 - 7.00 K/mcL LAB HEMETOLOGY METHOD 08/14/2024 5:03 AM [facility] Lymphocytes Absolute 1.54 1.00 - 5.00 K/mcL LAB HEMETOLOGY METHOD 08/14/2024 5:03 AM [facility] Monocytes Absolute 1.05(H) 0.20 - 1.00 K/mcL LAB HEMETOLOGY METHOD 08/14/2024 5:03 AM [facility] Eosinophils Absolute 0.12 0.00 - 0.50 K/mcL LAB HEMETOLOGY METHOD 08/14/2024 5:03 AM [facility] Basophils Absolute 0.07 0.00 - 0.20 K/mcL LAB HEMETOLOGY METHOD 08/14/2024 5:03 AM EST [facility] Immature Granulocytes Absolute 0.07(H) 0.00 - 0.03 K/[facility] LAB HEMETOLOGY METHOD 08/14/2024 5:03 AM EST [facility] Blood Venous blood specimen / Unknown Venipuncture / Unknown 08/14/2024 4:50 AM EST 08/14/2024 4:55 AM EST Leila Saez MD LAB BLOOD ORDERA BLES Performing Organization Address [facility]/ZIP Co de Phone Number [facility] [address] [place] [address], * B-type natriuretic peptide (08/14/2024 4:50 AM EST) BNP 87 <=100 pcg/mL LAB CHEMISTRY METHOD 08/14/2024 5:41 AM EST [facility] Blood Venous blood specimen / Unknown Venipuncture / Unknown 08/14/2024 4:50 AM EST 08/14/2024 4:55 AM EST Leila Saez MD LAB BLOOD ORDERA BLES Performing Organization Address [facility]/ZIP Co de Phone Number [facility] [address] [place] [address], [place] [phone] * Magnesium (08/14/2024 4:50 AM EST) Magnesium 2.0 1.9 - 2.6 mg/dL LAB CHEMISTRY METHOD 08/14/2024 5:27 AM EST [facility] Blood Venous blood specimen / Unknown Venipuncture / Unknown 08/14/2024 4:50 AM EST 08/14/2024 4:55 AM EST Leila Saez MD LAB BLOOD ORDERA BLES Performing Organization Address [facility]/ZIP Co de Phone Number [facility] [address] [place] [address], [place] [phone] * Lipase (08/14/2024 4:50 AM EST) Pathologist [facility] Lipase 38 13 - 75 unit/L LAB CHEMISTRY METHOD 08/14/2024 5:27 AM [facility] Blood Venous blood specimen / Unknown Venipuncture / Unknown 08/14/2024 4:50 AM EST 08/14/2024 4:55 AM EST Leila Saez MD LAB BLOOD ORDERA BLES Performing Organization Address [facility] [facility]/ZIP Co de Phone Number [facility] [address] [place] [address], [place] [phone] * (ABNORMAL) Comprehensive metabolic panel (08/14/2024 4:50 AM EST) [facility] Sodium 135 133 - 145 mmol/L LAB CHEMISTRY METHOD 08/14/2024 5:27 AM [facility] Potassium 3.3(L) 3.5 - 5.5 mmol/L LAB CHEMISTRY METHOD 08/14/2024 5:27 AM [facility] Chloride 106 96 - 110 mmol/L LAB CHEMISTRY METHOD 08/14/2024 5:27 AM [facility] CO2 23 21 - 32 mmol/L LAB CHEMISTRY METHOD 08/14/2024 5:27 AM [facility] Anion Gap 6 3 - 11 LAB CHEMISTRY METHOD 08/14/2024 5:27 AM [facility] Glucose 198(H) 70 - 100 mg/dL LAB CHEMISTRY METHOD 08/14/2024 5:27 AM [facility] BUN 19 5 - 25 mg/dL LAB CHEMISTRY METHOD 08/14/2024 5:27 AM [facility] Creatinine 1.15 0.70 - 1.30 mg/dL LAB CHEMISTRY METHOD 08/14/2024 5:27 AM [facility] eGFR 78 >=60 mL/min/1. 73m2 LAB CHEMISTRY METHOD 08/14/2024 5:27 AM [facility] Comment:Calculation based on the??Chronic Kidney Disease Epidemiology Collaboration (CKD-EPI) equation refit??without adjustment for race. BUN/Creatinine Ratio 16.5 LAB CHEMISTRY METHOD 08/14/2024 5:27 AM [facility] Calcium 9.0 8.5 - 10.5 mg/dL LAB CHEMISTRY METHOD 08/14/2024 5:27 AM [facility] AST (SGOT) 11 10 - 42 unit/L LAB CHEMISTRY METHOD 08/14/2024 5:27 AM [facility] ALT (SGPT) 32 10 - 60 unit/L LAB CHEMISTRY METHOD 08/14/2024 5:27 AM [facility] Alkaline Phosphatase 139(H) 42 - 121 unit/L LAB CHEMISTRY METHOD 08/14/2024 5:27 AM [facility] Total Protein 7.0 6.0 - 8.0 g/dL LAB CHEMISTRY METHOD 08/14/2024 5:27 AM [facility] Albumin 3.3 3.2 - 5.0 g/dL LAB CHEMISTRY METHOD 08/14/2024 5:27 AM [facility] Total Bilirubin 0.3 0.0 - 1.4 mg/dL LAB CHEMISTRY METHOD 08/14/2024 5:27 AM [facility] Blood Venous blood specimen / Unknown Venipuncture / Unknown 08/14/2024 4:50 AM EST 08/14/2024 4:55 AM EST Leila Saez MD LAB BLOOD ORDERA BLES [facility] [address] [place] [address], * Troponin I high sensitivity (08/14/2024 4:50 AM EST) [facility] High Sensitivity Troponin I 6 <=79 ng/L LAB CHEMISTRY METHOD 08/14/2024 5:27 AM EST [facility] Blood Venous blood specimen / Unknown Venipuncture / Unknown 08/14/2024 4:50 AM EST 08/14/2024 4:55 AM EST Narrative [facility] - 08/14/2024 5:27 AM EST High levels of biotin in samples may falsely decrease hsTroponin values. ??Use caution when interpreting hsTroponin results in patients taking biotin who exhibit renal impairment (eGFR <60) or in patients taking more than 20 mg/day of biotin. Leila Saez MD LAB BLOOD ORDERA BLES Performing Organization Address City/[facility]/ZIP Co de Phone Number [facility] [address] [place] [address], * ECG 12 lead (08/14/2024 4:40 AM EST) [facility] Ventricular Rate ECG 141 BPM GEMUSE Atrial Rate 166 BPM GEMUSE QRS Duration 88 ms GEMUSE Q-T Interval 292 ms GEMUSE QTc 447 ms GEMUSE R [place] 77 degrees GEMUSE T [place] -29 degrees GEMUSE ECG Interpretation Critical Test [...] Saez MD ECG ORDERABLES Performing Organization Address City/[facility]/ZIP Co de Phone Number GEMUSE * ECG-Annotated (08/14/2024) Provider Onbase MD ECG ORDERABLES documented in this encounter Visit Diagnoses Diagnosis Atrial fibrillation, unspecified type (CMS/HCC)- Primary Coronavirus infection documented in this encounter Administered Medications Inactive Administered Medications - up to 3 most recent administrations Medication Order MAR Action Action Date Dose Rate Site dilTIAZem (CARDIZEM) 5 mg/mL injection - ADS Override Pull Starting on 08/14/24 at 0526, For 1 dose, Created by cabinet override dilTIAZem (CARDIZEM) injection 25 mg 25 mg, intravenous, Once, On 08/14/24 at 0536, For 1 dose, For IV Push - administer over 2 minutes with continuous ECG and blood pressure monitoring Given 08/14/2024 5:36 AM EST 25 mg lactated Ringer's bolus 1,000 mL 1,000 mL, intravenous, at 1,000 mL/hr, Administer over 1 Hours, Once, On 08/14/24 at 0536, For 1 dose New Bag 08/14/2024 5:37 AM EST 1,000 mL 1000 mL/hr lactated Ringer's bolus 1,000 mL 1,000 mL, intravenous, at 1,000 mL/hr, Administer over 1 Hours, Once, On 08/14/24 at 0617, For 1 dose New Bag 08/14/2024 6:17 AM EST 1,000 mL 1000 mL/hr sodium chloride 0.9 % bolus 1,000 mL 1,000 mL, intravenous, at 2,000 mL/hr, Administer over 30 Minutes, Once, On 08/14/24 at 0808, For 1 dose New Bag 08/14/2024 8:10 AM EST 1,000 mL 2000 mL/hr documented in this encounter Active and Recently Administered Medications Times are shown in EST. Scheduled Medication Order 08/12/2024 08/13/2024 08/14/2024 dilTIAZem (CARDIZEM) injection 25 mg (COMPLETED) 25 mg, intravenous, Once, On 08/14/24 at 0536, For 1 dose, For IV Push - administer over 2 minutes with continuous ECG and blood pressure monitoring 0536 (Given - Provid er: Hafsa Mcclain RN) lactated Ringer's bolus 1,000 mL (COMPLETED) 1,000 mL, intravenous, at 1,000 mL/hr, Administer over 1 Hours, Once, On 08/14/24 at 0536, For 1 dose 0537 (New Bag - Prov ider: Hafsa Mcclain RN)0617 (Stopped - Provider: Hafsa Mcclain RN) lactated Ringer's bolus 1,000 mL (COMPLETED) 1,000 mL, intravenous, at 1,000 mL/hr, Administer over 1 Hours, Once, On 08/14/24 at 0617, For 1 dose 0617 (New Bag - Prov ider: Hafsa Mcclain RN)0717 (Stopped - Provider: Hafsa Mcclain RN) sodium chloride 0.9 % bolus 1,000 mL (COMPLETED) 1,000 mL, intravenous, at 2,000 mL/hr, Administer over 30 Minutes, Once, On 08/14/24 at 0808, For 1 dose 0810 (New Bag - Prov ider: Albertina Mary RN)0912 (Stopped - Provider: Albertina Mary RN) documented in this encounter Additional Health Concerns Infection Onset Date Last Indicated Resolved Time Respiratory Rule-Out 08/14/2024 08/14/2024 025 7:46 AM EST COVID-19 Rule-Out 08/14/2024 08/14/2024 08/14/2024 7:46 AM EST Coronavirus 08/14/2024 08/14/2024 documented as of this encounter Care Teams Franchise Sales Director Relationship Specialty Start Date End Date [facility] [address] [place] [phone] PCP - General 03/30/24 documented as of this encounter
[2024-08-18 13:55] LABS: Alanine Aminotransferase 38 U/L (0-40); Albumin Level 4.1 g/dL (3.5-5.0); Alkaline Phosphatase 87 U/L (39-117); Anion Gap 11 (12-20); Aspartate Amino Transferase 22 U/L (5-37); Bilirubin Total 0.2 mg/dL (0.0-1.0); Blood Urea Nitrogen 9 mg/dL (9-16); Calcium 8.9 mg/dL (8.4-10.2); Carbon Dioxide 24 mmol/L (22-29); Chloride 106 mmol/L (96-108); Cholesterol 107 mg/dL (<200); Estimated Glomerular Filt Rate > 60; Glucose Random 101 mg/dL (60-115); HDL Cholesterol 30 mg/dL (>40); LDL Cholesterol Calculated 61 mg/dL (<100); Potassium 3.9 mmol/L (3.3-5.1); Sodium 137 mmol/L (135-145); Triglycerides 83 mg/dL (<150)
== END 2024-08-18 12:13 | disposition home or self-care (01) ==
LOC: HO.HHCL 12:12
PROVIDERS: Visit Provider Registered Nurse
DX: E11.9 Type 2 diabetes mellitus without complications (principal); K76.0 Fatty (change of) liver, not elsewhere classified
CPT/HCPCS: 36415; 80053; 80061

== ENCOUNTER 2024-10-05 10:38 | Outpatient (AMB) | payer MEDICARE, MEDICAID, SELFPAY ==
[2024-10-05 10:54] VITALS: BP 102/60; PULSE 65; O2SAT 96; BMI 30.9
--- NOTE | 2024-10-05 10:54 | A.OFFVIS_ITS ---
Vital Signs 10/05/24 10:54 Height 5 ft 9 in Weight 209 lb 7.026 oz BMI 30.9 BP 102/60 Blood Pressure Location Lt brachial Position Sitting Pulse 65 Pulse Source Pulse Oximeter Pulse Oximetry (%) 96 Oxygen Delivery Method Room Air Intake Visit Reasons: Obstructive sleep apnea Electrical Designer Drafter Required: No Allergies No Known Allergies Allergy (Verified 10/05/24 10:57) HPI HPI Obstructive sleep apnea: Details: 48-year-old gentleman with followed for asthma and obstructive sleep apnea. After the last office visit patient has received his CPAP however he was not able to tolerate continuous use and has returned his CPAP machine. He is not interested in further RAMILA therapy this time. Patient continues on duo nebs and albuterol MDI with control of his asthma symptoms. [facility] Medical History (Updated 04/08/24 @ 00:03 by Meliton Olivares) History of high cholesterol Atrial fibrillation with rapid ventricular response Paroxysmal atrial fibrillation Multiple sclerosis Diabetes Asthma Family History Mother Diabetes Asthma Maternal Grandmother Diabetes Brother Diabetes Other No family history of cardiac disease Social History (Updated 10/05/24 @ 10:59 by Elsa Carrasco [facility]) Alcohol intake: never Patient Tobacco Use Status: Current everyday Tobacco user Tobacco use type: Cigarette Cigarette Packs Per Day: 2 Years Smoked: started at 15, 2ppd Substance Use Type: Marijuana service: No Current occupational status: disabled Review of Systems Const Denies daytime sleepiness, Denies excessive sweating, Denies fatigue, Denies fever(s), Denies lethargy, Denies malaise, Denies night sweats, Denies snoring and Denies weight loss Eyes Denies blurry vision and Denies itchy eyes ENT Denies nasal congestion, Denies post nasal drip, Denies sinus pain, Denies sinus pressure and Denies other ( Thrush) Card Denies chest pain, Denies pedal edema, Denies dyspnea, Denies orthopnea and Denies paroxysmal nocturnal dyspnea Resp Denies cough, Denies hemoptysis, Denies excessive phlegm production, Denies dyspnea, Denies snoring and Denies wheezing GI Denies abdominal pain and Denies heartburn Musc Denies myalgias, Denies arthralgias and Denies joint swelling Skin/Breast Denies rash Neuro Denies memory loss and Denies seizure-like activity Psych Denies abnormal sleep pattern, Denies anxiety and Denies memory loss Endo Denies excessive sweating, Denies fatigue and Denies heat intolerance Rodolfo/Lymph Denies easy bruising Aller/Immun Denies itchy eyes, Denies seasonal rhinorrhea and Denies wheezing Physical Exam Vital Signs: Last Vital Signs Pulse 65 10/05/24 10:54 BP 102/60 10/05/24 10:54 Pulse Ox 96 10/05/24 10:54 Oxygen Delivery Method Room Air 10/05/24 10:54 BMI result Body Mass Index 30.9 Const General: no acute distress and alert Nutritional Appearance: not obese Orientation/consciousness: Other orientation findings ( oriented) HEENT Head: Yes atraumatic Eyes General: appearance normal, both eyes and all related structures Sclerae: sclerae normal EOM: EOMs intact bilaterally Neck Neck: Yes supple Lymphatic: no lymphadenopathy noted Resp Effort & Inspection: normal respiratory effort and no use of accessory muscles Auscultation: clear to auscultation bilaterally Cardio Rate: regular rate Rhythm: regular rhythm Heart sounds: no gallops, no murmurs and no rubs Skin General skin exam: other ( warm) Extrem General: No clubbing, No cyanosis and No edema Assessment & Plan Assessment & Plan (1) Asthma: Code(s): J45.909 - Unspecified asthma, uncomplicated Category: Medical Plan: Well controlled on current regimen of duo nebs and albuterol MDI. Continue current regimen. (2) RAMILA (obstructive sleep apnea): Code(s): G47.33 - Obstructive sleep apnea (adult) (pediatric) Category: Medical Plan: Intolerant of CPAP. Not interested in further RAMILA therapy. Medications: Refilled ipratropium-albuterol 0.5 mg-3 mg(2.5 mg base)/3 mL 3 mL inhalation Q4H PRN 180 mL 6RF wheezing Coding Level of Care Code Est Pt Level 4 (95236) Diagnoses Asthma J45.909 RAMILA (obstructive sleep apnea) G47.33
--- OUTSIDE RECORDS SUMMARY | 2024-10-05 12:46 | XMS_ITS | Encounter Summary ---
Author Organization [employer] Address [address] [facility] [address] [place] [address] Care Team Providers Care Quarryman Name Role Phone [facility] Primary Care Provider [phone] Reason for Visit * Reason Onset Date Comments Triage 10/15/2022 Encounter Details Date Type Department Care Team ([facility] st Contact Info) Description 10/15/2022 Telephone [facility] [address] [place], [place] [phone] [facility] [address] [place] [address] Triage Social History Tobacco Use Types Packs/Day [...] the thumb of right hand. Pt reports area is whitish in color and size of dime. Pt reports very painful and unable to use the hand because if anything hits the area the pain is severe. Pt has been seen here before and was sent to ED. Pt unwilling to go to ED and is requesting , adamantly, to be seen by provider who can refer to specialist. apt with LIZ Jesus 10/16 @ 1115am. Advised [...] accepted this outcome Please contact pt at [phone] documented in this encounter Plan of Treatment Not on file documented as of this encounter Visit Diagnoses Not on filedocumented in this encounter Additional Health Concerns Assessment Noted Time PHQ-9 Depression Total Score: 0 08/06/19 23 2:09 PM EST documented as of this encounter Care Teams Quarryman Relationship Specialty Start Date End Date Riri Corrigan FNP [address] [place] [id number] PCP - General Family Medicine 03/11/22 documented as of this encounter
--- OUTSIDE RECORDS SUMMARY | 2024-10-05 12:46 | XMS_ITS | Encounter Summary ---
Author Organization [employer] Address [address] [facility] [address] [place] [address] Care Team Providers Care Liquid Floor And Wall Applier Name Role Phone Riri Corrigan [facility] Primary Care Provider Reason for Visit * Reason Comments Med Refill Encounter Details Date Type Department Care Team ([facility] st Contact Info) Description 02/18/2024 Refill [facility] [address] [place], [place] [phone] Vivien Maxwell MD [address] [place] [address] Social History Tobacco Use Types Packs/Day Years [...] documented as of this encounter Care Teams Liquid Floor And Wall Applier Relationship Specialty Start Date End Date Riri Corrigan FNP [address] [place] [phone] PCP - General Family Medicine 03/11/22 documented as of this encounter
--- OUTSIDE RECORDS SUMMARY | 2024-10-05 12:46 | XMS_ITS | Encounter Summary ---
Author Organization [employer] Address [address] [facility] [address] [place] [address] Care Team Providers Care Head Wood Grinder Name Role Phone Java [facility] Primary Care Provider [phone] Reason for Visit * Reason Onset Date Comments Med Refill 06/13/2023 Encounter Details Date Type Department Care Team ([facility] st Contact Info) Description 06/13/2023 Telephone [facility] [address] [place], [place] [phone] [facility] [address] [place] [address] Med Refill Social History Tobacco Use Types [...] documented as of this encounter Care Teams Head Wood Grinder Relationship Specialty Start Date End Date Riri Corrigan FNP [address] [place] [phone] PCP - General Family Medicine 03/11/22 documented as of this encounter
--- OUTSIDE RECORDS SUMMARY | 2024-10-05 12:46 | XMS_ITS | Clinical Summary ---
Author Organization [employer] Address [address] [facility] 7 [place] [address] Care Team Providers Care Kennel Helper Name Role Phone Riri Corrigan [employer] Primary Care Provider [phone] Allergies No known active allergies Medications cholecalciferol [...] complication, without long-term current use of insulin ([facility]) Use as instructed to check blood sugar once daily 90 strip 3 4 Active Lancets Ultra Thin 30G miscIndications:Ty pe 2 diabetes mellitus without complication, without long-term current use of insulin ([facility]) Use as instructed to check blood sugar once daily 90 each 3 4 Active Alcohol Swabs (Alcohol Prep) padsIndications:Ty pe 2 diabetes mellitus without complication, without long-term current use of insulin ([facility]/HCC) Use as instructed to check blood [...] complication, without long-term current use of insulin ([facility]) USE TO TEST BLOOD SUGAR ONCE DAILY [...] suppurativa 12/13/2022 Overview (02/17/2023): ?? Followed by [facility] derm Type 2 diabetes mellitus wit hout [...] & Plan (10/17/2022 1:01 PM EDT): Called [facility] general surgery, they forwarded me to Dr. [...] osteomyelitis. Pain of right thumb 08/06/2022 08/11/19 23 Atrial fibrillation 04/09/2021 04/20/20 24 Overview (02/17/2023): ?? Followed by cardiology ?? On metoprolol, flecainide, eliquis Cystic acne 04/03/2012 2022 Developmental academic disorder 04/03/2012 2022 Ankle pain 04/03/2012 2022 Encounters Date Type Department Care Team Description 09/24/2024 Population Health Risk Score [facility] () Department [address] [id number] Provider, Population Health Generic 08/18/2024 11:15 AM EST Office Visit [facility] [address] [facility] [place] [address] [place] Riri [facility] Type 2 diabetes mellitus without complication, without long-term current use of insulin ([facility]) (Primary Dx); 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; Dietary counseling; Exercise counseling; Class 1 obesity due to excess calories with serious comorbidity and body mass index (BMI) of 30.0 to 30.9 in adult; Encounter for immunization 08/18/2024 Travel 08/05/2024 Patient Outreach [facility] [address] [place] [address] Riri Corrigan FNP Pre-visit Planning (SDOH screening negative and tobacco screening negative) 07/23/2024 Telephone [facility] [address] [facility] [place] [address] Riri Corrigan FNP Medication Question 07/20/2024 2:00 PM EST Office Visit [facility] OPTOMETRY [address] [place] [address] Jack, [place], [place] Regular astigmatism of both eyes (Primary Dx) 07/20/2024 Travel 07/19/2024 Refill [facility] [address] [place] [address] Riri Corirgan FNP from Last 3 Months Immunizations Name Administration [...] Diabetes: Urine Protein Screening 05/21/2025 05/21/2024, 04/09/2021 SDOH Screening 08/05/2025 08/05/2024 Zoster Vaccines (1 of 2) 2025 Alcohol/Substance Use Screening 08/18/2025 08/18/2024 Lipid Panel 08/18/2025 08/18/2024, 1102/2024, 02/04/2023, Additional history exists Tobacco Screening 08/19/2025 08/19/2024 Eye Exam 06/04/2026 06/04/2024, 05/15, 06/04/2024, Additional [...] Procedure Name Priority Date/Time Associated Diagnosis Comments COMPREHENSIVE METABOLIC PANEL Routine 08/18/2024 12:15 PM EST Type 2 diabetes mellitus without complication, without long-term current use of insulin (CMS/HCC) LIPID PANEL, STANDARD Routine 08/18/2024 12:15 PM EST NAFLD (nonalcoholic fatty liver disease) POCT GLYCATED HEMOGLOBIN, TOTAL Routine 08/18/2024 11:10 [...] GENERATION W/RFL Routine 04/09/2021 2:44 PM EDT INTRAORAL - COMPLETE SERIES OF RADIOGRAPHIC IMAGES Routine 01/27/2017 12:00 AM EDT from Last 3 Months or Most Recently Relevant to Health Maintenance Results * (ABNORMAL) Lipid Panel, Standard (08/18/2024 12:15 PM EST) Triglycerides 83 <150 mg/dL [facility] Comment:Desirable Triglyceri de: less than 150 mg/dLBorderline High Triglyceride 150-199 mg/dLHigh Triglyceride: 200-499 mg/dLVery High Triglyceride: greater than or equal to 5OO mg/dL Cholesterol 107 <200 mg/dL [facility] Comment:Desirable Cholestero l: less than 200 mg/dLBorderline High Cholesterol: 200-239 mg/dLHigh Cholesterol: greater than 239 mg/dL LDL Cholesterol Calculated 61 <100 mg/dL [facility] Comment:Desirable LDL: less than 100 mg/dLNear Optimal/Above Optimal LDL: 110- 129 mg/dLBorderline High LDL: 130-159 mg/dLHigh LDL: 160-189 mg/dLVery High LDL: greater than or equal to 190 mg/dL HDL Cholesterol 30(L) >40 mg/dL [facility] Comment:Desirable HDL: great er than 40 mg/dL Note: This HDL assay may give artificially low results in patients with liver disease. Blood Venous blood specimen / Unknown 08/18/2024 12:15 PM EST 08/18/2024 1:04 PM EST [facility] LAB BLOOD ORDERABLES Final Re sult [facility] [address] [place] [phone] [phone] * (ABNORMAL) Comprehensive Metabolic Panel (08/18/2024 12:15 PM EST) Pathologist [facility] Sodium 137 135 - 145 mmol/L [facility] Potassium 3.9 3.3 - 5.1 mmol/L [facility] Chloride 106 96 - 108 mmol/L [facility] Carbon Dioxide 24 22 - 29 mmol/L [facility] Anion Gap 11(L) 12 - 20 [facility] Urea Nitrogen (BUN) 9 9 - 16 mg/dL [facility] Creatinine, Serum 0.78 0.5 - 1.4 mg/dL [facility] Estimated Glomerular Filt Rate >60 [facility] Comment:Chronic Kidney Disea se: Estimated GFR < 60 mL/min/1.98w4Tlyugi Kidney Disease: Estimated GFR < 15 mL/min/1.73m2 Glucose 101 60 - 115 mg/dL [facility] Calcium 8.9 8.4 - 10.2 mg/dL [facility] Bilirubin, Total 0.2 0.0 - 1.0 mg/dL [facility] Aspartate Amino Transferase 22 5 - 37 U/L [facility] Alanine Aminotransferase 38 0 - 40 U/L [facility] Total Protein 8.0 6.5 - 8.0 g/dL [facility] Albumin Level 4.1 3.5 - 5.0 g/dL [facility] Alkaline Phosphatase 87 39 - 117 U/L [facility] Blood Venous blood specimen / Unknown 08/18/2024 12:15 PM EST 08/18/2024 1:04 PM EST [facility] LAB BLOOD ORDERABLES Final Re sult [facility] [address] [place] [address] [phone] * (ABNORMAL) POCT HGB A1C (08/18/2024 11:10 AM EST) Hemoglobin A1C 6.7(A) 4.0 - 6.0 % QC Media Lot # [id number] Lot# Expiration Date Blood 08/18/2024 11:1 0 AM EST [facility] POINT OF CARE TEST ENTER/EDIT ORDERABLES Final Result * POCT Glucose (08/18/2024 11:10 AM EST) Pathologist [facility] Glucose Blood, POC 125 60 - 200 mg/dL [employer] Lot # [id number] Lot# Expiration Date Blood Capillary blood specimen / Unknown 08/18/2024 11:10 AM EST [facility] POINT OF CARE TEST ENTER/EDIT ORDERABLES Final Result * (ABNORMAL) Albumin, Random Urine W/Creatinine (05/21/2024 4:46 PM EST) Pathologist [facility] Creatinine, Urine 279.27 mg/dL [facility] Microalbumin Urine 125.0 mg/L [facility] Microalbum Creatinine Ratio Ur 44.7(H) <30 ug/mg cr [facility] Comment:Albumin/Creatinine R atio Reference Ranges: Normal: < 30 ug/mg creatinine Microalbuminuria: 30 - 300 ug/mg creatinineClinical Albuminuria: > 300 ug/mg creatinine Urine 05/21/2024 4:46 PM EST 05/21/2024 5:56 PM EST [facility] LAB URINE ORDERABLES Final Re sult [facility] [address] [place] [phone] * Hepatitis Panel, General (02/17/2023 11:49 AM EDT) Pathologist [facility] Hepatitis A IgM Nonreactive Nonreactive [facility] Comment:IgM antibodies to BUNDY V not detected; does not exclude earlyacute or recovered HAV infection. ~Hepatitis B Surface Antibody NONREACTIVE Nonreactive [facility] Comment:Nonreactive: < 8.00 mIU/mL Hepatitis B Core Antibody Nonreactive Nonreactive [facility] Hepatitis C Antibody Nonreactive Nonreactive [facility] Comment:Antibodies to HCV no t detected; does not exclude early acuteHCV infection. Hepatitis B Surface Ag Negative Negative [facility] Blood 02/17/2023 11:4 9 AM EDT 02/17/2023 2:16 PM EDT [facility] [employer] LAB BLOOD ORDERABLES Final Re sult Performing Organization Address City/[facility]/ZIP Co de Phone Number [facility] [address] [place] [phone] * HIV 1/2 ANTIGEN/ANTIBODY,FOURTH GENERATION W/RFL (04/09/2021 2:44 PM EDT) [facility] HIV-1/2 ANTIGEN AND ANTIBODIES, 4TH GENERATION W/ REFLEX NON-REACT BETTIE NON-REACT BETTIE [facility] Comment: HIV-1 antigen and HIV-1/HIV-2 [...] ? For additional information please refer to http://education.[employer]/faq/MRK832 (This link is being provided for informational/ educational purposes only.) ? The performance of this assay has not been clinically validated in patients less than 2 years old. ?? 04/09/2021 2:44 PM EDT Deborah Mccarthy [employer] LAB BLOOD ORDERABLES Final Res ult [facility] [address] [place] [phone], from Last 3 Months or Most Recently Relevant to Health Maintenance Insurance [facility] STANDARD MEDICARE DENTAL-[facility] MEDICAID STAND ADULT Care Teams Kennel Helper Relationship Specialty Start Date End Date Riri Corrigan FNP [address] [place] [phone] PCP - General Family Medicine 03/11/22
--- OUTSIDE RECORDS SUMMARY | 2024-10-05 12:46 | XMS_ITS | Encounter Summary ---
Author Organization [employer] Address [address] [facility] [address] [place] [address] Care Team Providers Care Website Project Manager Name Role Phone Riri Corrigan [facility] Primary Care Provider [phone] Reason for Visit * Reason Comments Med Refill Encounter Details Date Type Department Care Team ([facility] st Contact Info) Description 11/13/2022 Refill [facility] [address] [place], [place] [phone] Jamar Jesus AGNP Cellulitis of right thumb [...] documented as of this encounter Care Teams Website Project Manager Relationship Specialty Start Date End Date Riri Corrigan FNP [address] [place] [address] PCP - General Family Medicine 03/11/22 documented as of this encounter
--- OUTSIDE RECORDS SUMMARY | 2024-10-05 12:46 | XMS_ITS | Clinical Summary ---
Author Organization [facility] Address [address] [place] [address] Phone Care Team Providers Care Sales Office Administrator Name Role Phone [facility] Primary Care Provider [phone] Allergies No known active allergies Medications polyethylene glycol (Golytely) 236-22.74-6.74 -5.86 gram solution Take 4L by mouth once for one dose. May substitue any PEG. Starting at 6PM the night before your procedure drink 1 8oz glasses at your own pace until you complete half of the gallon. Finish 2nd half of the gallon 5 hours before your procedure. 4000 mL 5 Active bisacodyL (DULCOLAX) 5 mg EC tablet Take 2 tablets by mouth right before beginning bowel prep. See instructions provided by the office 2 tablet 5 Active Eliquis 5 mg tablet Take 1 tablet (5 mg total) by mouth 2 (two) times a day. 2 Active atorvastatin (LIPITOR) 80 mg tablet Take 1 tablet (80 mg total) by mouth daily. 4 06/01/20 25 Active metoprolol tartrate (LOPRESSOR) 25 mg tablet Take 1 tablet (25 mg total) by mouth 2 (two) times a day. 2 Active cholecalciferol (VITAMIN D-3) 50 mcg (2,000 unit) capsule Take 1 capsule (2,000 Units total) by mouth 1 (one) time each day. 2 Active Vumerity 231 mg capsule,delayed release(DR/EC) 5 Active flecainide (TAMBOCOR) 50 mg tablet Take 2 tablets (100 mg total) by mouth 2 (two) times a day. Active albuterol HFA (PROAIR HFA ; PROVENTIL HFA ; VENTOLIN HFA) 90 mcg/actuation inhaler Inhale by mouth. 3 Active albuterol 2.5 mg /3 mL (0.083 %) nebulizer solution USE 1 AMPULE USING A NEBULIZER EVERY 4 HOURS NEEDED SHORTNESS OF BREATH OR FOR WHEEZING 4 Active Active Problems No known active problems Encounters Date Type Department Care Team Description 08/14/2024 4:56 AM EST - 08/14/2024 9:23 AM EST Emergency [facility] Emergency [address] [place] [address] Leila Saez MD Atrial fibrillation, unspecified type (CMS/HCC) (Primary Dx); Coronavirus infection Discharge Disposition: Home or Self Care 07/23/2024 Telephone Gastroenterology - [place] [address] [facility] [address] [facility] [address] [place] [address] Arianna Marr LPN Anticoagulation (Colonoscopy on ) from Last 3 Months Social History Tobacco Use Types Packs/Day Years Used Date Smoking Tobacco: Never Assessed Sex and Gender Information Value Date Recorded Sex Assigned at Male 08/28/2024 11:02 AM EST Legal Sex Male 1:36 PM EDT Gender Identity Male 08/28/2024 11:02 AM EST Sexual Orientation Not on file Obstetrics History Last Filed Vital Signs Vital Sign Reading Time Taken Comments Blood Pressure 101/69 08/14/2024 9:00 AM EST Pulse 69 08/14/2024 9:00 AM EST Temperature 36.4 ??C (97.5 ??F) 08/14/2024 5:22 AM ES T Respiratory Rate 14 08/14/2024 9:00 AM EST Oxygen Saturation 97% 08/14/2024 9:00 AM EST Inhaled Oxygen Concentration - - Weight 93 kg (205 lb) 08/24/2024 12:00 PM EST Height 175.3 cm (5' 9 ) 08/24/2024 12:00 PM EST Body Mass Index 30.27 08/24/2024 12:00 PM EST Plan of Treatment Health Maintenance Due [...] patient's age to complete this topic Meningococcal B Vacine Aged Out No lo nger eligible based on patient's age to complete [...] Signed Date: 08/14/2024 08:32 ET Workstation ID: [id number] Transcribed By: Self Edit Transcribed Date: 08/14/2024 [...] Fox Reviewed and Electronically Signed By: Lc oFx Signed Date: 08/14/2024 08:32 ET Workstation ID: [id number] Transcribed By: Self Edit Transcribed Date: 08/14/2024 08:14 ET Leila Saez MD IMG XR PROCEDURES Final Result * (ABNORMAL) Respiratory virus panel molecular study (08/14/2024 6:19 AM EST) Adenovirus Detection by PCR Not Detected Not Detected LAB MICROBIOLOGY METHOD 08/14/2024 7:46 AM EST [facility] Influenza A PCR Not Detected Not Detected LAB MICROBIOLOGY METHOD 08/14/2024 7:46 AM EST [facility] Influenza B PCR Not Detected Not Detected LAB MICROBIOLOGY METHOD 08/14/2024 7:46 AM EST [facility] Coronavirus 229E Not Detected Not Detected LAB MICROBIOLOGY METHOD 08/14/2024 7:46 AM [facility] Coronavirus HKU1 Not Detected Not Detected LAB MICROBIOLOGY METHOD 08/14/2024 7:46 AM [facility] Coronavirus OC43 Detected(A ) Not Detected LAB MICROBIOLOGY METHOD 08/14/2024 7:46 AM [facility] Coronavirus NL63 Not Detected Not Detected LAB MICROBIOLOGY METHOD 08/14/2024 7:46 AM [facility] Parainfluenza Virus 1 Not Detected Not Detected LAB MICROBIOLOGY METHOD 08/14/2024 7:46 AM [facility] Parainfluenza Virus 2 Not Detected Not Detected LAB MICROBIOLOGY METHOD 08/14/2024 7:46 AM [facility] Parainfluenza Virus 3 Not Detected Not Detected LAB MICROBIOLOGY METHOD 08/14/2024 7:46 AM [facility] Parainfluenza Virus 4 Not Detected Not Detected LAB MICROBIOLOGY METHOD 08/14/2024 7:46 AM [facility] RSV PCR Not Detected Not Detected LAB MICROBIOLOGY METHOD 08/14/2024 7:46 AM [facility] Human Metapneumovirus A and B Not Detected Not Detected LAB MICROBIOLOGY METHOD 08/14/2024 7:46 AM [facility] Rhinovirus/Entero virus Not Detected Not Detected LAB MICROBIOLOGY METHOD 08/14/2024 7:46 AM [facility] Bordetella pertussis Not Detected Not Detected LAB MICROBIOLOGY METHOD 08/14/2024 7:46 AM [facility] Bordetella parapertussis Not Detected Not Detected LAB MICROBIOLOGY METHOD 08/14/2024 7:46 AM [facility] Mycoplasma pneumo by PCR Not Detected Not Detected LAB MICROBIOLOGY METHOD 08/14/2024 7:46 AM [facility] Chlamydia pneumoniae Not Detected Not Detected LAB MICROBIOLOGY METHOD 08/14/2024 7:46 AM [facility] SARS COV-2 Not Detected Not Detected LAB MICROBIOLOGY METHOD 08/14/2024 7:46 AM EST [facility] Swab Both anterior nares / Unknown Non-blood Collection / Unknown 08/14/2024 6:19 AM EST 08/14/2024 6:41 AM EST Narrative [facility] - 08/14/2024 7:46 AM EST Testing was performed using the [employer] Respiratory Pathogen PCR Assay. All results must [...] detection. Leila Saez MD LAB MICROBIOLOGY - GENER AL ORDERABLES Final Result Performing Organization Address City/[facility]/ZIP Co de Phone Number [facility] [address] [place] [address], [place] [phone] * Troponin I high sensitivity (08/14/2024 6:01 AM EST) Only the most recent of2 resultswithin the time period is included. High Sensitivity Troponin I 7 <=79 ng/L LAB CHEMISTRY METHOD 08/14/2024 7:11 AM EST [facility] Blood Venous blood specimen / Unknown Venipuncture / Unknown 08/14/2024 6:01 AM EST 08/14/2024 6:41 AM EST Narrative [facility] - 08/14/2024 7:11 AM EST High levels of biotin in samples may falsely decrease hsTroponin values. ??Use caution when interpreting hsTroponin results in patients taking biotin who exhibit renal impairment (eGFR <60) or in patients taking more than 20 mg/day of biotin. Leila Saez MD LAB BLOOD ORDERABLES Fin al Result [facility] [address] [place] [address], * (ABNORMAL) CBC auto differential (08/14/2024 4:50 AM EST) [facility] Signature WBC 12.4(H) 4.8 - 10.8 K/mcL LAB HEMETOLOGY METHOD 08/14/2024 5:03 AM [facility] RBC 5.50 4.50 - 5.50 M/mcL LAB HEMETOLOGY METHOD 08/14/2024 5:03 AM [facility] Hemoglobin 15.2 13.5 - 17.5 g/dL LAB HEMETOLOGY METHOD 08/14/2024 5:03 AM [facility] Hematocrit 44.8 42.0 - 54.0 % LAB HEMETOLOGY METHOD 08/14/2024 5:03 AM [facility] MCV 82.1 79.0 - 98.0 FL LAB HEMETOLOGY METHOD 08/14/2024 5:03 AM [facility] MCH 27.8 27.0 - 32.0 pcg LAB HEMETOLOGY METHOD 08/14/2024 5:03 AM [facility] MCHC 33.9 32.0 - 37.0 g/dL LAB HEMETOLOGY METHOD 08/14/2024 5:03 AM [facility] RDW 14.0 11.0 - 15.0 % LAB HEMETOLOGY METHOD 08/14/2024 5:03 AM [facility] Platelets 291 130 - 400 K/mcL LAB HEMETOLOGY METHOD 08/14/2024 5:03 AM [facility] MPV 9.9 7.0 - 11.0 FL LAB HEMETOLOGY METHOD 08/14/2024 5:03 AM [facility] NRBC 0.0 <1.0 % LAB HEMETOLOGY METHOD 08/14/2024 5:03 AM [facility] NRBC Absolute 0.00 <0.10 K/mcL LAB HEMETOLOGY METHOD 08/14/2024 5:03 AM [facility] Neutrophils Relative 76.9 % LAB HEMETOLOGY METHOD 08/14/2024 5:03 AM [facility] Lymphocytes Relative 12.4 % LAB HEMETOLOGY METHOD 08/14/2024 5:03 AM [facility] Monocytes Relative 8.5 % LAB HEMETOLOGY METHOD 08/14/2024 5:03 AM [facility] Eosinophils Relative 1.0 % LAB HEMETOLOGY METHOD 08/14/2024 5:03 AM [facility] Basophils Relative 0.6 % LAB HEMETOLOGY METHOD 08/14/2024 5:03 AM [facility] Immature Granulocytes Relative 0.6 % LAB HEMETOLOGY METHOD 08/14/2024 5:03 AM [facility] Neutrophils Absolute 9.55(H) 1.50 - 7.00 K/mcL LAB HEMETOLOGY METHOD 08/14/2024 5:03 AM [facility] Lymphocytes Absolute 1.54 1.00 - 5.00 K/mcL LAB HEMETOLOGY METHOD 08/14/2024 5:03 AM [facility] Monocytes Absolute 1.05(H) 0.20 - 1.00 K/mcL LAB HEMETOLOGY METHOD 08/14/2024 5:03 AM [facility] Eosinophils Absolute 0.12 0.00 - 0.50 K/mcL LAB HEMETOLOGY METHOD 08/14/2024 5:03 AM [facility] Basophils Absolute 0.07 0.00 - 0.20 K/mcL LAB HEMETOLOGY METHOD 08/14/2024 5:03 AM [facility] Immature Granulocytes Absolute 0.07(H) 0.00 - 0.03 K/mcL LAB HEMETOLOGY METHOD 08/14/2024 5:03 AM EST [facility] Blood Venous blood specimen / Unknown Venipuncture / Unknown 08/14/2024 4:50 AM EST 08/14/2024 4:55 AM EST Leila Saez MD LAB BLOOD ORDERABLES Fin al Result [facility] [address] [place] [address], [place] [phone] * APTT (08/14/2024 4:50 AM EST) aPTT 37.6 24.1 - 39.3 sec LAB COAGULATION METHOD 08/14/2024 5:10 AM EST [facility] Blood Venous blood specimen / Unknown Venipuncture / Unknown 08/14/2024 4:50 AM EST 08/14/2024 4:55 AM EST Leila Saez MD LAB BLOOD ORDERABLES Fin al Result Performing Organization Address [facility]/ZIP Co de Phone Number [facility] [address] [place] [address], [place] [phone] * Protime-INR (08/14/2024 4:50 AM EST) Protime 13.4 10.6 - 13.9 sec LAB COAGULATION METHOD 08/14/2024 5:10 AM EST [facility] INR 1.1 LAB COAGULATION METHOD 08/14/2024 5:10 AM EST [facility] Blood Venous blood specimen / Unknown Venipuncture / Unknown 08/14/2024 4:50 AM EST 08/14/2024 4:55 AM EST Leila Saez MD LAB BLOOD ORDERABLES Fin al Result Performing Organization Address City/[facility] de Phone Number [facility] [address] [place] [address], [place] [phone] * B-type natriuretic peptide (08/14/2024 4:50 AM EST) BNP 87 <=100 pcg/mL LAB CHEMISTRY METHOD 08/14/2024 5:41 AM EST [facility] Blood Venous blood specimen / Unknown Venipuncture / Unknown 08/14/2024 4:50 AM EST 08/14/2024 4:55 AM EST Leila Saez MD LAB BLOOD ORDERABLES Fin al Result Performing Organization Address [facility] de Phone Number [facility] [address] [place] [address], * Magnesium (08/14/2024 4:50 AM EST) [facility] Magnesium 2.0 1.9 - 2.6 mg/dL LAB CHEMISTRY METHOD 08/14/2024 5:27 AM EST [facility] Blood Venous blood specimen / Unknown Venipuncture / Unknown 08/14/2024 4:50 AM EST 08/14/2024 4:55 AM EST Leila Saez MD LAB BLOOD ORDERABLES Fin al Result Performing Organization Address [facility]/[employer] Co de Phone Number [facility] [address] [place] [address], [place] [phone] * Lipase (08/14/2024 4:50 AM EST) Pathologist [facility] Lipase 38 13 - 75 unit/L LAB CHEMISTRY METHOD 08/14/2024 5:27 AM EST [facility] Blood Venous blood specimen / Unknown Venipuncture / Unknown 08/14/2024 4:50 AM EST 08/14/2024 4:55 AM EST us Leila Saez MD LAB BLOOD ORDERABLES Fin al Result [facility] [address] [place] [address], [place] [phone] * (ABNORMAL) Comprehensive metabolic panel (08/14/2024 4:50 AM EST) Sodium 135 133 - 145 mmol/L LAB CHEMISTRY METHOD 08/14/2024 5:27 AM [facility] Potassium 3.3(L) 3.5 - 5.5 mmol/L LAB CHEMISTRY METHOD 08/14/2024 5:27 AM [facility] Chloride 106 96 - 110 mmol/L LAB CHEMISTRY METHOD 08/14/2024 5:27 AM [facility] CO2 23 21 - 32 mmol/L LAB CHEMISTRY METHOD 08/14/2024 5:27 AM [facility] Anion Gap 6 3 - 11 LAB CHEMISTRY METHOD 08/14/2024 5:27 AM [facility] Glucose 198(H) 70 - 100 mg/dL LAB CHEMISTRY METHOD 08/14/2024 5:27 AM [facility] BUN 19 5 - 25 mg/dL LAB CHEMISTRY METHOD 08/14/2024 5:27 AM [facility] Creatinine 1.15 0.70 - 1.30 mg/dL LAB CHEMISTRY METHOD 08/14/2024 5:27 AM [facility] eGFR 78 >=60 mL/min/1. 73m2 LAB CHEMISTRY METHOD 08/14/2024 5:27 AM [facility] Comment:Calculation based on the??Chronic Kidney Disease Epidemiology Collaboration (CKD-EPI) equation refit??without adjustment for race. BUN/Creatinine Ratio 16.5 LAB CHEMISTRY METHOD 08/14/2024 5:27 AM [facility] Calcium 9.0 8.5 - 10.5 mg/dL LAB CHEMISTRY METHOD 08/14/2024 5:27 AM [facility] AST (SGOT) 11 10 - 42 unit/L LAB CHEMISTRY METHOD 08/14/2024 5:27 AM [facility] ALT (SGPT) 32 10 - 60 unit/L LAB CHEMISTRY METHOD 08/14/2024 5:27 AM [facility] Alkaline Phosphatase 139(H) 42 - 121 unit/L LAB CHEMISTRY METHOD 08/14/2024 5:27 AM [facility] Total Protein 7.0 6.0 - 8.0 g/dL LAB CHEMISTRY METHOD 08/14/2024 5:27 AM [facility] Albumin 3.3 3.2 - 5.0 g/dL LAB CHEMISTRY METHOD 08/14/2024 5:27 AM [facility] Total Bilirubin 0.3 0.0 - 1.4 mg/dL LAB CHEMISTRY METHOD 08/14/2024 5:27 AM [facility] Blood Venous blood specimen / Unknown Venipuncture / Unknown 08/14/2024 4:50 AM EST 08/14/2024 4:55 AM EST us Leila Saez MD LAB BLOOD ORDERABLES Fin al Result [facility] [address] [place] [address], * ECG 12 lead (08/14/2024 4:40 AM EST) Ventricular Rate ECG 141 BPM GEMUSE Atrial Rate 166 BPM GEMUSE QRS Duration 88 ms GEMUSE Q-T Interval 292 ms GEMUSE QTc 447 ms GEMUSE R Volant 77 degrees GEMUSE T Volant -29 degrees GEMUSE ECG Interpretation Critical Test Result: High HR Atrial fibrillation with rapid ventricular response Nonspecific ST abnormality Abnormal QRS-T angle, consider primary T wave abnormality Abnormal ECG When compared with ECG of 22-FEB-2024 08:35, ST no longer depressed in Anterolateral leads Confirmed by NOEL ZAMORA ([id number]) on 08/15/2024 2:32:58 PM GEMUSE 08/14/2024 4:40 AM EST 08/15/2024 2:32 PM EST us Leila Saez MD ECG ORDERABLES Final Re sult GEMUSE * ECG-Annotated (08/14/2024) us Provider Onbase ECG ORDERABLES Final Result from Last 3 Months Additional Health Concerns Infection Onset Date Last Indicated Coronavirus 08/14/2024 08/14/2024 Insurance MEDICAID - [place] MEDICARE Care Teams Sales Office Administrator Relationship Specialty Start Date End Date [facility] [address] [place] [address] PCP - General 03/30/24
--- OUTSIDE RECORDS SUMMARY | 2024-10-05 12:46 | XMS_ITS | Encounter Summary ---
Author Organization [employer] Address [address] [facility] [address] [place] [address] Care Team Providers Care Perforator Typist Name Role Phone [facility] Primary Care Provider [phone] Reason for Visit * Reason Comments Med Refill Encounter Details Date Type Department Care Team ([facility] st Contact Info) Description 12/13/2022 Refill [facility] MEDICINE [address] [place], [place] [phone] [facility] [address] [place] [address] Eczema of right external ear Social History [...] documented as of this encounter Care Teams Perforator Typist Relationship Specialty Start Date End Date Meenu RUTH Menezes [address] [place] [address] PCP - General Family Medicine 03/11/22 documented as of this encounter
--- OUTSIDE RECORDS SUMMARY | 2024-10-05 12:46 | XMS_ITS | Encounter Summary ---
Author Organization [employer] Address [address] [facility] 7 [place] [address] Care Team Providers Care Search Engine Marketing Specialist Name Role Phone Riri Corrigan [facility] Primary Care Provider [phone] Reason for Referral * Imaging (Routine) - Closed Specialty Diagnoses / Procedures Referred By Stewart saeed Referred To Contact Radiology Diagnoses Liver enzyme elevation Procedures US Abdomen Complete Pa Rodriguez MD [address] [place] [address] Phone: tel: fax: Diagnostic Imaging, [facility] [address] [place] [address] Phone: tel: fax: Referral ID Status Reason Start Date Expiration Date Visits Re quested Visits Authorized [id number] Closed 06/11/2023 06/10/2024 1 1 Encounter Details Date Type Department Care Team (Late st Contact Info) Description 06/11/2023 Orders Only [facility] [address] [place] [address] Pa Rodriguez MD [address] [place] [phone] Liver enzyme elevation (Primary Dx) Social History [...] documented as of this encounter Care Teams Search Engine Marketing Specialist Relationship Specialty Start Date End Date Riri Corrigan FNP [address] [place] [address] PCP - General Family Medicine 03/11/22 documented as of this encounter
--- OUTSIDE RECORDS SUMMARY | 2024-10-05 12:46 | XMS_ITS | Encounter Summary ---
Author Organization [employer] Address [address] [facility] 7 [place] [address] Care Team Providers Care Technology Coach Name Role Phone [facility] Primary Care Provider [phone] Reason for Visit * Reason Onset Date Comments Appointment Request 09/22/2023 Encounter Details Date Type Department Care Team ([facility] st Contact Info) Description 09/22/2023 Telephone [facility] MEDICINE [address] [place], [place] [phone] [facility] [address] [place] [address] Appointment Request Social History Tobacco Use Types [...] documented as of this encounter Care Teams Technology Coach Relationship Specialty Start Date End Date Riri Corrigan FNP [address] [place] [address] PCP - General Family Medicine 03/11/22 documented as of this encounter
--- OUTSIDE RECORDS SUMMARY | 2024-10-05 12:46 | XMS_ITS | Encounter Summary ---
Author Organization [employer] Address [address] [place] [address] [address] [place] [address] Care Team Providers Care Process Control Programmer Name Role Phone Riri Corrigan Primary Care Provider [phone] Encounter Details Date Type Department Care Team [...] on filedocumented in this encounter Care Teams Process Control Programmer Relationship Specialty Start Date End Date Riri Corrigan FNP [address] [place] [address] PCP - General Family Medicine 03/11/22 documented as of this encounter
--- OUTSIDE RECORDS SUMMARY | 2024-10-05 12:46 | XMS_ITS | Encounter Summary ---
Author Organization [employer] Address [address] [facility] 7 [place] [address] Care Team Providers Care Tufter Name Role Phone Riri Corrigan Primary Care Provider [phone] Encounter Details Date Type Department Care Team (Late st Contact Info) Description 11/13/2022 Orders Only [facility] MEDICINE [address] [place], [place] [phone] Chika Merlos LPN Social History Tobacco Use [...] documented as of this encounter Care Teams Tufter Relationship Specialty Start Date End Date Riri Corrigan FNP [address] [place], [place] [phone] PCP - General Family Medicine 03/11/22 documented as of this encounter
--- OUTSIDE RECORDS SUMMARY | 2024-10-05 12:46 | XMS_ITS | Encounter Summary ---
Author Organization [employer] Address [address] [facility] [address] [place] [address] Care Team Providers Care Groover Runner Name Role Phone Riri Corrigan [facility] Primary Care Provider [phone] Encounter Details Date Type Department Care Team ([facility] st Contact Info) Description 09/24/2024 Population Health Risk Score [facility] (C[facility]) Department [address] [address] Provider, Population Health Generic Social History Tobacco Use Types Packs/Day Years [...] documented as of this encounter Care Teams Groover Runner Relationship Specialty Start Date End Date Riri Corrigan FNP [address] [place] [address] PCP - General Family Medicine 03/11/22 documented as of this encounter
--- OUTSIDE RECORDS SUMMARY | 2024-10-05 12:46 | XMS_ITS | Encounter Summary ---
Author Organization [employer] Address [address] [facility] 7 [place] [address] Care Team Providers Care Captain Of Guards Name Role Phone [facility] Primary Care Provider [phone] Reason for Visit * Reason Onset Date Comments Reschedule 04/28/2023 Encounter Details Date Type Department Care Team ([facility] st Contact Info) Description 04/28/2023 Telephone [facility] CH[facility] MED & PEDS [address] [place], [place] [phone] [facility] [address] [place] [address] Reschedule Social History Tobacco Use Types Packs/Day [...] documented as of this encounter Care Teams Captain Of Guards Relationship Specialty Start Date End Date Riri Corrigan FNP [address] [place] [address] PCP - General Family Medicine 03/11/22 documented as of this encounter
== END 2024-10-05 11:46 | disposition home or self-care (01) ==
LOC: HO.HPS 10:39
PROVIDERS: PCP Registered Nurse; Visit Provider Internal Medicine Pulmonary Disease
DX: J45.909 Unspecified asthma, uncomplicated (principal); G47.33 Obstructive sleep apnea (adult) (pediatric)
CPT/HCPCS: 99214

== ENCOUNTER → 2024-10-05 10:38 | Outpatient (BNVA) | payer MEDICARE, MEDICAID, SELFPAY | PROVIDERS: PCP Registered Nurse; Visit Provider Internal Medicine Pulmonary Disease | DX: G47.33 Obstructive sleep apnea (adult) (pediatric) (principal); J45.909 Unspecified asthma, uncomplicated; F17.210 Nicotine dependence, cigarettes, uncomplicated; Z99.89 Dependence on other enabling machines and devices | CPT/HCPCS: 99212 ==

== ENCOUNTER 2024-10-12 14:35 | Outpatient (AMB) | payer MEDICARE, MEDICAID, SELFPAY ==
--- NOTE | 2024-10-12 14:39 | MHC.OFFVIS ---
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 Allergies No Known Allergies Allergy (Verified 10/05/24 10:57) Medication List - Last Reconciled 10/12/24 by Alfredo Herring MD acetaminophen 1,000 mg PO Q6H PRN albuterol sulfate 2.5 mg inhalation Q4-6H PRN albuterol sulfate 90 mcg/actuation (ProAir HFA) 2 puffs inhalation QID PRN alcohol swabs (Alcohol Prep Pads) 0 pad topical apixaban (Eliquis) 5 mg PO BID blood sugar diagnostic (FreeStyle Lite Strips) As directed cholecalciferol (vitamin D3) 50 mcg PO DAILY cyclobenzaprine 10 mg PO TID PRN flecainide 150 mg (1.5 x 100 mg) PO Q12H 90 days guaifenesin ER (Mucinex) 600 mg PO Q12H PRN ipratropium-albuterol 0.5 mg-3 mg(2.5 mg base)/3 mL 3 mL inhalation Q4H PRN lancets (TRUEplus Lancets) As directed metoprolol tartrate 25 mg PO BID rosuvastatin 20 mg PO QAM terbinafine HCl 250 mg PO DAILY HPI Comments Details: Michael comes for follow-up for atrial fibrillation. Two days ago he woke up from sleep and had rapid heart rate and the his EKG device suggested atrial fibrillation. Ended up going to [facility] very was treated. Was given IV medication and says subsequently his blood pressure dropped and had to be kept therefore few hours and subsequently converted to sinus rhythm and was sent home. Patient said yesterday had another episode which lasted for about 20-30 minutes and then symptoms improved on its own. He has been taking all his medications. He has history of sleep apnea but could not tolerate a CPAP machine. Currently taking flecainide,Eliquis as well as metoprolol therapy. Patient denies any other systemic symptoms. Denies any exertional chest pain or shortness of breath. No orthopnea, PND, leg edema. [facility]LY [facility], [facility] Medical History History of high cholesterol Atrial fibrillation with rapid ventricular response Paroxysmal atrial fibrillation Multiple sclerosis Diabetes Asthma Family History Mother Diabetes Asthma Maternal Grandmother Diabetes Brother Diabetes Other No family history of cardiac disease Social History Alcohol intake: never Patient Tobacco Use Status: Current everyday Tobacco user Tobacco use type: Cigarette Cigarette Packs Per Day: 2 Years Smoked: started at 15, 2ppd Substance Use Type: Marijuana service: No Current occupational status: disabled Review of Systems Const Denies chills, Denies fatigue, Denies fever(s), Denies frequent falls, Denies weakness, Denies weight gain and Denies weight loss ENT Denies dizziness Card Denies chest pain, Denies leg edema, Denies lightheadedness, Denies palpitations, Denies dyspnea, Denies dyspnea on exertion, Denies orthopnea and Denies other (loss of consciousness) Resp Denies cough, Denies dyspnea and Denies dyspnea on exertion GI Denies hematochezia and Denies change in stool character Musc Denies abnormal gait, Denies muscle weakness, Denies numbness, Denies radiating pain into limb and Denies tingling Neuro Denies abnormal gait, Denies dizziness, Denies frequent falls, Denies numbness, Denies tingling and Denies weakness Endo Denies fatigue and Denies palpitations Physical Exam Vital Signs: Last Vital Signs Pulse 76 10/12/24 14:40 BP 120/76 10/12/24 14:40 BMI result Body Mass Index 29.9 Last Vital Signs Temp 97.0 F 04/02/21 00:19 Pulse 59 04/02/21 08:05 Resp 16 04/02/21 07:21 BP 92/54 L 04/02/21 08:05 Pulse Ox 95 04/02/21 08:05 Body Mass Index 30.2 Const General: cooperative, comfortable, no acute distress, alert and awake Nutritional Appearance: overweight Orientation/consciousness: patient oriented x3 Limitations: no limitations HEENT Head: Yes normocephalic and Yes atraumatic Neck Neck: Yes trachea midline, Yes supple and Yes no JVD Resp Effort & Inspection: normal respiratory effort Auscultation: clear to auscultation bilaterally Cardio Jugular venous distension: no JVD Palpation: normal PMI Rate: regular rate Rhythm: regular rhythm Heart sounds: S1 normal heart sound present, S2 normal heart sound present, no click, no gallops, no murmurs and no rubs GI Auscultation: normal bowel sounds Skin General skin exam: no rashes or lesions noted Neuro General: patient oriented x3 and no focal motor deficits Extrem General: Yes no clubbing, cyanosis or edema Psych Appearance: grossly normal Office Procedures EKG Details: EKG shows normal sinus rhythm with normal EKG 66875-[id number], Complete Assessment & Plan Assessment & Plan (1) Paroxysmal atrial fibrillation: Code(s): I48.0 - Paroxysmal atrial fibrillation Category: Medical Plan: Recurrent episodes of symptomatic paroxysmal atrial fibrillation requiring hospitalization and ED presentation. He is currently on max dose of flecainide and had recurrent episode without any obvious triggers. He has been taking his medications regularly including Eliquis. Will refer him to electrophysiology for ablation. He has been referred in the past although had a no-show appointment due to family emergency. Patient will be switch meanwhile from flecainide to Multaq therapy. Mechanism of action was discussed. Advise EKG in 7-10 days after initiating Multaq. Continue full oral anticoagulation with Eliquis at this point time. Continue aggressive blood pressure control which is currently well optimized. Will follow up in the clinic in 3 months time, sooner p.r.n.. Thank you for allowing me to partake in his care Medications: New dronedarone (Multaq) must administer with a meal/food 400 mg PO BID 60 tabs 5RF Discontinued flecainide Discontinued Reason: Doctor's Order 150 mg (1.5 x 100 mg) PO Q12H 90 days 270 tabs 2RF I48.0 - Paroxysmal atrial fibrillation Coding Level of Care Code Est Pt Level 4 (41031) Complex EM visit Add On G2211 Diagnoses Paroxysmal atrial fibrillation I48.0 CPT Codes EKG - CPT: 56844-[id number], Complete ([id number])
[2024-10-12 14:40] VITALS: BP 120/76; PULSE 76; BMI 29.9
--- OUTSIDE RECORDS SUMMARY | 2024-10-12 17:27 | XMS_ITS | Encounter Summary ---
Author Organization [employer] Address [address] [facility] [address] [place] [address] Care Team Providers Care Outsole Compressor Name Role Phone [facility] Primary Care Provider [phone] Reason for Visit * Reason Onset Date Comments Triage 10/15/2022 Encounter Details Date Type Department Care Team ([facility] st Contact Info) Description 10/15/2022 Telephone [facility] MED[facility]INE [address] [place], [place] [phone] [facility] [address] [place] [address] Triage Social History Tobacco Use Types Packs/Day [...] accepted this outcome Please contact pt at [phone] documented in this encounter Plan of Treatment Not on file documented as of this encounter Visit Diagnoses Not on filedocumented in this encounter Additional Health Concerns Assessment Noted Time PHQ-9 Depression Total Score: 0 08/06/19 23 2:09 PM EST documented as of this encounter Care Teams Outsole Compressor Relationship Specialty Start Date End Date Riri Corrigan FNP [address] [place] [id number] PCP - General Family Medicine 03/11/22 documented as of this encounter
--- OUTSIDE RECORDS SUMMARY | 2024-10-12 17:27 | XMS_ITS | Encounter Summary ---
Author Organization [employer] Address [address] [facility] [address] [place] [address] Care Team Providers Care Forensic Social Worker Name Role Phone Riri Corrigan [facility] Primary Care Provider [phone] Reason for Visit * Reason Comments Med Refill Encounter Details Date Type Department Care Team ([facility] st Contact Info) Description 11/13/2022 Refill [facility] MEDICINE [address] [place], [place] [phone] Jamar Jesus AGNP Cellulitis of right thumb [...] documented as of this encounter Care Teams Forensic Social Worker Relationship Specialty Start Date End Date Riri Corrigan FNP [address] [place] [address] PCP - General Family Medicine 03/11/22 documented as of this encounter
--- OUTSIDE RECORDS SUMMARY | 2024-10-12 17:27 | XMS_ITS | Encounter Summary ---
Author Organization [employer] Address [address] [facility] [address] [place] [address] Care Team Providers Care Recruiting Administrator Name Role Phone Riri Corrigan Primary Care Provider [phone] Encounter Details Date Type Department Care Team (Late st Contact Info) Description 11/13/2022 Orders Only [facility] MEDICINE [address] [place], [place] [phone] Chika Merlos LPN Social History Tobacco Use [...] documented as of this encounter Care Teams Recruiting Administrator Relationship Specialty Start Date End Date Riri Corrigan FNP [address] [place], [place] [phone] PCP - General Family Medicine 03/11/22 documented as of this encounter
--- OUTSIDE RECORDS SUMMARY | 2024-10-12 17:27 | XMS_ITS | Encounter Summary ---
Author Organization [employer] Address [address] [facility] [address] [place] [address] Care Team Providers Care Microbiology Analyst Name Role Phone Riri Corrigan [facility] Primary Care Provider [phone] Reason for Visit * Reason Comments Med Refill Encounter Details Date Type Department Care Team ([facility] st Contact Info) Description 02/18/2024 Refill [facility] MEDICINE [address] [place], [place] [phone] Vivien Maxwell MD [address] [place] [address] Social History Tobacco Use Types Packs/Day Years [...] documented as of this encounter Care Teams Microbiology Analyst Relationship Specialty Start Date End Date Riri Corrigan FNP [address] [place] [id number] PCP - General Family Medicine 03/11/22 documented as of this encounter
--- OUTSIDE RECORDS SUMMARY | 2024-10-12 17:27 | XMS_ITS | Encounter Summary ---
Author Organization [employer] Address [address] [facility] [address] [place] [address] Care Team Providers Care Generation Mechanic Helper Name Role Phone [facility] Primary Care Provider [phone] Reason for Visit * Reason Comments Med Refill Encounter Details Date Type Department Care Team ([facility] st Contact Info) Description 12/13/2022 Refill [facility] MEDICINE [address] [place], [place] [phone] [facility] [address] [place] [address] Eczema of right external ear Social History [...] documented as of this encounter Care Teams Generation Mechanic Helper Relationship Specialty Start Date End Date Meenu RUTH Menezes [address] [place] [phone] PCP - General Family Medicine 03/11/22 documented as of this encounter
--- OUTSIDE RECORDS SUMMARY | 2024-10-12 17:28 | XMS_ITS | Clinical Summary ---
Author Organization [facility] Address [address] [place] [address] Phone Care Team Providers Care Thermostat Repairer Name Role Phone [place] Primary Care Provider [phone] Allergies No known active allergies Medications polyethylene [...] Encounters Date Type Department Care Team Description 10/10/2024 4:18 AM EDT - 10/10/2024 8:[address] [facility] [address] [place] [id number] Leila Saez MD Paroxysmal atrial fibrillation with RVR (CMS/HCC) (Primary Dx) Discharge Disposition: Home or Self Care 08/14/2024 4:56 AM EST - 08/14/2024 9:[address] [facility] [address] [place] [id number] Leila Saez MD Atrial fibrillation, unspecified type (CMS/HCC) (Primary Dx); Coronavirus infection Discharge Disposition: Home or Self Care 07/23/2024 Telephone Gastroenterology - [place] [address] [facility] [address] [facility] [address] [place] [id number] Arianna Marr LPN Anticoagulation (Colonoscopy on ) [...] Sign Reading Time Taken Comments Blood Pressure 98/56 10/10/2024 8:25 AM EDT Pulse 71 10/10/2024 8:25 AM EDT Temperature 37.1 ??C (98.7 ??F) 10/10/2024 8:25 AM ED T Respiratory Rate 20 10/10/2024 8:25 AM EDT Oxygen Saturation 95% 10/10/2024 8:25 AM EDT Inhaled Oxygen Concentration - - Weight 93 kg (205 lb) 10/10/2024 4:18 AM EDT Height 175.3 cm (5' 9 ) 10/10/2024 4:18 AM EDT Body Mass Index 30.27 10/10/2024 4:18 AM EDT Plan of Treatment Health Maintenance Due Date Last Done Comments Diabetes: Annual Foot Exam 1985 Diabetes: Annual Retina Eye Exam 1985 Colorectal Cancer Screening: Colonoscopy 02/04/2024 Hepatitis C Screening 02/04/2024 Medicare Annual Wellness Visit 02/04/2024 Social Influencers of Health Screening 02/04/2024 Hepatitis B Vaccines (3 of 3 - 19+ 3-dose series) 04/28/2024 03/03/2024, 05/21/2021 Diabetes: Annual Urine Albumin-Creatinine Ratio (uACR) 08/14/2024 Diabetes: Blood Sugar Control Test (HGBA1C) 02/15/2025 08/18/2024, 04/20/2024 Depression Screening 03/03/2025 03/03/2024 Diabetes: Annual GFR (Glomerular Filtration Rate) 10/10/2025 10/10/2024, 08/18/2024, 08/14/2024 Cholesterol Screening (Lipid Panel) 08/18/2029 08/18/2024, 05/21/2024 DTaP,Tdap,and Td Vaccines (4 - Td or Tdap) 08/18/2034 08/18/2024, 05/27/2014, 01/21/2007 HIV Screening Completed 04/09/2021 Pneumococcal Vaccine: Pediatrics [...] Procedure Name Priority Date/Time Associated Diagnosis Comments ECG ANNOTATED 10/11/2024 ECG 12-LEAD STAT 10/10/2024 8:19 AM EDT TROPONIN I HIGH SENSITIVITY STAT 10/10/2024 5:56 AM EDT ECG 12-LEAD STAT 10/10/2024 5:50 AM EDT XR CHEST 2 VIEWS STAT 10/10/2024 5:27 AM EDT CBC WITH AUTO DIFFERENTIAL STAT 10/10/2024 4:46 AM EDT B-TYPE NATRIURETIC PEPTIDE STAT 10/10/2024 4:46 AM EDT MAGNESIUM STAT 10/10/2024 4:46 AM EDT LIPASE STAT 10/10/2024 4:46 AM EDT COMPREHENSIVE METABOLIC PANEL STAT 10/10/2024 4:46 AM EDT CBC AND DIFFERENTIAL STAT 10/10/2024 4:46 AM EDT TROPONIN I HIGH SENSITIVITY STAT 10/10/2024 4:46 AM EDT ECG 12-LEAD STAT 10/10/2024 4:13 AM EDT XR CHEST 1 VIEW STAT 08/14/2024 7:49 [...] 08/14/2024 from Last 3 Months Results * ECG-Annotated (10/11/2024) Only the most recent of2 resultswithin the time period is included. us Provider Onbase MD ECG ORDERABLES Final Result * ECG 12 lead (10/10/2024 8:19 AM EDT) Only the most recent of4 resultswithin the time period is included. Ventricular Rate ECG 69 BPM GEMUSE Atrial Rate 69 BPM GEMUSE P-R Interval 170 ms GEMUSE QRS Duration 78 ms GEMUSE Q-T Interval 376 ms GEMUSE QTc 402 ms GEMUSE P Wave [place] 61 degrees GEMUSE R [place] 50 degrees GEMUSE T [place] 25 degrees GEMUSE ECG Interpretation Normal sinus rhythm Normal ECG When compared with ECG of 10-OCT-2024 05:50, Sinus rhythm has replaced Atrial fibrillation Vent. rate has decreased BY ??87 BPM Confirmed by Theo PERALTA YUFENG ([id number]) on 10/10/2024 10:36:39 AM GEMUSE 10/10/2024 8:19 AM EDT 10/10/2024 10:36 AM EDT Leila Saez MD ECG ORDERABLES Final Re sult Performing Organization Address [facility] Co de Phone Number GEMUSE * Troponin I high sensitivity (10/10/2024 5:56 AM EDT) Only the most recent of4 resultswithin the time period is included. Pathologist [facility] [place] High Sensitivity Troponin I 30 <=79 ng/L LAB CHEMISTRY METHOD 10/10/2024 6:50 AM EDT [facility] Blood Venous blood specimen / Unknown Venipuncture / Unknown 10/10/2024 5:56 AM EDT 10/10/2024 6:19 AM EDT Narrative [facility] - 10/10/2024 6:50 AM EDT High levels of biotin in samples may falsely decrease hsTroponin values. ??Use caution when interpreting hsTroponin results in patients taking biotin who exhibit renal impairment (eGFR <60) or in patients taking more than 20 mg/day of biotin. Leila Saez MD LAB BLOOD ORDERABLES Fin al Result Performing Organization Address [facility]/ZIP Co de Phone Number [facility] [address] [place] [address], [place] [phone] * XR Chest 2 Views (10/10/2024 5:27 AM EDT) Anatomical Region Laterality Modality Body Radiographic Elysia ging 10/10/2024 9:52 AM EDT Impressions 10/10/2024 9:55 AM EDT No acute pulmonary disease. No change since 08/14/2024. Code 07994 -------- FINAL REPORT -------- Dictated By: Demar Mchugh Dictated Date: 10/10/2024 09:52 ET Assigned Physician: Demar Mchugh Reviewed and Electronically Signed By: Demar Mchugh Signed Date: 10/10/2024 09:55 ET Workstation ID: [id number] Transcribed By: Self Edit Transcribed Date: 10/10/2024 09:52 ET Narrative 10/10/2024 9:55 AM EDT HISTORY: The patient is a 49-year-old male with chest pain. FINDINGS: PA and lateral radiographs of the chest demonstrate mild levoscoliosis of the thoracic spine as also seen on the prior study performed 08/14/2024. The cardiac and mediastinal contours are within normal limits. The lungs and costophrenic angles are clear. Procedure Note Demar Mchugh MD - 10/10/2024 HISTORY: The patient is a 49-year-old male with chest pain. FINDINGS: PA and lateral radiographs of the chest demonstrate mildlevoscoliosis of the thoracic spine as also seen on the prior studyperformed 08/14/2024. The cardiac and mediastinal contours are within normallimits. The lungs and costophrenic angles are clear. IMPRESSION: No acute pulmonary disease. No change since 08/14/2024. Code 62617 -------- FINAL REPORT -------- Dictated By: Demar Mchugh Dictated Date: 10/10/2024 09:52 ET Assigned Physician: Demar Mchugh Reviewed and Electronically Signed By: Demar Mchugh Signed Date: 10/10/2024 09:55 ET Workstation ID: [id number] Transcribed By: Self Edit Transcribed Date: 10/10/2024 09:52 ET us Leila Saez MD IMG XR PROCEDURES Final Result * (ABNORMAL) CBC auto differential (10/10/2024 4:46 AM EDT) Only the most recent of2 resultswithin the time period is included. [facility] Signature WBC 12.4(H) 4.8 - 10.8 K/mcL LAB HEMETOLOGY METHOD 10/10/2024 5:23 AM [facility] RBC 5.20 4.50 - 5.50 M/mcL LAB HEMETOLOGY METHOD 10/10/2024 5:23 AM [facility] Hemoglobin 14.4 13.5 - 17.5 g/dL LAB HEMETOLOGY METHOD 10/10/2024 5:23 AM [facility] Hematocrit 43.0 42.0 - 54.0 % LAB HEMETOLOGY METHOD 10/10/2024 5:23 AM [facility] MCV 83.3 79.0 - 98.0 FL LAB HEMETOLOGY METHOD 10/10/2024 5:23 AM [facility] MCH 27.9 27.0 - 32.0 pcg LAB HEMETOLOGY METHOD 10/10/2024 5:23 AM [facility] MCHC 33.5 32.0 - 37.0 g/dL LAB HEMETOLOGY METHOD 10/10/2024 5:23 AM [facility] RDW 13.9 11.0 - 15.0 % LAB HEMETOLOGY METHOD 10/10/2024 5:23 AM [facility] Platelets 272 130 - 400 K/mcL LAB HEMETOLOGY METHOD 10/10/2024 5:23 AM [facility] MPV 10.5 7.0 - 11.0 FL LAB HEMETOLOGY METHOD 10/10/2024 5:23 AM [facility] NRBC 0.0 <1.0 % LAB HEMETOLOGY METHOD 10/10/2024 5:23 AM [facility] NRBC Absolute 0.00 <0.10 K/mcL LAB HEMETOLOGY METHOD 10/10/2024 5:23 AM [facility] Neutrophils Relative 78.5 % LAB HEMETOLOGY METHOD 10/10/2024 5:23 AM [facility] Lymphocytes Relative 9.2 % LAB HEMETOLOGY METHOD 10/10/2024 5:23 AM [facility] Monocytes Relative 10.6 % LAB HEMETOLOGY METHOD 10/10/2024 5:23 AM [facility] Eosinophils Relative 0.8 % LAB HEMETOLOGY METHOD 10/10/2024 5:23 AM [facility] Basophils Relative 0.6 % LAB HEMETOLOGY METHOD 10/10/2024 5:23 AM [facility] Immature Granulocytes Relative 0.3 % LAB HEMETOLOGY METHOD 10/10/2024 5:23 AM [facility] Neutrophils Absolute 9.68(H) 1.50 - 7.00 K/mcL LAB HEMETOLOGY METHOD 10/10/2024 5:23 AM [facility] Lymphocytes Absolute 1.14 1.00 - 5.00 K/mcL LAB HEMETOLOGY METHOD 10/10/2024 5:23 AM [facility] Monocytes Absolute 1.31(H) 0.20 - 1.00 K/mcL LAB HEMETOLOGY METHOD 10/10/2024 5:23 AM [facility] Eosinophils Absolute 0.10 0.00 - 0.50 K/mcL LAB HEMETOLOGY METHOD 10/10/2024 5:23 AM [facility] Basophils Absolute 0.08 0.00 - 0.20 K/mcL LAB HEMETOLOGY METHOD 10/10/2024 5:23 AM [facility] Immature Granulocytes Absolute 0.04(H) 0.00 - 0.03 K/mcL LAB HEMETOLOGY METHOD 10/10/2024 5:23 AM EDT [facility] Blood Venous blood specimen / Unknown Venipuncture / Unknown 10/10/2024 4:46 AM EDT 10/10/2024 5:12 AM EDT Leila Saez MD LAB BLOOD ORDERABLES Fin al Result Performing Organization Address City/[facility]/ZIP Co de Phone Number [facility] [address] [place] [address], [place] [phone] * B-type natriuretic peptide (10/10/2024 4:46 AM EDT) Only the most recent of2 resultswithin the time period is included. BNP 52 <=100 pcg/mL LAB CHEMISTRY METHOD 10/10/2024 6:23 AM EDT [facility] Blood Venous blood specimen / Unknown Venipuncture / Unknown 10/10/2024 4:46 AM EDT 10/10/2024 5:12 AM EDT Leila Saez MD LAB BLOOD ORDERABLES Fin al Result Performing Organization Address [facility] Co de Phone Number [facility] [address] [place] [address], [place] [phone] * Magnesium (10/10/2024 4:46 AM EDT) Only the most recent of2 resultswithin the time period is included. Magnesium 1.9 1.9 - 2.6 mg/dL LAB CHEMISTRY METHOD 10/10/2024 5:56 AM EDT [facility] Blood Venous blood specimen / Unknown Venipuncture / Unknown 10/10/2024 4:46 AM EDT 10/10/2024 5:12 AM EDT Leila Saez MD LAB BLOOD ORDERABLES Fin al Result Performing Organization Address City/[facility]/ZIP Co de Phone Number [facility] [address] [place] [address], [place] [phone] * Lipase (10/10/2024 4:46 AM EDT) Only the most recent of2 resultswithin the time period is included. Lipase 23 13 - 75 unit/L LAB CHEMISTRY METHOD 10/10/2024 5:56 AM EDT [facility] Blood Venous blood specimen / Unknown Venipuncture / Unknown 10/10/2024 4:46 AM EDT 10/10/2024 5:12 AM EDT Leila Saez MD LAB BLOOD ORDERABLES Fin al Result [facility] [address] [place] [address], [place] [phone] * (ABNORMAL) Comprehensive metabolic panel (10/10/2024 4:46 AM EDT) Only the most recent of2 resultswithin the time period is included. Pathologist [facility] [place] Sodium 134 133 - 145 mmol/L LAB CHEMISTRY METHOD 10/10/2024 5:58 AM [facility] Potassium 3.9 3.5 - 5.5 mmol/L LAB CHEMISTRY METHOD 10/10/2024 5:58 AM [facility] Chloride 103 96 - 110 mmol/L LAB CHEMISTRY METHOD 10/10/2024 5:58 AM T [facility] CO2 22 21 - 32 mmol/L LAB CHEMISTRY METHOD 10/10/2024 5:58 AM [facility] Anion Gap 9 3 - 11 LAB CHEMISTRY METHOD 10/10/2024 5:58 AM [facility] Glucose 133(H) 70 - 100 mg/dL LAB CHEMISTRY METHOD 10/10/2024 5:58 AM [facility] BUN 23 5 - 25 mg/dL LAB CHEMISTRY METHOD 10/10/2024 5:58 AM [facility] Creatinine 1.43(H) 0.70 - 1.30 mg/dL LAB CHEMISTRY METHOD 10/10/2024 5:58 AM [facility] eGFR 60 >=60 mL/min/1. 73m2 LAB CHEMISTRY METHOD 10/10/2024 5:58 AM [facility] Comment:Calculation based on the??Chronic Kidney Disease Epidemiology Collaboration (CKD-EPI) equation refit??without adjustment for race. BUN/Creatinine Ratio 16.1 LAB CHEMISTRY METHOD 10/10/2024 5:58 AM [facility] Calcium 9.7 8.5 - 10.5 mg/dL LAB CHEMISTRY METHOD 10/10/2024 5:58 AM [facility] AST (SGOT) 19 10 - 42 unit/L LAB CHEMISTRY METHOD 10/10/2024 5:58 AM [facility] ALT (SGPT) 35 10 - 60 unit/L LAB CHEMISTRY METHOD 10/10/2024 5:58 AM [facility] Alkaline Phosphatase 96 42 - 121 unit/L LAB CHEMISTRY METHOD 10/10/2024 5:58 AM [facility] Total Protein 7.6 6.0 - 8.0 g/dL LAB CHEMISTRY METHOD 10/10/2024 5:58 AM [facility] Albumin 3.9 3.2 - 5.0 g/dL LAB CHEMISTRY METHOD 10/10/2024 5:58 AM [facility] Total Bilirubin 1.0 0.0 - 1.4 mg/dL LAB CHEMISTRY METHOD 10/10/2024 5:58 AM [facility] Blood Venous blood specimen / Unknown Venipuncture / Unknown 10/10/2024 4:46 AM EDT 10/10/2024 5:12 AM EDT us Leila Saez MD LAB BLOOD ORDERABLES [facility] al Result [facility] [address] [place] [address], [place] [phone] * XR Chest 1 View (08/14/2024 7:49 AM EST) Anatomical Region Laterality Modality Body Radiographic Elysia ging 08/14/2024 8:14 AM EST Impressions 08/14/2024 8:32 AM EST No acute findings. -------- FINAL REPORT -------- Dictated By: Lc Fox Dictated Date: 08/14/2024 08:14 ET Assigned Physician: Lc Fox Reviewed and Electronically Signed By: Lc Fox Signed Date: 08/14/2024 08:32 ET Workstation ID: [id number] Transcribed By: Self Edit Transcribed Date: 08/14/2024 [...] Signed Date: 08/14/2024 08:32 ET Workstation ID: [id number] Transcribed By: Self Edit Transcribed Date: 08/14/2024 08:14 ET Leila Saez MD IMG XR PROCEDURES Final Result * (ABNORMAL) Respiratory virus panel molecular study (08/14/2024 6:19 AM EST) Adenovirus Detection by PCR Not Detected Not Detected LAB MICROBIOLOGY METHOD 08/14/2024 7:46 AM [facility] Influenza A PCR Not Detected Not Detected LAB MICROBIOLOGY METHOD 08/14/2024 7:46 AM [facility] Influenza B PCR Not Detected Not Detected LAB MICROBIOLOGY METHOD 08/14/2024 7:46 AM [facility] Coronavirus 229E Not Detected Not Detected LAB MICROBIOLOGY METHOD 08/14/2024 7:46 AM [facility] Coronavirus HKU1 Not Detected Not Detected LAB MICROBIOLOGY METHOD 08/14/2024 7:46 AM [facility] Coronavirus OC43 Detected(A ) Not Detected LAB MICROBIOLOGY METHOD 08/14/2024 7:46 AM [facility] Coronavirus NL63 Not Detected Not Detected LAB MICROBIOLOGY METHOD 08/14/2024 7:46 AM [facility] Parainfluenza Virus 1 Not Detected Not Detected LAB MICROBIOLOGY METHOD 08/14/2024 7:46 AM [facility] Parainfluenza Virus 2 Not Detected Not Detected LAB MICROBIOLOGY METHOD 08/14/2024 7:46 AM [facility] Parainfluenza Virus 3 Not Detected Not Detected LAB MICROBIOLOGY METHOD 08/14/2024 7:46 AM [facility] Parainfluenza Virus 4 Not Detected Not Detected LAB MICROBIOLOGY METHOD 08/14/2024 7:46 AM [facility] RSV PCR Not Detected Not Detected LAB MICROBIOLOGY METHOD 08/14/2024 7:46 AM [facility] Human Metapneumovirus A and B Not Detected Not Detected LAB MICROBIOLOGY METHOD 08/14/2024 7:46 AM [facility] Rhinovirus/Entero virus Not Detected Not Detected LAB MICROBIOLOGY METHOD 08/14/2024 7:46 AM EST [facility] Bordetella pertussis Not Detected Not Detected LAB MICROBIOLOGY METHOD 08/14/2024 7:46 AM EST [facility] Bordetella parapertussis Not Detected Not Detected LAB MICROBIOLOGY METHOD 08/14/2024 7:46 AM EST [facility] Mycoplasma pneumo by PCR Not Detected Not Detected LAB MICROBIOLOGY METHOD 08/14/2024 7:46 AM [facility] Chlamydia pneumoniae Not Detected Not Detected LAB MICROBIOLOGY METHOD 08/14/2024 7:46 AM [facility] SARS COV-2 Not Detected Not Detected LAB MICROBIOLOGY METHOD 08/14/2024 7:46 AM [facility] Swab Both anterior nares / Unknown Non-blood Collection / Unknown 08/14/2024 6:19 AM EST 08/14/2024 6:41 AM EST [facility] - 08/14/2024 7:46 AM EST Testing was performed using the Ed[employer]zzle Respiratory Pathogen PCR Assay. All results must [...] that are below the limit of detection. us Leila Saez MD LAB MICROBIOLOGY - [facility] AL ORDERABLES Final Result [facility] [address] [place] [address], * APTT (08/14/2024 4:50 AM EST) aPTT 37.6 24.1 - 39.3 sec LAB COAGULATION METHOD 08/14/2024 5:10 AM EST [facility] Blood Venous blood specimen / Unknown Venipuncture / Unknown 08/14/2024 4:50 AM EST 08/14/2024 4:55 AM EST Leila Saez MD LAB BLOOD ORDERABLES Fin al Result Performing Organization Address City/[facility]/ZIP Co de Phone Number [facility] [address] [place] [address], [place] [phone] * Protime-INR (08/14/2024 4:50 AM EST) Protime 13.4 10.6 - 13.9 sec LAB COAGULATION METHOD 08/14/2024 5:10 AM EST [facility] INR 1.1 LAB COAGULATION METHOD 08/14/2024 5:10 AM EST [facility] Blood Venous blood specimen / Unknown Venipuncture / Unknown 08/14/2024 4:50 AM EST 08/14/2024 4:55 AM EST Leila Saez MD LAB BLOOD ORDERABLES Fin al Result Performing Organization Address City/[facility]/ZIP Co de Phone Number [facility] [address] [place] [address], [place] [phone] from Last 3 Months Additional Health Concerns Infection Onset Date Last Indicated Coronavirus 08/14/2024 08/14/2024 Insurance MEDICAID - [place] MEDICARE Care Teams Thermostat Repairer Relationship Specialty Start Date End Date [place] [address] [place] [id number] PCP - General 03/30/24
--- OUTSIDE RECORDS SUMMARY | 2024-10-12 17:28 | XMS_ITS | Encounter Summary ---
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 Encounter Details Date Type Department Care Team (Late st Contact Info) Description 10/10/2024 4:18 AM EDT - 10/10/2024 8:52 AM EDT Emergency [facility] Emergency [address] [place] [id number] Leila Saez MD [address] [place] [address] Paroxysmal atrial fibrillation with RVR (CMS/HCC) (Primary Dx) Discharge Disposition: Home or Self Care Social History Tobacco Use Types Packs/Day Years Used Date Smoking Tobacco: Never Assessed Sex and Gender Information Value Date Recorded Sex Assigned at Male 08/28/2024 11:02 AM EST Legal Sex Male 1:36 PM EDT Gender Identity Male 08/28/2024 11:02 AM EST Sexual Orientation Not on file documented as of this [...] Mass Index 30.27 10/10/2024 4:18 AM EDT documented in this encounter Functional Status * Are you deaf or do you have serious difficulty hearing? Answer Date of Assessment Author No 08/14/2024 8:13 AM García RN * Are you blind or do you have serious difficulty seeing, even when wearing glasses? Answer Date of Assessment Author No 08/14/2024 8:13 AM García RN * Do you have serious difficulty walking or climbing stairs? Answer Date of Assessment Author No 08/14/2024 8:13 AM García RN * Do you have serious difficulty dressing or bathing? Answer Date of Assessment Author No 08/14/2024 8:13 AM García RN * Because of a physical, mental, or emotional condition, do you have serious difficulty doing errandsalone such as visiting the doctor? Answer Date of Assessment Author No 08/14/2024 8:13 AM García RN documented as of this encounter Mental Status * Because of a physical, mental, or emotional condition, do you have serious difficulty concentrating, remembering, or making decisions? (5 years old or older) Answer Entry Date Author No 08/14/2024 8:13 AM García RN documented in this encounter Discharge Instructions * Discharge Instructions* Leila Saez MD - 10/10/2024 7:20 AM EDT Try to avoid triggers of A-fib including: Caffeine, alcohol, stimulants, severe stress, dehydration. Return to the emergency department immediately if you develop any new or worsening symptoms including: Worsening chest pain or difficulty breathing, fevers greater than 100 degrees, green sputum production, any new symptom that concerns you. Call 911 with any medical emergency. * Attachments The following attachments cannot be sent through Care Everywhere. * Atrial Fibrillation (Luxembourgish) documented in this encounter Medications at Time of Discharge albuterol 2.5 mg /3 mL (0.083 %) nebulizer solution USE 1 AMPULE USING A NEBULIZER EVERY 4 HOURS NEEDED SHORTNESS OF BREATH OR FOR WHEEZING 07/23/2023 albuterol HFA (PROAIR HFA ; PROVENTIL HFA ; VENTOLIN HFA) 90 mcg/actuation inhaler Inhale by mouth. 11/07/2022 atorvastatin (LIPITOR) 80 mg tablet Take 1 tablet (80 mg total) by mouth daily. 06/01/2024 bisacodyL (DULCOLAX) 5 mg EC tablet Take 2 tablets by mouth right before beginning bowel prep. See instructions provided by the office 2 tablet 08/18/2024 cholecalciferol (VITAMIN D-3) 50 mcg (2,000 unit) capsule Take 1 capsule (2,000 Units total) by mouth 1 (one) time each day. 07/01/2022 Eliquis 5 mg tablet Take 1 tablet (5 mg total) by mouth 2 (two) times a day. 02/12/2022 flecainide (TAMBOCOR) 50 mg tablet Take 2 tablets (100 mg total) by mouth 2 (two) times a day. metoprolol tartrate (LOPRESSOR) 25 mg tablet Take 1 tablet (25 mg total) by mouth 2 (two) times a day. 02/12/2022 polyethylene glycol (Golytely) 236-22.74-6.74 -5.86 gram solution Take 4L by mouth once for one dose. May substitue any PEG. Starting at 6PM the night before your procedure drink 1 8oz glasses at your own pace until you complete half of the gallon. Finish 2nd half of the gallon 5 hours before your procedure. 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 Has hx of afib- intermittently. +sob, dizziness and left sided chest pain. States he feels worse than usual when he has these episodes documented in this encounter Plan of Treatment Not on file documented as of this encounter Procedures Procedure Name Priority Date/Time Associated Diagnosis Comments ECG ANNOTATED 10/11/2024 ECG 12-LEAD STAT 10/10/2024 8:19 AM EDT TROPONIN I HIGH SENSITIVITY STAT 10/10/2024 5:56 AM EDT ECG 12-LEAD STAT 10/10/2024 5:50 AM EDT XR CHEST 2 VIEWS STAT 10/10/2024 5:27 AM EDT TROPONIN I HIGH SENSITIVITY STAT 10/10/2024 4:46 AM EDT CBC WITH AUTO DIFFERENTIAL STAT 10/10/2024 4:46 AM EDT CBC AND DIFFERENTIAL STAT 10/10/2024 4:46 AM EDT B-TYPE NATRIURETIC PEPTIDE STAT 10/10/2024 4:46 AM EDT MAGNESIUM STAT 10/10/2024 4:46 AM EDT LIPASE STAT 10/10/2024 4:46 AM EDT COMPREHENSIVE METABOLIC PANEL STAT 10/10/2024 4:46 AM EDT ECG 12-LEAD STAT 10/10/2024 4:13 AM EDT documented in this encounter Results * ECG-Annotated (10/11/2024) us Provider Onbase MD ECG ORDERABLES Final Result * ECG 12 lead (10/10/2024 8:19 AM EDT) Ventricular Rate ECG 69 BPM GEMUSE Atrial Rate 69 BPM GEMUSE P-R Interval 170 ms GEMUSE QRS Duration 78 ms GEMUSE Q-T Interval 376 ms GEMUSE QTc 402 ms GEMUSE P Wave [place] 61 degrees GEMUSE R [place] 50 degrees GEMUSE T [place] 25 degrees GEMUSE ECG Interpretation Normal sinus rhythm Normal ECG When compared with ECG of 10-OCT-2024 05:50, Sinus rhythm has replaced Atrial fibrillation Vent. rate has decreased BY ??87 BPM Confirmed by Theo PERALTA YUFENG ([id number]) on 10/10/2024 10:36:39 AM GEMUSE 10/10/2024 8:19 AM EDT 10/10/2024 10:36 AM EDT Leila Saez MD ECG ORDERABLES Final Re sult Performing Organization Address [facility] de Phone Number GEMUSE * Troponin I high sensitivity (10/10/2024 5:56 AM EDT) [facility] High Sensitivity Troponin I 30 <=79 ng/L LAB CHEMISTRY METHOD 10/10/2024 6:50 AM EDT [facility] Blood Venous blood specimen / Unknown Venipuncture / Unknown 10/10/2024 5:56 AM EDT 10/10/2024 6:19 AM EDT Narrative [facility] - 10/10/2024 6:50 AM EDT High levels of biotin in samples may falsely decrease hsTroponin values. ??Use caution when interpreting hsTroponin results in patients taking biotin who exhibit renal impairment (eGFR <60) or in patients taking more than 20 mg/day of biotin. Leila Saez MD LAB BLOOD ORDERABLES Fin al Result Performing Organization Address [facility]/ZIP Co de Phone Number [facility] [address] [place] [address], [place] [phone] * ECG 12 lead (10/10/2024 5:50 AM EDT) Pathologist [facility] Ventricular Rate ECG 156 BPM GEMUSE QRS Duration 76 ms GEMUSE Q-T Interval 282 ms GEMUSE QTc 454 ms GEMUSE R [place] 60 degrees GEMUSE T [place] -16 degrees GEMUSE ECG Interpretation Atrial fibrillation with rapid ventricular response with premature ventricular or aberrantly conducted complexes Nonspecific ST abnormality Abnormal QRS-T angle, consider primary T wave abnormality Abnormal ECG When compared with ECG of 10-OCT-2024 04:13, (unconfirmed) No significant change was found Confirmed by KEITH NARANJO ([id number]) on 10/10/2024 8:01:52 AM GEMUSE 10/10/2024 5:50 AM EDT 10/10/2024 8:01 AM EDT us Leila Saez MD ECG ORDERABLES Final Re sult GEMUSE * XR Chest 2 Views (10/10/2024 5:27 AM EDT) Anatomical Region Laterality Modality Body Radiographic Elysia ging 10/10/2024 9:52 AM EDT Impressions 10/10/2024 9:55 AM EDT No acute pulmonary disease. No change since 08/14/2024. Code 78054 -------- FINAL REPORT -------- Dictated By: Demar Mchugh Dictated Date: 10/10/2024 09:52 ET Assigned Physician: Demar Mchugh Reviewed and Electronically Signed By: Demar Mchugh Signed Date: 10/10/2024 09:55 ET Workstation ID: [id number] Transcribed By: Self Edit Transcribed Date: 10/10/2024 [...] pulmonary disease. No change since 08/14/2024. Code 71135 -------- FINAL REPORT -------- Dictated By: Demar Mchugh Dictated Date: 10/10/2024 09:52 ET Assigned Physician: Demar Mchugh Reviewed and Electronically Signed By: Demar Mchugh Signed Date: 10/10/2024 09:55 ET Workstation ID: [id number] Transcribed By: Self Edit Transcribed Date: 10/10/2024 09:52 ET Leila Saze MD IMG XR PROCEDURES Final Result * (ABNORMAL) CBC auto differential (10/10/2024 4:46 AM EDT) WBC 12.4(H) 4.8 - 10.8 K/mcL LAB HEMETOLOGY METHOD 10/10/2024 5:23 AM EDT [facility] RBC 5.20 4.50 - 5.50 M/mcL LAB HEMETOLOGY METHOD 10/10/2024 5:23 AM EDT [facility] Hemoglobin 14.4 13.5 - 17.5 g/dL LAB HEMETOLOGY METHOD 10/10/2024 5:23 AM EDT [facility] Hematocrit 43.0 42.0 - 54.0 % LAB HEMETOLOGY METHOD 10/10/2024 5:23 AM EDT [facility] MCV 83.3 79.0 - 98.0 FL LAB HEMETOLOGY [facility]10[facility]24 [facility] MCH 27.9 27.0 - 32.0 pcg LAB HEMETOLOGY METHOD 10/10/2024 5:23 AM EDT [facility] MCHC 33.5 32.0 - 37.0 g/dL LAB HEMETOLOGY METHOD 10/10/2024 5:23 AM [facility] RDW 13.9 11.0 - 15.0 % LAB HEMETOLOGY METHOD 10/10/2024 5:23 AM [facility] Platelets 272 130 - 400 K/mcL LAB HEMETOLOGY METHOD 10/10/2024 5:23 AM [facility] MPV 10.5 7.0 - 11.0 FL LAB HEMETOLOGY METHOD 10/10/2024 5:23 AM [facility] NRBC 0.0 <1.0 % LAB HEMETOLOGY METHOD 10/10/2024 5:23 AM [facility] NRBC Absolute 0.00 <0.10 K/mcL LAB HEMETOLOGY METHOD 10/10/2024 5:23 AM [facility] Neutrophils Relative 78.5 % LAB HEMETOLOGY METHOD 10/10/2024 5:23 AM [facility] Lymphocytes Relative 9.2 % LAB HEMETOLOGY METHOD 10/10/2024 5:23 AM [facility] Monocytes Relative 10.6 % LAB HEMETOLOGY METHOD 10/10/2024 5:23 AM [facility] Eosinophils Relative 0.8 % LAB HEMETOLOGY METHOD 10/10/2024 5:23 AM [facility] Basophils Relative 0.6 % LAB HEMETOLOGY METHOD 10/10/2024 5:23 AM [facility] Immature Granulocytes Relative 0.3 % LAB HEMETOLOGY METHOD 10/10/2024 5:23 AM [facility] Neutrophils Absolute 9.68(H) 1.50 - 7.00 K/mcL LAB HEMETOLOGY METHOD 10/10/2024 5:23 AM EDT [facility] Lymphocytes Absolute 1.14 1.00 - 5.00 K/mcL LAB HEMETOLOGY METHOD 10/10/2024 5:23 AM EDT [facility] Monocytes Absolute 1.31(H) 0.20 - 1.00 K/mcL LAB HEMETOLOGY METHOD 10/10/2024 5:23 AM EDT [facility] Eosinophils Absolute 0.10 0.00 - 0.50 K/[facility] LAB HEMETOLOGY METHOD 10/10/2024 5:23 AM EDT [facility] Basophils Absolute 0.08 0.00 - 0.20 K/[facility] LAB HEMETOLOGY METHOD 10/10/2024 5:23 AM EDT [facility] Immature Granulocytes Absolute 0.04(H) 0.00 - 0.03 K/mcL LAB HEMETOLOGY METHOD 10/10/2024 5:23 AM EDT [facility] Blood Venous blood specimen / Unknown Venipuncture / Unknown 10/10/2024 4:46 AM EDT 10/10/2024 5:12 AM EDT Leila Saez MD LAB BLOOD ORDERABLES Fin al Result Performing Organization Address City/[facility]/ZIP Co de Phone Number [facility] [address] [place] [address], * B-type natriuretic peptide (10/10/2024 4:46 AM EDT) BNP 52 <=100 pcg/mL LAB CHEMISTRY METHOD 10/10/2024 6:23 AM EDT [facility] Blood Venous blood specimen / Unknown Venipuncture / Unknown 10/10/2024 4:46 AM EDT 10/10/2024 5:12 AM EDT Leila Saez MD LAB BLOOD ORDERABLES Fin al Result [facility] [address] [place] [address], [place] [phone] * Magnesium (10/10/2024 4:46 AM EDT) [facility] Magnesium 1.9 1.9 - 2.6 mg/dL LAB CHEMISTRY METHOD 10/10/2024 5:56 AM EDT [facility] Blood Venous blood specimen / Unknown Venipuncture / Unknown 10/10/2024 4:46 AM EDT 10/10/2024 5:12 AM EDT Leila Saez MD LAB BLOOD ORDERABLES Fin al Result Performing Organization Address [facility] Co de Phone Number [facility] [address] [place] [address], [place] [phone] * Lipase (10/10/2024 4:46 AM EDT) [facility] Lipase 23 13 - 75 unit/L LAB CHEMISTRY METHOD 10/10/2024 5:56 AM EDT [facility] Blood Venous blood specimen / Unknown Venipuncture / Unknown 10/10/2024 4:46 AM EDT 10/10/2024 5:12 AM EDT Leila Saez MD LAB BLOOD ORDERABLES Fin al Result Performing Organization Address [facility]/ZIP Co de Phone Number [facility] [address] [place] [address], [place] [phone] * (ABNORMAL) Comprehensive metabolic panel (10/10/2024 4:46 AM EDT) [facility] Sodium 134 133 - 145 mmol/L LAB CHEMISTRY METHOD 10/10/2024 5:58 AM EDT [facility] Potassium 3.9 3.5 - 5.5 mmol/L LAB CHEMISTRY METHOD 10/10/2024 5:58 AM [facility] Chloride 103 96 - 110 mmol/L LAB CHEMISTRY METHOD 10/10/2024 5:58 AM [facility] CO2 22 21 - 32 mmol/L LAB CHEMISTRY METHOD 10/10/2024 5:58 AM [facility] Anion Gap 9 3 - 11 LAB CHEMISTRY METHOD 10/10/2024 5:58 AM [facility] Glucose 133(H) 70 - 100 mg/dL LAB CHEMISTRY METHOD 10/10/2024 5:58 AM [facility] BUN 23 5 - 25 mg/dL LAB CHEMISTRY METHOD 10/10/2024 5:58 AM [facility] Creatinine 1.43(H) 0.70 - 1.30 mg/dL LAB CHEMISTRY METHOD 10/10/2024 5:58 AM [facility] eGFR 60 >=60 mL/min/1. 73m2 LAB CHEMISTRY METHOD 10/10/2024 5:58 AM [facility] Comment:Calculation based on the??Chronic Kidney Disease Epidemiology Collaboration (CKD-EPI) equation refit??without adjustment for race. BUN/Creatinine Ratio 16.1 LAB CHEMISTRY METHOD 10/10/2024 5:58 AM [facility] Calcium 9.7 8.5 - 10.5 mg/dL LAB CHEMISTRY METHOD 10/10/2024 5:58 AM [facility] AST (SGOT) 19 10 - 42 unit/L LAB CHEMISTRY METHOD 10/10/2024 5:58 AM [facility] ALT (SGPT) 35 10 - 60 unit/L LAB CHEMISTRY METHOD 10/10/2024 5:58 AM [facility] Alkaline Phosphatase 96 42 - 121 unit/L LAB CHEMISTRY METHOD 10/10/2024 5:58 AM [facility] Total Protein 7.6 6.0 - 8.0 g/dL LAB CHEMISTRY METHOD 10/10/2024 5:58 AM EDT [facility] Albumin 3.9 3.2 - 5.0 g/dL LAB CHEMISTRY METHOD 10/10/2024 5:58 AM EDT [facility] Total Bilirubin 1.0 0.0 - 1.4 mg/dL LAB CHEMISTRY METHOD 10/10/2024 5:58 AM EDT [facility] Blood Venous blood specimen / Unknown Venipuncture / Unknown 10/10/2024 4:46 AM EDT 10/10/2024 5:12 AM EDT Leila Saez MD LAB BLOOD ORDERABLES Fin al Result Performing Organization Address [facility]/ZIP Co de Phone Number [facility] [address] [place] [address], [place] [phone] * Troponin I high sensitivity (10/10/2024 4:46 AM EDT) [facility] High Sensitivity Troponin I 29 <=79 ng/L LAB CHEMISTRY METHOD 10/10/2024 5:56 AM EDT [facility] Blood Venous blood specimen / Unknown Venipuncture / Unknown 10/10/2024 4:46 AM EDT 10/10/2024 5:12 AM EDT Narrative [facility] - 10/10/2024 5:56 AM EDT High levels of biotin in samples may falsely decrease hsTroponin values. ??Use caution when interpreting hsTroponin results in patients taking biotin who exhibit renal impairment (eGFR <60) or in patients taking more than 20 mg/day of biotin. Leila Saez MD LAB BLOOD ORDERABLES Fin al Result Performing Organization Address [facility]/ZIP Co de Phone Number [facility] [address] [place] [address], [place] [phone] * ECG 12 lead (10/10/2024 4:13 AM EDT) Ventricular Rate ECG 161 BPM GEMUSE QRS Duration 78 ms GEMUSE Q-T Interval 278 ms GEMUSE QTc 454 ms GEMUSE R [place] 69 degrees GEMUSE T [place] -10 degrees GEMUSE ECG Interpretation Atrial fibrillation with rapid ventricular response ST and T wave abnormality, consider inferior ischemia Abnormal ECG When compared with ECG of 14-AUG-2024 04:40, T wave amplitude has increased in Anterior leads Confirmed by KEITH NARANJO ([id number]) on 10/10/2024 8:01:01 AM GEMUSE 10/10/2024 4:13 AM EDT 10/10/2024 8:01 AM EDT us Leila Saez MD ECG ORDERABLES Final Re sult GEMUSE documented in this encounter Visit Diagnoses Diagnosis Paroxysmal atrial fibrillation with RVR (CMS/HCC)- Primary documented in this encounter Administered Medications Inactive Administered Medications - up to 3 most recent administrations Medication Order MAR Action Action Date Dose Rate Site dilTIAZem (CARDIZEM) 125 mg in sodium chloride (non-PVC) 0.9 % 125 mL (1 mg/mL) infusion 5-15 mg/hr (5-15 mL/hr), intravenous, Continuous, Starting on 10/10/24 at 0544, GOAL EFFECT: Decrease HR to LESS than 110 BPM INITIAL RATE: 5 mg/hr USUAL DOSE RANGE: 5 - 15 mg/hr TITRATION DOSE: 2.5 mg/hr TITRATION FREQUENCY: 30 min CONTACT PRESCRIBER: -HR LESS than 60 BPM -HR GREATER than 120 BPM -SBP LESS than 80 mmHg -SBP GREATER than 180 mmHg -Prolongation of WA interval + QRS complex *Individual cases may deviate from parameters and would REQUIRE an order from the provider documented in the patient record* dilTIAZem (CARDIZEM) injection 20 mg 20 mg, intravenous, Once, On 10/10/24 at 0436, For 1 dose, For IV Push - administer over 2 minutes with continuous ECG and blood pressure monitoring Given 10/10/2024 4:43 AM EDT 20 mg lactated Ringer's bolus 1,000 mL 1,000 mL, intravenous, at 1,000 mL/hr, Administer over 1 Hours, Once, On 10/10/24 at 0436, For 1 dose New Bag 10/10/2024 4:46 AM EDT 1,000 mL 100 0 mL/hr lactated Ringer's bolus 1,000 mL 1,000 mL, intravenous, at 1,000 mL/hr, Administer over 1 Hours, Once, On 10/10/24 at 0544, For 1 dose New Bag 10/10/2024 5:53 AM EDT 1,000 mL 100 0 mL/hr lactated Ringer's bolus 1,000 mL 1,000 mL, intravenous, at 1,000 mL/hr, Administer over 1 Hours, Once, On 10/10/24 at 0653, For 1 dose New Bag 10/10/2024 6:54 AM EDT 1,000 mL 100 0 mL/hr documented in this encounter Active and Recently Administered Medications Times are shown in EDT. Scheduled Medication Order 10/08/2024 10/09/2024 10/10/2024 dilTIAZem (CARDIZEM) injection 20 mg (COMPLETED) 20 mg, intravenous, Once, On 10/10/24 at 0436, For 1 dose, For IV Push - administer over 2 minutes with continuous ECG and blood pressure monitoring 0443 (Given - Provid er: Louisa Remy RN) lactated Ringer's bolus 1,000 mL (COMPLETED) 1,000 mL, intravenous, at 1,000 mL/hr, Administer over 1 Hours, Once, On 10/10/24 at 0436, For 1 dose 0446 (New Bag - Prov ider: Louisa Remy RN)0617 (Stopped - Provider: Leslie Trivedi RN) lactated Ringer's bolus 1,000 mL (COMPLETED) 1,000 mL, intravenous, at 1,000 mL/hr, Administer over 1 Hours, Once, On 10/10/24 at 0544, For 1 dose 0553 (New Bag - Prov ider: Leslie Trivedi RN)0812 (Stopped - Provider: Maria De Jesus Heller RN) lactated Ringer's bolus 1,000 mL (COMPLETED) 1,000 mL, intravenous, at 1,000 mL/hr, Administer over 1 Hours, Once, On 10/10/24 at 0653, For 1 dose 0654 (New Bag - Prov ider: Louisa Remy RN)0852 (Stopped - Provider: Maria De Jesus Heller RN) Continuous Medication Order 10/08/2024 10/09/2024 10/10/2024 dilTIAZem (CARDIZEM) 125 mg in sodium chloride (non-PVC) 0.9 % 125 mL (1 mg/mL) infusion 5-15 mg/hr (5-15 mL/hr), intravenous, Continuous, Starting on 10/10/24 at 0544, GOAL EFFECT: Decrease HR to LESS than 110 BPM INITIAL RATE: 5 mg/hr USUAL DOSE RANGE: 5 - 15 mg/hr TITRATION DOSE: 2.5 mg/hr TITRATION FREQUENCY: 30 min CONTACT PRESCRIBER: -HR LESS than 60 BPM -HR GREATER than 120 BPM -SBP LESS than 80 mmHg -SBP GREATER than 180 mmHg -Prolongation of WA interval + QRS complex *Individual cases may deviate from parameters and would REQUIRE an order from the provider documented in the patient record* [id number] (Hold - Provide r: Leslie Trivedi RN - Reason: Other - Comment: Hold per provider's order, due to hypotension) documented in this encounter Orders Medications Ordered That Tay ht Not Have Been Administered Count Last Ordered Date First Ordered Date dilTIAZem (CARDIZEM) 125 mg in sodium chloride (non-PVC) 0.9 % 125 mL (1 mg/mL) infusion 1 10/10/2024 EKG Orders Without Results Count Last Ordered D ate First Ordered Date ECG 12-LEAD 1 10/10/2024 documented in this encounter Additional Health Concerns Infection Onset Date Last Indicated Resolved Time Coronavirus 08/14/2024 08/14/2024 documented as of this encounter Care Teams Licensed Midwife Relationship Specialty Start Date End Date [facility] [address] [facility] [address] [place] [address] PCP - General 03/30/24 documented as of this encounter
--- OUTSIDE RECORDS SUMMARY | 2024-10-12 17:28 | XMS_ITS | Encounter Summary ---
Author Organization [employer] Address [address] [facility] [address] [place] [address] Care Team Providers Care Slicer Machine Operator Name Role Phone [facility] Primary Care Provider Reason for Visit * Reason Onset Date Comments Med Refill 06/13/2023 Encounter Details Date Type Department Care Team ([facility] st Contact Info) Description 06/13/2023 Telephone [facility] MEDICINE [address] [place], [place] [phone] [facility] [address] [place] [address] Med Refill Social History Tobacco Use Types [...] documented as of this encounter Care Teams Slicer Machine Operator Relationship Specialty Start Date End Date Riri Corrigan FNP [address] [place] [id number] PCP - General Family Medicine 03/11/22 documented as of this encounter
--- OUTSIDE RECORDS SUMMARY | 2024-10-12 17:28 | XMS_ITS | Encounter Summary ---
Author Organization [employer] Address [address] [facility] [address] [place] [address] Care Team Providers Care Bow String Maker Name Role Phone [facility] Primary Care Provider [phone] Reason for Visit * Reason Onset Date Comments Appointment Request 09/22/2023 Encounter Details Date Type Department Care Team ([facility] st Contact Info) Description 09/22/2023 Telephone [facility] MEDICINE [address] [place], [place] [phone] [facility] [address] [place] [address] Appointment Request Social History Tobacco Use Types [...] documented as of this encounter Care Teams Bow String Maker Relationship Specialty Start Date End Date Riri Corrigan FNP [address] [place] [id number] PCP - General Family Medicine 03/11/22 documented as of this encounter
--- OUTSIDE RECORDS SUMMARY | 2024-10-12 17:28 | XMS_ITS | Clinical Summary ---
Author Organization [employer] Address 75 [facility] 7 [place] [address] Care Team Providers Care Tea Room Manager Name Role Phone Riri Corrigan TAX ADVISOR Primary Care Provider [phone] Allergies No known active allergies Medications cholecalciferol [...] complication, without long-term current use of insulin ([facility]) Use as instructed to check blood sugar once daily 90 strip 3 4 Active Lancets Ultra Thin 30G miscIndications:Ty pe 2 diabetes mellitus without complication, without long-term current use of insulin ([facility]) Use as instructed to check blood sugar once daily 90 each 3 4 Active Alcohol Swabs (Alcohol Prep) padsIndications:Ty pe 2 diabetes mellitus without complication, without long-term current use of insulin ([facility]) Use as instructed to check blood sugar [...] complication, without long-term current use of insulin ([facility]) USE TO TEST BLOOD SUGAR [...] suppurativa 12/13/2022 Overview (02/17/2023): ?? Followed by [facility] derm Type 2 diabetes mellitus wit hout [...] & Plan (10/17/2022 1:01 PM EDT): Called [facility] general surgery, they forwarded me to Dr. 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; Dietary counseling; Exercise counseling; Class 1 obesity due to excess calories with serious comorbidity and body mass index (BMI) of 30.0 to 30.9 in adult; Encounter for immunization 08/18/2024 Travel 08/05/2024 Patient Outreach [facility] [address] [place] [address] Riri Corrigan FNP Pre-visit Planning (SDOH screening negative and tobacco screening negative) 07/23/2024 Telephone [facility] [address] [facility] [place] [address] Riri Corrigan FNP Medication Question 07/20/2024 2:00 PM EST Office Visit [facility] [address] [place] [address] Jack, [place], [place] Regular astigmatism of both eyes (Primary Dx) 07/20/2024 Travel 07/19/2024 Refill [facility] [address] [place] [address] Riri Corrigan FNP from Last 3 Months Immunizations Name [...] 12:15 PM EST) Triglycerides 83 <150 mg/dL [facility] Comment:Desirable Triglyceri de: less than 150 mg/dLBorderline High Triglyceride 150-199 mg/dLHigh Triglyceride: 200-499 mg/dLVery High Triglyceride: greater than or equal to 5OO mg/dL Cholesterol 107 <200 mg/dL [facility] Comment:Desirable Cholestero l: less than 200 mg/dLBorderline High Cholesterol: 200-239 mg/dLHigh Cholesterol: greater than 239 mg/dL LDL Cholesterol Calculated 61 <100 mg/dL [facility] Comment:Desirable LDL: less than 100 mg/dLNear Optimal/Above Optimal LDL: 110- 129 mg/dLBorderline High LDL: 130-159 mg/dLHigh LDL: 160-189 mg/dLVery High LDL: greater than or equal to 190 mg/dL HDL Cholesterol 30(L) >40 mg/dL [facility] Comment:Desirable HDL: great er than 40 mg/dL Note: This HDL assay may give artificially low results in patients with liver disease. Blood Venous blood specimen / Unknown 08/18/2024 12:15 PM EST 08/18/2024 1:04 PM EST [facility] LAB BLOOD ORDERABLES Final Re sult [facility] [address] [place] [address] [phone] * (ABNORMAL) Comprehensive Metabolic Panel (08/18/2024 12:15 PM EST) Pathologist [facility] Sodium 137 135 - 145 mmol/L [facility] Potassium 3.9 3.3 - 5.1 mmol/L [facility] Chloride 106 96 - 108 mmol/L [facility] Carbon Dioxide 24 22 - 29 mmol/L [facility] Anion Gap 11(L) 12 - 20 [facility] Urea Nitrogen (BUN) 9 9 - 16 mg/dL [facility] Creatinine, Serum 0.78 0.5 - 1.4 mg/dL [facility] Estimated Glomerular Filt Rate >60 [facility] Comment:Chronic Kidney Disea se: Estimated GFR < 60 mL/min/1.54c8Flvqov Kidney Disease: Estimated GFR < 15 mL/min/1.73m2 Glucose 101 60 - 115 mg/dL [facility] Calcium 8.9 8.4 - 10.2 mg/dL [facility] Bilirubin, Total 0.2 0.0 - 1.0 mg/dL [facility] Aspartate Amino Transferase 22 5 - 37 U/L [facility] Alanine Aminotransferase 38 0 - 40 U/L [facility] Total Protein 8.0 6.5 - 8.0 g/dL [facility] Albumin Level 4.1 3.5 - 5.0 g/dL [facility] Alkaline Phosphatase 87 39 - 117 U/L [facility] Blood Venous blood specimen / Unknown 08/18/2024 12:15 PM EST 08/18/2024 1:04 PM EST [facility] LAB BLOOD ORDERABLES Final Re sult [facility] [address] [place] [address] [phone] * (ABNORMAL) POCT HGB A1C (08/18/2024 11:10 AM EST) Hemoglobin A1C 6.7(A) 4.0 - 6.0 % QC Media Lot # [id number] Lot# Expiration Date Blood 08/18/2024 11:1 0 AM EST [facility] POINT OF CARE TEST ENTER/EDIT ORDERABLES Final Result * POCT Glucose (08/18/2024 11:10 AM EST) Pathologist [facility] Glucose Blood, POC 125 60 - 200 mg/dL QC Media Lot # [id number] Lot# Expiration Date Blood Capillary blood specimen / Unknown 08/18/2024 11:10 AM EST [facility] POINT OF CARE TEST ENTER/EDIT ORDERABLES Final Result * (ABNORMAL) Albumin, Random Urine W/Creatinine (05/21/2024 4:46 PM EST) Pathologist [facility] Creatinine, Urine 279.27 mg/dL [facility] Microalbumin Urine 125.0 mg/L [facility] Microalbum Creatinine Ratio Ur 44.7(H) <30 ug/mg cr [facility] Comment:Albumin/Creatinine R atio Reference Ranges: Normal: < 30 ug/mg creatinine Microalbuminuria: 30 - 300 ug/mg creatinineClinical Albuminuria: > 300 ug/mg creatinine Urine 05/21/2024 4:46 PM EST 05/21/2024 5:56 PM EST [facility] LAB URINE ORDERABLES Final Re sult [facility] [address] [place] [phone] * Hepatitis Panel, General (02/17/2023 11:49 AM EDT) Pathologist [facility] Hepatitis A IgM Nonreactive Nonreactive [facility] Comment:IgM antibodies to BUNDY V not detected; does not exclude earlyacute or recovered HAV infection. ~Hepatitis B Surface Antibody NONREACTIVE Nonreactive [facility] Comment:Nonreactive: < 8.00 mIU/mL Hepatitis B Core Antibody Nonreactive Nonreactive [facility] Hepatitis C Antibody Nonreactive Nonreactive [facility] Comment:Antibodies to HCV no t detected; does not exclude early acuteHCV infection. Hepatitis B Surface Ag Negative Negative [facility] Blood 02/17/2023 11:4 9 AM EDT 02/17/2023 2:16 PM EDT [facility] TAX ADVISOR LAB BLOOD ORDERABLES Final Re sult Performing Organization Address City/[facility]/ZIP Co de Phone Number [facility] [address] [place] [phone] * HIV 1/2 ANTIGEN/ANTIBODY,FOURTH GENERATION W/RFL (04/09/2021 2:44 PM EDT) [facility] HIV-1/2 ANTIGEN AND ANTIBODIES, 4TH GENERATION W/ [...] ? For additional information please refer to http://education.[employer]/faq/INZ399 (This link is being provided for informational/ educational purposes only.) ? The performance of this assay has not been clinically validated in patients less than 2 years old. ?? 04/09/2021 2:44 PM EDT Deborah Mccarthy TAX ADVISOR LAB BLOOD ORDERABLES Final Res ult [facility] [address] from Last 3 Months or Most Recently Relevant to Health Maintenance Insurance [facility] STANDARD MEDICARE DENTAL-[facility] MEDICAID STAND ADULT Care Teams Tea Room Manager Relationship Specialty Start Date End Date Riri Corrigan FNP [address] [place] [phone] PCP - General Family Medicine 03/11/22
--- OUTSIDE RECORDS SUMMARY | 2024-10-12 17:28 | XMS_ITS | Encounter Summary ---
Author Organization [employer] Address [address] [place] [address] [address] [place] [address] Care Team Providers Care Ritual Circumciser Name Role Phone Riri Corrigan Primary Care Provider [phone] Encounter Details Date Type Department Care Team [...] on filedocumented in this encounter Care Teams Ritual Circumciser Relationship Specialty Start Date End Date Riri Corrigan FNP [address] [place] [phone] PCP - General Family Medicine 03/11/22 documented as of this encounter
--- OUTSIDE RECORDS SUMMARY | 2024-10-12 17:28 | XMS_ITS | Encounter Summary ---
Author Organization [employer] Address 75 [facility] 7 [place] [address] Care Team Providers Care Stars Specialist Name Role Phone Riri Corrigan [facility] Primary Care Provider [phone] Reason for Referral * Imaging (Routine) - Closed Specialty Diagnoses / Procedures Referred By Stewart saeed Referred To Contact Radiology Diagnoses Liver enzyme elevation Procedures US Abdomen Complete Pa Rodriguez MD [address] [place] [address] Phone: tel: fax: Diagnostic Imaging, [facility] [address] [facility] [address] [place] [address] Phone: tel: fax: Referral ID Status Reason Start Date Expiration Date Visits Re quested Visits Authorized [id number] Closed 06/11/2023 06/10/2024 1 1 Encounter Details Date Type Department Care Team (Late st Contact Info) Description 06/11/2023 Orders Only [facility] P[facility]S [address] [place] [address] Pa Rodriguez MD [address] [place] [address] Liver enzyme elevation (Primary Dx) Social History [...] documented as of this encounter Care Teams Stars Specialist Relationship Specialty Start Date End Date Riri Corrigan FNP [address] [place] [address] PCP - General Family Medicine 03/11/22 documented as of this encounter
--- OUTSIDE RECORDS SUMMARY | 2024-10-12 17:28 | XMS_ITS | Encounter Summary ---
Author Organization [employer] Address 75 [facility] 7 [place] [address] Care Team Providers Care Plush Finisher Name Role Phone [facility] Primary Care Provider Reason for Visit * Reason Onset Date Comments Reschedule 04/28/2023 Encounter Details Date Type Department Care Team ([facility] st Contact Info) Description 04/28/2023 Telephone [facility]EDS [address] [place], [place] [phone] [facility] [address] [place] [address] Reschedule Social History Tobacco Use Types Packs/Day [...] documented as of this encounter Care Teams Plush Finisher Relationship Specialty Start Date End Date Riri Corrigan FNP [address] [place] [address] PCP - General Family Medicine 03/11/22 documented as of this encounter
== END 2024-10-12 15:02 | disposition home or self-care (01) ==
LOC: HO.HCS 14:36
PROVIDERS: PCP Registered Nurse; Visit Provider Internal Medicine Cardiovascular Disease
DX: I48.0 Paroxysmal atrial fibrillation (principal)
CPT/HCPCS: 93010; 99214; G2211

== ENCOUNTER → 2024-10-12 14:35 | Outpatient (BNVA) | payer MEDICARE, MEDICAID, SELFPAY | PROVIDERS: PCP Registered Nurse; Visit Provider Internal Medicine Cardiovascular Disease | DX: I48.0 Paroxysmal atrial fibrillation (principal); F17.210 Nicotine dependence, cigarettes, uncomplicated | CPT/HCPCS: 93005; 99212 ==

== ENCOUNTER → 2024-10-20 13:25 | Outpatient (BNVA) | payer MEDICARE, MEDICAID, SELFPAY | PROVIDERS: PCP Registered Nurse; Visit Provider Internal Medicine Cardiovascular Disease ==

== ENCOUNTER 2025-01-13 12:53 | Outpatient (AMB) | payer MEDICARE, MEDICAID, SELFPAY ==
[2025-01-13 12:57] VITALS: BP 110/60; PULSE 55; BMI 29.3
--- NOTE | 2025-01-13 12:57 | MHC.OFFVIS ---
Vital Signs 01/13/25 12:57 Height 5 ft 9 in Weight 198 lb 6.656 oz BMI 29.3 BP 110/60 Blood Pressure Location Lt brachial Position Sitting Pulse 55 Pulse Source Monitor Intake Visit Reasons: 3 mth f/up s/p ep/w/ ekg on multaq Allergies No Known Allergies Allergy (Verified 10/05/24 10:57) Medication List - Last Reconciled 01/13/25 by Alfredo Herring MD albuterol sulfate 2.5 mg inhalation Q4-6H PRN albuterol sulfate 90 mcg/actuation (ProAir HFA) 2 puffs inhalation QID PRN apixaban (Eliquis) 5 mg PO BID atorvastatin 80 mg PO DAILY blood sugar diagnostic (FreeStyle Lite Strips) As directed cholecalciferol (vitamin D3) 50 mcg PO DAILY dronedarone (Multaq) 400 mg PO BID ipratropium-albuterol 0.5 mg-3 mg(2.5 mg base)/3 mL 3 mL inhalation Q4H PRN lancets (TRUEplus Lancets) As directed metoprolol tartrate 25 mg PO BID HPI Comments Details: Michael comes for follow-up. Since I last saw him in October he has not had any recurrent episodes of atrial fibrillation. He is doing well. He continues to not be able to use his CPAP machine. notices who is accompanying him that he has significant apneic episodes at nighttime. Takes all his medications. No bleeding issues or neurologic events. Currently smokes about 3 cigarettes a day as he thinks this calms him down. [facility] Medical History History of high cholesterol Atrial fibrillation with rapid ventricular response Paroxysmal atrial fibrillation Multiple sclerosis Diabetes Asthma Family History Mother Diabetes Asthma Maternal Grandmother Diabetes Brother Diabetes Other No family history of cardiac disease Social History Alcohol intake: never Patient Tobacco Use Status: Current everyday Tobacco user Tobacco use type: Cigarette Cigarette Packs Per Day: 2 Years Smoked: started at 15, 2ppd Substance Use Type: Marijuana service: No Current occupational status: disabled Review of Systems Const Reports no additional complaints and Denies weakness Eyes Reports no additional complaints ENT Reports no additional complaints and Denies dizziness Card Denies chest pain, Denies chest pain with activity, Denies syncope, Denies rapid heart rate, Denies pedal edema, Denies edema, Denies leg edema, Denies lightheadedness, Denies palpitations, Denies dyspnea, Denies dyspnea on exertion and Denies orthopnea Resp Denies cough, Denies dyspnea and Denies dyspnea on exertion GI Denies hematochezia and Denies change in stool character Musc Denies abnormal gait, Denies muscle cramps, Denies muscle weakness, Denies numbness, Denies radiating pain into limb and Denies tingling Neuro Denies abnormal gait, Denies dizziness, Denies syncope, Denies numbness, Denies tingling and Denies weakness Endo Denies palpitations Physical Exam Vital Signs: Last Vital Signs Pulse 55 01/13/25 12:57 BP 110/60 01/13/25 12:57 BMI result Body Mass Index 29.3 Last Vital Signs Temp 97.0 F 04/02/21 00:19 Pulse 59 04/02/21 08:05 Resp 16 04/02/21 07:21 BP 92/54 L 04/02/21 08:05 Pulse Ox 95 04/02/21 08:05 Body Mass Index 30.2 Const General: cooperative, comfortable, no acute distress, alert and awake Nutritional Appearance: overweight Orientation/consciousness: patient oriented x3 Limitations: no limitations HEENT Head: Yes normocephalic and Yes atraumatic Neck Neck: Yes trachea midline, Yes supple and Yes no JVD Resp Effort & Inspection: normal respiratory effort Auscultation: clear to auscultation bilaterally Cardio Jugular venous distension: no JVD Palpation: normal PMI Rate: regular rate Rhythm: regular rhythm Heart sounds: S1 normal heart sound present, S2 normal heart sound present, no click, no gallops, no murmurs and no rubs GI Auscultation: normal bowel sounds Skin General skin exam: no rashes or lesions noted Neuro General: patient oriented x3 and no focal motor deficits Extrem General: Yes no clubbing, cyanosis or edema Psych Appearance: grossly normal Office Procedures EKG Details: EKG shows sinus bradycardia with rightward axis at 55 beats per minute with intervals [id number], Complete Assessment & Plan Assessment & Plan (1) Paroxysmal atrial fibrillation: Code(s): I48.0 - Paroxysmal atrial fibrillation Category: Medical Plan: Highly symptomatic paroxysmal atrial fibrillation without any clinical recurrence since switch to dronedarone therapy. He is doing very well from that perspective. Continue to use dronedarone therapy. Will refer him for ablation as he is interested in coming off antiarrhythmic drugs. CHADSVASc score of 2. Will continue long-term oral anticoagulation therapy. Goes about CPAP management and treatment given that this is most likely contributing to his atrial fibrillation burden. Discussed about inspire device, he wants to think about it. (2) Hypertension: Code(s): I10 - Essential (primary) hypertension Category: Medical Plan: Hypertension which is currently well optimized advised to monitor blood pressure at home maintain a log. Goal blood pressure less than 130/84. Low-salt diet was discussed. Advised stress mitigation strategies. Complete smoking cessation was advised. Continue aggressive diabetes management goal hemoglobin A1c less than 7%. Continue statin therapy with target goal LDL less than 70 mg/dL. Will follow up in the clinic in 3 months for EKG in his 6 months with me. Thank you for allowing me to partake in his care Coding Level of Care Code Est Pt Level 4 (17891) Complex EM visit Add On G2211 Diagnoses Paroxysmal atrial fibrillation I48.0 Hypertension I10 CPT Codes EKG - CPT: 02796-[id number], Complete ([id number])
--- OUTSIDE RECORDS SUMMARY | 2025-01-13 13:00 | XMS_ITS | Encounter Summary ---
Author Organization [employer] Address [address] [place] [address] [address] [place] [address] Care Team Providers Care Copper Flotation Operator Name Role Phone Riri Corrigan [facility] Primary Care Provider [phone] Encounter Details Date Type Department Care Team (Late Contact Info) Description 11/13/2022 Orders Only [facility] [address] [place] [address] [phone] Chika Merlos LPN Social History Tobacco Use [...] as of this encounter Plan of Treatment Upcoming Encounters Date Type Department Care Team (Late st Contact Info) Description 02/11/2025 10:15 AM EDT Office Visit [facility] [address] [place] [phone] MeenuRiri [facility] [address] [place], [place] [phone] documented as of this encounter Visit Diagnoses Not on filedocumented in this encounter Additional Health Concerns Assessment Noted Time PHQ-9 Depression Total Score: 0 11/08/19 23 9:20 AM EDT documented as of this encounter Care Teams Copper Flotation Operator Relationship Specialty Start Date End Date Riri Corrigan FNP [address] [place] [phone] PCP - General Family Medicine 03/11/22 documented as of this encounter
--- OUTSIDE RECORDS SUMMARY | 2025-01-13 13:00 | XMS_ITS | Clinical Summary ---
Author Organization [facility] Address [address] [place] [address] Phone Care Team Providers Care Food Cashier Name Role Phone [place] Riri Primary Care Provider [phone] Allergies No known active allergies Medications polyethylene [...] Active Active Problems No known active problems Social History Tobacco Use Types Packs/Day Years [...] 71 10/10/2024 8:25 AM EDT Temperature 37.1 C (98.7 F) 10/10/2024 8:25 AM EDT Respiratory Rate 20 10/10/2024 8:25 AM EDT [...] age to complete this topic Meningococcal B Vaccine Aged Out No l onger eligible based on patient's age to complete this topic RSV Immunization Patients Under 20 months Aged Out No longer eligible based on patient's age to complete this topic Varicella Vaccines Aged Out No longer eligible based on patient's age to complete this topic Procedures Procedure Name Priority Date/Time Associated Diagnosis Comments COMPREHENSIVE METABOLIC PANEL STAT 10/10/2024 4:46 AM EDT from Last 3 Months or Most Recently Relevant to Health Maintenance Results * (ABNORMAL) Comprehensive metabolic panel (10/10/2024 4:46 AM EDT) Sodium 134 133 - 145 mmol/L LAB CHEMISTRY METHOD 10/10/2024 5:58 AM [facility] Potassium 3.9 3.5 - 5.5 mmol/L LAB CHEMISTRY METHOD 10/10/2024 5:58 AM [facility] Chloride 103 96 - 110 mmol/L LAB CHEMISTRY METHOD 10/10/2024 5:58 AM [facility] CO2 22 21 - 32 mmol/L LAB CHEMISTRY METHOD 10/10/2024 5:58 AM [facility] Anion Gap 9 3 - 11 LAB CHEMISTRY METHOD 10/10/2024 5:58 AM [facility] Glucose 133(H) 70 - 100 mg/dL LAB CHEMISTRY METHOD 10/10/2024 5:58 AM [facility] BUN 23 5 - 25 mg/dL LAB CHEMISTRY METHOD 10/10/2024 5:58 AM [facility] Creatinine 1.43(H) 0.70 - 1.30 mg/dL LAB CHEMISTRY METHOD 10/10/2024 5:58 AM [facility] eGFR 60 >=60 mL/min/1. 73m2 LAB CHEMISTRY METHOD 10/10/2024 5:58 AM [facility] Comment:Calculation based on the Chronic Kidney Disease Epidemiology Collaboration (CKD-EPI) equation refit without adjustment for race. BUN/Creatinine Ratio 16.1 LAB CHEMISTRY METHOD 10/10/2024 5:58 AM [facility] Calcium 9.7 8.5 - 10.5 mg/dL LAB CHEMISTRY METHOD 10/10/2024 5:58 AM [facility] AST (SGOT) 19 10 - 42 unit/L LAB CHEMISTRY METHOD 10/10/2024 5:58 AM [facility] ALT (SGPT) 35 10 - 60 unit/L LAB CHEMISTRY METHOD 10/10/2024 5:58 AM [facility] Alkaline Phosphatase 96 42 - 121 unit/L LAB CHEMISTRY METHOD 10/10/2024 5:58 AM EDT [facility] Total Protein 7.6 6.0 - [...] al Result [facility] [address] [place] [address], from Last 3 Months or Most Recently Relevant to Health Maintenance Additional Health Concerns Infection Onset Date Last Indicated Coronavirus 08/14/2024 08/14/2024 Insurance MEDICAID - [place] MEDICARE Care Teams Food Cashier Relationship Specialty Start Date End Date Riri Corrigan [address] [place] [phone] PCP - General 03/30/24
== END 2025-01-13 13:21 | disposition home or self-care (01) ==
LOC: HO.HCS 12:54
PROVIDERS: PCP Registered Nurse; Visit Provider Internal Medicine Cardiovascular Disease
DX: I48.0 Paroxysmal atrial fibrillation (principal); I10 Essential (primary) hypertension
CPT/HCPCS: 93010; 99214; G2211

== ENCOUNTER → 2025-01-13 12:53 | Outpatient (BNVA) | payer MEDICARE, MEDICAID, SELFPAY | PROVIDERS: PCP Registered Nurse; Visit Provider Internal Medicine Cardiovascular Disease | DX: I48.0 Paroxysmal atrial fibrillation (principal); I10 Essential (primary) hypertension; R00.1 Bradycardia, unspecified | CPT/HCPCS: 93005; 99212 ==

== ENCOUNTER 2025-04-12 13:24 | Outpatient (AMB) | payer MEDICARE, MEDICAID, SELFPAY ==
--- NOTE | 2025-04-12 13:34 | MHC.OFFVIS ---
Intake Visit Reasons: Est Patient-Right thumb mass Intake Note: This is a 49 year old patient, right hand dominant who presents for a right thumb mass. He reports that his right thumb mass has now been back for 7 months. He reports minimal pain when he picks up an object, it is numb. Pattern Marking Supervisor Required: No Allergies No Known Allergies Allergy (Verified 04/12/25 13:40) Medication List - Last Reconciled 04/12/25 by Mary Lugo RN albuterol sulfate 2.5 mg inhalation Q4-6H PRN albuterol sulfate 90 mcg/actuation (ProAir HFA) 2 puffs inhalation QID PRN apixaban (Eliquis) 5 mg PO BID atorvastatin 80 mg PO DAILY blood sugar diagnostic (FreeStyle Lite Strips) As directed cholecalciferol (vitamin D3) 50 mcg PO DAILY dronedarone (Multaq) 400 mg PO BID ipratropium-albuterol 0.5 mg-3 mg(2.5 mg base)/3 mL 3 mL inhalation Q4H PRN lancets (TRUEplus Lancets) As directed metoprolol tartrate 25 mg PO BID tirzepatide (Mounjaro) 5 mg subcut QWEEK HPI HPI Est Patient-Right thumb mass: Details: Michael is a 49 year old right hand dominant man who returns with complaints of a right thumb mass. He has a hx of a right thumb mass excision, DOS: 10/17/22 He says the mass on his right thumb pad returned ~7 months ago now. He complains of minimal pain when pressure is applied, such as picking up an object. He says this is in the same place as his previous thumb mass. He says he has some decreased sensation over the mass, but normal sensation to the rest of the thumb [facility] Medical History History of high cholesterol Atrial fibrillation with rapid ventricular response Paroxysmal atrial fibrillation Multiple sclerosis Diabetes Asthma Family History Mother Diabetes Asthma Maternal Grandmother Diabetes Brother Diabetes Other No family history of cardiac disease Social History Alcohol intake: never Patient Tobacco Use Status: Current everyday Tobacco user Tobacco use type: Cigarette Cigarette Packs Per Day: 2 Years Smoked: started at 15, 2ppd Substance Use Type: Marijuana service: No Current occupational status: disabled Review of Systems Const All systems reviewed & are unremarkable except as noted in HPI and below Physical Exam Const General: no acute distress and alert Orientation/consciousness: patient oriented x3 Neuro General: patient oriented x3 Extrem Other: Evaluation of Right Upper Extremity: The patient is alert, oriented, and in no acute distress Neuro: Median, Ulnar, Radial nerves motor and sensory intact and sensation is normal to the tips of all digits, except for decreased sensation directly over the thumb mass, with normal sensation surrounding the mass Vascular: Cap refill brisk ROM: He can make a fist and extend all his digits There is a mass on the thumb pad, measuring ~1.2cm in diameter. This is non-tender. Good flexion and extension of the thumb. Psych Appearance: grossly normal Affect: normal affect Attitude: cooperative Assessment & Plan Assessment & Plan (1) Mass of skin of right thumb: Code(s): R22.31 - Localized swelling, mass and lump, right upper limb Category: Medical (2) Diabetes: Code(s): E11.9 - Type 2 diabetes mellitus without complications Category: Medical (3) Paroxysmal atrial fibrillation: Code(s): I48.0 - Paroxysmal atrial fibrillation Category: Medical Plan Assessment & Plan: 1. Right thumb mass Measuring ~1.2cm in diameter I educated him about this condition I discussed operative and non-operative treatment options The patient would like to proceed with surgery The risks and benefits of operative treatment were discussed with the patient and the patient wishes to proceed with surgery. These risks include, but are not limited to risk of damage to blood vessels, nerves, tendons, infection, recurrence, incomplete relief of preoperative symptoms, persistent pain, possible need for further surgery and the risks associated with regional blocks and anesthesia. The plan is to take the patient to the operating room sometime in the next few weeks for the following procedures: 1. Right thumb excision of mass under local All of the preoperative paperwork including the consent was reviewed today. All the patient's questions were answered. The patient understands that they will be contacted by our passenger service agent soon to schedule this procedure He denies asthma, lung, kidney issues He is a Diabetic, he says his most recent HgA1c was ~7.0% but he is unsure of the specific result. He is on Eliquis for Afib. 2. Right thumb epidermal inclusion cyst, S/P excision, I&D DOS: 10/17/22 Scribed for Oralia Campos MD by Warren Jessica, medical staff credentialing coordinator, on 04/12/25 at 2:20 PM, EST. Coding Level of Care Code Est Pt Level 4 (95689) Diagnoses Mass of skin of right thumb R22.31 Diabetes E11.9 Paroxysmal atrial fibrillation I48.0
--- OUTSIDE RECORDS SUMMARY | 2025-04-12 14:42 | XMS_ITS | Encounter Summary ---
Author Organization [employer] Address [address] [place] [address] Care Team Providers Care Steel Placer Name Role Phone Riri Corrigan Primary Care Provider [phone] Encounter Details Date Type Department Care Team (Latest Contact Info) Description 08/22/2021 Abstract [facility] CONVERSIONS Dental, Provider, DDS Social History Tobacco [...] Care Team (Late st Contact Info) Description 05/16/2025 11:15 AM EST Office Visit [facility] MEDICINE [address] [place] [address] Riri Corrigan FNP [address] [place] [address] 07/25/2025 11:00 AM EST Office Visit [facility] OPTOMETRY [address] [place] [address] Nina العلي, OD [address] [place] [address] documented as of this encounter Visit Diagnoses Not on filedocumented in this encounter Care Teams Steel Placer Relationship Specialty Start Date End Date Riri Corrigan FNP [address] [place] [address] PCP - General Family Medicine 03/11/22 documented as of this encounter
--- OUTSIDE RECORDS SUMMARY | 2025-04-12 14:42 | XMS_ITS | Encounter Summary ---
Author Organization [employer] Address [address] [place] [address] Care Team Providers Care Plastic Welding Machine Operator Name Role Phone Riri Corrigan ATHLETIC SHOE DESIGNER Primary Care Provider [phone] Reason for Visit * Reason Comments Med Refill Encounter Details Date Type Department Care Team ([facility] st Contact Info) Description 02/18/2024 Refill [facility] MEDICINE [address] [place] [address] Vivien Maxwell MD [address] [place] [address] Social History Tobacco Use Types Packs/Day Years [...] Description 05/16/2025 11:15 AM EST Office Visit [facility] MEDICINE [address] [place] [address] Riri Corrigan FNP [address] [place] [address] 07/25/2025 11:00 AM EST Office Visit [facility] OPTOMETRY [address] [place] [address] Tarka, Nina, OD [address] [place] [address] documented as of this encounter Visit Diagnoses Not on filedocumented in this encounter Additional Health Concerns Assessment Noted Time PHQ-9 Depression Total Score: 0 02/07/20 23 1:48 PM EDT documented as of this encounter Care Teams Plastic Welding Machine Operator Relationship Specialty Start Date End Date Riri Corrigan FNP [address] [place] [address] PCP - General Family Medicine 03/11/22 documented as of this encounter
--- OUTSIDE RECORDS SUMMARY | 2025-04-12 14:42 | XMS_ITS | Encounter Summary ---
Author Organization [employer] Address [address] [place] [address] [address] [place] [address] Care Team Providers Care Hospital Cook Name Role Phone Riri Corrigan [facility] Primary Care Provider Encounter Details Date Type Department Care Team ([facility] st Contact Info) Description 03/15/2025 Results Follow-Up [facility] [address] [place], [place] [phone] Meenu [facility] [address] [place] [address] POCT Glucose, POCT HGB A1C, Cologuard colon cancer screening Social History Tobacco Use Types Packs/Day Years Used Date Smoking Tobacco: Some Days Cigarettes Passive Smoke Exposure: Current Smokeless Tobacco: Never Alcohol Use Standard Drinks/Week Comments Never 0 (1 standard drink = 0.6 oz pur e alcohol) Depression Answer Date Recorded Patient Health Questionnaire-9 Score 0 02/23/2025 Patient Health Questionnaire-9 Score 0 02/23/2025 Last PHQ-9: Questionnaire Data Not on file 0 02/23/2025 Housing Stability Answer Date Recorded What is [...] Date Recorded Patient Health Questionnaire-2 Score 0 02/23/2025 Internet Access Answer Date Recorded Internet Access [...] Description 05/16/2025 11:15 AM EST Office Visit [facility] MEDICINE [address] [place] [address] Riri Corrigan FNP [address] [place] [address] 07/25/2025 11:00 AM EST Office Visit [facility] OPTOMETRY [address] [place] [address] Tarka, Nina, OD [address] [place] [address] documented as of this encounter Visit Diagnoses Not on filedocumented in this encounter Additional Health Concerns Assessment Noted Time PHQ-9 Depression Total Score: 0 02/24/20 25 3:45 PM EDT documented as of this encounter Care Teams Hospital Cook Relationship Specialty Start Date End Date Riri Corrigan FNP [address] [place] [address] PCP - General Family Medicine 03/11/22 documented as of this encounter
--- OUTSIDE RECORDS SUMMARY | 2025-04-12 14:42 | XMS_ITS | Encounter Summary ---
Author Organization [employer] Address [address] [place] [address] Care Team Providers Care Health Officer Name Role Phone [facility] Primary Care Provider [phone] Reason for Visit * Reason Onset Date Comments Reschedule 04/28/2023 Encounter Details Date Type Department Care Team ([facility] st Contact Info) Description 04/28/2023 Telephone [facility] MED & PEDS [address] [place], [place] [phone] [facility] [address] [place] [address] Reschedule Social History Tobacco Use Types Packs/Day [...] Description 05/16/2025 11:15 AM EST Office Visit [facility] MEDICINE [address] [place] [address] HamlinRiri [facility] [address] [place] [address] 07/25/2025 11:00 AM EST Office Visit [facility] OPTOMETRY [address] [place] [address] Tarka, Nina, OD [address] [place] [address] documented as of this encounter Visit Diagnoses Not on filedocumented in this encounter Additional Health Concerns Assessment Noted Time PHQ-9 Depression Total Score: 0 02/07/20 23 1:48 PM EDT documented as of this encounter Care Teams Health Officer Relationship Specialty Start Date End Date Riri Corrigan [facility] [address] [place] [address] PCP - General Family Medicine 03/11/22 documented as of this encounter
--- OUTSIDE RECORDS SUMMARY | 2025-04-12 14:42 | XMS_ITS | Encounter Summary ---
Author Organization [employer] Address [address] [place] [address] Care Team Providers Care Cured Meat Packing Supervisor Name Role Phone Meenu [facility] Primary Care Provider [phone] Reason for Visit * Reason Onset Date Comments Med Refill 06/13/2023 Encounter Details Date Type Department Care Team ([facility] st Contact Info) Description 06/13/2023 Telephone [facility] MEDICINE [address] [place], [place] [phone] [facility] [address] [place] [address] Med Refill Social History Tobacco Use Types [...] Description 05/16/2025 11:15 AM EST Office Visit [facility] MEDICINE [address] [place] [address] CambridgeRiri FNP [address] [place] [address] 07/25/2025 11:00 AM EST Office Visit [facility] OPTOMETRY [address] [place] [address] Nina العلي OD [address] [place] [address] documented as of this encounter Visit Diagnoses Not on filedocumented in this encounter Additional Health Concerns Assessment Noted Time PHQ-9 Depression Total Score: 0 02/07/20 23 1:48 PM EDT documented as of this encounter Care Teams Cured Meat Packing Supervisor Relationship Specialty Start Date End Date Meenu RUTH Menezes [address] [place] [address] PCP - General Family Medicine 03/11/22 documented as of this encounter
--- OUTSIDE RECORDS SUMMARY | 2025-04-12 14:42 | XMS_ITS | Clinical Summary ---
Author Organization [facility] Address [address] [place] [address] Phone Care Team Providers Care Clinic Coordinator Name Role Phone Meenu Riri Primary Care Provider [phone] Allergies No known active allergies Medications polyethylene [...] - 19+ 3-dose series) 04/28/2024 03/03/2024, 05/21/2021 Depression Screening 07/14/2024 Diabetes: Annual Urine Albumin-Creatinine Ratio (uACR) 08/14/2024 Diabetes: Blood Sugar Control Test (HGBA1C) 02/15/2025 08/18/2024, 04/20/2024 Influenza Vaccine (#1) 2025 , 04/09/2021, 06/11/2018, Additional history exists Diabetes: Annual GFR (Glomerular Filtration Rate) 10/10/2025 10/10/2024, 08/18/2024, 08/14/2024 Cholesterol Screening (Lipid Panel) 08/18/2029 08/18/2024, 05/21/2024 DTaP,Tdap,and Td Vaccines (4 - Td or Tdap) 08/18/2034 08/18/2024, 05/27/2014, 01/21/2007 RSV Immunization Adult Patients (1 - 1-dose 75+ series) 2050 HIV Screening Completed 04/09/2021 Pneumococcal Vaccine: Pediatrics (0 to 5 Years) and At-Risk Patients (6 to 49 Years) Completed 03/03/2024, 05/21/2021 COVID-19 Vaccine Completed 04/17/2024, 02/2022, 11/30/2020, Additional history exists HIB Vaccines Aged Out [...] mmol/L LAB CHEMISTRY METHOD 10/10/2024 5:58 AM [facility] Potassium 3.9 3.5 - 5.5 mmol/L LAB CHEMISTRY METHOD 10/10/2024 5:58 AM [facility] Chloride 103 96 - 110 mmol/L LAB CHEMISTRY METHOD 10/10/2024 5:58 AM [facility] CO2 22 21 - 32 mmol/L LAB CHEMISTRY METHOD 10/10/2024 5:58 AM [facility] Anion Gap 9 3 - 11 LAB CHEMISTRY METHOD 10/10/2024 5:58 AM [facility] Glucose 133(H) 70 - 100 mg/dL LAB CHEMISTRY METHOD 10/10/2024 5:58 AM [facility] BUN 23 5 - 25 mg/dL LAB CHEMISTRY METHOD 10/10/2024 5:58 AM [facility] Creatinine 1.43(H) 0.70 - 1.30 mg/dL LAB CHEMISTRY METHOD 10/10/2024 5:58 AM [facility] eGFR 60 >=60 mL/min/1. 73m2 LAB CHEMISTRY METHOD 10/10/2024 5:58 AM [facility] Comment:Calculation based on the Chronic Kidney Disease Epidemiology Collaboration (CKD-EPI) equation refit without adjustment for race. BUN/Creatinine Ratio 16.1 LAB CHEMISTRY METHOD 10/10/2024 5:58 AM [facility] Calcium 9.7 8.5 - 10.5 mg/dL LAB CHEMISTRY METHOD 10/10/2024 5:58 AM [facility] AST (SGOT) 19 10 - 42 unit/L LAB CHEMISTRY METHOD 10/10/2024 5:58 AM [facility] ALT (SGPT) 35 10 - 60 unit/L LAB CHEMISTRY METHOD 10/10/2024 5:58 AM [facility] Alkaline Phosphatase 96 42 - 121 unit/L LAB CHEMISTRY METHOD 10/10/2024 5:58 AM EDT [facility] Total Protein 7.6 6.0 - 8.0 g/dL LAB CHEMISTRY METHOD 10/10/2024 5:58 AM EDT [facility] Albumin 3.9 3.2 - 5.0 g/dL LAB CHEMISTRY METHOD 10/10/2024 5:58 AM EDT [facility] Total Bilirubin 1.0 0.0 - 1.4 mg/dL LAB CHEMISTRY METHOD 10/10/2024 5:58 AM EDT [facility] Blood Venous blood specimen / Unknown Venipuncture / Unknown 10/10/2024 4:46 AM EDT 10/10/2024 5:12 AM EDT Leila Saez MD LAB BLOOD ORDERABLES Fin al Result [facility] [address] [place] [address], from Last 3 Months or Most Recently Relevant to Health Maintenance Additional Health Concerns Infection Onset Date Last Indicated Coronavirus 08/14/2024 08/14/2024 Insurance MEDICAID - [place] MEDICARE Care Teams Clinic Coordinator Relationship Specialty Start Date End Date [facility] [address] [place] [phone] PCP - General 03/30/24
--- OUTSIDE RECORDS SUMMARY | 2025-04-12 14:42 | XMS_ITS | Encounter Summary ---
Author Organization [employer] Address [address] [place] [address] Care Team Providers Care Colorectal Surgeon Name Role Phone Riri Corrigan [facility] Primary Care Provider [phone] Reason for Visit * Reason Onset Date Comments Triage 10/15/2022 Encounter Details Date Type Department Care Team ([facility] st Contact Info) Description 10/15/2022 Telephone [facility] MEDICINE [address] [place], [place] [phone] [facility] [address] [place] [address] Triage Social History Tobacco Use Types Packs/Day [...] accepted this outcome Please contact pt at [phone] documented in this encounter Plan of Treatment Upcoming Encounters Date Type Department Care Team (Late st Contact Info) Description 05/16/2025 11:15 AM EST Office Visit [facility] MEDICINE [address] [place] [address] HaleRiri FNP [address] [place] [address] 07/25/2025 11:00 AM EST Office Visit [facility] OPTOMETRY [address] [place] [address] Nina العلي, OD [address] [place] [address] documented as of this encounter Visit Diagnoses Not on filedocumented in this encounter Additional Health Concerns Assessment Noted Time PHQ-9 Depression Total Score: 0 08/06/19 23 2:09 PM EST documented as of this encounter Care Teams Colorectal Surgeon Relationship Specialty Start Date End Date Riri Corrigan FNP [address] [place] [address] PCP - General Family Medicine 03/11/22 documented as of this encounter
--- OUTSIDE RECORDS SUMMARY | 2025-04-12 14:42 | XMS_ITS | Clinical Summary ---
Author Organization [employer] Address [address] [place] [address] Care Team Providers Care Research Program Intern Name Role Phone Riri Corrigan DIRECTOR OF OPERATIONS FOR THERAPY Primary Care Provider [phone] Allergies No known active allergies Medications cholecalciferol (Vitamin D-3) 50 MCG (1999 UT) capsule 07/01/20 22 Active cyclobenzaprine (Flexeril) 10 MG tablet Take 10 mg by mouth if needed in the morning, at noon, and at bedtime. 06/25/20 22 Active Tecfidera 240 MG capsule delayed-release 07/31/19 23 Active budesonide-formot neeru (Symbicort) 80-4.5 MCG/ACT inhalerIndication s:Mild persistent asthma without complication Inhale 2 puffs twie daily. Rinse mouth with water after use to reduce aftertaste and incidence of candidiasis. Do not swallow. 1 each 11/08/19 23 Active albuterol (ProAir HFA) 108 (90 Base) MCG/ACT inhalerIndication s:Mild persistent asthma without complication Inhale 2 puff as directed every four hours as needed 18 g 11/08/19 23 Active albuterol (2.5 MG/3ML) 0.083% nebulizer solutionIndicatio ns:Mild persistent asthma, uncomplicated USE 1 AMPULE USING A NEBULIZER EVERY 4 HOURS NEEDED SHORTNESS OF BREATH OR FOR WHEEZING 90 mL 07/23/19 24 Active Glucose Blood (Blood Glucose Test) stripIndications: Type 2 diabetes mellitus without complication, without long-term current use of insulin (HCC) Use as instructed to check blood sugar once daily 90 strip 3 06/03/20 24 Active Lancets Ultra Thin 30G miscIndications:T ype 2 diabetes mellitus without complication, without long-term current use of insulin ([facility]) Use as instructed to check blood sugar once daily 90 each 3 12/15/19 24 Active terbinafine (LamISIL AT) 1 % creamIndications: Tinea pedis of both feet Apply topically 2 times daily. 42 g 1 03/03/20 24 Active acetaminophen (Tylenol 8 Hour) 650 MG ER tablet Take 1 tablet (650 mg) by mouth every 8 (eight) hours if needed for mild pain. 30 tablet 03/19/20 24 Active cetirizine (ZyrTEC) 10 MG tablet Take 10 mg by mouth Once per day. Active flecainide (Tambocor) 100 MG tablet TAKE 1 AND 1/2 TABLETS BY MOUTH EVERY TWELVE HOURS 03/02/20 24 Active glucose blood (FREESTYLE LITE) test stripIndications: Type 2 diabetes mellitus without complication, without long-term current use of insulin ([facility]) USE TO TEST BLOOD SUGAR ONCE DAILY 100 each 3 06/01/20 24 Active atorvastatin (Lipitor) 80 MG tabletIndications :Mixed hyperlipidemia Take 1 tablet (80 mg) by mouth Once per day. 30 tablet 11 06/01/20 24 2024 Active fluocinolone (DermOtic) 0.01 % ear dropsIndications: 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 Administer 5 drops into each ear 2 times daily. 20 mL 08/18/19 25 Active metoprolol tartrate (Lopressor) 25 MG tablet TAKE 1 TABLET BY MOUTH TWICE DAILY 180 tablet 1 01/13/20 25 Active Alcohol Swabs (Alcohol Prep) 70 % padsIndications:T ype 2 diabetes mellitus without complication, without long-term current use of insulin ([facility]) USE DIRECTED TO TEST BLOOD SUGAR ONCE DAILY 100 each 4 01/26/20 25 Active Tirzepatide (Mounjaro) 2.5 MG/0.5ML solution auto-injectorIndi cations:Type 2 diabetes mellitus with hyperglycemia, without long-term current use of insulin ([facility]) Inject 2.5 mg under the skin 1 (one) time per week. 2 mL 1 5 9:45 AM EDT 02/24/20 25 Active Eliquis 5 MG tablet TAKE 1 TABLET BY MOUTH TWICE DAILY 180 tablet 1 03/16/20 25 Active Eliquis 5 MG tablet TAKE 1 TABLET BY MOUTH TWICE DAILY 180 tablet 1 06/21/20 24 2024 Discontinued Active Problems Problem Noted Date Diagnosed Date Albuminuria 06/01/2024 Obstructive sleep apnea 04/20/2024 Chronic anticoagulation 03/22/2024 BMI 29.0-29.9,adult 03/22/2024 Paroxysmal atrial fibrillation (CMS/HCC) 024 Eczema 02/17/2023 History of tobacco use 02/17/2023 Overview (02/17/2023): Declines cessation at this time Will continue to address Healthcare maintenance 02/17/2023 Overview (02/17/2023): C-Scope: Referred 10/2022 PSA: HCV Screen: HIV Screen: STI Screening: Declines Vision Exam: Dental Care: Immunizations: Hidradenitis suppurativa 12/13/2022 Overview (02/17/2023): Followed by [facility] derm Type 2 diabetes mellitus wit hout [...] goal: <180 Mixed hyperlipidemia 08/08/2022 Overview (02/17/2023): On rosuvastatin 20mg daily Relapsing remitting multiple sclerosis 0 Overview (02/17/2023): Follow[place] by [facility] [place] Well controlled with tecfidera Mild persistent asthma 05/29/2015 Overview (02/17/2023): Symbicort PRN Resolved Problems Problem Noted Date Diagnosed Date Resolved Date Hyperalbuminemia 06/01/2024 06/01/2024 Abdominal wall cellulitis 03/22/2024 Diabetes 03/22/2024 04/20/2024 Epidermal inclusion cyst 03/22/202402/2024 Infection of thumb 03/22/2024 Influenza A 03/22/2024 04/20/2024 Atrial fibrillation with RVR ([facility]) 03/22/2024 04/20/2024 Cellulitis of right thumb 10/16/2022 Assessment & Plan (10/17/2022 1:01 PM EDT): [place] [facility] [place], they forwarded me to Dr. Campos (hand surgeon) office. I spoke with Anyah at Dr. Campos office and she asked me to fax them the visit summary. *Addendum: I spoke with Dr. Campos 4/5 at 1345, she stated that she was [...] right thumb 08/06/2022 08/11/19 23 Atrial fibrillation ([facility]) 04/09/2021 04/20/2024 Overview (02/17/2023): Followed by cardiology On metoprolol, flecainide, eliquis Cystic acne 04/03/2012 2022 Developmental academic disorder 04/03/2012 2022 Ankle pain 04/03/2012 2022 Encounters Date Type Department Care Team Description 04/01/2025 Telephone [facility] [address] [place] [address] Karina Hoang, EARNEST Paperwork/Forms 03/16/2025 Refill [facility] [place] [address] Riri Corrigan FNP 03/15/2025 Results Follow-Up [facility] JAZMIN Duarte [phone] Riri Corrigan FNP POCT Glucose, POCT HGB A1C, Mechelle colon cancer screening 02/24/2025 Telephone [facility] JAZMIN Duarte [phone] Riri Corrigan FNP Prior Authorization (Medicare PA: Heather 2.5 MG) 02/23/2025 3:15 PM EDT Office Visit [facility] JAZMIN Duarte40 Riri Corrigan FNP Type 2 diabetes mellitus with hyperglycemia, without long-term current use of insulin (CMS/HCC) (Primary Dx); Screening for colon cancer; Mass of finger of right hand; Chalazion left lower eyelid; Eczema, unspecified type 02/23/2025 Travel 02/22/2025 Telephone [facility] [place] [address] Riri Corrigan FNP Chart Prep 02/22/2025 Travel 02/11/2025 Telephone [facility] Alberto [place] [address] Riri Corrigan FNP 02/10/2025 Telephone [facility] [place] [address] Riri Corrigan FNP chart prep 02/10/2025 Travel 02/04/2025 Patient Outreach [facility] [place] [address] Riri Corrigan FNP Pre-visit Planning (SDOH screening is completed ) 01/24/2025 Refill [facility] [place] [address] Yoselyn Herrmann MD Type 2 diabetes mellitus without complication, without long-term current use of insulin (CMS/HCC) 01/11/2025 Refill [facility] [place] [address] Riri Corrigan FNP from Last 3 Months Immunizations Immunization Administration Dates Next Due Hep B, adult [...] Sign Reading Time Taken Comments Blood Pressure 118/80 02/23/2025 3:43 PM EDT Pulse 88 02/23/2025 3:43 PM EDT Temperature 36.9 C (98.4 F) 02/23/2025 3:43 PM EDT Respiratory Rate 20 02/23/2025 3:43 PM EDT Oxygen Saturation 96% 03/19/2024 9:39 AM EDT Inhaled Oxygen Concentration - - Weight 93.9 kg (207 lb) 02/23/2025 3:43 PM EDT Height 175.3 cm (5' 9 ) 02/23/2025 3:43 PM EDT Body Mass Index 30.57 02/23/2025 3:43 PM EDT Plan of Treatment Upcoming Encounters Date Type Department Care Team (Late st Contact Info) Description 05/16/2025 11:15 AM EST Office Visit [facility] [address] [place] [address] SunburyRiri, DIRECTOR OF OPERATIONS FOR THERAPY [address] [place] [address] 07/25/2025 11:00 AM EST Office Visit [facility] OPTOMETRY [address] [place] [address] Nina العلي, OD [address] [place] [address] Health Maintenance Due Date Last Done Comments CT Colonography 1975 Colonoscopy 1975 FIT 1975 Sigmoidoscopy 1975 Family Planning (PISQ) 1990 Dental X-Ray: Bitewings 01/28/2018 01/27/2017 Dental Oral Exam 02/12/2022 08/14/2021, 07/2021, 01/27/2017 Dental Prophylaxis 02/20/2022 08/22/2021 Hepatitis B Vaccines (3 of 3 - 19+ 3-dose series) 04/28/2024 03/03/2024, 05/21/2021 Diabetes: Foot Exam 03/03/2025 03/03/2024, Influenza Vaccine (#1) 2025 , 04/09/2021, 06/11/2018, Additional history exists Diabetes: Urine Protein Screening 05/21/2025 05/21/2024, 04/09/2021 Diabetes: Hemoglobin A1C 05/26/2025 025, 08/18/2024, 04/20/2024, Additional history exists SDOH Screening 08/05/2025 08/05/2024 Zoster Vaccines (1 of 2) 2025 Alcohol/Substance Use Screening 08/18/2025 08/18/2024 Lipid Panel 08/18/2025 08/18/2024, 1102/2024, 02/04/2023, Additional history exists Disability Screening 02/10/2026 02/10/2025 Depression Screening 02/23/2026 02/23/2025, 02/24/20 25 Tobacco Screening 02/24/2026 02/24/2025 FOBT 02/28/2026 02/28/2025 Eye Exam 06/04/2026 06/04/2024, 05/15, 06/04/2024, Additional history exists Dental X-Ray: Full Mouth 03/23/2027 024, 10/06/2020, 01/27/2017 Colorectal Cancer Screening 02/29/2028 FIT DNA/Cologuard 02/29/2028 02/28/2025 DTaP/Tdap/Td Vaccines (5 - Td or Tdap) 08/18/2034 08/18/2024, 05/27/2014, 01/21/2007, Additional history exists RSV Patients and Patients Aged 60 years or older (1 - 1-dose 75+ series) 2050 HIV Screening Completed 04/09/2021 Hepatitis C Screening Completed 02/17/2023, 021 Pneumococcal Vaccine: Pediatrics (0 to 5 Years) and At-Risk Patients (6 to 49) Years Completed 03/03/2024, 05/21/2021 COVID-19 Vaccine Completed 04/17/2024, [...] Procedure Name Priority Date/Time Associated Diagnosis Comments LAB COLOGUARD COLON CANCER SCREEN Routine 02/28/2025 5:48 AM EDT Screening for colon cancer POCT GLYCATED HEMOGLOBIN, TOTAL Routine 02/23/2025 3:41 PM EDT Type 2 diabetes mellitus with hyperglycemia, without long-term current use of insulin (CMS/HCC) POCT GLUCOSE Routine 02/23/2025 3:38 PM EDT Type 2 diabetes mellitus with hyperglycemia, without long-term current use of insulin (CMS/HCC) LIPID PANEL, STANDARD Routine 08/18/2024 12:15 PM EST NAFLD (nonalcoholic fatty liver disease) ALBUMIN, RANDOM URINE W/CREATININE Routine 05/21/2024 4:46 [...] Recently Relevant to Health Maintenance Results * Cologuard?? colon cancer screening (02/28/2025 5:48 AM EDT) Cologuard Result Negative Negative 03/04/20 11:48 AM EDT [facility] (CLIA #:[id number]) Comment: The Cologuard Plus (TM) test was performed on this specimen. NEGATIVE TEST RESULT. A negative (normal) Cologuard Plus result means the patient has a [id number] chance of having colorectal cancer (CRC) or advanced precancer (polyps or lesions that could become cancer). Negative is the normal value (reference range) for this assay. Guidelines recommend screening again 3 years after a negative Cologuard Plus result. Continued screening increases the chance of finding CRC early or preventing it entirely. A clinical validation study showed the Cologuard Plus test is effective at ruling out CRC. Out of every 10,000 patients testing negative, approximately 2 will be falsely reassured that they do not have CRC, and out of every 100 patients testing negative, approximately 7 patients will be falsely reassured they do not have advanced precancer. TEST DESCRIPTION: The Cologuard Plus test is a multi-target stool DNA (mt-sDNA) test that analyzes DNA and hemoglobin biomarkers in stool. It uses a proprietary algorithm to qualitatively detect CRC and advanced precancer. It is FDA-approved and indicated for use in adults 45 years or older at average risk for CRC. A positive (abnormal) result should be followed by a colonoscopy. Patients with a negative (normal) result should screen again in 3 years. False positive and false negative results may occur. The USPSTF recommends the Cologuard test as a CRC screening option. Their modeling estimates that screening with the test every 3 years from ages 45-85 could prevent up to 73% of CRC and avoid up to 85% of CRC deaths. A 18,911-patient clinical trial found the Cologuard Plus test effectively detects CRC and precancer. The study found the test was 95% sensitive for CRC, 43% sensitive for advanced precancer, and had a 91% specificity (Cologuard Plus Clinician Brochure. [employer]. [place], [place].). Visit [email or web address]/about/eshtmplj-wfuqrxpzmhx-kosupzmafll for more test information, references, warnings, and precautions. Stool specimen (specimen) 02/28/2025 5:48 AM EDT 03/01/2025 11:09 AM EDT [facility] LAB MOLECULAR DIAGNOSTICS ORD ERABLES Final Result [facility] (CLIA #:[id number]) [address] [place] [address], * (ABNORMAL) POCT HGB A1C (02/23/2025 3:41 PM EDT) [facility] Hemoglobin A1C 7.6(A) 4.0 - 5.7 % QC Media Lot # [id number] Lot# Expiration Date Blood 02/23/2025 3:41 PM EDT [facility] POINT OF CARE TEST ENTER/EDIT ORDERABLES Final Result * (ABNORMAL) POCT Glucose (02/23/2025 3:38 PM EDT) [facility] Glucose Blood, POC 210(A) 60 - 200 mg/dL QC Media Lot # [id number] Lot# Expiration Date 972 Blood Capillary blood specimen / Unknown 02/23/2025 3:38 PM EDT [facility] POINT OF CARE TEST ENTER/EDIT ORDERABLES Final Result * (ABNORMAL) Lipid Panel, Standard (08/18/2024 12:15 PM EST) Triglycerides 83 <150 mg/dL [facility] Comment:Desirable Triglyceri de: less than 150 mg/dLBorderline High Triglyceride 150-199 mg/dLHigh Triglyceride: 200-499 mg/dLVery High Triglyceride: greater than or equal to 5OO mg/dL Cholesterol 107 <200 mg/dL [facility] Comment:Desirable Cholestero l: less than 200 mg/dLBorderline High Cholesterol: 200-239 mg/dLHigh Cholesterol: greater than 239 mg/dL LDL Cholesterol Calculated 61 <100 mg/dL [facility] Comment:Desirable LDL: less than 100 mg/dLNear Optimal/Above Optimal LDL: 110- 129 mg/dLBorderline High LDL: 130-159 mg/dLHigh LDL: 160-189 mg/dLVery High LDL: greater than or equal to 190 mg/dL HDL Cholesterol 30(L) >40 mg/dL [facility] Comment:Desirable HDL: great er than 40 mg/dL Note: This HDL assay may give artificially low results in patients with liver disease. Blood Venous blood specimen / Unknown 08/18/2024 12:15 PM EST 08/18/2024 1:04 PM EST [facility] LAB BLOOD ORDERABLES Final Re sult [facility] [address] [place] [phone] * (ABNORMAL) Albumin, Random Urine W/Creatinine (05/21/2024 4:46 PM EST) Creatinine, Urine 279.27 mg/dL [facility] Microalbumin Urine 125.0 mg/L [facility] Microalbum Creatinine Ratio Ur 44.7(H) <30 ug/mg cr [facility] Comment:Albumin/Creatinine R atio Reference Ranges: Normal: < 30 ug/mg creatinine Microalbuminuria: 30 - 300 ug/mg creatinineClinical Albuminuria: > 300 ug/mg creatinine Urine 05/21/2024 4:46 PM EST 05/21/2024 5:56 PM EST [facility] LAB URINE ORDERABLES Final Re sult Performing Organization Address [facility] Co de Phone Number [facility] [address] [place] [phone] * Hepatitis Panel, General (02/17/2023 11:49 AM EDT) Hepatitis A IgM Nonreactive Nonreactive [facility] Comment:IgM antibodies to BUNDY V not detected; does not exclude earlyacute or recovered HAV infection. ~Hepatitis B Surface Antibody NONREACTIVE Nonreactive [facility] Comment:Nonreactive: < 8.00 mIU/mL Hepatitis B Core Antibody Nonreactive Nonreactive [facility] Hepatitis C Antibody Nonreactive Nonreactive [facility] Comment:Antibodies to HCV no t detected; does not exclude early acuteHCV infection. Hepatitis B Surface Ag Negative Negative [facility] Blood 02/17/2023 11:4 9 AM EDT 02/17/2023 2:16 PM EDT [facility] LAB BLOOD ORDERABLES Final Re sult Performing Organization Address [facility] de Phone Number [facility] [address] [place] [phone] * HIV 1/2 ANTIGEN/ANTIBODY,FOURTH GENERATION W/RFL (04/09/2021 2:44 PM EDT) HIV-1/2 ANTIGEN AND ANTIBODIES, 4TH GENERATION W/ REFLEX NON-REACT BETTIE NON-REACT BETTIE [facility] Comment: HIV-1 antigen and HIV-1/HIV-2 antibodies were not detected. There is no laboratory evidence of HIV infection. PLEASE NOTE: This information has been disclosed to you from records whose confidentiality may be protected by state law. If your state requires such protection, then the state law prohibits you from making any further disclosure of the information without the specific written consent of the person to whom it pertains, or as otherwise permitted by law. A general authorization for the release of medical or other information is NOT sufficient for this purpose. For additional information please refer to http://education.[employer]/faq/CPX396 (This link is being provided for informational/ educational purposes only.) The performance of this assay has not been clinically validated in patients less than 2 years old. 04/09/2021 2:44 PM EDT us Deborah Mccarthy [facility] LAB BLOOD ORDERABLES Final Res ult [facility] [place] [address], from Last 3 Months or Most Recently Relevant to Health Maintenance [place] [address] [place] [address] STANDARD MEDICARE [place] ST[place] ADULT Care Teams Research Program Intern Relationship Specialty Start Date End Date Riri Corrigan FNP [address] [place] [phone] PCP - General Family Medicine 03/11/22
--- OUTSIDE RECORDS SUMMARY | 2025-04-12 14:42 | XMS_ITS | Encounter Summary ---
Author Organization [employer] Address [address] [place] [address] Care Team Providers Care Office Director Name Role Phone Meenu Riri MIRANDA Primary Care Provider Reason for Visit * Reason Comments Med Refill Encounter Details Date Type Department Care Team (Late st Contact Info) Description 11/13/2022 Refill [facility] [address] [place], [place] [phone] Jamar Jesus AGNP Cellulitis of right thumb [...] Description 05/16/2025 11:15 AM EST Office Visit [facility] [address] [place], [place] [phone] Riri Corrigan FNP [address] [place], [place] [phone] 07/25/2025 11:00 AM EST Office Visit [facility] [address] [place], [place] [phone] Nina العلي, OD [address] [place] [address] documented as of this encounter Visit Diagnoses Diagnosis Cellulitis of right thumb documented in this encounter Additional Health Concerns Assessment Noted Time PHQ-9 Depression Total Score: 0 11/08/19 23 9:20 AM EDT documented as of this encounter Care Teams Office Director Relationship Specialty Start Date End Date Riri Corrigan FNP [address] [place] [phone] PCP - General Family Medicine 03/11/22 documented as of this encounter
--- OUTSIDE RECORDS SUMMARY | 2025-04-12 14:42 | XMS_ITS | Encounter Summary ---
Author Organization [employer] Address [address] [place] [address] [place] [address] Care Team Providers Care Manager Event Name Role Phone Riri Corrigan FUEL PILOT ENGINEER Primary Care Provider [phone] Reason for Referral * Imaging (Routine) - Closed Specialty Diagnoses / Procedures Referred By Stewart saeed Referred To Contact Radiology Diagnoses Liver enzyme elevation Procedures US Abdomen Complete Pa Rodriguez MD [address] [place] [address] Phone: tel: fax: [facility] [address] [place] [address] Phone: tel: fax: Referral ID Status Reason Start Date Expiration Date Visits Re quested Visits Authorized [id number] Closed 06/11/2023 06/10/2024 1 1 Encounter Details Date Type Department Care Team (Late st Contact Info) Description 06/11/2023 Orders Only [facility] [address] [place] [address] Pa Rodriguez MD [address] [place] [phone] Liver enzyme elevation (Primary Dx) Social History [...] Description 05/16/2025 11:15 AM EST Office Visit [facility] [address] [place] [address] [facility], [facility] [address] [place] [address] 07/25/2025 11:00 AM EST Office Visit [facility] OPTOMETRY [address] [place] [address] Nina العلي, OD [address] [place] [address] Scheduled Orders Name Type Priority Associated Diagnoses [...] documented as of this encounter Care Teams Manager Event Relationship Specialty Start Date End Date Riri Corrigan FNP [address] [place] [phone] PCP - General Family Medicine 03/11/22 documented as of this encounter
--- OUTSIDE RECORDS SUMMARY | 2025-04-12 14:42 | XMS_ITS | Encounter Summary ---
Author Organization [employer] Address [address] [place] [address] Care Team Providers Care Realtime Court Reporter Name Role Phone [place] [facility] Primary Care Provider [phone] Reason for Visit * Reason Comments Med Refill Encounter Details Date Type Department Care Team (Late st Contact Info) Description 12/13/2022 Refill [facility] [address] [place], [place] [phone] [facility] [address] [place] [address] Eczema of right external ear Social History [...] Description 05/16/2025 11:15 AM EST Office Visit [facility] [address] [place] [address] Riri Corrigan FNP [address] [place] [address] 07/25/2025 11:00 AM EST Office Visit [facility] [address] [place], [place] [phone] Zorha Nina, OD [address] [place], [place] [phone] documented as of this encounter Visit Diagnoses Diagnosis Eczema of right external ear documented in this encounter Additional Health Concerns Assessment Noted Time PHQ-9 Depression Total Score: 0 11/08/19 23 9:20 AM EDT documented as of this encounter Care Teams Realtime Court Reporter Relationship Specialty Start Date End Date Riri Corrigan FNP [address] [place] [address] PCP - General Family Medicine 03/11/22 documented as of this encounter
--- OUTSIDE RECORDS SUMMARY | 2025-04-12 14:42 | XMS_ITS | Encounter Summary ---
Author Organization [employer] Address [address] [place] [address] Care Team Providers Care Rfid Developer Name Role Phone Riri Corrigan [facility] Primary Care Provider Encounter Details Date Type Department Care Team (Late Contact Info) Description 11/13/2022 Orders Only [facility] MEDICINE [address] [place] [address] [phone] Chika Merlos LPN Social History Tobacco Use [...] Description 05/16/2025 11:15 AM EST Office Visit [facility] MEDICINE [address] [place] [phone]Riri [address] [phone] 07/25/2025 11:00 AM EST Office Visit [facility] OPTOMETRY [address] [place] [address] Nina العلي, OD [address] [place] [address] documented as of this encounter Visit Diagnoses Not on filedocumented in this encounter Additional Health Concerns Assessment Noted Time PHQ-9 Depression Total Score: 0 11/08/19 23 9:20 AM EDT documented as of this encounter Care Teams Rfid Developer Relationship Specialty Start Date End Date Riri Corrigan FNP 230 [place] [address] PCP - General Family Medicine 03/11/22 documented as of this encounter
--- OUTSIDE RECORDS SUMMARY | 2025-04-12 14:42 | XMS_ITS | Encounter Summary ---
Author Organization [employer] Address [address] [place] [address] Care Team Providers Care Lpn Cma Name Role Phone [place] [facility] Primary Care Provider [phone] Reason for Visit * Reason Onset Date Comments Appointment Request 09/22/2023 Encounter Details Date Type Department Care Team ([facility] st Contact Info) Description 09/22/2023 Telephone [facility] MEDICINE [address] [place], [place] [phone] [facility] 230 [place] [address] Appointment Request Social History Tobacco Use Types [...] 11:15 AM EST Office Visit [facility] MEDICINE [address] [place] [address] Riri Corrigan FNP 230 [place] [address] 07/25/2025 11:00 AM EST Office Visit [facility] OPTOMETRY 267 [place] [address] Tarka, Nina, OD [address] [place] [address] documented as of this encounter Visit Diagnoses Not on filedocumented in this encounter Additional Health Concerns Assessment Noted Time PHQ-9 Depression Total Score: 0 02/07/20 23 1:48 PM EDT documented as of this encounter Care Teams Lpn Cma Relationship Specialty Start Date End Date Riri Corrigan FNP [address] [place] [address] PCP - General Family Medicine 03/11/22 documented as of this encounter
== END 2025-04-12 14:52 | disposition home or self-care (01) ==
LOC: HO.HOS 13:25
PROVIDERS: PCP Registered Nurse; Visit Provider Orthopaedic Surgery
DX: R22.31 Localized swelling, mass and lump, right upper limb (principal); E11.9 Type 2 diabetes mellitus without complications; I48.0 Paroxysmal atrial fibrillation
CPT/HCPCS: 99214

== ENCOUNTER → 2025-04-12 13:24 | Outpatient (BNVA) | payer MEDICARE, MEDICAID, SELFPAY | PROVIDERS: PCP Registered Nurse; Visit Provider Orthopaedic Surgery | DX: R22.31 Localized swelling, mass and lump, right upper limb (principal); E11.9 Type 2 diabetes mellitus without complications; I48.0 Paroxysmal atrial fibrillation | CPT/HCPCS: 99212 ==

== ENCOUNTER 2025-05-02 09:05 | Day surgery (SDC) | payer MEDICARE, MEDICAID, SELFPAY ==
--- OUTSIDE RECORDS SUMMARY | 2025-04-13 09:55 | XMS_ITS | Encounter Summary ---
Author Organization [employer] Address [address] [place] [address] Care Team Providers Care Special Deputy Sheriff Name Role Phone Meenu Riri MIRANDA Primary Care Provider [phone] Reason for Visit * Reason Comments Med Refill Encounter Details Date Type Department Care Team (Late st Contact Info) Description 11/13/2022 Refill [facility] MEDICINE [address] [place], [place] [phone] Jamar Jesus AGNP Cellulitis of right thumb [...] Description 05/16/2025 11:15 AM EST Office Visit [facility] MEDICINE [address] [place] [address] Riri Corrigan FNP 230 [place], [place] [phone] 07/25/2025 11:00 AM EST Office Visit [facility] OPTOMETRY [address] [place], [place] [phone] Nina العلي, OD [address] [place] [address] documented as of this encounter Visit Diagnoses Diagnosis Cellulitis of right thumb documented in this encounter Additional Health Concerns Assessment Noted Time PHQ-9 Depression Total Score: 0 11/08/19 23 9:20 AM EDT documented as of this encounter Care Teams Special Deputy Sheriff Relationship Specialty Start Date End Date Riri Corrigan FNP [address] [place] [address] PCP - General Family Medicine 03/11/22 documented as of this encounter
--- OUTSIDE RECORDS SUMMARY | 2025-04-13 09:55 | XMS_ITS | Encounter Summary ---
Author Organization [employer] Address [address] [place] [address] Care Team Providers Care Hand Box Folder Name Role Phone Riri Corrigan [facility] Primary Care Provider [phone] Encounter Details Date Type Department Care Team (Late Contact Info) Description 11/13/2022 Orders Only [facility] MEDICINE [address] [place] [address] [phone] Chika Merlos LPN Social History Tobacco Use [...] Description 05/16/2025 11:15 AM EST Office Visit [facility] MEDICINE [address] [place] [address] [phone] Me[address]Riri [address] [phone] 07/25/2025 11:00 AM EST Office Visit [facility] OPTOMETRY [address] [place] [address] Nina العلي, OD [address] [place] [address] documented as of this encounter Visit Diagnoses Not on filedocumented in this encounter Additional Health Concerns Assessment Noted Time PHQ-9 Depression Total Score: 0 11/08/19 23 9:20 AM EDT documented as of this encounter Care Teams Hand Box Folder Relationship Specialty Start Date End Date Riri Corrigan FNP 230 [place] [address] PCP - General Family Medicine 03/11/22 documented as of this encounter
--- OUTSIDE RECORDS SUMMARY | 2025-04-13 09:55 | XMS_ITS | Encounter Summary ---
Author Organization [employer] Address [address] [place] [address] Care Team Providers Care Senior Master Scheduler Name Role Phone [facility] Primary Care Provider [phone] Reason for Visit * Reason Comments Med Refill Encounter Details Date Type Department Care Team (Late st Contact Info) Description 12/13/2022 Refill [facility] MEDICINE [address] [place], [place] [phone] [facility] 230 [place] [address] Eczema of right external ear Social History [...] Description 05/16/2025 11:15 AM EST Office Visit [facility] MEDICINE [address] [place] [address] Riri Corrigan FNP 230 [place] [address] 07/25/2025 11:00 AM EST Office Visit [facility] OPTOMETRY [address] [place], [place] [phone] Zohra Nina, OD [address] [place], [place] [phone] documented as of this encounter Visit Diagnoses Diagnosis Eczema of right external ear documented in this encounter Additional Health Concerns Assessment Noted Time PHQ-9 Depression Total Score: 0 11/08/19 23 9:20 AM EDT documented as of this encounter Care Teams Senior Master Scheduler Relationship Specialty Start Date End Date Riri Corrigan FNP 230 [place] [address] PCP - General Family Medicine 03/11/22 documented as of this encounter
--- OUTSIDE RECORDS SUMMARY | 2025-04-13 09:55 | XMS_ITS | Encounter Summary ---
Author Organization [employer] Address [address] [place] [address] Care Team Providers Care Electrician Ship Name Role Phone [facility] Primary Care Provider [phone] Reason for Visit * Reason Onset Date Comments Appointment Request 09/22/2023 Encounter Details Date Type Department Care Team ([facility] st Contact Info) Description 09/22/2023 Telephone [facility] MEDICINE 230 [place], [place] [phone] [facility] 230 [place] [address] Appointment Request Social History Tobacco Use Types [...] Description 05/16/2025 11:15 AM EST Office Visit [facility] MEDICINE 230 [place] [address] Riri Corrigan FNP [address] [place] [address] 07/25/2025 11:00 AM EST Office Visit [facility] OPTOMETRY [address] [place] [address] Tarka, Nina, OD [address] [place] [address] documented as of this encounter Visit Diagnoses Not on filedocumented in this encounter Additional Health Concerns Assessment Noted Time PHQ-9 Depression Total Score: 0 02/07/20 23 1:48 PM EDT documented as of this encounter Care Teams Electrician Ship Relationship Specialty Start Date End Date Riri Corrigan FNP [address] [place] [address] PCP - General Family Medicine 03/11/22 documented as of this encounter
--- OUTSIDE RECORDS SUMMARY | 2025-04-13 09:55 | XMS_ITS | Encounter Summary ---
Author Organization [employer] Address [address] [place] [address] Care Team Providers Care Medication Nurse Name Role Phone Riri Corrigan [facility] Primary Care Provider [phone] Reason for Visit * Reason Onset Date Comments Triage 10/15/2022 Encounter Details Date Type Department Care Team ([facility] st Contact Info) Description 10/15/2022 Telephone [facility] MEDICINE 230 [place], [place] [phone] [facility] 230 [place] [address] Triage Social History Tobacco Use Types Packs/Day [...] accepted this outcome Please contact pt at [phone] documented in this encounter Plan of Treatment Upcoming Encounters Date Type Department Care Team (Late st Contact Info) Description 05/16/2025 11:15 AM EST Office Visit [facility] MEDICINE 230 [place] [address] [place] [facility] F[facility] [address] [place] [address] 07/25/2025 11:00 AM EST Office Visit [facility] OPTOMETRY [address] [place] [address] Nina العلي, OD [address] [place] [address] documented as of this encounter Visit Diagnoses Not on filedocumented in this encounter Additional Health Concerns Assessment Noted Time PHQ-9 Depression Total Score: 0 08/06/19 23 2:09 PM EST documented as of this encounter Care Teams Medication Nurse Relationship Specialty Start Date End Date Riri Corrigan FNP [address] [place] [address] PCP - General Family Medicine 03/11/22 documented as of this encounter
--- OUTSIDE RECORDS SUMMARY | 2025-04-13 09:55 | XMS_ITS | Encounter Summary ---
Author Organization [employer] Address [address] [place] [address] Care Team Providers Care Waiter/Waitress Cocktail Lounge Name Role Phone Riri Corrigan CLINICAL MICROBIOLOGIST Primary Care Provider [phone] Reason for Visit * Reason Comments Med Refill Encounter Details Date Type Department Care Team ([facility] st Contact Info) Description 02/18/2024 Refill [facility] MEDICINE [address] [place] [address] Vivien Maxwell MD [address] [place] [address] Social History Tobacco Use Types Packs/Day Years [...] Description 05/16/2025 11:15 AM EST Office Visit [facility] MED[facility]INE [address] [place] [address] Riri Corrigan FNP [address] [place] [address] 07/25/2025 11:00 AM EST Office Visit [facility] OPTOMETRY 267 [place] [address] Tarka, Nina, OD [address] [place] [address] documented as of this encounter Visit Diagnoses Not on filedocumented in this encounter Additional Health Concerns Assessment Noted Time PHQ-9 Depression Total Score: 0 02/07/20 23 1:48 PM EDT documented as of this encounter Care Teams Waiter/Waitress Cocktail Lounge Relationship Specialty Start Date End Date Riri Corrigan FNP [address] [place] [address] PCP - General Family Medicine 03/11/22 documented as of this encounter
--- OUTSIDE RECORDS SUMMARY | 2025-04-13 09:55 | XMS_ITS | Encounter Summary ---
Author Organization [employer] Address [address] [place] [address] Care Team Providers Care Communications Controller Name Role Phone [place] [facility] Primary Care Provider [phone] Reason for Visit * Reason Onset Date Comments Reschedule 04/28/2023 Encounter Details Date Type Department Care Team ([facility] st Contact Info) Description 04/28/2023 Telephone [facility] CHC MED & PEDS [address] [place], [place] [phone] [facility] 230 [place] [address] Reschedule Social History Tobacco Use Types Packs/Day [...] 11:15 AM EST Office Visit [facility] MEDICINE 230 [place] [address] BedfordRiri [facility] 230 [place] [address] 07/25/2025 11:00 AM EST Office Visit [facility] OPTOMETRY [address] [place] [address] Tarka, Nina, OD [address] [place] [address] documented as of this encounter Visit Diagnoses Not on filedocumented in this encounter Additional Health Concerns Assessment Noted Time PHQ-9 Depression Total Score: 0 02/07/20 23 1:48 PM EDT documented as of this encounter Care Teams Communications Controller Relationship Specialty Start Date End Date Riri Corrigan [facility] 230 [place] [address] PCP - General Family Medicine 03/11/22 documented as of this encounter
--- OUTSIDE RECORDS SUMMARY | 2025-04-13 09:57 | XMS_ITS | Encounter Summary ---
Author Organization [employer] Address [address] [place] [address] [address] [place] [address] Care Team Providers Care Web Communications Specialist Name Role Phone Riri Corrigan [facility] Primary Care Provider [phone] Encounter Details Date Type Department Care Team ([facility] st Contact Info) Description 03/15/2025 Results Follow-Up [facility] 230 [place], [place] [phone] Meenu [facility] 230 [place] [address] POCT Glucose, POCT HGB A1C, Cologuard colon [...] 11:15 AM EST Office Visit [facility] MEDICINE 230 [place] [address] Riri Corrigan FNP 230 [place] [address] 07/25/2025 11:00 AM EST Office Visit [facility] OPTOMETRY [address] [place] [address] Tarka, Nina, OD [address] [place] [address] documented as of this encounter Visit Diagnoses Not on filedocumented in this encounter Additional Health Concerns Assessment Noted Time PHQ-9 Depression Total Score: 0 02/24/20 25 3:45 PM EDT documented as of this encounter Care Teams Web Communications Specialist Relationship Specialty Start Date End Date Riri Corrigan FNP 230 [place] [address] PCP - General Family Medicine 03/11/22 documented as of this encounter
--- OUTSIDE RECORDS SUMMARY | 2025-04-13 09:57 | XMS_ITS | Encounter Summary ---
Author Organization [employer] Address [address] [place] [address] Care Team Providers Care Provider Network Mgr Name Role Phone Meenu [facility] Primary Care Provider [phone] Reason for Visit * Reason Onset Date Comments Med Refill 06/13/2023 Encounter Details Date Type Department Care Team ([facility] st Contact Info) Description 06/13/[address] [facility] MEDICINE [address], [place] [phone] [facility] 230 [place] [address] Med Refill Social History Tobacco Use Types [...] Description 05/16/2025 11:15 AM EST Office Visit [facility] MEDICINE [address] [place] [address] SandstoneRiri FNP [address] [place] [address] 07/25/2025 11:00 AM EST Office Visit [facility] OPTOMETRY [address] [place] [address] Nina العلي OD [address] [place] [address] documented as of this encounter Visit Diagnoses Not on filedocumented in this encounter Additional Health Concerns Assessment Noted Time PHQ-9 Depression Total Score: 0 02/07/20 23 1:48 PM EDT documented as of this encounter Care Teams Provider Network Mgr Relationship Specialty Start Date End Date Meenu RUTH Menezes [address] [place] [address] PCP - General Family Medicine 03/11/22 documented as of this encounter
--- OUTSIDE RECORDS SUMMARY | 2025-04-13 09:57 | XMS_ITS | Encounter Summary ---
Author Organization [employer] Address [address] [place] [address] [place], [place] [address] Care Team Providers Care Customer Relations Representative Name Role Phone Riri Corrigan REHABILITATION MANAGER Primary Care Provider [phone] Reason for Referral * Imaging (Routine) - Closed Specialty Diagnoses / Procedures Referred By Stewart saeed Referred To Contact Radiology Diagnoses Liver enzyme elevation Procedures US Abdomen Complete Pa Rodriguez MD [address] [place] [address] Phone: tel: fax: [facility] [address] [place] [address] Phone: tel: fax: Referral ID Status Reason Start Date Expiration Date Visits Re quested Visits Authorized [id number] Closed 06/11/2023 06/10/2024 1 1 Encounter Details Date Type Department Care Team (Late st Contact Info) Description 06/11/2023 Orders Only [facility] CHC MED & PEDS [address] [place] [address] Pa Rodriguez MD [address] [place] [address] Liver enzyme elevation (Primary Dx) Social History [...] Description 05/16/2025 11:15 AM EST Office Visit [facility] MEDICINE 230 [place] [address] [facility] 230 [place] [address] 07/25/2025 11:00 AM EST Office Visit [facility] OPTOMETRY 267 [place] [address] Nina العلي, OD [address] [place] [address] Scheduled Orders Name Type Priority Associated Diagnoses [...] documented as of this encounter Care Teams Customer Relations Representative Relationship Specialty Start Date End Date Riri Corrigan FNP [address] [place] [address] PCP - General Family Medicine 03/11/22 documented as of this encounter
--- OUTSIDE RECORDS SUMMARY | 2025-04-13 09:57 | XMS_ITS | Encounter Summary ---
Author Organization [employer] Address [address] [place] [address] Care Team Providers Care Open Die Inspector Name Role Phone Riri Corrigan Primary Care Provider [phone] Encounter Details Date Type Department Care Team (Latest Contact Info) Description 08/22/2021 Abstract [facility] CONVERSIONS Dental, Provider, DDS Social History Tobacco [...] Description 05/16/2025 11:15 AM EST Office Visit [facility] MEDICINE 230 [place] [address] Riri Corrigan FNP [address] [place] [address] 07/25/2025 11:00 AM EST Office Visit [facility] OPTOMETRY [address] [place] [address] Nina العلي, OD [address] [place] [address] documented as of this encounter Visit Diagnoses Not on filedocumented in this encounter Care Teams Open Die Inspector Relationship Specialty Start Date End Date Riri Corrigan FNP 230 [place] [address] PCP - General Family Medicine 03/11/22 documented as of this encounter
--- OUTSIDE RECORDS SUMMARY | 2025-04-13 09:57 | XMS_ITS | Clinical Summary ---
Author Organization [employer] Address [address] [place] [address] Care Team Providers Care Pairer Substandard Name Role Phone Riri Corrigan [employer] Primary Care Provider [phone] Allergies No known active allergies Medications cholecalciferol [...] complication, without long-term current use of insulin ([facility]) Use as instructed to check blood sugar [...] complication, without long-term current use of insulin ([facility]) USE TO TEST BLOOD SUGAR ONCE DAILY [...] complication, without long-term current use of insulin ([facility]) USE DIRECTED TO TEST BLOOD SUGAR ONCE DAILY 100 each 4 01/26/20 25 Active Tirzepatide (Mounjaro) 2.5 MG/0.5ML solution auto-injectorIndi cations:Type 2 diabetes mellitus with hyperglycemia, without long-term current use of insulin ([facility]) Inject 2.5 mg under the skin 1 [...] Hidradenitis suppurativa 12/13/2022 Overview (02/17/2023): Followed by [facility] derm Type 2 diabetes mellitus wit [...] multiple sclerosis 0 Overview (02/17/2023): Followed by [facility] neurology Well controlled with tecfidera Mild persistent asthma 05/29/2015 Overview (02/17/2023): Symbicort PRN Resolved Problems Problem Noted Date Diagnosed Date Resolved Date Hyperalbuminemia 06/01/2024 06/01/2024 Abdominal wall cellulitis 03/22/2024 Diabetes 03/22/2024 04/20/2024 Epidermal inclusion cyst 03/22/202402/2024 Infection of thumb 03/22/2024 Influenza A 03/22/2024 04/20/2024 Atrial fibrillation with RVR ([facility]) 03/22/2024 04/20/2024 Cellulitis of right thumb 10/16/2022 Assessment & Plan (10/17/2022 1:01 PM EDT): Called [facility] general surgery, they forwarded me to Dr. [...] right thumb 08/06/2022 08/11/19 23 Atrial fibrillation ([facility]) 04/09/2021 04/20/2024 Overview (02/17/2023): Followed by cardiology On metoprolol, flecainide, eliquis Cystic acne 04/03/2012 2022 Developmental academic disorder 04/03/2012 2022 Ankle pain 04/03/2012 2022 Encounters Date Type Department Care Team Description 04/01/2025 Telephone [facility] [address] [place] [address] Karina Hoang, EARNEST Paperwork/Forms 03/16/2025 Refill [facility] [place] [place] [address] Riri Corrigan FNP 03/15/2025 Results Follow-Up [facility] JAZMIN Duarte [phone] Riri Corrigan FNP POCT Glucose, POCT HGB A1C, Mechelle colon cancer screening 02/24/2025 Telephone [facility] JAZMIN Duarte [phone] Riri Corrigan FNP Prior Authorization (Medicare PA: Heather 2.5 MG) 02/23/2025 3:15 PM EDT Office Visit [facility] JAZMIN Duarte40 Riri Corrigan FNP Type 2 diabetes mellitus with hyperglycemia, without long-term current use of insulin (CMS/HCC) (Primary Dx); Screening for colon cancer; Mass of finger of right hand; Chalazion left lower eyelid; Eczema, unspecified type 02/23/2025 Travel 02/22/2025 Telephone [facility] [place] [address] Riri Corrigan FNP Chart Prep 02/22/2025 Travel 02/11/2025 Telephone [facility] Alberto [place] [address] Riri Corrigan FNP 02/10/2025 Telephone [facility] [place] [place] [address] Riri Corrigan FNP chart prep 02/10/2025 Travel 02/04/2025 Patient Outreach [facility] [place] [address] Riri Corrigan FNP Pre-visit Planning (SDOH screening is completed ) 01/24/2025 Refill [facility] [place] [address] Yoselyn Herrmann MD Type 2 diabetes mellitus without complication, without long-term current use of insulin (CMS/HCC) 01/11/2025 Refill [facility] [place] [address] Riri Corrigan FNP from Last 3 Months [...] Description 05/16/2025 11:15 AM EST Office Visit [facility] [address] [place] [address] GlenfieldRiri, [employer] [address] [place] [address] 07/25/2025 11:00 AM EST Office Visit [facility] [address] [place] [address] Nina العلي, OD [address] [place] [address] Health Maintenance Due Date Last Done Comments [...] Result Negative Negative 03/04/20 11:48 AM EDT [facility] (CLIA #:[id number]) Comment: The Cologuard Plus (TM) test was performed on this specimen. NEGATIVE TEST RESULT. A negative (normal) Cologuard Plus result means the patient has a nozp-jzsy-[id number] chance of having colorectal cancer (CRC) or [...] a 91% specificity (Cologuard Plus Clinician Brochure. [employer]. [place], [place].). Visit [email or web address].net.Symphogen/about/eujuifup-pvttamozxef-tcsadfxyqnj for more test information, references, warnings, and precautions. Stool specimen (specimen) 02/28/2025 5:48 AM EDT 03/01/2025 11:09 AM EDT [facility] MOLECULAR DIAGNOSTICS ORD ERABLES Final Result [facility] (CLIA #:[id number]) [address] [place] [address], * (ABNORMAL) POCT HGB A1C (02/23/2025 3:41 PM EDT) [facility] Hemoglobin A1C 7.6(A) 4.0 - 5.7 % QC Media Lot # [id number] Lot# Expiration Date Blood 02/23/2025 3:41 PM EDT [facility] POINT OF CARE TEST ENTER/EDIT ORDERABLES Final Result * (ABNORMAL) POCT Glucose (02/23/2025 3:38 PM EDT) [facility] Glucose Blood, POC 210(A) 60 - 200 mg/dL QC Media Lot # [id number] Lot# Expiration Date 973 Blood Capillary blood specimen / Unknown 02/23/2025 3:38 PM EDT [facility] POINT OF CARE TEST ENTER/EDIT ORDERABLES Final Result * (ABNORMAL) Lipid Panel, Standard (08/18/2024 12:15 PM EST) Triglycerides 83 <150 mg/dL [facility] Comment:Desirable Triglyceri de: less than 150 mg/dLBorderline High Triglyceride 150-199 mg/dLHigh Triglyceride: 200-499 mg/dLVery High Triglyceride: greater than or equal to 5OO mg/dL Cholesterol 107 <200 mg/dL [facility] Comment:Desirable Cholestero l: less than 200 mg/dLBorderline High Cholesterol: 200-239 mg/dLHigh Cholesterol: greater than 239 mg/dL LDL Cholesterol Calculated 61 <100 mg/dL [facility] Comment:Desirable LDL: less than 100 mg/dLNear Optimal/Above Optimal LDL: 110- 129 mg/dLBorderline High LDL: 130-159 mg/dLHigh LDL: 160-189 mg/dLVery High LDL: greater than or equal to 190 mg/dL HDL Cholesterol 30(L) >40 mg/dL [facility] Comment:Desirable HDL: great er than 40 mg/dL Note: This HDL assay may give artificially low results in patients with liver disease. Blood Venous blood specimen / Unknown 08/18/2024 12:15 PM EST 08/18/2024 1:04 PM EST [facility] BLOOD ORDERABLES Final Re sult [facility] [address] [place] [phone] * (ABNORMAL) Albumin, Random Urine W/Creatinine (05/21/2024 4:46 PM EST) Creatinine, Urine 279.27 mg/dL [facility] Microalbumin Urine 125.0 mg/L [facility] Microalbum Creatinine Ratio Ur 44.7(H) <30 ug/mg cr [facility] Comment:Albumin/Creatinine R atio Reference Ranges: Normal: < 30 ug/mg creatinine Microalbuminuria: 30 - 300 ug/mg creatinineClinical Albuminuria: > 300 ug/mg creatinine Urine 05/21/2024 4:46 PM EST 05/21/2024 5:56 PM EST [facility] URINE ORDERABLES Final Re sult Performing Organization Address [facility] Co de Phone Number [facility] [address] [place] [phone] * Hepatitis Panel, General (02/17/2023 11:49 AM EDT) Hepatitis A IgM Nonreactive Nonreactive [facility] Comment:IgM antibodies to BUNDY V not detected; does not exclude earlyacute or recovered HAV infection. ~Hepatitis B Surface Antibody NONREACTIVE Nonreactive [facility] Comment:Nonreactive: < 8.00 mIU/mL Hepatitis B Core Antibody Nonreactive Nonreactive [facility] Hepatitis C Antibody Nonreactive Nonreactive [facility] Comment:Antibodies to HCV no t detected; does not exclude early acuteHCV infection. Hepatitis B Surface Ag Negative Negative [facility] Blood 02/17/2023 11:4 9 AM EDT 02/17/2023 2:16 PM EDT [facility] BLOOD ORDERABLES Final Re sult Performing Organization Address [facility] de Phone Number [facility] [address] [place] [phone] * HIV 1/2 ANTIGEN/ANTIBODY,FOURTH GENERATION W/RFL (04/09/2021 2:44 PM EDT) HIV-1/2 ANTIGEN AND ANTIBODIES, 4TH GENERATION W/ REFLEX NON-REACT BETTIE NON-REACT BETTIE [facility] Comment: HIV-1 antigen and HIV-1/HIV-2 [...] purpose. For additional information please refer to http://education.[employer].Symphogen/faq/YEI960 (This link is being provided for informational/ educational purposes only.) The performance of this assay has not been clinically validated in patients less than 2 years old. 04/09/2021 2:44 PM EDT us Deborah Mccarthy [facility] BLOOD ORDERABLES Final Res ult [facility] [place] [address], from Last 3 Months or Most Recently Relevant to Health Maintenance [place] [address] [address] [place] [address] STANDARD MEDICARE [place] ST[place] ADULT Care Teams Pairer Substandard Relationship Specialty Start Date End Date Riri Corrigan FNP [address] [place] [phone] PCP - General Family Medicine 03/11/22
--- OUTSIDE RECORDS SUMMARY | 2025-04-13 09:57 | XMS_ITS | Clinical Summary ---
Author Organization [facility] Address [address] [place] [address] Phone Care Team Providers Care Side Seam Envelope Machine Operator Name Role Phone Meenu Riri Primary Care Provider [phone] Allergies No known active allergies Medications polyethylene [...] Health Maintenance Due Date Last Done Comments Colorectal Cancer Screening: Colonoscopy 1975 Diabetes: Annual Foot Exam 1985 Diabetes: Annual Retina Eye Exam 1985 Hepatitis C Screening 02/04/2024 Medicare Annual Wellness [...] mmol/L LAB CHEMISTRY METHOD 10/10/2024 5:58 AM [facility] Potassium 3.9 3.5 - 5.5 mmol/L LAB CHEMISTRY METHOD 10/10/2024 5:58 AM [facility] Chloride 103 96 - 110 mmol/L LAB CHEMISTRY METHOD 10/10/2024 5:58 AM [facility] CO2 22 21 - 32 mmol/L LAB CHEMISTRY METHOD 10/10/2024 5:58 AM [facility] Anion Gap 9 3 - 11 LAB CHEMISTRY METHOD 10/10/2024 5:58 AM [facility] Glucose 133(H) 70 - 100 mg/dL LAB CHEMISTRY METHOD 10/10/2024 5:58 AM [facility] BUN 23 5 - 25 mg/dL LAB CHEMISTRY METHOD 10/10/2024 5:58 AM [facility] Creatinine 1.43(H) 0.70 - 1.30 mg/dL LAB CHEMISTRY METHOD 10/10/2024 5:58 AM [facility] eGFR 60 >=60 mL/min/1. 73m2 LAB CHEMISTRY METHOD 10/10/2024 5:58 AM [facility] Comment:Calculation based on the Chronic Kidney Disease Epidemiology Collaboration (CKD-EPI) equation refit without adjustment for race. BUN/Creatinine Ratio 16.1 LAB CHEMISTRY METHOD 10/10/2024 5:58 AM [facility] Calcium 9.7 8.5 - 10.5 mg/dL LAB CHEMISTRY METHOD 10/10/2024 5:58 AM [facility] AST (SGOT) 19 10 - 42 unit/L LAB CHEMISTRY METHOD 10/10/2024 5:58 AM [facility] ALT (SGPT) 35 10 - 60 unit/L LAB CHEMISTRY METHOD 10/10/2024 5:58 AM [facility] Alkaline Phosphatase 96 42 - 121 unit/L LAB CHEMISTRY METHOD 10/10/2024 5:58 AM EDT [facility] Total Protein 7.6 6.0 - 8.0 g/dL LAB CHEMISTRY METHOD 10/10/2024 5:58 AM EDT [facility] Albumin 3.9 3.2 - 5.0 g/dL LAB CHEMISTRY METHOD 10/10/2024 5:58 AM EDT [facility] Total Bilirubin 1.0 0.0 - 1.4 mg/dL LAB CHEMISTRY METHOD 10/10/2024 5:58 AM EDT [facility] Blood Venous blood specimen / Unknown Venipuncture / Unknown 10/10/2024 4:46 AM EDT 10/10/2024 5:12 AM EDT Leila Saez MD LAB BLOOD ORDERABLES Fin al Result [facility] [address] [place] [address], from Last 3 Months or Most Recently Relevant to Health Maintenance Additional Health Concerns Infection Onset Date Last Indicated Coronavirus 08/14/2024 08/14/2024 Insurance MEDICAID - [place] MEDICARE Care Teams Side Seam Envelope Machine Operator Relationship Specialty Start Date End Date [facility] [address] [place] [phone] PCP - General 03/30/24
[2025-05-02 05:42] VITALS: BMI 26.6
[2025-05-02 05:43] VITALS: BMI 29.4
[2025-05-02 09:37] VITALS: BP 130/76; PULSE 78; RESP 18; TEMP 36.6; O2SAT 97
--- NOTE | 2025-05-02 10:00 | MHC.SHP ---
Pre-Procedural Eval Section A - 24 Hr Update-Section A only Date of Service: 05/02/25 The patient is an INPATIENT: No Changes since office visit: No Cold of Flu in the past 2 weeks, No New Medical Problems, No Changes in Medication and No Patient answered all questions The patient has been examined within 24 hours of the surgical procedure. The History & Physical has been completed within 30 days and I have reviewed it.: Yes Section B - Complete if H&P > 30 days Chief Complaint: Localized swelling, mass and lump, right upper ferrell Allergies: Allergies Allergy/AdvReac Type Severity Reaction Status Date / Time No Known Allergies Allergy Verified 04/12/25 13:40 Plan Diagnosis/Plan: Unchanged I have reviewed the history and physical and performed a pertinent physical examination on my patient. No changes have occurred unless specified. Time Spent With Patient Time: Total time managing care of this patient today ____ minutes.
--- NOTE | 2025-05-02 10:01 | W.PM.OPN ---
Operative Note Operative Note Date of Service: 05/02/25 Narrative: Operative Note Preop diagnosis: 1. Right thumb recurrent mass in the pad Postop diagnosis: same Procedure: 1. Repeat right thumb mass excisional biopsy Surgeon: Oralia Campos MD Metal Drill Press Operator: Сергей GUTIERREZ Anesthesia: digital block using 1% lidocaine with epinephrine Findings: White spherical mass filled with white cheesy material consistent with epidermal inclusion cyst. There was also a 2nd spherical lining which could either have been a 2nd cyst versus a rind of inflammatory material. This was all removed and sent to histopathology EBL: Less than 5 mL Tourniquet time: None Specimens: Right thumb mass sent for histopathology Complications: None Disposition: Brought to recovery room in stable condition Plan: Follow-up for 7-10 days for wound check and suture removal and to check pathology Indications: The patient is 49 years old, with recurrence of a right thumb mass in the pad of his thumb . The risks and benefits of operative treatment including but not limited to risk of damage to blood vessels, nerves, tendons, infection, persistent pain, persistent symptoms, recurrence or possible need for additional surgery were discussed with the patient and the patient wishes to proceed with surgery. Procedure: Once consent was obtained a digital block was performed in the preop area using a combination of 1% lidocaine with epinephrine. The patient was then brought back to the operating suite and placed on the operative table in supine position. The right upper extremity was prepped and draped in a standard surgical fashion. Once assured that we had a good block, I made an oblique incision centered over the mass in the pad of the right thumb. The incision was made through the skin the subcutaneous tissues. I then used iris and tenotomy scissors to dissect down to the mass which measured about 1.3 cm in diameter. It was a white spherical mass filled with a white cheesy material most consistent with an epidermal inclusion cyst. Attached to this was another spherical lining which may have been the rind surrounding the above-noted cyst. This was all carefully excised using iris scissors and placed on the back table to be sent for histopathology. No further masses were appreciated. Once satisfied with our excisional biopsy the wound was copiously irrigated with normal saline and hemostasis was obtained with a brief period of local pressure. The skin edges were reapproximated with some 5.0 nylon suture material and a sterile dressing was applied. The patient appears to have tolerated the procedure well and with no complications. All digits were well vascularized at the conclusion of the case.
[2025-05-02 11:09] VITALS: BP 106/66; PULSE 68; RESP 16; TEMP 36.7; O2SAT 94
== END 2025-05-02 11:18 | disposition home or self-care (01) ==
PROVIDERS: PCP Registered Nurse; Visit Provider Orthopaedic Surgery
PROC: (CPT 11422; principal; 2025-05-02 15:10)
DX: L72.0 Epidermal cyst (principal); M79.644 Pain in right finger(s); I48.0 Paroxysmal atrial fibrillation; G35.D Multiple sclerosis, unspecified; E11.9 Type 2 diabetes mellitus without complications; E78.00 Pure hypercholesterolemia, unspecified; J45.909 Unspecified asthma, uncomplicated; Z79.01 Long term (current) use of anticoagulants; Z79.899 Other long term (current) drug therapy; Z79.85 Long-term (current) use of injectable non-insulin antidiabetic drugs; F17.210 Nicotine dependence, cigarettes, uncomplicated
CPT/HCPCS: 11422; 88304; J0165; J2003

== ENCOUNTER → 2025-05-02 09:05 | Outpatient (BNV) | payer MEDICARE, MEDICAID, SELFPAY | PROVIDERS: PCP Registered Nurse; Visit Provider Orthopaedic Surgery | DX: R22.31 Localized swelling, mass and lump, right upper limb (principal); L72.0 Epidermal cyst | CPT/HCPCS: 11442 ==

== ENCOUNTER 2025-05-13 13:45 | Outpatient (AMB) | payer MEDICARE, MEDICAID, SELFPAY ==
[2025-05-13 14:01] VITALS: BMI 29.4
--- NOTE | 2025-05-13 14:01 | A.OFFVIS_ITS ---
Vital Signs 05/13/25 14:01 Height 5 ft 9 in Weight 199 lb BMI 29.4 Intake Visit Reasons: PO-Rt Thumb Repeat Mass Exc 05/02/25 Intake Note: Michael is a 49 year old right hand dominant male who presents today for a Post- Operative Visit status post Right Thumb Repeat Mass Excision performed by Dr. Campos on 05/02/25. Patient reports he is doing well besides some numbness around the incision site. He has discontinued his pain medications. Sutures removed and steri strips applied. Allergies No Known Allergies Allergy (Verified 05/13/25 14:04) HPI HPI PO-Rt Thumb Repeat Mass Exc 05/02/25: Details: Michael is a 49 year old right hand dominant male who presents today for a Post- Operative Visit status post Right Thumb Repeat Mass Excision performed by Dr. Campos on 05/02/25. Patient reports he is doing well besides some numbness around the incision site. He has discontinued his pain medications. Sutures removed and steri strips applied. [facility] Medical History History of high cholesterol Atrial fibrillation with rapid ventricular response Paroxysmal atrial fibrillation Multiple sclerosis Diabetes Asthma Family History Mother Diabetes Asthma Maternal Grandmother Diabetes Brother Diabetes Other No family history of cardiac disease Social History Alcohol intake: never Patient Tobacco Use Status: Current everyday Tobacco user Tobacco use type: Cigarette Cigarette Packs Per Day: 2 Years Smoked: started at 15, 2ppd Substance Use Type: Marijuana service: No Current occupational status: disabled Review of Systems Const All systems reviewed & are unremarkable except as noted in HPI and below Physical Exam Vital Signs: BMI result Body Mass Index 29.4 Extrem Other: Patient is alert, oriented, and in no acute distress. Neuro: Patient reports slightly diminished sensation around the incision site on the pad of the right thumb Normal sensation of the tips of all other digits of the right hand at this time Vascular: Cap refill brisk Pain: No tenderness to palpation about incision site on pattern right thumb No pain with range of motion of the right hand ROM: Patient is able to make a closed fist and extend all digits of the right hand fully and without difficulty Skin: Approximated and well healing incision site noted on the pad of the right thumb No lacerations or abrasions. General: No ecchymosis, erythema, or evidence of infection. Psych: Appears grossly normal Affect normal Attitude cooperative Results Reviewed Results Reviewed: Soft tissue, right thumb mass, excision: Epidermal inclusion cyst Assessment & Plan Assessment & Plan (1) History of excision of epidermal inclusion cyst: Code(s): Z98.890 - Other specified postprocedural states; Z87.2 - Personal history of diseases of the skin and subcutaneous tissue Category: Surgical Plan 1. Status post epidermal inclusion cyst excision of right thumb DOS 05/02/2025 Patient appears to be recovering well postoperatively Patient is educated about the typical recovery course At this time, patient is educated that it is possible he will continue to experience diminished sensation in the pain in the right thumb, although this may return with time and healing Patient is also educated that epidermal inclusion cysts are not malignant and do not require any further treatment Patient understands this and is amenable to this plan Follow-up as needed with any acute concerns Coding Level of Care Code Global (98952) Diagnoses History of excision of epidermal inclusion cyst Z98.890; Z87.2
--- OUTSIDE RECORDS SUMMARY | 2025-05-13 14:42 | XMS_ITS | Encounter Summary ---
Author Organization [employer] Address [address] [place] [address] Care Team Providers Care Buckle Strap Drum Operator Name Role Phone Riri Corrigan [facility] Primary Care Provider [phone] Reason for Visit * Reason Onset Date Comments Triage 10/15/2022 Encounter Details Date Type Department Care Team ([facility] st Contact Info) Description 10/15/2022 Telephone [facility] [address] [place], [place] [phone] [place] [address] [place] [address] Triage Social History Tobacco Use Types Packs/Day [...] accepted this outcome Please contact pt at [phone] documented in this encounter Plan of Treatment Upcoming Encounters Date Type Department Care Team (Late st Contact Info) Description 05/16/2025 11:15 AM EST Office Visit [facility] [address] [place] [address] DobbinsRiri FNP [address] [place] [address] 07/25/2025 11:00 AM EST Office Visit [facility] [address] [place] [address] Nina العلي, OD [address] [place] [address] documented as of this encounter Visit Diagnoses Not on filedocumented in this encounter Additional Health Concerns Assessment Noted Time PHQ-9 Depression Total Score: 0 08/06/19 23 2:09 PM EST documented as of this encounter Care Teams Buckle Strap Drum Operator Relationship Specialty Start Date End Date Riri Corrigan FNP [address] [place] [address] PCP - General Family Medicine 03/11/22 documented as of this encounter
--- OUTSIDE RECORDS SUMMARY | 2025-05-13 14:42 | XMS_ITS | Encounter Summary ---
Author Organization [employer] Address [address] [place] [address] Care Team Providers Care Supervisor Accounts Receivable Name Role Phone Meenu Riri MIRANDA Primary Care Provider [phone] Reason for Visit * Reason Comments Med Refill Encounter Details Date Type Department Care Team (Late st Contact Info) Description 11/13/2022 Refill [facility] [address] [place], [place] [phone] Jamar Jesus AGNP Cellulitis of right thumb [...] Description 05/16/2025 11:15 AM EST Office Visit [facility] [address] [place] [address] Riri Corrigan FNP [address] [place], [place] [phone] 07/25/2025 11:00 AM EST Office Visit [facility] [address] [place], [place] [phone] Nina العلي, OD [address] [place] [address] documented as of this encounter Visit Diagnoses Diagnosis Cellulitis of right thumb documented in this encounter Additional Health Concerns Assessment Noted Time PHQ-9 Depression Total Score: 0 11/08/19 23 9:20 AM EDT documented as of this encounter Care Teams Supervisor Accounts Receivable Relationship Specialty Start Date End Date Riri Corrigan FNP [address] [place] [phone] PCP - General Family Medicine 03/11/22 documented as of this encounter
--- OUTSIDE RECORDS SUMMARY | 2025-05-13 14:42 | XMS_ITS | Encounter Summary ---
Author Organization [email or web address] Address [address] [place] [address] 7 [place] [address] Care Team Providers Care Manager Provider Relations Name Role Phone Riri Corrigan ACCOUNTS PAYABLE PROFESSIONAL Primary Care Provider [phone] Encounter Details Date Type Department Care Team (Latest Contact Info) Description 05/09/2025 Travel Social History Tobacco Use Types Packs/Day [...] Description 05/16/2025 11:15 AM EST Office Visit [facility] [address] [place] [address] Riri Corrigan FNP [address] [place] [address] 07/25/2025 11:00 AM EST Office Visit [facility] [address] [place] [address] Tarka, Nina, OD [address] [place] [address] documented as of this encounter Visit Diagnoses Not on filedocumented in this encounter Additional Health Concerns Assessment Noted Time PHQ-9 Depression Total Score: 0 02/24/20 25 3:45 PM EDT documented as of this encounter Care Teams Manager Provider Relations Relationship Specialty Start Date End Date Riri Corrigan FNP [address] [place] [phone] PCP - General Family Medicine 03/11/22 documented as of this encounter
--- OUTSIDE RECORDS SUMMARY | 2025-05-13 14:42 | XMS_ITS | Clinical Summary ---
Author Organization [facility] Address [address] [place] [address] Phone Care Team Providers Care Combustion Analyst Name Role Phone Gentry Riri Primary Care Provider [phone] Allergies No known active allergies Medications polyethylene [...] mmol/L LAB CHEMISTRY METHOD 10/10/2024 5:58 AM [facility] Potassium 3.9 3.5 - 5.5 mmol/L LAB CHEMISTRY METHOD 10/10/2024 5:58 AM [facility] Chloride 103 96 - 110 mmol/L LAB CHEMISTRY METHOD 10/10/2024 5:58 AM [facility] CO2 22 21 - 32 mmol/L LAB CHEMISTRY METHOD 10/10/2024 5:58 AM [facility] Anion Gap 9 3 - 11 LAB CHEMISTRY METHOD 10/10/2024 5:58 AM [facility] Glucose 133(H) 70 - 100 mg/dL LAB CHEMISTRY METHOD 10/10/2024 5:58 AM [facility] BUN 23 5 - 25 mg/dL LAB CHEMISTRY METHOD 10/10/2024 5:58 AM [facility] Creatinine 1.43(H) 0.70 - 1.30 mg/dL LAB CHEMISTRY METHOD 10/10/2024 5:58 AM [facility] eGFR 60 >=60 mL/min/1. 73m2 LAB CHEMISTRY METHOD 10/10/2024 5:58 AM [facility] Comment:Calculation based on the Chronic Kidney Disease Epidemiology Collaboration (CKD-EPI) equation refit without adjustment for race. BUN/Creatinine Ratio 16.1 LAB CHEMISTRY METHOD 10/10/2024 5:58 AM [facility] Calcium 9.7 8.5 - 10.5 mg/dL LAB CHEMISTRY METHOD 10/10/2024 5:58 AM [facility] AST (SGOT) 19 10 - 42 unit/L LAB CHEMISTRY METHOD 10/10/2024 5:58 AM [facility] ALT (SGPT) 35 10 - 60 unit/L LAB CHEMISTRY METHOD 10/10/2024 5:58 AM [facility] Alkaline Phosphatase 96 42 - 121 unit/L LAB CHEMISTRY METHOD 10/10/2024 5:58 AM EDT [facility] Total Protein 7.6 6.0 - 8.0 g/dL LAB CHEMISTRY METHOD 10/10/2024 5:58 AM EDT [facility] Albumin 3.9 3.2 - 5.0 g/dL LAB CHEMISTRY METHOD 10/10/2024 5:58 AM EDT [facility] Total Bilirubin 1.0 0.0 - 1.4 mg/dL LAB CHEMISTRY METHOD 10/10/2024 5:58 AM EDT [facility] Blood Venous blood specimen / Unknown Venipuncture / Unknown 10/10/2024 4:46 AM EDT 10/10/2024 5:12 AM EDT Leila Saez MD LAB BLOOD ORDERABLES Fin al Result [facility] [address] [place] [address], from Last 3 Months or Most Recently Relevant to Health Maintenance Additional Health Concerns Infection Onset Date Last Indicated Coronavirus 08/14/2024 08/14/2024 Insurance MEDICAID - [place] MEDICARE Care Teams Combustion Analyst Relationship Specialty Start Date End Date [facility] [address] [place] [phone] PCP - General 03/30/24
--- OUTSIDE RECORDS SUMMARY | 2025-05-13 14:42 | XMS_ITS | Encounter Summary ---
Author Organization [employer] Address [address] [place] [address] Care Team Providers Care Medical Insurance Claims Specialist Name Role Phone Riri Corrigan EAR NOSE AND THROAT SPECIALIST Primary Care Provider [phone] Reason for Visit * Reason Comments Med Refill Encounter Details Date Type Department Care Team ([facility] st Contact Info) Description 02/18/2024 Refill [facility] [address] [place] [address] Vivien Maxwell MD [address] [place] [address] Social History Tobacco Use Types Packs/Day Years [...] Office Visit [facility] [address] [place] [address] Riri Corrigan FNP [address] [place] [address] 07/25/2025 11:00 AM EST Office Visit [facility] OPT[facility] [address] [place] [address] Tarka, Nina, OD [address] [place] [address] documented as of this encounter Visit Diagnoses Not on filedocumented in this encounter Additional Health Concerns Assessment Noted Time PHQ-9 Depression Total Score: 0 02/07/20 23 1:48 PM EDT documented as of this encounter Care Teams Medical Insurance Claims Specialist Relationship Specialty Start Date End Date Riri Corrigan FNP [address] [place] [address] PCP - General Family Medicine 03/11/22 documented as of this encounter
--- OUTSIDE RECORDS SUMMARY | 2025-05-13 14:42 | XMS_ITS | Encounter Summary ---
Author Organization [employer] Address [address] [place] [address] Care Team Providers Care Self Pay Collector Name Role Phone Riri Corrigan [facility] Primary Care Provider [phone] Encounter Details Date Type Department Care Team (Late Contact Info) Description 11/13/2022 Orders Only [facility] [address] [place] [address] [phone] Chika Merlos LPN Social History Tobacco Use [...] AM EST Office Visit [facility] [address] [place] [address] [phone] MeenuRiri [address] [phone] 07/25/2025 11:00 AM EST Office Visit [facility] [address] [place] [address] Nina العلي, OD [address] [place] [address] documented as of this encounter Visit Diagnoses Not on filedocumented in this encounter Additional Health Concerns Assessment Noted Time PHQ-9 Depression Total Score: 0 11/08/19 23 9:20 AM EDT documented as of this encounter Care Teams Self Pay Collector Relationship Specialty Start Date End Date Riri Corrigan FNP [address] [place] [address] PCP - General Family Medicine 03/11/22 documented as of this encounter
--- OUTSIDE RECORDS SUMMARY | 2025-05-13 14:42 | XMS_ITS | Encounter Summary ---
Author Organization [employer] Address [address] [place] [address] Care Team Providers Care Dam Tender Name Role Phone [facility] Primary Care Provider [phone] Reason for Visit * Reason Onset Date Comments Reschedule 04/28/2023 Encounter Details Date Type Department Care Team ([facility] st Contact Info) Description 04/28/[address] [facility] MED & PEDS [address] [place], [place] [phone] [facility] [address] [place] [address] Reschedule Social History Tobacco Use Types Packs/Day [...] AM EST Office Visit [facility] MED[facility] [address] [place] [address] [facility] [address] [place] [address] 07/25/2025 11:00 AM EST Office Visit [facility] OPTOMETRY [address] [place] [address] Tarka, Nina, OD [address] [place] [address] documented as of this encounter Visit Diagnoses Not on filedocumented in this encounter Additional Health Concerns Assessment Noted Time PHQ-9 Depression Total Score: 0 02/07/20 23 1:48 PM EDT documented as of this encounter Care Teams Dam Tender Relationship Specialty Start Date End Date Riri Corrigan [facility] [address] [place] [address] PCP - General Family Medicine 03/11/22 documented as of this encounter
--- OUTSIDE RECORDS SUMMARY | 2025-05-13 14:42 | XMS_ITS | Encounter Summary ---
Author Organization [employer] Address [address] [place] [address] Care Team Providers Care Seed Mill Superintendent Name Role Phone [facility] Primary Care Provider [phone] Reason for Visit * Reason Onset Date Comments Appointment Request 09/22/2023 Encounter Details Date Type Department Care Team ([facility] st Contact Info) Description 09/22/2023 Telephone [facility] MED[facility]INE [address] [place], [place] [phone] [facility] [address] [place] [address] Appointment Request Social History Tobacco Use Types [...] Description 05/16/2025 11:15 AM EST Office Visit [facility]INE [address] [place] [address] Riri Corrigan FNP [address] [place] [address] 07/25/2025 11:00 AM EST Office Visit [facility] OPTOMETRY [address] [place] [address] Tarka, Nina, OD [address] [place] [address] documented as of this encounter Visit Diagnoses Not on filedocumented in this encounter Additional Health Concerns Assessment Noted Time PHQ-9 Depression Total Score: 0 02/07/20 23 1:48 PM EDT documented as of this encounter Care Teams Seed Mill Superintendent Relationship Specialty Start Date End Date Riri Corrigan FNP [address] [place] [address] PCP - General Family Medicine 03/11/22 documented as of this encounter
--- OUTSIDE RECORDS SUMMARY | 2025-05-13 14:42 | XMS_ITS | Encounter Summary ---
Author Organization [employer] Address [address] [place] [address] Care Team Providers Care Rail Operator Name Role Phone [place] [facility] Primary Care Provider [phone] Reason for Visit * Reason Comments Med Refill Encounter Details Date Type Department Care Team (Late st Contact Info) Description 12/13/2022 Refill [facility] [address] [place], [place] [phone] [facility] [address] [place] [address] Eczema of right external ear Social History [...] Visit [facility] [address] [place] [address] Riri Corrigan FNP [address] [place] [address] 07/25/2025 11:00 AM EST Office Visit [facility] OPT[facility]ETRY [address] [place], [place] [phone] Zohra Nina, OD [address] [place], [place] [phone] documented as of this encounter Visit Diagnoses Diagnosis Eczema of right external ear documented in this encounter Additional Health Concerns Assessment Noted Time PHQ-9 Depression Total Score: 0 11/08/19 23 9:20 AM EDT documented as of this encounter Care Teams Rail Operator Relationship Specialty Start Date End Date Riri Corrigan FNP [address] [place] [address] PCP - General Family Medicine 03/11/22 documented as of this encounter
--- OUTSIDE RECORDS SUMMARY | 2025-05-13 14:43 | XMS_ITS | Encounter Summary ---
Author Organization [employer] Address [address] [place] [address] [address], [place] [address] Care Team Providers Care Carpenter Repair Name Role Phone Riri Corrigan LABOR UTILIZATION SUPERINTENDENT Primary Care Provider [phone] Reason for Referral * Imaging (Routine) - Closed Specialty Diagnoses / Procedures Referred By Stewart saeed Referred To Contact Radiology Diagnoses Liver enzyme elevation Procedures US Abdomen Complete Pa Rodriguez MD [address] [place] [address] Phone: tel: fax: [facility] [address] [place] [address] Phone: tel: fax: Referral ID Status Reason Start Date Expiration Date Visits Re quested Visits Authorized [id number] Closed 06/11/2023 06/10/2024 1 1 Encounter Details Date Type Department Care Team (Late st Contact Info) Description 06/11/[address] [facility] MED & PEDS [address] [place] [address] Pa Rodriguez MD [address] [place] [phone] Liver enzyme elevation (Primary Dx) Social History [...] Description 05/16/2025 11:15 AM EST Office Visit [facility] [address] [place] [address] [facility] [address] [place] [address] 07/25/2025 11:00 AM EST Office Visit [facility] [address] [place] [address] Nina العلي, OD [address] [place] [address] Scheduled Orders Name Type Priority Associated Diagnoses [...] documented as of this encounter Care Teams Carpenter Repair Relationship Specialty Start Date End Date Riri Corrigan FNP [address] [place] [address] PCP - General Family Medicine 03/11/22 documented as of this encounter
--- OUTSIDE RECORDS SUMMARY | 2025-05-13 14:43 | XMS_ITS | Encounter Summary ---
Author Organization [employer] Address [address] [place] [address] 7 [place] [address] Care Team Providers Care Manager Actuarial Name Role Phone Riri Corrigan [facility] Primary Care Provider [phone] Encounter Details Date Type Department Care Team ([facility] st Contact Info) Description 03/15/2025 Results Follow-Up [facility] [address] [place], [place] [phone] [facility] [address] [place] [address] POCT Glucose, POCT HGB A1C, Cologuard colon [...] Description 05/16/2025 11:15 AM EST Office Visit [facility] [address] [place] [address] Riri Corrigan FNP [address] [place] [address] 07/25/2025 11:00 AM EST Office Visit [facility] [address] [place] [address] Tarka, Nina, OD [address] [place] [address] documented as of this encounter Visit Diagnoses Not on filedocumented in this encounter Additional Health Concerns Assessment Noted Time PHQ-9 Depression Total Score: 0 02/24/20 25 3:45 PM EDT documented as of this encounter Care Teams Manager Actuarial Relationship Specialty Start Date End Date Riri Corrigan FNP [address] [place] [address] PCP - General Family Medicine 03/11/22 documented as of this encounter
--- OUTSIDE RECORDS SUMMARY | 2025-05-13 14:43 | XMS_ITS | Encounter Summary ---
Author Organization [employer] Address [address] [place] [address] Care Team Providers Care Bench Technician Name Role Phone Riri Corrigan Primary Care Provider [phone] Encounter Details Date Type Department Care Team (Latest Contact Info) Description 08/22/2021 Abstract [facility] CONVERSIONS Dental, Provider, DDS Social History Tobacco [...] Description 05/16/2025 11:15 AM EST Office Visit [facility] [address] [place] [address] Riri Corrigan FNP [address] [place] [address] 07/25/2025 11:00 AM EST Office Visit [facility] OPTOM[facility] [address] [place] [address] Nina العلي, OD [address] [place] [address] documented as of this encounter Visit Diagnoses Not on filedocumented in this encounter Care Teams Bench Technician Relationship Specialty Start Date End Date Riri Corrigan FNP [address] [place] [address] PCP - General Family Medicine 03/11/22 documented as of this encounter
--- OUTSIDE RECORDS SUMMARY | 2025-05-13 14:43 | XMS_ITS | Clinical Summary ---
Author Organization [facility] Address [address] [place] [address] Care Team Providers Care Pilot Plant Research Technician Name Role Phone Riri Corrigan SHEET HEATER HELPER Primary Care Provider [phone] Allergies No known active allergies Medications cholecalciferol (Vitamin D-3) 50 MCG (1999 UT) capsule 022 Active cyclobenzaprine (Flexeril) 10 MG tablet Take 10 mg by mouth if needed in the morning, at noon, and at bedtime. 022 Active Tecfidera 240 MG capsule delayed-release 023 Active budesonide-formot neeru (Symbicort) 80-4.5 MCG/ACT inhalerIndication s:Mild persistent asthma without complication Inhale 2 puffs twie daily. Rinse mouth with water after use to reduce aftertaste and incidence of candidiasis. Do not swallow. 1 each 023 Active albuterol (ProAir HFA) 108 (90 Base) MCG/ACT inhalerIndication s:Mild persistent asthma without complication Inhale 2 puff as directed every four hours as needed 18 g 023 Active albuterol (2.5 MG/3ML) 0.083% nebulizer solutionIndicatio ns:Mild persistent asthma, uncomplicated USE 1 AMPULE USING A NEBULIZER EVERY 4 HOURS NEEDED SHORTNESS OF BREATH OR FOR WHEEZING 90 mL 024 Active Glucose Blood (Blood Glucose Test) stripIndications: Type 2 diabetes mellitus without complication, without long-term current use of insulin (HCC) Use as instructed to check blood sugar once daily 90 strip 3 06/03/2 024 Active Lancets Ultra Thin 30G miscIndications:T ype 2 diabetes mellitus without complication, without long-term current use of insulin ([facility]) Use as instructed to check blood sugar once daily 90 each 3 024 Active terbinafine (LamISIL AT) 1 % creamIndications: Tinea pedis of both feet Apply topically 2 times daily. 42 g 1 024 Active acetaminophen (Tylenol 8 Hour) 650 MG ER tablet Take 1 tablet (650 mg) by mouth every 8 (eight) hours if needed for mild pain. 30 tablet 024 Active cetirizine (ZyrTEC) 10 MG tablet Take 10 mg by mouth Once per day. Active flecainide (Tambocor) 100 MG tablet TAKE 1 AND 1/2 TABLETS BY MOUTH EVERY TWELVE HOURS Active glucose blood (FREESTYLE LITE) test stripIndications: Type 2 diabetes mellitus without complication, without long-term current use of insulin ([facility]) USE TO TEST BLOOD SUGAR ONCE DAILY 100 each 3 024 Active atorvastatin (Lipitor) 80 MG tabletIndications :Mixed hyperlipidemia Take 1 tablet (80 mg) by mouth Once per day. 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 20 mL 025 Active metoprolol tartrate (Lopressor) 25 MG tablet TAKE 1 TABLET BY MOUTH TWICE DAILY 180 tablet 1 Active Alcohol Swabs (Alcohol Prep) 70 % padsIndications:T ype 2 diabetes mellitus without complication, without long-term current use of insulin ([facility]) USE DIRECTED TO TEST BLOOD SUGAR ONCE DAILY 100 each 4 025 Active Eliquis 5 MG tablet TAKE 1 TABLET BY MOUTH TWICE DAILY 180 tablet 1 Active Mounjaro 2.5 MG/0.5ML solution auto-injectorIndi cations:Type 2 diabetes mellitus with hyperglycemia, without long-term current use of insulin ([facility]) INJECT 2.5 MG SUBCUTANEOUSLY EVERY WEEK 2 mL 04/22/20 25 4:57 PM EDT 025 Active Tirzepatide (Mounjaro) 2.5 MG/0.5ML solution auto-injectorIndi cations:Type 2 diabetes mellitus with hyperglycemia, without long-term current use of insulin (HCC) Inject 2.5 mg under the skin 1 (one) time per week. 2 mL 1 02/29/20 25 9:45 AM EDT 025 2024 Discontinued Active Problems Problem Noted Date [...] Hidradenitis suppurativa 12/13/2022 Overview (02/17/2023): Followed by [facility] derm Type 2 diabetes mellitus wit hout [...] multiple sclerosis 0 Overview (02/17/2023): Followed by [facility] neurology Well controlled with tecfidera Mild persistent asthma 05/29/2015 Overview (02/17/2023): Symbicort PRN Resolved Problems Problem Noted Date Diagnosed Date Resolved Date Hyperalbuminemia 06/01/2024 06/01/2024 Abdominal wall cellulitis 03/22/2024 Diabetes 03/22/2024 04/20/2024 Epidermal inclusion cyst 03/22/202402/2024 Infection of thumb 03/22/2024 Influenza A 03/22/2024 04/20/2024 Atrial fibrillation with RVR ([facility]) 03/22/2024 04/20/2024 Cellulitis of right thumb 10/16/2022 Assessment & Plan (10/17/2022 1:01 PM EDT): Called [facility] general surgery, they forwarded me to Dr. [...] right thumb 08/06/2022 08/11/19 23 Atrial fibrillation ([facility]) 04/09/2021 04/20/2024 Overview (02/17/2023): Followed by cardiology On metoprolol, flecainide, eliquis Cystic acne 04/03/2012 2022 Developmental academic disorder 04/03/2012 2022 Ankle pain 04/03/2012 2022 Encounters Date Type Department Care Team Description 05/09/2025 Travel 05/06/2025 Patient Outreach [facility] [place] [address] Riri Corrigan FNP Pre-visit Planning ([facility] screening was completed on 08/05/2024) 04/29/2025 Telephone [place] [address] Riri Corrigan FNP Call Back Request 04/27/2025 Telephone [facility] [place] [address] Riri Corrigan FNP ER Follow-up 04/19/2025 Refill [facility] [place] [address] Riri Corrigan FNP Type 2 diabetes mellitus with hyperglycemia, without long-term current use of insulin ([facility]) 04/01/2025 Telephone [facility] [place] [address] Karina Haong RN Paperwork/Forms 03/16/2025 Refill [facility] [place] [address] Riri Corrigan FNP 03/15/2025 Results Follow-Up [facility] [place] [address] Riri Corrigan FNP POCT Glucose, POCT HGB A1C, Cologuard colon cancer screening 02/24/2025 Telephone [facility] [place] [address] Riri Corrigan FNP Prior Authorization (Medicare PA: Heather 2.5 MG) 02/23/2025 3:15 PM EDT Office Visit [facility] [place] [address] Riri Corrigan FNP Type 2 diabetes mellitus with hyperglycemia, without long-term current use of insulin ([facility]) (Primary Dx); Screening for colon cancer; Mass of finger of right hand; Chalazion left lower eyelid; Eczema, unspecified type 02/23/2025 Travel 02/22/2025 Telephone [facility] [place] [address] Riri Corrigan FNP Chart Prep 02/22/2025 Travel 02/11/2025 Telephone [facility] [address] [place] [address] [facility] 02/10/2025 Telephone [facility] [address] [place] [address] [facility] 02/10/2025 Travel from Last 3 Months Immunizations Immunization Administration [...] Description 05/16/2025 11:15 AM EST Office Visit [facility] [address] [place] [address] [place]iri [facility] [address] [place] [address] 07/25/2025 11:00 AM EST Office Visit [facility] OPTOMETRY [address] [place] [address] Nina العلي, OD [address] [place] [address] Health Maintenance Due Date Last Done Comments CT Colonography 1975 Colonoscopy 1975 FIT 1975 Sigmoidoscopy 1975 Family Planning (PISQ) 1990 Dental X-Ray: Bitewings 01/28/2018 01/27/2017 Dental Oral Exam 02/12/2022 08/14/2021, 07/2021, 01/27/2017 Dental Prophylaxis 02/20/2022 08/22/2021 Hepatitis B Vaccines (3 of 3 - 19+ 3-dose series) 04/28/2024 03/03/2024, 05/21/2021 Diabetes: Foot Exam 03/03/2025 03/03/2024, COVID-19 Vaccine ( season) 2025 09/18/2021, 11/30/2020, 11/09/2020 Influenza Vaccine (#1) 2025 , 04/09/2021, 06/11/2018, Additional history exists Diabetes: Urine Protein Screening 05/21/2025 05/21/2024, 04/09/2021 Diabetes: Hemoglobin A1C 05/26/202502/23/ 025, 08/18/2024, 04/20/2024, Additional history exists SDOH Screening 08/05/2025 08/05/2024 Zoster Vaccines (1 of 2) 2025 Alcohol/Substance Use Screening 08/18/2025 08/18/2024 Lipid Panel 08/18/2025 08/18/2024, 1102/2024, 02/04/2023, Additional history exists Disability Screening 02/10/2026 02/10/2025 Depression Screening 02/23/2026 02/23/2025, 02/24/20 Tobacco Screening 02/24/2026 02/24/2025 FOBT 02/28/2026 02/28/2025 [...] (6 to 49) Years Completed 03/03/2024, 05/21/2021 HIB Vaccines Aged Out No longer eligi [...] Procedure Name Priority Date/Time Associated Diagnosis Comments GROSS AND MICROSCOPIC LEVEL 3 Routine 05/02/2025 10:44 AM EDT Mixed hyperlipidemia LAB COLOGUARD COLON CANCER SCREEN Routine 02/28/2025 5:48 AM EDT Screening for colon cancer POCT GLYCATED HEMOGLOBIN, TOTAL Routine 02/23/2025 3:41 PM EDT Type 2 diabetes mellitus with hyperglycemia, without long-term current use of insulin ([facility]) POCT GLUCOSE Routine 02/23/2025 3:38 PM EDT [...] Recently Relevant to Health Maintenance Results * Gross and Microscopic Level 3 (05/02/2025 10:44 AM EDT) 05/02/2025 10:4 4 AM EDT 05/02/2025 12:[address]T [facility] - 05/04/2025 11:14 AM EDT ----- ------- Name: Michael Hogan Age/Sex: 49/M : 1975 Unit#: [id number] Attend Dr: Oralia Campos MD Re05/02/25 Status: [facility] Location: [facility] Disch: ----- ------- SPEC : [id number] RECD: 05/02/25 STATUS: MONICA ZULETA NUM: [id number] REHANA: 05/02/25 [facility] DR: Oralia Campos MD ENTERED: 05/02/25 SP TYPE: Surgical OTHR DR: Riri Corrigan SHEET HEATER HELPER ORDERED: Gross Micro L3 Diagnosis Soft tissue, right thumb mass, excision: Epidermal inclusion cyst. Clinical History Mass right thumb Microscopic Description Microscopic sections reviewed. Material Received Mass right thumb Gross Description Received in formalin labeled mass right thumb is a previously opened, cystic structure measuring 1.7 x 1.4 x 1.0 cm. The outer surface is white, smooth and glistening. There is a defect in the cyst wall measuring 1.5 x 0.6 cm. Attached to the outer surface is a portion of rubbery, red-pink tissue measuring 1.5 x 0.9 x 0.4 cm in greatest dimension. Sectioning reveals the cyst is void of contents. The cyst wall measures 0.1 cm in thickness. The inner lining is smooth and unremarkable. The specimen is entirely submitted for microscopic examination, 4 pieces in cassette A1. ([facility]) IHC S/NG Disclaimer NOTE: Unless otherwise stated, all tissue is formalin-fixed and paraffin-embedded. Some or all of the immunohistochemical tests reported herein may have been developed and their performance characteristics determined by [facility]. They have not been cleared or approved by the U.S. Food and Drug Administration (FDA). However, the FDA has determined that such clearance or approval is not necessary. This laboratory is certified under the Clinical Laboratory Improvement Amendments of 1988 (CLIA) as qualified to perform high complexity clinical laboratory testing. Copies To: Oralia Campos MD [facility] [address] [place] [address] [address] [place] [address] CONTINUED ON NEXT PAGE ----- ------- Name: Michael Hogan Age/Sex: 49/M : 1975 Unit#: [id number] Attend Dr: Oralia Campos MD Re05/02/25 Status: [facility] Location: [facility] Disch: ----- ------- SPEC : [id number] RECD: 05/02/256 STATUS: MONICA ZULETA NUM: [id number] REHANA: 05/02/254 [facility] DR: Oralia Campos MD ENTERED: 05/02/25-1212 SP TYPE: Surgical OTHR DR: Riri Corrigan ORDERED: Gross Micro L3 Copies To: (Continued) Riri Corrigan [address] [address] ----- ------- Signed (signature on file) Bridger Lindsey MD 05/04/25 1114 ----- ------- END OF REPORT us Generic External Data Provider LAB CYTOLOGY ALLISONBita DONISBILL Final Result [facility] [address] [place] [phone] * Cologuard?? colon cancer screening (02/28/2025 5:48 AM EDT) Pathologist [facility] Cologuard Result Negative Negative 03/04/20 11:48 AM EDT [facility] (CLIA #:[id number]) Comment: The Cologuard Plus (TM) test was performed on this specimen. NEGATIVE TEST RESULT. A negative (normal) Cologuard Plus result means the patient has a [id number]-[id number] chance of having colorectal cancer (CRC) or [...] a 91% specificity (Cologuard Plus Clinician Brochure. [email or web address]. [place], [place] Visit www.[employer].Payfone/about/gmqfwqxf-kcmpmjeffdc-nnmxogtsruk for more test information, references, warnings, and precautions. Stool specimen (specimen) 02/28/2025 5:48 AM EDT 03/01/2025 11:09 AM EDT [facility] LAB MOLECULAR DIAGNOSTICS ORD ERABLES Final Result [facility] (CLIA #:[id number]) [address] [place] [address], * (ABNORMAL) POCT HGB A1C (02/23/2025 3:41 PM EDT) Hemoglobin A1C 7.6(A) 4.0 - 5.7 % QC Media Lot # [id number] Lot# Expiration Date Blood 02/23/2025 3:41 PM EDT [facility] POINT OF CARE TEST ENTER/EDIT ORDERABLES Final Result * (ABNORMAL) POCT Glucose (02/23/2025 3:38 PM EDT) Glucose Blood, POC 210(A) 60 - 200 mg/dL QC Media Lot # [id number] Lot# Expiration Date [id number] Blood Capillary blood specimen / Unknown 02/23/2025 3:38 PM EDT [facility] POINT OF CARE TEST ENTER/EDIT ORDERABLES Final Result * (ABNORMAL) Lipid Panel, Standard (08/18/2024 12:15 PM EST) Triglycerides 83 <150 mg/dL [facility] Comment:Desirable Triglyceri de: less than 150 mg/dLBorderline High Triglyceride 150-199 mg/dLHigh Triglyceride: 200-499 mg/dLVery High Triglyceride: greater than or equal to 5OO mg/dL Cholesterol 107 <200 mg/dL [facility] Comment:Desirable Cholestero l: less than 200 mg/dLBorderline High Cholesterol: 200-239 mg/dLHigh Cholesterol: greater than 239 mg/dL LDL Cholesterol Calculated 61 <100 mg/dL [facility] Comment:Desirable LDL: less than 100 mg/dLNear Optimal/Above Optimal LDL: 110- 129 mg/dLBorderline High LDL: 130-159 mg/dLHigh LDL: 160-189 mg/dLVery High LDL: greater than or equal to 190 mg/dL HDL Cholesterol 30(L) >40 mg/dL [facility] Comment:Desirable HDL: great er than 40 mg/dL Note: This HDL assay may give artificially low results in patients with liver disease. Blood Venous blood specimen / Unknown 08/18/2024 12:15 PM EST 08/18/2024 1:04 PM EST [facility] LAB BLOOD ORDERABLES Final Re sult [facility] [address] [place], [place] [phone] * (ABNORMAL) Albumin, Random Urine W/Creatinine (05/21/2024 4:46 PM EST) Creatinine, Urine 279.27 mg/dL [facility] Microalbumin Urine 125.0 mg/L [facility] Microalbum Creatinine Ratio Ur 44.7(H) <30 ug/mg cr [facility] Comment:Albumin/Creatinine R atio Reference Ranges: Normal: < 30 ug/mg creatinine Microalbuminuria: 30 - 300 ug/mg creatinineClinical Albuminuria: > 300 ug/mg creatinine Urine 05/21/2024 4:46 PM EST 05/21/2024 5:56 PM EST [facility] LAB URINE ORDERABLES Final Re sult Performing Organization Address [facility] Co de Phone Number [facility] [address] [place] [address] [phone] * Hepatitis Panel, General (02/17/2023 11:49 AM EDT) Pathologist [facility] Hepatitis A IgM Nonreactive Nonreactive [facility] Comment:IgM antibodies to BUNDY V not detected; does not exclude earlyacute or recovered HAV infection. ~Hepatitis B Surface Antibody NONREACTIVE Nonreactive [facility] Comment:Nonreactive: < 8.00 mIU/mL Hepatitis B Core Antibody Nonreactive Nonreactive [facility] Hepatitis C Antibody Nonreactive Nonreactive [facility] Comment:Antibodies to HCV no t detected; does not exclude early acuteHCV infection. Hepatitis B Surface Ag Negative Negative [facility] Blood 02/17/2023 11:4 9 AM EDT 02/17/2023 2:16 PM EDT [facility] LAB BLOOD ORDERABLES Final Re sult Performing Organization Address [facility] Co de Phone Number [facility] [address] [place] [address] [phone] * HIV 1/2 ANTIGEN/ANTIBODY,FOURTH GENERATION W/RFL (04/09/2021 2:44 PM EDT) HIV-1/2 ANTIGEN AND ANTIBODIES, 4TH GENERATION W/ REFLEX NON-REACT BETTIE NON-REACT BETTIE [facility] Comment: HIV-1 antigen and HIV-1/HIV-2 [...] purpose. For additional information please refer to http://education.[employer]/faq/IJR298 (This link is being provided for informational/ educational purposes only.) The performance of this assay has not been clinically validated in patients less than 2 years old. 04/09/2021 2:44 PM EDT us Deborah Mccarthy [facility] LAB BLOOD ORDERABLES Final Res ult [facility] Formerly [facility] Anywhere [address] from Last 3 Months or Most Recently Relevant to Health Maintenance Insurance [facility] ST[facility]ARD MEDIC[facility] ADULT Care Teams Pilot Plant Research Technician Relationship Specialty Start Date End Date Riri Corrigan FNP [address] [place] [phone] PCP - General Family Medicine 03/11/22
--- OUTSIDE RECORDS SUMMARY | 2025-05-13 14:43 | XMS_ITS | Encounter Summary ---
Author Organization [employer] [facility] Address [address] [place] [address] Care Team Providers Care Tandem Mill Sticker Name Role Phone Meenu [facility] Primary Care Provider [phone] Reason for Visit * Reason Onset Date Comments Med Refill 06/13/2023 Encounter Details Date Type Department Care Team ([facility] st Contact Info) Description 06/13/2023 Telephone [facility] MEDICINE [address] [place], [place] [phone] [facility] [address] [place] [address] Med Refill Social History Tobacco Use Types [...] Description 05/16/2025 11:15 AM EST Office Visit [facility] MEDIC[facility] [address] [place] [address] KingstonRiri FNP [address] [place] [address] 07/25/2025 11:00 AM EST Office Visit [facility] OPTOMETRY [address] [place] [address] Nina العلي OD [address] [place] [address] documented as of this encounter Visit Diagnoses Not on filedocumented in this encounter Additional Health Concerns Assessment Noted Time PHQ-9 Depression Total Score: 0 02/07/20 23 1:48 PM EDT documented as of this encounter Care Teams Tandem Mill Sticker Relationship Specialty Start Date End Date Meenu RUTH Menezes [address] [place] [phone] PCP - General Family Medicine 03/11/22 documented as of this encounter
== END 2025-05-13 14:14 | disposition home or self-care (01) ==
LOC: HO.HOS 13:46
PROVIDERS: PCP Registered Nurse
DX: Z98.890 Other specified postprocedural states (principal); Z87.2 Personal history of diseases of the skin and subcutaneous tissue
CPT/HCPCS: 99024

== ENCOUNTER → 2025-05-13 13:45 | Outpatient (BNVA) | payer MEDICARE, MEDICAID, SELFPAY | PROVIDERS: PCP Registered Nurse | DX: Z48.817 Encounter for surgical aftercare following surgery on the skin and subcutaneous tissue (principal); Z87.2 Personal history of diseases of the skin and subcutaneous tissue | CPT/HCPCS: 99212 ==

== ENCOUNTER 2025-05-17 14:02 | Outpatient (REF) | payer MEDICARE, MEDICAID, SELFPAY ==
--- OUTSIDE RECORDS SUMMARY | 2025-05-16 11:15 | XMS_ITS | Encounter Summary ---
Author Organization [employer] Address [address] [place] [address] Care Team Providers Care Catalog Library Assistant Name Role Phone Riri Corrigan [facility] Primary Care Provider [phone] Encounter Details Date Type Department Care Team ([facility] st Contact Info) Description 05/16/2025 11:15 AM EST Office Visit [facility] MEDICINE [address] [place], [place] [phone] AlvaradoRiri [facility] [address] [place] [address] Eczema, unspecified type (Primary Dx); Type 2 diabetes mellitus with hyperglycemia, without long-term current use of insulin (HCC); Tinea pedis of both feet; Chronic elbow pain, left; Encounter for vaccination; Encounter for immunization Social History Tobacco Use Types Packs/Day Years Used Date Smoking Tobacco: Some Days Cigarettes Passive Smoke Exposure: Current Smokeless Tobacco: Never Alcohol Use Standard Drinks/Week Comments Never 0 (1 standard drink = 0.6 oz pur e alcohol) Depression Answer Date Recorded Patient Health Questionnaire-9 Score 0 05/16/2025 Patient Health Questionnaire-9 Score 0 05/16/2025 Last PHQ-9: Questionnaire Data Not on file 1 07/16/2024 Housing Stability Answer Date Recorded What is [...] Date Recorded Patient Health Questionnaire-2 Score 0 05/16/2025 Internet Access Answer Date Recorded Internet Access [...] Reading Time Taken Comments Blood Pressure 118/80 05/16/2025 11:17 AM EST Pulse 96 05/16/2025 11:17 AM EST Temperature 36.4 C (97.5 F) 05/16/2025 11:17 AM EST Respiratory Rate 20 05/16/2025 11:17 AM EST Oxygen Saturation 98% 05/16/2025 11:17 AM EST Inhaled Oxygen Concentration - - Weight 92.2 kg (203 lb 3.2 oz) 05/16/2025 11:17 AM EST Height 175.3 cm (5' 9 ) 05/16/2025 11:17 AM EST Body Mass Index 30.01 05/16/2025 11:17 AM EST documented in this encounter Functional Status * Over the past 2 weeks, how often have you been bothered by any of the following problems? Question Answer Date of Assessment Author Patient Health Questionnaire -2 Score 0 05/16/2025 11:19 AM EST Jodie Petty MA * Little interest or pleasure in doing things Answer Date of Assessment Author Not at all 05/16/2025 11:19 AM EST Jodie Petty MA * Feeling down, depressed, or hopeless Answer Date of Assessment Author Not at all 05/16/2025 11:19 AM Jodie Hou MA * Trouble falling or staying asleep, or sleeping too much Answer Date of Assessment Author Not at all 05/16/2025 11:19 AM Jodie Hou MA * Feeling tired or having little energy Answer Date of Assessment Author Not at all 05/16/2025 11:19 AM Jodie Hou MA * Poor appetite or overeating Answer Date of Assessment Author Not at all 05/16/2025 11:19 AM Jodie Hou MA * Feeling bad about yourself - or that you are a failure or have let yourself or your family down Answer Date of Assessment Author Not at all 05/16/2025 11:19 AM Jodie Hou MA * Trouble concentrating on things, such as reading the newspaper or watching television Answer Date of Assessment Author Not at all 05/16/2025 11:19 AM Jodie Hou MA * Moving or speaking so slowly that other people could have noticed? Or the opposite - being so fidgety or restless that you have been moving around a lot more than usual. Answer Date of Assessment Author Not at all 05/16/2025 11:19 AM Jodie Hou MA * Thoughts that you would be better off or hurting yourself in some way Answer Date of Assessment Author Not at all 05/16/2025 11:19 AM Jodie Hou MA * Patient Health Questionnaire-9 Score Answer Date of Assessment Author 0 05/16/2025 11:19 AM Jodie Hou MA * Over the last 2 weeks, how often have you been bothered by any of the following problems? Question Answer Date of Assessment Author Feeling nervous, anxious, or on edge 0 05/16/2025 11:19 AM Jodie Hou MA Not being able to stop or co ntrol worrying 0 05/16/2025 11:19 AM Jodie Hou MA Worrying too much about diff erent things 0 05/16/2025 11:19 AM Jodie Hou MA Trouble relaxing 0 05/16/2025 11:19 AM EST Jodie Petty MA Being so restless that it is hard to sit still 0 05/16/2025 11:19 AM Jodie Hou MA Becoming easily annoyed or irritable 0 05/16/2025 11:19 AM Jodie Hou MA Feeling afraid as if somethi ng awful might happen 0 05/16/2025 11:19 AM Jodie Hou MA ALBERTO-7 Total Score 0 05/16/2025 11:19 AM Jodie Hou MA documented as of this encounter Plan of Treatment Upcoming Encounters Date Type Department Care Team (Late st Contact Info) Description 07/25/2025 11:00 AM EST Office Visit [facility] OPTOMETRY [address] [place] [address] Nina العلي, OD [address] [place] [address] Scheduled Orders Name Type Priority Associated Diagnoses Orde r Schedule Albumin, Random Urine W/Creatinine Lab Routine Type 2 diabetes mellitus with hyperglycemia, without long-term current use of insulin (HCC) Expected: 05/16/2025 (Approximate), Expires: 05/16/2026 documented as of this encounter Procedures Procedure Name Priority Date/Time Associated Diagnosis Comments XR ELBOW 3+ VIEWS LEFT Routine 05/17/2025 2:44 PM EST Chronic elbow pain, left LIPID PANEL, STANDARD Routine 05/17/2025 2:06 PM EST Type 2 diabetes mellitus with hyperglycemia, without long-term current use of insulin ([facility]) BASIC METABOLIC PANEL Routine 05/17/2025 2:06 PM EST Type 2 diabetes mellitus with hyperglycemia, without long-term current use of insulin ([facility]) POCT GLYCATED HEMOGLOBIN, TOTAL Routine 05/16/2025 11:22 AM EST Type 2 diabetes mellitus with hyperglycemia, without long-term current use of insulin ([facility]) POCT GLUCOSE Routine 05/16/2025 11:20 AM EST Type 2 diabetes mellitus with hyperglycemia, without long-term current use of insulin (HCC) documented in this encounter Results * XR Elbow 3+ Views Left (05/17/2025 2:44 PM EST) Anatomical Region Laterality Modality Upper Extremities, Elbow Left Radiogr aphic Imaging 05/17/2025 2:44 PM EST Narrative 05/17/2025 3:16 PM EST [address] [address] XRay Report Signed Patient: Michael Hogan MR#: [id number] : 1975 Acct:[id number] Age/Sex: 49 / M ADM Date: 05/17/25 Loc: HO.[facility] Attending Dr: Riri MIRANDA Ordering Physician: Riri Corrigan Date of Service: 05/17/25 Procedure(s): XR elbow LT min 3V Accession Number(s): [id number] cc: Riri Corrigan Reason for Exam: acute on chronic elbow pain EXAMINATION: XR ELBOW, LEFT CLINICAL INFORMATION: acute on chronic elbow pain COMPARISON: None available. TECHNIQUE: AP, lateral, and oblique views of the left elbow. FINDINGS: The bones and soft tissues are normal. No fracture or joint effusion. Alignment is anatomic. Joint spaces are maintained. XR/XR elbow LT min 3V IMPRESSION: Normal left elbow. Electronically signed by: Josue Cox MD 05/17/2025 03:13 PM EST Dictated By: Josue Cox MD Signed By: <Electronically signed by Josue Cox MD in OV> 05/17/25 1513 DD/ 1444 TD/TT: 05/17/25 1452 Owner Spa Director: Procedure Note Donotuseinterpreter, Image - 05/17/[address] [address] XRay Report Signed Patient: Michael HoganMR#: [id number] : 1975Acct:[id number] Age/Sex: 49 / MADM Date: 05/17/25 Loc: HO.[facility] Attending Dr: Riri HEINP Ordering Physician: Riri Corrigan Date of Service: 05/17/25 Procedure(s): XR elbow LT min 3V Accession Number(s): [id number] cc: Riri Corrigan [facility] Reason for Exam: acute on chronic elbow pain EXAMINATION: XR ELBOW, LEFT CLINICAL INFORMATION: acute on chronic elbow pain COMPARISON: None available. TECHNIQUE: AP, lateral, and oblique views of the left elbow. FINDINGS: The bones and soft tissues are normal. No fracture or joint effusion. Alignment is anatomic. Joint spaces are maintained. XR/XR elbow LT min 3V IMPRESSION: Normal left elbow. Electronically signed by: Josue Cox MD 05/17/2025 03:13 PM EST Dictated By: Josue Cox MD Signed By: <Electronically signed by Josue Cox MD in OV> 05/17/25 1513 DD/ 1444 TD/TT: 05/17/25 1452 Owner Spa Director: [facility] IMG XR PROCEDURES Final Resul t * (ABNORMAL) Basic Metabolic Panel (05/17/2025 2:06 PM EST) Sodium 136 135 - 145 mmol/L [facility] Potassium 3.6 3.3 - 5.1 mmol/L [facility] Chloride 103 96 - 108 mmol/L [facility] Carbon Dioxide 27 22 - 29 mmol/L [facility] Anion Gap 10(L) 12 - 20 [facility] Urea Nitrogen (BUN) 15 9 - 16 mg/dL [facility] Creatinine, Serum 0.96 0.5 - 1.4 mg/dL [facility] Estimated Glomerular Filt Rate >60 [facility] Comment:Chronic Kidney Disea se: Estimated GFR < 60 mL/min/[id number] Kidney Disease: Estimated GFR < 15 mL/min/1.73m2 Glucose 162(H) 60 - 115 mg/dL [facility] Calcium 9.3 8.4 - 10.2 mg/dL [facility] Blood Venous blood specimen / Unknown 05/17/2025 2:06 PM EST 05/17/2025 3:55 PM EST [facility] LAB BLOOD ORDERABLES Final Re sult Performing Organization Address [facility] Co de Phone Number [facility] [address] [place] [address] [phone] * (ABNORMAL) Lipid Panel, Standard (05/17/2025 2:06 PM EST) Triglycerides 210(H) <150 mg/dL [facility] Comment:Slight Lipemia.Jeanna able Triglyceride: less than 150 mg/dLBorderline High Triglyceride 150-199 mg/dLHigh Triglyceride: 200-499 mg/dLVery High Triglyceride: greater than or equal to 5OO mg/dL Cholesterol 118 <200 mg/dL [facility] Comment:Desirable Cholestero l: less than 200 mg/dLBorderline High Cholesterol: 200-239 mg/dLHigh Cholesterol: greater than 239 mg/dL LDL Cholesterol Calculated 40 <100 mg/dL [facility] Comment:Desirable LDL: less than 100 mg/dLNear Optimal/Above Optimal LDL: 110- 129 mg/dLBorderline High LDL: 130-159 mg/dLHigh LDL: 160-189 mg/dLVery High LDL: greater than or equal to 190 mg/dL HDL Cholesterol 36(L) >40 mg/dL [facility] Comment:Desirable HDL: great er than 40 mg/dL Note: This HDL assay may give artificially low results in patients with liver disease. Blood Venous blood specimen / Unknown 05/17/2025 2:06 PM EST 05/17/2025 3:55 PM EST [facility] LAB BLOOD ORDERABLES Final Re sult Performing Organization Address City/[facility]/ZIP Co de Phone Number [facility] [address] [place] [address] [phone] * POCT Hgb A1c (05/16/2025 11:22 AM EST) Hemoglobin A1C 5.5 4.0 - 5.7 % QC Media Lot # [id number] Lot# Expiration Date ,027 Blood 05/16/2025 11:2 2 AM EST [facility] POINT OF CARE TEST ENTER/EDIT ORDERABLES Final Result * POCT Glucose (05/16/2025 11:20 AM EST) Glucose Blood, POC 174 60 - 200 mg/dL QC Media Lot # [id number] Lot# Expiration Date 3,026 Blood Capillary blood specimen / Unknown 05/16/2025 11:20 AM EST [facility] POINT OF CARE TEST ENTER/EDIT ORDERABLES Final Result documented in this encounter Visit Diagnoses Diagnosis Eczema, unspecified type- Primary Type 2 diabetes mellitus with hyperglycemia, without long-term current use of insulin (HCC) Tinea pedis of both feet Chronic elbow pain, left Encounter for vaccination Encounter for immunization documented in this encounter Additional Health Concerns Assessment Noted Time PHQ-9 Depression Total Score: 0 05/16/20 25 11:19 AM EST documented as of this encounter Care Teams Catalog Library Assistant Relationship Specialty Start Date End Date [facility] [address] [place] [address] PCP - General Family Medicine 03/11/22 documented as of this encounter
--- NOTE | ~2025-05-17 | XR_ITS ---
EXAMINATION: XR ELBOW, LEFT CLINICAL INFORMATION: acute on chronic elbow pain COMPARISON: None available. TECHNIQUE: AP, lateral, and oblique views of the left elbow. FINDINGS: The bones and soft tissues are normal. No fracture or joint effusion. Alignment is anatomic. Joint spaces are maintained. XR/XR elbow LT min 3V IMPRESSION: Normal left elbow. Electronically signed by: Josue Cox MD 05/17/2025 03:13 PM [facility] [place]
[2025-05-17 16:38] LABS: Anion Gap 10 (12-20); Blood Urea Nitrogen 15 mg/dL (9-16); Calcium 9.3 mg/dL (8.4-10.2); Carbon Dioxide 27 mmol/L (22-29); Chloride 103 mmol/L (96-108); Cholesterol 118 mg/dL (<200); Estimated Glomerular Filt Rate > 60; HDL Cholesterol 36 mg/dL (>40); Potassium 3.6 mmol/L (3.3-5.1); Sodium 136 mmol/L (135-145); Triglycerides 210 mg/dL (<150)
--- OUTSIDE RECORDS SUMMARY | 2025-05-17 17:05 | XMS_ITS | Encounter Summary ---
Author Organization [employer] Address [address] [place] [address] Care Team Providers Care Bleach Supervisor Name Role Phone [facility] Primary Care Provider [phone] Reason for Visit * Reason Comments Med Refill Encounter Details Date Type Department Care Team (Late Contact Info) Description 12/13/2022 Refill [facility] MEDICINE [address] [place] [address] [facility] [address] [place] [address] Eczema of right external ear Social History [...] Encounters Date Type Department Care Team (Late Contact Info) Description 07/25/2025 11:00 AM EST Office Visit [facility] OPTOMETRY [address] [place] [address] Nina العلي, OD [address] [place] [address] documented as of this encounter Visit Diagnoses Diagnosis Eczema of right external ear documented in this encounter Additional Health Concerns Assessment Noted Time PHQ-9 Depression Total Score: 0 11/08/19 23 9:20 AM EDT documented as of this encounter Care Teams Bleach Supervisor Relationship Specialty Start Date End Date Riri Corrigan FNP [address] [place] [address] PCP - General Family Medicine 03/11/22 documented as of this encounter
--- OUTSIDE RECORDS SUMMARY | 2025-05-17 17:05 | XMS_ITS | Encounter Summary ---
Author Organization [employer] Address [address] [place] [address] Care Team Providers Care Linter Tender Name Role Phone [facility] Primary Care Provider [phone] Reason for Visit * Reason Onset Date Comments Med Refill 06/13/2023 Encounter Details Date Type Department Care Team ([facility] st Contact Info) Description 06/13/2023 Telephone [facility] MEDICINE [address] [place], [place] [phone] [facility] [address] [place] [address] Med Refill Social History Tobacco Use Types [...] Description 07/25/2025 11:00 AM EST Office Visit [facility] OPTOMETRY [address] [place] [address] Nina العلي, OD [address] [place] [address] documented as of this encounter Visit Diagnoses Not on filedocumented in this encounter Additional Health Concerns Assessment Noted Time PHQ-9 Depression Total Score: 0 02/07/20 23 1:48 PM EDT documented as of this encounter Care Teams Linter Tender Relationship Specialty Start Date End Date Riri Corrigan FNP [address] [place] [address] PCP - General Family Medicine 03/11/22 documented as of this encounter
--- OUTSIDE RECORDS SUMMARY | 2025-05-17 17:05 | XMS_ITS | Encounter Summary ---
Author Organization [employer] Address [address] [place] [address] [place] [address] Care Team Providers Care Financial Services Representative Name Role Phone Riri Corrigan ADOPTION SPECIALIST Primary Care Provider [phone] Reason for Visit * Reason Comments Med Refill Encounter Details Date Type Department Care Team (Late Contact Info) Description 11/13/2022 Refill [facility] MEDICINE [address] [place], [place] [phone] Jamar Jesus AGNP Cellulitis of right thumb [...] Description 07/25/2025 11:00 AM EST Office Visit [facility] OPTOMETRY [address] [place], [place] [phone] Nina العلي, OD [address] [place], [place] [phone] documented as of this encounter Visit Diagnoses Diagnosis Cellulitis of right thumb documented in this encounter Additional Health Concerns Assessment Noted Time PHQ-9 Depression Total Score: 0 11/08/19 23 9:20 AM EDT documented as of this encounter Care Teams Financial Services Representative Relationship Specialty Start Date End Date Riri Corrigan FNP [address] [place] [address] PCP - General Family Medicine 03/11/22 documented as of this encounter
--- OUTSIDE RECORDS SUMMARY | 2025-05-17 17:05 | XMS_ITS | Encounter Summary ---
Author Organization [employer] Address [address] [place] [address] [address] [address] Care Team Providers Care Work Ticket Distributor Name Role Phone Riri Corrigan METAL FILER Primary Care Provider [phone] Encounter Details Date Type Department Care Team (Late Contact Info) Description 11/13/2022 Orders Only [facility] MEDICINE [address] [place], [place] [phone] Chika Merlos LPN Social History Tobacco Use [...] Description 07/25/2025 11:00 AM EST Office Visit [facility] OPTOMETRY [address] [place] [address] Nina العلي, OD [address] [place] [address] documented as of this encounter Visit Diagnoses Not on filedocumented in this encounter Additional Health Concerns Assessment Noted Time PHQ-9 Depression Total Score: 0 11/08/19 23 9:20 AM EDT documented as of this encounter Care Teams Work Ticket Distributor Relationship Specialty Start Date End Date Riri Corrigan FNP [address] [place] [address] PCP - General Family Medicine 03/11/22 documented as of this encounter
--- OUTSIDE RECORDS SUMMARY | 2025-05-17 17:05 | XMS_ITS | Encounter Summary ---
Author Organization [employer] Address [address] [place] [address] Care Team Providers Care Velvet Steamer Name Role Phone [place] [facility] Primary Care Provider [phone] Reason for Visit * Reason Onset Date Comments Reschedule 04/28/2023 Encounter Details Date Type Department Care Team ([facility] st Contact Info) Description 04/28/2023 Telephone [facility] CHC MED & PEDS [address] [place], [place] [phone] [facility] [address] [place] [address] Reschedule Social History Tobacco Use Types Packs/Day [...] Description 07/25/2025 11:00 AM EST Office Visit [facility] OPTOMETRY [address] [place] [address] Nina العلي, OD [address] [place] [address] documented as of this encounter Visit Diagnoses Not on filedocumented in this encounter Additional Health Concerns Assessment Noted Time PHQ-9 Depression Total Score: 0 02/07/20 23 1:48 PM EDT documented as of this encounter Care Teams Velvet Steamer Relationship Specialty Start Date End Date Riri Corrigan FNP [address] [place] [address] PCP - General Family Medicine 03/11/22 documented as of this encounter
--- OUTSIDE RECORDS SUMMARY | 2025-05-17 17:05 | XMS_ITS | Encounter Summary ---
Author Organization [employer] Address [address] [place] [address] Care Team Providers Care Blind Aide Name Role Phone Riri Corrigan Primary Care Provider [phone] Encounter Details Date Type Department Care Team (Latest Contact Info) Description 08/22/2021 Abstract [facility] CONVERSIONS Dental, Provider, DDS Social History [...] Description 07/25/2025 11:00 AM EST Office Visit [facility] OPTOMETRY [address] [place] [address] Nina العلي, OD [address] [place] [address] documented as of this encounter Visit Diagnoses Not on filedocumented in this encounter Care Teams Blind Aide Relationship Specialty Start Date End Date Riri Corrigan FNP [address] [place] [address] PCP - General Family Medicine 03/11/22 documented as of this encounter
--- OUTSIDE RECORDS SUMMARY | 2025-05-17 17:05 | XMS_ITS | Encounter Summary ---
Author Organization [employer] Address [address] [place] [address] Care Team Providers Care Disc Jockey Name Role Phone Riri Corrigan BRAKE REPAIR SUPERVISOR Primary Care Provider [phone] Reason for Visit * Reason Comments Med Refill Encounter Details Date Type Department Care Team ([facility] st Contact Info) Description 02/18/2024 Refill [facility] MEDICINE [address] [place] [address] Vivien Maxwell MD [address] [place] [address] Social History Tobacco Use Types Packs/Day Years [...] 11:00 AM EST Office Visit [facility] OPTOMETRY [address] [place], [place] [phone] Nina العلي, OD [address] [place] [address] documented as of this encounter Visit Diagnoses Not on filedocumented in this encounter Additional Health Concerns Assessment Noted Time PHQ-9 Depression Total Score: 0 02/07/20 23 1:48 PM EDT documented as of this encounter Care Teams Disc Jockey Relationship Specialty Start Date End Date Riri Corrigan FNP [address] [place] [address] PCP - General Family Medicine 03/11/22 documented as of this encounter
--- OUTSIDE RECORDS SUMMARY | 2025-05-17 17:05 | XMS_ITS | Encounter Summary ---
Author Organization [employer] Address [address] [place] [address] 7 [place] [address] Care Team Providers Care Payment Collector Name Role Phone Riri Corrigan [employer] Primary Care Provider [phone] Encounter Details Date Type Department Care Team (Latest Contact Info) Description 05/16/2025 Travel Social History Tobacco Use Types Packs/Day [...] AM EDT documented as of this encounter Functional Status * Over the past 2 weeks, how often have you been bothered by any of the following problems? Question Answer Date of Assessment Author Patient Health Questionnaire -2 Score 0 05/16/2025 11:19 AM Jodie Hou [place] * Little interest or pleasure in doing things Answer Date of Assessment Author Not at all 05/16/2025 11:19 AM Jodie Hou [place] * Feeling down, depressed, or hopeless [...] MA Trouble relaxing 0 05/16/2025 11:19 AM Jodie Hou [place] Being so restless that it is [...] Description 07/25/2025 11:00 AM EST Office Visit [facility] OPTOMETRY [address] [place] [address] Nina العلي OD [address] [place] [address] documented as of this encounter Visit Diagnoses Not on filedocumented in this encounter Additional Health Concerns Assessment Noted Time PHQ-9 Depression Total Score: 0 05/16/20 25 11:19 AM EST documented as of this encounter Care Teams Payment Collector Relationship Specialty Start Date End Date [place] RUTH Menezes [address] [place] [address] PCP - General Family Medicine 03/11/22 documented as of this encounter
--- OUTSIDE RECORDS SUMMARY | 2025-05-17 17:05 | XMS_ITS | Encounter Summary ---
Author Organization [employer] Address [address] [place] [address] Care Team Providers Care Planner Internship Name Role Phone [place] [facility] Primary Care Provider [phone] Reason for Visit * Reason Onset Date Comments Med Refill 05/17/2025 Encounter Details Date Type Department Care Team (Late st Contact Info) Description 05/17/2025 Refill [facility] CHC MED & PEDS [address] [place] [address] [facility] [address] [place] [address] Eczema, unspecified type Social History Tobacco Use Types Packs/Day Years [...] encounter Miscellaneous Notes * Telephone Encounter - Chika Merlos LPN - 05/17/2025 1:26 PM EST Corrected quantity on script documented in this encounter Plan of Treatment Upcoming Encounters Date Type Department Care Team (Late st Contact Info) Description 07/25/2025 11:00 AM EST Office Visit [facility] OPTOMETRY [address] [place] [address] Nina العلي, OD [address] [place] [address] documented as of this encounter Visit Diagnoses Diagnosis Eczema, unspecified type documented in this encounter Additional Health Concerns Assessment Noted Time PHQ-9 Depression Total Score: 0 05/16/20 25 11:19 AM EST documented as of this encounter Care Teams Planner Internship Relationship Specialty Start Date End Date Riri Corrigan FNP [address] [place] [address] PCP - General Family Medicine 03/11/22 documented as of this encounter
--- OUTSIDE RECORDS SUMMARY | 2025-05-17 17:05 | XMS_ITS | Clinical Summary ---
Author Organization [facility] Address [address] [place] [address] Phone Care Team Providers Care Employee Benefits Specialist Name Role Phone [place] Riri Primary Care Provider Allergies No known active allergies Medications polyethylene [...] mmol/L LAB CHEMISTRY METHOD 10/10/2024 5:58 AM [facility] Potassium 3.9 3.5 - 5.5 mmol/L LAB CHEMISTRY METHOD 10/10/2024 5:58 AM [facility] Chloride 103 96 - 110 mmol/L LAB CHEMISTRY METHOD 10/10/2024 5:58 AM [facility] CO2 22 21 - 32 mmol/L LAB CHEMISTRY METHOD 10/10/2024 5:58 AM [facility] Anion Gap 9 3 - 11 LAB CHEMISTRY METHOD 10/10/2024 5:58 AM [facility] Glucose 133(H) 70 - 100 mg/dL LAB CHEMISTRY METHOD 10/10/2024 5:58 AM [facility] BUN 23 5 - 25 mg/dL LAB CHEMISTRY METHOD 10/10/2024 5:58 AM [facility] Creatinine 1.43(H) 0.70 - 1.30 mg/dL LAB CHEMISTRY METHOD 10/10/2024 5:58 AM [facility] eGFR 60 >=60 mL/min/1. 73m2 LAB CHEMISTRY METHOD 10/10/2024 5:58 AM [facility] Comment:Calculation based on the Chronic Kidney Disease Epidemiology Collaboration (CKD-EPI) equation refit without adjustment for race. BUN/Creatinine Ratio 16.1 LAB CHEMISTRY METHOD 10/10/2024 5:58 AM [facility] Calcium 9.7 8.5 - 10.5 mg/dL LAB CHEMISTRY METHOD 10/10/2024 5:58 AM [facility] AST (SGOT) 19 10 - 42 unit/L LAB CHEMISTRY METHOD 10/10/2024 5:58 AM [facility] ALT (SGPT) 35 10 - 60 unit/L LAB CHEMISTRY METHOD 10/10/2024 5:58 AM [facility] Alkaline Phosphatase 96 42 - 121 unit/L LAB CHEMISTRY METHOD 10/10/2024 5:58 AM EDT [facility] Total Protein 7.6 6.0 - 8.0 g/dL LAB CHEMISTRY METHOD 10/10/2024 5:58 AM EDT [facility] Albumin 3.9 3.2 - 5.0 g/dL LAB CHEMISTRY METHOD 10/10/2024 5:58 AM EDT [facility] Total Bilirubin 1.0 0.0 - 1.4 mg/dL LAB CHEMISTRY METHOD 10/10/2024 5:58 AM EDT [facility] Blood Venous blood specimen / Unknown Venipuncture / Unknown 10/10/2024 4:46 AM EDT 10/10/2024 5:12 AM EDT Leila Saez MD LAB BLOOD ORDERABLES Fin al Result [facility] [address] [place] [address], from Last 3 Months or Most Recently Relevant to Health Maintenance Additional Health Concerns Infection Onset Date Last Indicated Coronavirus 08/14/2024 08/14/2024 Insurance MEDICAID - [place] MEDICARE Care Teams Employee Benefits Specialist Relationship Specialty Start Date End Date [facility] [address] [place] [phone] PCP - General 03/30/24
--- OUTSIDE RECORDS SUMMARY | 2025-05-17 17:05 | XMS_ITS | Encounter Summary ---
Author Organization [employer] Address [address] [place] [address] Care Team Providers Care Airbrush Artist Photography Name Role Phone [facility] Primary Care Provider [phone] Reason for Visit * Reason Onset Date Comments Appointment Request 09/22/2023 Encounter Details Date Type Department Care Team ([facility] st Contact Info) Description 09/22/2023 Telephone [facility] MEDICINE [address] [place], [place] [phone] [facility] [address] [place] [address] Appointment Request Social History Tobacco Use Types [...] Description 07/25/2025 11:00 AM EST Office Visit [facility] OPTOMETRY [address] [place] [address] Nina العلي, OD [address] [place] [address] documented as of this encounter Visit Diagnoses Not on filedocumented in this encounter Additional Health Concerns Assessment Noted Time PHQ-9 Depression Total Score: 0 02/07/20 23 1:48 PM EDT documented as of this encounter Care Teams Airbrush Artist Photography Relationship Specialty Start Date End Date Riri Corrigan FNP [address] [place] [id number] PCP - General Family Medicine 03/11/22 documented as of this encounter
--- OUTSIDE RECORDS SUMMARY | 2025-05-17 17:05 | XMS_ITS | Encounter Summary ---
Author Organization [employer] Address [address] [place] [address] Care Team Providers Care Bronc Buster Name Role Phone Riri Corrigan [facility] Primary Care Provider [phone] Reason for Visit * Reason Onset Date Comments Triage 10/15/2022 Encounter Details Date Type Department Care Team ([facility] st Contact Info) Description 10/15/2022 Telephone [facility] MEDICINE [address] [place], [place] [phone] [facility] [address] [place] [address] Triage Social History Tobacco Use Types Packs/Day [...] accepted this outcome Please contact pt at [phone] documented in this encounter Plan of Treatment Upcoming Encounters Date Type Department Care Team (Late st Contact Info) Description 07/25/2025 11:00 AM EST Office Visit [facility] OPTOMETRY [address] [place] [address] Nina العلي, OD [address] [place] [address] documented as of this encounter Visit Diagnoses Not on filedocumented in this encounter Additional Health Concerns Assessment Noted Time PHQ-9 Depression Total Score: 0 08/06/19 23 2:09 PM EST documented as of this encounter Care Teams Bronc Buster Relationship Specialty Start Date End Date Riri Corrigan FNP [address] [place] [phone] PCP - General Family Medicine 03/11/22 documented as of this encounter
--- OUTSIDE RECORDS SUMMARY | 2025-05-17 17:06 | XMS_ITS | Encounter Summary ---
Author Organization [employer] Address [address] [place] [address] [address], [place] [address] Care Team Providers Care Compensator Worker Name Role Phone Riri Corrigan [facility] Primary Care Provider [phone] Reason for Referral * Imaging (Routine) - Closed Specialty Diagnoses / Procedures Referred By Stewart saeed Referred To Contact Radiology Diagnoses Liver enzyme elevation Procedures US Abdomen Complete Pa Rodriguez MD [address] [place] [address] Phone: tel: fax: [facility] [address] [place] [address] Phone: tel: fax: Referral ID Status Reason Start Date Expiration Date Visits Re quested Visits Authorized [id number] Closed 06/11/2023 06/10/2024 1 1 Encounter Details Date Type Department Care Team (Late st Contact Info) Description 06/11/2023 Orders Only [facility] [address] [place] [address] Pa Rodriguez MD [address] [place] [address] Liver enzyme elevation (Primary Dx) Social History [...] Description 07/25/2025 11:00 AM EST Office Visit [facility] OPTOMETRY [address] [place] [address] Nina العلي, OD [address] [place] [address] Scheduled Orders Name Type Priority Associated Diagnoses [...] documented as of this encounter Care Teams Compensator Worker Relationship Specialty Start Date End Date Riri Corrigan FNP [address] [place] [phone] PCP - General Family Medicine 03/11/22 documented as of this encounter
--- OUTSIDE RECORDS SUMMARY | 2025-05-17 17:06 | XMS_ITS | Encounter Summary ---
Author Organization [employer] Address [address] [place] [address] [address] [place] [address] Care Team Providers Care Insurance Sales Professional Name Role Phone Riri Corrigan [facility] Primary Care Provider [phone] Encounter Details Date Type Department Care Team ([facility] st Contact Info) Description 03/15/2025 Results Follow-Up [facility] [address] [place], [place] [phone] [facility] [address] [place] [address] POCT Glucose, POCT HGB A1C, Cologuard colon [...] Description 07/25/2025 11:00 AM EST Office Visit C OPTOMETRY [address] [place] [address] Tarka, Nina, OD [address] [place] [address] documented as of this encounter Visit Diagnoses Not on filedocumented in this encounter Additional Health Concerns Assessment Noted Time PHQ-9 Depression Total Score: 0 02/24/20 25 3:45 PM EDT documented as of this encounter Care Teams Insurance Sales Professional Relationship Specialty Start Date End Date Riri Corrigan FNP [address] [place] [phone] PCP - General Family Medicine 03/11/22 documented as of this encounter
--- OUTSIDE RECORDS SUMMARY | 2025-05-17 17:06 | XMS_ITS | Encounter Summary ---
Author Organization [email or web address] Address [address] [place] [address] Care Team Providers Care Culinary Worker Name Role Phone [facility] Primary Care Provider [phone] Reason for Visit * Reason Onset Date Comments Chart Prep 05/14/2025 Encounter Details Date Type Department Care Team ([facility] st Contact Info) Description 05/14/2025 Telephone [facility] [address] [place], [place] [phone] [facility] [address] [place] [address] Chart Prep Social History Tobacco Use Types Packs/Day Years [...] encounter Miscellaneous Notes * Telephone Encounter - Georgiana Allen [place] - 05/14/2025 8:20 AM EDT Chart Prep Labs: done Images: not applicable Referrals: [facility] [place]-[phone], pending appointment-Derm and [facility] Vaccines due: Covid, Flu, and Hep B Screenings: PISQ Overdue care gaps: A1c, Glucose, PHQ-9, ALBERTO-7, and Disability screen documented in this encounter Plan of Treatment Upcoming Encounters Date Type Department Care Team (Late st Contact Info) Description 07/25/2025 11:00 AM EST Office Visit [facility] OPTOMETRY [address] [place] [address] Nina العلي, OD [address] [place] [address] documented as of this encounter Visit Diagnoses Not on filedocumented in this encounter Additional Health Concerns Assessment Noted Time PHQ-9 Depression Total Score: 0 02/24/20 25 3:45 PM EDT documented as of this encounter Care Teams Culinary Worker Relationship Specialty Start Date End Date Riri Corrigan FNP [address] [place] [address] PCP - General Family Medicine 03/11/22 documented as of this encounter
--- OUTSIDE RECORDS SUMMARY | 2025-05-17 17:06 | XMS_ITS | Clinical Summary ---
Author Organization [employer] Address [address] [place] [id number] Care Team Providers Care Interior Design Teacher Name Role Phone Riri Corrigan TREE KILLER Primary Care Provider [phone] Allergies No known active allergies Medications cholecalciferol [...] complication, without long-term current use of insulin ([facility]) Use as instructed to check [...] complication, without long-term current use of insulin ([facility]) USE TO TEST BLOOD SUGAR [...] complication, without long-term current use of insulin ([facility]) USE DIRECTED TO TEST BLOOD SUGAR ONCE DAILY 100 each 4 025 Active Eliquis 5 MG tablet TAKE 1 TABLET BY MOUTH TWICE DAILY 180 tablet 1 Active Mounjaro 2.5 MG/0.5ML solution auto-injectorIndi cations:Type 2 diabetes mellitus with hyperglycemia, without long-term current use of insulin ([facility]) INJECT 2.5 MG SUBCUTANEOUSLY EVERY WEEK 2 mL 04/22/20 25 4:57 PM EDT 025 Active Fluocinolone Acetonide Scalp ([place]-Smoothe/FS Scalp) 0.01 % oilIndications:Ec zema, unspecified type Massage into scalp nightly 20 mL 1 025 Active clotrimazole (Lotrimin) 1 % creamIndications: Tinea pedis of both feet Apply topically 2 times daily. 28 g 1 025 Active Tirzepatide (Mounjaro) 2.5 MG/0.5ML solution auto-injectorIndi cations:Type 2 diabetes mellitus with hyperglycemia, without long-term current use of insulin ([facility]) Inject 2.5 mg under the skin 1 [...] Hidradenitis suppurativa 12/13/2022 Overview (02/17/2023): Followed by [facility] derm Type 2 diabetes mellitus wit [...] A 03/22/2024 04/20/2024 Atrial fibrillation with RVR (CMS/HCC) 03/22/2024 04/20/2024 Cellulitis of right thumb 10/16/2022 Assessment & Plan (10/17/2022 1:01 PM EDT): Called [facility], they forwarded me to Dr. [...] of right thumb 08/06/2022 08/11/19 Atrial fibrillation (CMS/HCC) 04/09/2021 04/20/2024 Overview (02/17/2023): Followed by cardiology On metoprolol, flecainide, eliquis Cystic acne 04/03/2012 2022 Developmental academic disorder 04/03/2012 2022 Ankle pain 04/03/2012 2022 Encounters Date Type Department Care Team Description 05/17/2025 Refill [facility]ED[facility] [address] [place] [address] Riri Corrigan FNP Eczema, unspecified type 05/16/2025 11:15 AM EST Office Visit [facility] [place] [address] Riri Corrigan FNP Eczema, unspecified type (Primary Dx); Type 2 diabetes mellitus with hyperglycemia, without long-term current use of insulin (HCC); Tinea pedis of both feet; Chronic elbow pain, left; Encounter for vaccination; Encounter for immunization 05/16/2025 Travel 05/14/2025 Telephone [facility] [address] [place] [address] Riri Corrigan FNP Chart Prep 05/09/2025 Travel 05/06/2025 Patient Outreach [facility] [place] [address] Riri Corrigan FNP Pre-visit Planning (SDOH screening was completed on 08/05/2024) 04/29/2025 Telephone [facility] [place] [address] Riri Corrigan FNP Call Back Request 04/27/2025 [address] [address] Riri Corrigan FNP ER Follow-up 04/19/2025 Refill [facility] [place] [address] Riri Corrigan FNP Type 2 diabetes mellitus with hyperglycemia, without long-term current use of insulin (HCC) 04/01/2025 Telephone [facility] [address] [place] [address] Karina Hoang RN Paperwork/Forms 03/16/2025 Refill [facility] [address] [place] [address] [facility] 03/15/2025 Results Follow-Up [facility] [address] [place] [address] [facility] Glucose, POCT HGB A1C, Cologuard colon cancer screening 02/24/2025 Telephone [facility] MEDIC[facility] [address] [place] [address] [facility] Prior Authorization (Medicare [place]: Heather 2.5 MG) 02/23/2025 3:15 PM EDT Office Visit [facility] [address] [place] [address] [facility] Type 2 diabetes mellitus with hyperglycemia, without long-term current use of insulin ([facility]) (Primary Dx); Screening for colon cancer; Mass of finger of right hand; Chalazion left lower eyelid; Eczema, unspecified type 02/23/2025 Travel 02/22/2025 Telephone [facility] [address] [place] [address] [facility] Chart Prep 02/22/2025 Travel from Last 3 Months Immunizations Immunization Administration Dates Next Due Hep B, adult 03/03/2024,05/21/2021 Influenza injectable quadriv alent IIV4 with preservative 06/11/2018 Influenza injectable quadriv alent preservative free 04/09/2021 Influenza, IIV3, injectable 03/29/2011 Influenza, Split (incl. vesta fied surface antigen) 04/19/2013,04/03/2012 Influenza, seasonal, injecta ble, preservative free 05/16/2025,04/20/2024 Pfizer Covid-19 Vaccine 12+ 05/16/2025 Pfizer Covid-19 Vaccine 12+ martha-sucrose (Baumann Cap) [...] your housing situation today? I have madyson eugenai 03/03/[address] you li [...] Mass Index 30.01 05/16/2025 11:17 AM EST Plan of Treatment Upcoming Encounters Date Type Department Care Team (Late st Contact Info) Description 07/25/2025 11:00 AM EST Office Visit [facility] OPTOMETRY [address] [place], [place] [id number] Nina العلي, OD [address] [place] [address] Health Maintenance Due Date Last Done Comments CT Colonography 1975 Colonoscopy 1975 FIT 1975 Sigmoidoscopy 1975 Family Planning (PISQ) 1990 Dental X-Ray: Bitewings 01/28/2018 01/27/2017 Dental Oral Exam 02/12/2022 08/14/2021, 07/2021, 01/27/2017 Dental Prophylaxis 02/20/2022 08/22/2021 Hepatitis B Vaccines (3 of 3 - 19+ 3-dose series) 04/28/2024 03/03/2024, 05/21/2021 Diabetes: Foot Exam 03/03/2025 03/03/2024, Diabetes: Urine Protein Screening 05/21/2025 05/21/2024, 04/09/2021 SDOH Screening 08/05/2025 08/05/2024 Zoster Vaccines (1 of 2) 2025 Alcohol/Substance Use Screening 08/18/2025 08/18/2024 Lipid Panel 08/18/2025 05/17/2025, 02/0 11/2024, 05/21/2024, Additional history exists Diabetes: Hemoglobin A1C 11/13/2025 025, 02/23/2025, 08/18/2024, Additional history exists FOBT 02/28/2026 02/28/2025 Depression Screening 05/16/2026 05/16/2025, 05/16/20 Disability Screening 05/16/2026 05/16/2025 Tobacco Screening 05/16/2026 05/16/2025 Eye Exam 06/04/2026 06/04/2024, 05/15, 06/04/2024, Additional [...] Years Completed 03/03/2024, 05/21/2021 COVID-19 Vaccine Completed 05/16/2025, 11/2023, 09/18/2021, Additional history exists Influenza Vaccine Completed 05/16/2025, , 04/09/2021, Additional history exists HIB Vaccines Aged Out [...] 2:44 PM EST Chronic elbow pain, left BASIC METABOLIC PANEL Routine 05/17/2025 2:06 PM EST Type 2 diabetes mellitus with hyperglycemia, without long-term current use of insulin (HCC) LIPID PANEL, STANDARD Routine 05/17/2025 2:06 PM EST Type 2 diabetes mellitus with hyperglycemia, without long-term current use of insulin (HCC) POCT GLYCATED HEMOGLOBIN, TOTAL Routine 05/16/2025 11:22 AM EST Type 2 diabetes mellitus with hyperglycemia, without long-term current use of insulin (HCC) POCT GLUCOSE Routine 05/16/2025 11:20 AM EST Type 2 diabetes mellitus with hyperglycemia, without long-term current use of insulin (HCC) GROSS AND MICROSCOPIC LEVEL 3 Routine 05/02/2025 [...] Recently Relevant to Health Maintenance Results * XR Elbow 3+ Views Left (05/17/2025 2:44 PM EST) Anatomical Region Laterality Modality Upper Extremities, Elbow Left Radiogr aphic Imaging 05/17/2025 2:44 PM EST Narrative 05/17/2025 3:16 PM EST [address] [address] XRay Report Signed Patient: Michael Hogan MR#: [id number] : 1975 Acct:[id number] Age/Sex: 49 / M ADM Date: 05/17/25 [facility] Attending Dr: Riri Corrigan TREE KILLER Ordering Physician: Riri Corrigan [facility] Date of Service: 05/17/25 Procedure(s): XR elbow LT min 3V Accession Number(s): [id number] cc: Riri Corrigan [facility] Reason for Exam: acute on chronic elbow [...] by Josue Cox MD in OV> 05/17/25 9728 DD/ 1444 TD/TT: 05/17/25 1452 Bean Snipper: Procedure Note Donotuseinterpreter, Image - 05/17/[address] [address] XRay Report Signed Patient: Michael HoganMR#: [id number] : 1975Acct:[id number] Age/Sex: 49 / MADM Date: 05/17/25 [facility]: [facility] Attending Dr: Riri MIRANDA Ordering Physician: Riri Corrigan Date of Service: 05/17/25 Procedure(s): XR elbow LT min 3V Accession Number(s): [id number] cc: Riri Corrigan [facility] Reason for Exam: acute on chronic elbow [...] 05/17/25 1513 DD/ 1444 TD/TT: 05/17/25 1452 Bean Snipper: [facility] IMG XR PROCEDURES Final Resul t * (ABNORMAL) Lipid Panel, Standard (05/17/2025 2:06 PM EST) Triglycerides 210(H) <150 mg/dL [facility] Comment:Slight Lipemia.Jeanna able Triglyceride: less than 150 mg/dLBorderline High Triglyceride 150-199 mg/dLHigh Triglyceride: 200-499 mg/dLVery High Triglyceride: greater than or equal to 5OO mg/dL Cholesterol 118 <200 mg/dL [facility] Comment:Desirable Cholestero l: less than 200 mg/dLBorderline High Cholesterol: 200-239 mg/dLHigh Cholesterol: greater than 239 mg/dL LDL Cholesterol Calculated 40 <100 mg/dL [facility] Comment:Desirable LDL: less than 100 mg/dLNear Optimal/Above Optimal LDL: 110- 129 mg/dLBorderline High LDL: 130-159 mg/dLHigh LDL: 160-189 mg/dLVery High LDL: greater than or equal to 190 mg/dL HDL Cholesterol 36(L) >40 mg/dL [facility] Comment:Desirable HDL: great er than 40 mg/dL Note: This HDL assay may give artificially low results in patients with liver disease. Blood Venous blood specimen / Unknown 05/17/2025 2:06 PM EST 05/17/2025 3:55 PM EST [facility] LAB BLOOD ORDERABLES Final Re sult [facility] [address] [place] [address] [phone] * (ABNORMAL) Basic Metabolic Panel (05/17/2025 2:06 PM EST) Sodium 136 135 - 145 mmol/L [facility] Potassium 3.6 3.3 - 5.1 mmol/L [facility] Chloride 103 96 - 108 mmol/L [facility] Carbon Dioxide 27 22 - 29 mmol/L [facility] Anion Gap 10(L) 12 - 20 [facility] Urea Nitrogen (BUN) 15 9 - 16 mg/dL [facility] Creatinine, Serum 0.96 0.5 - 1.4 mg/dL [facility] Estimated Glomerular Filt Rate >60 [facility] Comment:Chronic Kidney Disea se: Estimated GFR < 60 mL/min/1.89d0Wdfftz Kidney Disease: Estimated GFR < 15 mL/min/1.73m2 Glucose 162(H) 60 - 115 mg/dL [facility] Calcium 9.3 8.4 - 10.2 mg/dL [facility] Blood Venous blood specimen / Unknown 05/17/2025 2:06 PM EST 05/17/2025 3:55 PM EST [facility] LAB BLOOD ORDERABLES Final Re sult [facility] [address] [place] [address] [phone] * POCT Hgb A1c (05/16/2025 11:22 AM EST) Only the most recent of2 resultswithin the time period is included. Hemoglobin A1C 5.5 4.0 - 5.7 % QC Media Lot # [id number] Lot# Expiration Date 5,027 Blood 05/16/2025 11:2 2 AM EST [facility] POINT OF CARE TEST ENTER/EDIT ORDERABLES Final Result * POCT Glucose (05/16/2025 11:20 AM EST) Only the most recent of2 resultswithin the time period is included. Glucose Blood, POC 174 60 - 200 mg/dL QC Media Lot # [id number] Lot# Expiration Date 3,026 Blood Capillary blood specimen / Unknown 05/16/2025 11:20 AM EST [facility] POINT OF CARE TEST ENTER/EDIT ORDERABLES Final Result * Gross and Microscopic Level 3 (05/02/2025 10:44 AM EDT) 05/02/2025 10:4 4 AM EDT 05/02/2025 12:06 PM EDT Narrative [facility] - 05/04/2025 11:14 AM EDT ----- ------- Name: Antonmarchi,Michael Age/Sex: 49/M [facility] 1975 [id number] Unit#: [id number] Attend Dr: Oralia Campos MD Re05/02/25 Status: [facility] Location: [facility] Disch: ----- ------- SPEC : [id number] RECD: 05/02/25 STATUS: MONICA ZULETA NUM: [id number] REHANA: 05/02/[address] [facility] [address]: Oralia Campos MD ENTERED: 05/02/25 SP TYPE: Surgical OTHR DR: Riri Corrigan TREE KILLER ORDERED: Gross Micro L3 Diagnosis Soft tissue, [...] microscopic examination, 4 pieces in cassette A1. ([facility]) IHC S/NG Disclaimer NOTE: Unless otherwise stated, all tissue is formalin-fixed and paraffin-embedded. Some or all of the immunohistochemical tests reported herein may have been developed and their performance characteristics determined by [facility]. They have not been cleared or approved by the U.S. Food and Drug Administration (FDA). However, the FDA has determined that such clearance or approval is not necessary. This laboratory is certified under the Clinical Laboratory Improvement Amendments of 1988 (CLIA) as qualified to perform high complexity clinical laboratory testing. Copies To: Oralia Campos MD [facility] [address] [place] [address] [address] [place] [address] CONTINUED ON NEXT PAGE ----- ------- Name: Michael Hogan Age/Sex: 49/M : 1975 Unit#: [id number] Attend Dr: Oralia Campos MD Re05/02/25 Status: [facility] Location: [facility] Disch: ----- ------- SPEC : [id number] RECD: 05/02/25 STATUS: MONICA MERLYN NUM: [id number] REHANA: 05/02/[address] [facility] [address]: Oralia Campos MD ENTERED: 05/02/251212 SP TYPE: Surgical OTHR DR: Riri Corrigan ORDERED: Gross Micro L3 Copies To: (Continued) Riri Corrigan [address] [address] ----- ------- Signed (signature on file) Bridger Lindsey MD 05/04/25 1114 ----- ------- END OF REPORT us Generic External Data Provider LAB CYTOLOGY PUSHPA DOZIER Final Result [facility] [address] [place] [phone] * Cologuard?? colon cancer screening (02/28/2025 5:48 AM EDT) Cologuard Result Negative Negative 03/04/20 11:48 AM EDT [facility] (CLIA #:[id number]) Comment: The Cologuard Plus (TM) test was performed on this specimen. NEGATIVE TEST RESULT. A negative (normal) Cologuard Plus result means the patient has a czyu-bkqe-vpecyyu chance of having colorectal cancer (CRC) or [...] a 91% specificity (Cologuard Plus Clinician Brochure. [employer]. [place], [place] Visit [email or web address].Docstoc/about/tmhwpzbq-gwqvtdijqzm-bjjafuwiosz for more test information, references, warnings, and precautions. Stool specimen (specimen) 02/28/2025 5:48 AM EDT 03/01/2025 11:09 AM EDT [facility] MOLECULAR DIAGNOSTICS ORD ERABLES Final Result [facility] (CLIA #:[id number]) [address] [place] [address], * (ABNORMAL) Albumin, Random Urine W/Creatinine (05/21/2024 4:46 PM EST) Creatinine, Urine 279.27 mg/dL [facility] Microalbumin Urine 125.0 mg/L [facility] Microalbum Creatinine Ratio Ur 44.7(H) <30 ug/mg cr [facility] Comment:Albumin/Creatinine R atio Reference Ranges: Normal: < 30 ug/mg creatinine Microalbuminuria: 30 - 300 ug/mg creatinineClinical Albuminuria: > 300 ug/mg creatinine Urine 05/21/2024 4:46 PM EST 05/21/2024 5:56 PM EST [facility] URINE ORDERABLES Final Re sult Performing Organization Address City/[facility]/ZIP Co de Phone Number [facility] [address] [place] [address] [phone] * Hepatitis Panel, General (02/17/2023 11:49 AM EDT) Hepatitis A IgM Nonreactive Nonreactive [facility] Comment:IgM antibodies to BUNDY V not detected; does not exclude earlyacute or recovered HAV infection. ~Hepatitis B Surface Antibody NONREACTIVE Nonreactive [facility] Comment:Nonreactive: < 8.00 mIU/mL Hepatitis B Core Antibody Nonreactive Nonreactive [facility] Hepatitis C Antibody Nonreactive Nonreactive [facility] Comment:Antibodies to HCV no t detected; does not exclude early acuteHCV infection. Hepatitis B Surface Ag Negative Negative [facility] Blood 02/17/2023 11:4 9 AM EDT 02/17/2023 2:16 PM EDT [facility] LAB BLOOD ORDERABLES Final Re sult Performing Organization Address [facility]/ZIP Co de Phone Number [facility] [address] [place] [address] [phone] * HIV 1/2 ANTIGEN/ANTIBODY,FOURTH GENERATION W/RFL [...] purpose. For additional information please refer to http://education.XM Radio/faq/VZL049 (This link is being provided for informational/ educational purposes only.) The performance of this assay has not been clinically validated in patients less than 2 years old. 04/09/2021 2:44 PM EDT us Deborah Shari TREE KILLER LAB BLOOD ORDERABLES Final Res ult [facility] [address] from Last 3 Months or Most Recently Relevant to Health Maintenance Insurance [facility]ANDARD [place] [phone] [facility] MED[facility] STAND ADULT Care Teams Interior Design Teacher Relationship Specialty Start Date End Date Riri Corrigan FNP [address] [place] [phone] PCP - General Family Medicine 03/11/22
[2025-05-17 17:44] LABS: Microalbum/Creatinine Ratio Ur 22.2 ug/mg cr (<30)
== END 2025-05-17 14:03 | disposition home or self-care (01) ==
LOC: HO.HHCL 14:02
PROVIDERS: PCP Registered Nurse; Visit Provider Registered Nurse
DX: G89.29 Other chronic pain (principal); M25.522 Pain in left elbow; E11.65 Type 2 diabetes mellitus with hyperglycemia
CPT/HCPCS: 36415; 73080; 80048; 80061; 82043; 82570

== ENCOUNTER → 2025-05-17 14:24 | Outpatient (BNV) | payer MEDICARE, MEDICAID, SELFPAY | PROVIDERS: PCP Registered Nurse; Visit Provider Radiology Diagnostic Radiology | DX: M25.522 Pain in left elbow (principal) | CPT/HCPCS: 73080 ==